=== PATIENT | female | born 1995 | race Caucasian/White ===

== ENCOUNTER 2016-09-09 17:54 | Inpatient (IN) | payer OTHER ==
[2016-09-09] MEDS ORDERED: NORMAL SALINE 1000 ML 1,000 ML IV ONE ×2 (18:34→21:30)
--- NOTE | 2016-09-09 18:41 | ER Document Report ---
ED Medical Screen (RME) - General Chief Complaint: Thigh Pain Stated Complaint: THIGH INFECTION Mode of Arrival: Ambulatory Information source: Patient Notes: 21 y/o F presents to ED c/o possible abscess/skin infection to left thigh over the last week. Also reports hx type 1 DM and states feels dehydrated similar to previous episodes of DKA. Denies sob, n/v. I have greeted and performed a rapid initial assessment of this patient. A comprehensive ED assessment and evaluation of the patient, analysis of test results and completion of the medical decision making process will be conducted by additional ED providers. TRAVEL OUTSIDE OF THE [place] IN LAST 30 DAYS: No - Related Data Allergies/Adverse Reactions: amoxicillin [Amoxicillin] Allergy (Verified 09/09/16 18:32) Past Medical History Endocrine Medical History: Reports: Hx Diabetes Mellitus Type 1 Psychiatric Medical History: Reports: Hx Attention Deficit Hyperactivity Disorder Denies: Hx Depression - Immunizations Immunizations up to date: Yes Hx Diphtheria, Pertussis, Tetanus Vaccination: Yes Physical Exam - General General appearance: Alert In distress: None - Respiratory Respiratory status: No respiratory distress - Cardiovascular Rhythm: Regular, Tachycardia Pulses: Normal: Radial Normal capillary refill: Yes
[2016-09-09 19:21] LABS: VENOUS BLOOD BASE EXCESS -11.1 mmol/L; VENOUS BLOOD HCO3 14.6 mmol/L (20-32); VENOUS BLOOD PCO2 32.3 mmHg (35-63); VENOUS BLOOD PH 7.27 (7.30-7.42)
[2016-09-09 19:24] LABS: ABSOLUTE BASOPHILS # (AUTO) 0.1 10^3/uL (0.0-0.2); ABSOLUTE EOSINOPHILS # (AUTO) 0.1 10^3/uL (0.0-0.6); ABSOLUTE LYMPHOCYTES (AUTO) 2.2 10^3/uL (0.5-4.7); ABSOLUTE MONOCYTES (AUTO) 1.1 10^3/uL (0.1-1.4); ABSOLUTE NEUT (AUTO) 12.5 10^3/uL (1.7-8.2); BASOPHILS % (AUTO) 0.6 % (0-2); EOSINOPHILS % (AUTO) 0.4 % (0-6); HEMATOCRIT 40.7 % (36.0-47.0); HEMOGLOBIN 13.4 g/dL (12.0-15.5); HGB HCT DIFFERENCE -0.5; LYMPHOCYTES % (AUTO) 13.7 % (13-45); MEAN CORPUSCULAR HEMOGLOBIN 32.3 pg (27.0-33.4); MEAN CORPUSCULAR VOLUME 98 fl (80-97); MONOCYTES % (AUTO) 7.1 % (3-13); RED BLOOD COUNT 4.15 10^6/uL (3.72-5.28); RED CELL DISTRIBUTION WIDTH 13.2 % (11.5-14.0); SEGMENTED NEUTROPHILS % (AUTO) 78.2 % (42-78)
[2016-09-09 19:25] LABS: APPEARANCE,URINE CLEAR; BILIRUBIN,URINE NEGATIVE (NEGATIVE); GLUCOSE, URINE >=500 mg/dL (NEGATIVE); KETONES,URINE 80 mg/dL (NEGATIVE); LEUKOCYTE ESTERASE,URINE TRACE (NEGATIVE); NITRITE,URINE NEGATIVE (NEGATIVE); PROTEIN,URINE 30 mg/dL (NEGATIVE); UROBILINOGEN,URINE NEGATIVE mg/dL (<2.0)
[2016-09-09 19:38] LABS: ALANINE AMINOTRANSFERASE 55 U/L (9-52); ALBUMIN 5.1 g/dL (3.5-5.0); ALKALINE PHOSPHATASE 234 U/L (38-126); ASPARTATE AMINO TRANSFERASE 78 U/L (14-36); BILIRUBIN,TOTAL 0.7 mg/dL (0.2-1.3); BLOOD UREA NITROGEN 12 mg/dL (7-20); CALCIUM 10.5 mg/dL (8.4-10.2); CREATININE RESULT 0.64 mg/dL (0.52-1.25); GLUCOSE 326 mg/dL (75-110); TOTAL PROTEIN 8.6 g/dL (6.3-8.2)
[2016-09-09 19:46] LABS: CARBON DIOXIDE 13 mmol/L (22-30); CHLORIDE 95 mmol/L (98-107); POTASSIUM 4.5 mmol/L (3.6-5.0); SODIUM 137.7 mmol/L (137-145)
[2016-09-09 19:49] LABS: ANION GAP 30 (5-19)
[2016-09-09] MEDS ORDERED: INSULIN REG, HUMAN 100 UNIT/ML 3 ML VIAL (PYX) IV ONE (21:30)
[2016-09-09] MEDS ORDERED: POTASSI CL 20 MEQ/50 ML RIDER 50 ML IV ONE (21:31)
[2016-09-09] MEDS ORDERED: DEXTROSE 5%-NORMAL SALINE 1,000 ML IV ONE (21:32)
[2016-09-09] MEDS ORDERED: CEFTRIAXONE 1 GM/D5W RTU 50 ML IV ONE (21:36)
[2016-09-09] MEDS ORDERED: HYDROMORPHONE HCL INJ/PF 2 MG/ML AMPULE IV ONE (21:36)
[2016-09-09] MEDS ORDERED: VANCOMYCIN HCL INJ 1000 MG VIAL IV ONE (21:36)
--- NOTE | 2016-09-09 21:38 | ER Document Report ---
ED General - General Chief Complaint: Abscess Stated Complaint: THIGH INFECTION Mode of Arrival: Ambulatory Notes: Patient is a 21-year-old female with past medical history of poorly controlled type I diabetes with insulin dependence who presents with 4-5 days of a progressively worsening abscess on her left inner thigh. She has also had high blood sugar readings at home and states that she feels that she is in DKA. Describes the pain on her inner thighs being a gradually worsening, constant, dull, aching pain. Touching the area worsens the pain. Nothing improves the pain. Denies a history of similar symptoms in the past and she has not seen her primary care physician regarding today's complaints. States she's been taking her insulin as directed. She has not had a fever at home. TRAVEL OUTSIDE OF THE [place] IN LAST 30 DAYS: No - Related Data Allergies/Adverse Reactions: amoxicillin [Amoxicillin] Allergy (Verified 09/09/16 18:32) Past Medical History - General Information source: Patient - Social History Smoking Status: Never Smoker Chew tobacco use (# tins/day): No Frequency of alcohol use: None Drug Abuse: None Lives with: Parents Family History: Reviewed & Not Pertinent Patient has suicidal ideation: No Patient has homicidal ideation: No Endocrine Medical History: Reports: Hx Diabetes Mellitus Type 1 Renal/ Medical History: Denies: Hx Peritoneal Dialysis Psychiatric Medical History: Reports: Hx Attention Deficit Hyperactivity Disorder Denies: Hx Depression - Immunizations Immunizations up to date: Yes Hx Diphtheria, Pertussis, Tetanus Vaccination: Yes Hx Pneumococcal Vaccination: 08/08/12 Review of Systems - Review of Systems Notes: Constitutional: Negative for fever. HENT: Negative for sore throat. Eyes: Negative for visual changes. Cardiovascular: Negative for chest pain. Respiratory: Negative for shortness of breath. Gastrointestinal: Negative for abdominal pain, vomiting or diarrhea. Genitourinary: Negative for dysuria. Musculoskeletal: Negative for back pain. Skin: Positive for left thigh abscess Neurological: Negative for headaches, weakness or numbness. 10 point ROS negative except as marked above and in HPI. Physical Exam - Vital signs Vitals: Temp Pulse Resp BP Pulse Ox 97.9 F 132 H 18 125/87 H 99 09/09/16 18:34 09/09/16 18:34 09/09/16 18:34 09/09/16 18:34 09/09/16 18:34 Interpretation: Tachycardic Notes: PHYSICAL EXAMINATION: GENERAL: Mildly ill in appearance but in no acute distress HEAD: Atraumatic, normocephalic. EYES: Pupils equal round and reactive to light, extraocular movements intact, sclera anicteric, conjunctiva are normal. ENT: nares patent, oropharynx clear without exudates. Dry mucous membranes. NECK: Normal range of motion, supple without lymphadenopathy LUNGS: Breath sounds clear to auscultation bilaterally and equal. No wheezes rales or rhonchi. HEART: Regular tachycardia without murmurs ABDOMEN: Soft, nontender, normoactive bowel sounds. No guarding, no rebound. No masses appreciated. EXTREMITIES: Normal range of motion, no pitting or edema. No cyanosis. NEUROLOGICAL: No focal neurological deficits. Moves all extremities spontaneously and on command. PSYCH: Normal mood, normal affect. SKIN: Warm, Dry, there is a 3 x 2 cm abscess of the left thigh with a 5 x 7 surrounding area of erythema. Course - Re-evaluation Re-evalutation: 09/09/16 21:37 Patient arrives mildly ill in appearance but in no acute distress. She was severely tachycardic at time of arrival. Her laboratory assessment is consistent with diabetic ketoacidosis given her acidosis, anion gap, and low bicarbonate in association with hypoglycemia. She has a large left thigh abscess with associated area of cellulitis which is the likely precipitant for her DKA today. She has inserted an IV fluids, potassium given her potassium is currently at 4.5, insulin drip, ceftriaxone, and vancomycin. The abscess will be incised and drained at the bedside. She will require admission. He does meet sepsis criteria given her tachycardia, leukocytosis. She is critically ill at this time. 09/09/16 22:03 The abscesses and incised and drained at the bedside with expression of approximately 10 mL of purulent fluid. Patient remains tachycardic but states she feels better after receiving fluids. Will discuss with the hospitalist for admission 09/09/16 22:25 I discussed this case with the hospitalist who is accepted for admission. Patient's tachycardia has improved at this time will she remains mildly tachycardic current rate at 109. - Vital Signs Vital signs: Temp Pulse Resp BP Pulse Ox 99.0 F 110 H 12 112/69 98 09/10/16 02:43 09/10/16 02:43 09/10/16 02:43 09/10/16 02:43 09/10/16 02:43 - Laboratory Result Diagrams: 09/09/16 18:50 09/09/16 23:45 Laboratory results interpreted by me: 09/09/16 09/09/16 09/09/16 18:39 18:50 18:50 WBC 16.0 H MCV 98 H Seg Neutrophils % 78.2 H Absolute Neutrophils 12.5 H VBG pH VBG pCO2 VBG HCO3 Chloride 95 L Carbon Dioxide 13 L Anion Gap 30 H Glucose 326 H POC Glucose 315 H Calcium 10.5 H AST 78 H ALT 55 H Alkaline Phosphatase 234 H Total Protein 8.6 H Albumin 5.1 H Urine Protein Urine Glucose (UA) Urine Ketones Ur Leukocyte Esterase 09/09/16 09/09/16 09/09/16 18:50 18:55 20:48 WBC MCV Seg Neutrophils % Absolute Neutrophils VBG pH 7.27 L VBG pCO2 32.3 L VBG HCO3 14.6 L Chloride Carbon Dioxide Anion Gap Glucose POC Glucose 222 H Calcium AST ALT Alkaline Phosphatase Total Protein Albumin Urine Protein 30 H Urine Glucose (UA) >=500 H Urine Ketones 80 H Ur Leukocyte Esterase TRACE H - EKG Interpretation by Me Additional EKG results interpreted by me: 09/10/16 04:26 Sinus rhythm. Rate 119. No ST elevations or depressions. QTC is 445. Critical Care Note - Critical Care Note Total time excluding time spent on procedures (mins): 35 Comments: Critical care time spent obtaining history from patient or surrogate, discussions with consultants, development of treatment plan with patient or surrogate, evaluation of patient's response to treatment, examination of patient , ordering and performing treatments and interventions, ordering and review of laboratory studies, re-evaluation of patient's condition, ordering and review of radiographic studies and review of old charts Discharge - Discharge Clinical Impression: Abscess of left thigh DKA (diabetic ketoacidoses) Qualifiers: Diabetes mellitus type: type 1 Diabetes mellitus complication detail: without coma Qualified Code(s): E10.10 - Type 1 diabetes mellitus with ketoacidosis without coma Sepsis Qualifiers: Sepsis type: sepsis due to unspecified organism Qualified Code(s): A41.9 - Sepsis, unspecified organism Condition: Fair Disposition: ADMITTED INPATIENT Admitting Provider: Hospitalist Unit Admitted: [facility]
--- NOTE | 2016-09-09 22:16 | EKG REPORT ---
SEVERITY:- BORDERLINE ECG - SINUS TACHYCARDIA PROBABLE LEFT ATRIAL ABNORMALITY BORDERLINE T ABNORMALITIES, ANTERIOR LEADS : Confirmed by: Isra Roach 09-Sep-2016 22:16:38
[2016-09-09] MEDS ORDERED: GLUCAGON,HUMAN RECOMB 1 MG INJ IM PRN (23:00)
[2016-09-09] MEDS ORDERED: ONDANSETRON HCL INJ/PF 4 MG/2 ML SDV IV PRN (23:00)
[2016-09-09] MEDS ORDERED: ACETAMINOPHEN 325 MG TABLET PO PRN (23:00)
[2016-09-09] MEDS ORDERED: DEXTROSE 50%-WATER 25 GM/50 ML DISP.SYRIN IV PRN ×2 (23:00)
[2016-09-09] MEDS ORDERED: VANCOMYCIN HCL 0 MG in DEXTROSE 5%-WATER 250 ML IV NR (23:00)
[2016-09-09] MEDS ORDERED: DEXTROSE 40% GEL 15 GM TUBE PO PRN ×2 (23:00)
[2016-09-09] MEDS ORDERED: NORMAL SALINE 100 ML with INSULIN REGULAR, HUMAN 100 UNIT IV PRN ×2 (23:00)
[2016-09-10] MEDS ORDERED: DIPHENHYDRAMINE HCL 50 MG/ML VIAL ONE (00:07)
[2016-09-10] MEDS: POTASSI CL 20 MEQ/D5-1/2NS 1L 1,000 ML IV PRN ×2 (00:38→07:04)
[2016-09-10 00:45] LABS: ANION GAP 15 (5-19); BLOOD UREA NITROGEN 10 mg/dL (7-20); CALCIUM 8.6 mg/dL (8.4-10.2); CARBON DIOXIDE 19 mmol/L (22-30); CHLORIDE 107 mmol/L (98-107); GLUCOSE 107 mg/dL (75-110); POTASSIUM 3.6 mmol/L (3.6-5.0); SODIUM 140.5 mmol/L (137-145)
[2016-09-10] MEDS: HYDROCODONE/ACETAMINOPHEN 5-325 MG TABLET PO PRN ×4 (01:50→23:03)
[2016-09-10] MEDS: KETOROLAC TROMETHAMINE INJ/PF 30 MG/1 ML SDV IV PRN ×3 (03:23→19:26)
--- NOTE | 2016-09-10 05:08 | PDOC H&P ---
History of Present Illness Admission Date/PCP: 09/09/16 23:00 EDNA REEVES MD Patient complains of: Abdominal pain, left thigh abscess, uncontrolled hyperglycemia History of Present Illness: VICK MELGOZA is a 21 year old female with a past medical history of insulin- dependent diabetes. Been her usual state of health until approximately 2 weeks ago noted a small induration swelling and pain to her left proximal medial thigh which has gradually progressed and is associated with uncontrolled blood sugar polyuria polydipsia and abdominal pain prompting him to seek evaluation emergency room where she has a large abscess and has IND performed by ER provider, also metabolic acidosis with anion gap and subsequently started on IV insulin referred to the hospitalist for admission Past Medical History Endocrine Medical History: Reports: Diabetes Mellitus Type 1 Psychiatric Medical History: Reports: Attention Deficit Hyperactivity Disorder Denies: Depression Social History Information Source: Patient Lives with: Parents Smoking Status: Current Every Day Smoker Number of Years Smokin Last Time Smoked: 08/22/16 Frequency of Alcohol Use: Occasional Hx Recreational Drug Use: Yes Drugs: Methadone Hx Prescription Drug Abuse: No - Advance Directive Resuscitation Status: Full Code Family History Family History: Hypertension Parental Family History Reviewed: Yes Children Family History Reviewed: Yes Sibling(s) Family History Reviewed.: Yes Medication/Allergy Home Medications: Insulin Aspart [Novolog Flexpen] 0 unit SUBCUT .SLD SCALE 12/03/15 Insulin Glargine,Hum.rec.anlog [Toujeo Solostar] 20 unit SQ QAM 12/03/15 Insulin Glargine,Hum.rec.anlog [Toujeo Solostar] 20 unit SQ QHS 12/03/15 Levothyroxine Sodium 25 mcg PO QAM 12/03/15 Valacyclovir HCl [Valtrex] 1,000 mg PO BID 09/10/16 Allergies/Adverse Reactions: amoxicillin [Amoxicillin] Allergy (Verified 09/09/16 18:32) Penicillins Allergy (Verified 09/10/16 04:41) Review of Systems Constitutional: ABSENT: chills, fever(s), headache(s), weight gain, weight loss Eyes: ABSENT: visual disturbances Ears: ABSENT: hearing changes Cardiovascular: ABSENT: chest pain, dyspnea on exertion, edema, orthropnea, palpitations Respiratory: ABSENT: cough, hemoptysis Gastrointestinal: ABSENT: abdominal pain, constipation, diarrhea, hematemesis, hematochezia, nausea, vomiting Genitourinary: ABSENT: dysuria, hematuria Musculoskeletal: ABSENT: joint swelling Integumentary: ABSENT: rash, wounds Neurological: ABSENT: abnormal gait, abnormal speech, confusion, dizziness, focal weakness, syncope Psychiatric: ABSENT: anxiety, depression, homidical ideation, suicidal ideation Endocrine: ABSENT: cold intolerance, heat intolerance, polydipsia, polyuria Hematologic/Lymphatic: ABSENT: easy bleeding, easy bruising Physical Exam Vital Signs: Temp Pulse Resp BP Pulse Ox 99.0 F 105 H 12 112/69 98 09/10/16 02:43 09/10/16 02:43 09/10/16 02:43 09/10/16 02:43 09/10/16 02:43 Intake & Output 09/08/16 09/09/16 09/10/16 11:59 11:59 11:59 Intake Total 400 Balance 400 Weight 61.5 kg General appearance: PRESENT: cooperative, mild distress Head exam: PRESENT: atraumatic, normocephalic Eye exam: PRESENT: conjunctiva pink, EOMI, PERRLA. ABSENT: scleral icterus Ear exam: PRESENT: normal external ear exam Mouth exam: PRESENT: dry mucosa, tongue midline Neck exam: ABSENT: carotid bruit, JVD, lymphadenopathy, thyromegaly Respiratory exam: PRESENT: clear to auscultation ti, tachypnea. ABSENT: rales , rhonchi, wheezes Cardiovascular exam: PRESENT: RRR. ABSENT: diastolic murmur, rubs, systolic murmur Pulses: PRESENT: normal dorsalis pedis pul Vascular exam: PRESENT: normal capillary refill GI/Abdominal exam: PRESENT: distended, hypoactive bowel sounds, soft. ABSENT: guarding, hernia, rebound Rectal exam: PRESENT: deferred Extremities exam: PRESENT: other - Left proximal medial thigh with 1 cm surgical incision with iodoform packing and surrounding erythema approximately 12 x 12 cm Musculoskeletal exam: PRESENT: ambulatory Neurological exam: PRESENT: alert, awake, oriented to person, oriented to place , oriented to time, oriented to situation, CN II-XII grossly intact. ABSENT: motor sensory deficit Psychiatric exam: PRESENT: appropriate affect, normal mood. ABSENT: homicidal ideation, suicidal ideation Skin exam: PRESENT: dry, intact, warm. ABSENT: cyanosis, rash Results Laboratory Results: 09/09/16 23:45 Sodium 140.5 Potassium 3.6 Chloride 107 Carbon Dioxide 19 L Anion Gap 15 BUN 10 Creatinine 0.40 L Est GFR ( Amer) > 60 Est GFR (Non-Af Amer) > 60 Glucose 107 Calcium 8.6 Assessment & Plan - Diagnosis (1) Abscess of left thigh Is this a current diagnosis for this admission?: YesPlan: Incision and drainage performed by ER provider with iodoform packing and symptomatic management wound and blood culture pending she is on IV vancomycin and surgical consult for follow-up given her uncontrolled diabetic history (2) DKA (diabetic ketoacidoses) Qualifiers: Diabetes mellitus type: type 1 Diabetes mellitus complication detail: without coma Qualified Code(s): E10.10 - Type 1 diabetes mellitus with ketoacidosis without coma Is this a current diagnosis for this admission?: YesPlan: Diabetic ketoacidosis patient has had some degree of polyuria polydipsia with nausea and uncontrolled hyperglycemia with supporting labs. Patient will receive IV fluids IV insulin serial chemistries every 6 hours for evaluation for electrolyte repletion. Continued evaluation for underlying cause if not found Patient will require diabetic education and consideration of mental health evaluation. (3) Vomiting Qualifiers: Vomiting type: unspecified Vomiting Intractability: non-intractable Nausea presence: with nausea Qualified Code(s): R11.2 - Nausea with vomiting, unspecified Is this a current diagnosis for this admission?: YesPlan: Secondary to #2 symptomatic management - Time Time Spent: 50 to 70 Minutes
[2016-09-10 05:09] LABS: ABSOLUTE EOSINOPHILS # (AUTO) 0.1 10^3/uL (0.0-0.6); ABSOLUTE LYMPHOCYTES (AUTO) 2.2 10^3/uL (0.5-4.7); ABSOLUTE NEUT (AUTO) 8.6 10^3/uL (1.7-8.2); BASOPHILS % (AUTO) 0.3 % (0-2); EOSINOPHILS % (AUTO) 0.5 % (0-6); HGB HCT DIFFERENCE 0.2; LYMPHOCYTES % (AUTO) 18.4 % (13-45); MEAN CORPUSCULAR HEMOGLOBIN 32.1 pg (27.0-33.4); MEAN CORPUSCULAR HGB CONC 33.6 g/dL (32.0-36.0); MEAN CORPUSCULAR VOLUME 95 fl (80-97); MONOCYTES % (AUTO) 8.2 % (3-13); RED BLOOD COUNT 3.57 10^6/uL (3.72-5.28); RED CELL DISTRIBUTION WIDTH 13.1 % (11.5-14.0); SEGMENTED NEUTROPHILS % (AUTO) 72.6 % (42-78); WHITE BLOOD COUNT 11.8 10^3/uL (4.0-10.5)
[2016-09-10] MEDS: HEPARIN SOD (PORCINE) 5,000 UNIT/ML 1 ML SYRINGE SUBCUT SCH ×3 (05:13→21:59)
[2016-09-10 05:16] LABS: ANION GAP 13 (5-19); BLOOD UREA NITROGEN 8 mg/dL (7-20); CALCIUM 8.8 mg/dL (8.4-10.2); CARBON DIOXIDE 20 mmol/L (22-30); CHLORIDE 108 mmol/L (98-107); CREATININE RESULT 0.45 mg/dL (0.52-1.25); GLUCOSE 65 mg/dL (75-110); POTASSIUM 3.9 mmol/L (3.6-5.0); SODIUM 140.8 mmol/L (137-145)
[2016-09-10 05:18] LABS: HEMOGLOBIN 11.4 g/dL (12.0-15.5)
[2016-09-10] MEDS ORDERED: VANCOMYCIN HCL 1,000 MG in DEXTROSE 5%-WATER 250 ML IV ONE (06:00)
[2016-09-10] MEDS ORDERED: VALACYCLOVIR HCL 500 MG TABLET PO SCH (06:00)
[2016-09-10] MEDS ORDERED: VANCOMYCIN HCL INJ 1000 MG VIAL ONE (06:30)
[2016-09-10 08:28] LABS: ANION GAP 13 (5-19); BLOOD UREA NITROGEN 7 mg/dL (7-20); CALCIUM 8.5 mg/dL (8.4-10.2); CARBON DIOXIDE 20 mmol/L (22-30); CHLORIDE 108 mmol/L (98-107); CREATININE RESULT 0.39 mg/dL (0.52-1.25); GLUCOSE 70 mg/dL (75-110); POTASSIUM 3.6 mmol/L (3.6-5.0); SODIUM 140.7 mmol/L (137-145)
[2016-09-10] MEDS: LEVOTHYROXINE SODIUM 0.025 MG TABLET PO SCH (09:09)
[2016-09-10] MEDS: DOCUSATE SODIUM 100 MG CAPSULE PO SCH ×2 (09:10→17:16)
[2016-09-10] MEDS ORDERED: SULFAMETHOXAZOLE/TRIMETHOPRIM 800-160 MG TABLET PO ONE (11:00)
[2016-09-10] MEDS ORDERED: DEXTROSE 50%-WATER SYRINGE 25 GM/50 ML DOSE IV PRN (12:38)
[2016-09-10] MEDS ORDERED: DEXTROSE 40% GEL 15 GM TUBE X 2 PO PRN (12:38)
[2016-09-10] MEDS ORDERED: GLUCAGON,HUMAN RECOMB 1 MG INJ IM PRN (12:38)
[2016-09-10] MEDS ORDERED: DEXTROSE 50%-WATER SYRINGE 12.5 GM/25 ML DOSE IV PRN (12:38)
[2016-09-10] MEDS ORDERED: DEXTROSE 40% GEL 15 GM TUBE PO PRN (12:38)
[2016-09-10] MEDS: INSULIN LISPRO 100 UNIT/ML 3 ML VIAL SUBCUT PRN ×3 (12:50→23:03)
--- NOTE | 2016-09-10 13:08 | PDOC PROGRESS REPORT ---
Subjective Progress Note for:: 09/10/16 Subjective:: Patient developed a rash early this morning after getting her vancomycin. She also had received Rocephin earlier. Physical Exam Vital Signs: Temp Pulse Resp BP Pulse Ox 98.0 F 104 H 18 117/77 98 09/10/16 11:37 09/10/16 11:37 09/10/16 11:37 09/10/16 11:37 09/10/16 11:37 Intake & Output 09/09/16 09/10/16 09/11/16 06:59 06:59 06:59 Intake Total 816 Balance 816 Weight 61.5 kg General appearance: PRESENT: no acute distress Eye exam: PRESENT: conjunctiva pink. ABSENT: scleral icterus Mouth exam: PRESENT: moist, tongue midline Neck exam: ABSENT: JVD Respiratory exam: PRESENT: clear to auscultation ti. ABSENT: rales, rhonchi, wheezes Cardiovascular exam: PRESENT: RRR. ABSENT: diastolic murmur, rubs, systolic murmur GI/Abdominal exam: PRESENT: normal bowel sounds, soft. ABSENT: distended, guarding, mass, organolmegaly, rebound, tenderness Extremities exam: ABSENT: calf tenderness, clubbing, pedal edema Neurological exam: PRESENT: alert, awake, oriented to person, oriented to place , oriented to time, oriented to situation Psychiatric exam: PRESENT: appropriate affect Skin exam: PRESENT: other - Erythema on the left thigh just below the groin. Patient reports that it's much improved from just last night as far as the area of erythema. Results Laboratory Results: 09/10/16 04:27 09/10/16 07:59 09/09/16 09/10/16 09/10/16 23:45 04:27 04:27 WBC 11.8 H RBC 3.57 L Hgb 11.4 L Hct 34.0 L MCV 95 MCH 32.1 MCHC 33.6 RDW 13.1 Plt Count 280 Seg Neutrophils % 72.6 Lymphocytes % 18.4 Monocytes % 8.2 Eosinophils % 0.5 Basophils % 0.3 Absolute Neutrophils 8.6 H Absolute Lymphocytes 2.2 Absolute Monocytes 1.0 Absolute Eosinophils 0.1 Absolute Basophils 0.0 Sodium 140.5 140.8 Potassium 3.6 3.9 Chloride 107 108 H Carbon Dioxide 19 L 20 L Anion Gap 15 13 BUN 10 8 Creatinine 0.40 L 0.45 L Est GFR ( Amer) > 60 > 60 Est GFR (Non-Af Amer) > 60 > 60 Glucose 107 65 L Calcium 8.6 8.8 09/10/16 07:59 WBC RBC Hgb Hct MCV MCH MCHC RDW Plt Count Seg Neutrophils % Lymphocytes % Monocytes % Eosinophils % Basophils % Absolute Neutrophils Absolute Lymphocytes Absolute Monocytes Absolute Eosinophils Absolute Basophils Sodium 140.7 Potassium 3.6 Chloride 108 H Carbon Dioxide 20 L Anion Gap 13 BUN 7 Creatinine 0.39 L Est GFR ( Amer) > 60 Est GFR (Non-Af Amer) > 60 Glucose 70 L Calcium 8.5 Assessment & Plan - Diagnosis (1) DKA (diabetic ketoacidoses) Qualifiers: Diabetes mellitus type: type 1 Diabetes mellitus complication detail: without coma Qualified Code(s): E10.10 - Type 1 diabetes mellitus with ketoacidosis without coma Is this a current diagnosis for this admission?: YesPlan: The patient's DKA has resolved with IV fluids and IV insulin. We will switch her back to Her usual long-acting insulin as well as sliding scale insulin. (2) Abscess of left thigh Is this a current diagnosis for this admission?: YesPlan: Patient received both vancomycin and Rocephin yesterday evening. She developed a rash after getting the vancomycin. I'm concerned that either one of these could be the cause for her drug allergy rash. Because of this we will list that she is allergic to both vancomycin as well as Rocephin. We will start her on Bactrim DS 2 tabs by mouth twice a day. - Time Time Spent with patient: 25-34 minutes - Inpatient Certification Medical Necessity: Need For IV Fluids - Plan Summary Plan Summary: If she continues to improve hopefully we can discharge home tomorrow.
[2016-09-10] MEDS ORDERED: VANCOMYCIN HCL 1,250 MG in DEXTROSE 5%-WATER 250 ML IV SCH (14:00)
[2016-09-10] MEDS: SULFAMETHOXAZOLE/TRIMETHOPRIM 800-160 MG TABLET PO SCH (21:59)
[2016-09-10] MEDS: VALACYCLOVIR HCL 500 MG TABLET PO SCH (21:59)
[2016-09-10] MEDS: INSULIN GLARGINE,HUM.REC.ANLOG 300 UNIT/3 ML INSULN.PEN SUBCUT SCH (23:04)
[2016-09-11] MEDS ORDERED: HYDROMORPHONE HCL INJ/PF 2 MG/ML AMPULE ONE (02:01)
[2016-09-11] MEDS ORDERED: HYDROMORPHONE HCL INJ/PF 2 MG/ML AMPULE IV ONE (02:15)
[2016-09-11] MEDS: KETOROLAC TROMETHAMINE INJ/PF 30 MG/1 ML SDV IV PRN (02:25)
--- NOTE | 2016-09-11 05:52 | PDOC PROGRESS REPORT ---
Subjective Progress Note for:: 09/10/16 Subjective:: Late note for 09/10/2016 rounds. Denies nausea, vomiting, fevers, chills. Reports leg still has some tenderness , redness and firmness. Physical Exam Vital Signs: Temp Pulse Resp BP Pulse Ox 98.2 F 93 18 101/88 H 98 09/10/16 20:00 09/10/16 20:00 09/10/16 20:00 09/10/16 20:00 09/10/16 20:00 Intake & Output 09/09/16 09/10/16 09/11/16 06:59 06:59 06:59 Intake Total 816 1930 Output Total 3500 Balance 816 -1570 Weight 61.5 kg 61.5 kg General appearance: PRESENT: no acute distress Eye exam: PRESENT: EOMI Mouth exam: PRESENT: tongue midline Extremities exam: PRESENT: other - Left proximal medial thigh with draining abscess. Still has surrounding several centimeters of erythema, induration and tenderness. Wound care: The wound is probed and cleansed with hydrogen peroxide soaked Q-tips. No new channels or tracts are found. The wound is packed with quarter-inch iodoform gauze. Gauze 4 x 4's and Medipore tape over that. Neurological exam: PRESENT: alert, oriented to situation Skin exam: PRESENT: erythema, warm Results Laboratory Results: 09/10/16 07:59 Sodium 140.7 Potassium 3.6 Chloride 108 H Carbon Dioxide 20 L Anion Gap 13 BUN 7 Creatinine 0.39 L Est GFR ( Amer) > 60 Est GFR (Non-Af Amer) > 60 Glucose 70 L Calcium 8.5 Assessment & Plan - Diagnosis (1) Abscess of left thigh Is this a current diagnosis for this admission?: YesPlan: Wound care performed. Continue daily dressing changes. Agree with control of blood sugars, continued IV antibiotics. Recommend continued dressing changes daily on discharge including wound packing with quarter-inch iodoform gauze.
[2016-09-11 05:53] LABS: ABSOLUTE EOSINOPHILS # (AUTO) 0.1 10^3/uL (0.0-0.6); ABSOLUTE LYMPHOCYTES (AUTO) 2.1 10^3/uL (0.5-4.7); ABSOLUTE MONOCYTES (AUTO) 0.6 10^3/uL (0.1-1.4); ABSOLUTE NEUT (AUTO) 4.7 10^3/uL (1.7-8.2); BASOPHILS % (AUTO) 0.4 % (0-2); EOSINOPHILS % (AUTO) 1.5 % (0-6); HEMATOCRIT 34.3 % (36.0-47.0); HEMOGLOBIN 11.3 g/dL (12.0-15.5); HGB HCT DIFFERENCE -0.4; LYMPHOCYTES % (AUTO) 28.3 % (13-45); MEAN CORPUSCULAR HEMOGLOBIN 31.9 pg (27.0-33.4); MEAN CORPUSCULAR VOLUME 97 fl (80-97); MONOCYTES % (AUTO) 7.8 % (3-13); RED BLOOD COUNT 3.55 10^6/uL (3.72-5.28); RED CELL DISTRIBUTION WIDTH 13.6 % (11.5-14.0); WHITE BLOOD COUNT 7.6 10^3/uL (4.0-10.5)
[2016-09-11] MEDS: HYDROCODONE/ACETAMINOPHEN 5-325 MG TABLET PO PRN (06:03)
[2016-09-11] MEDS: HEPARIN SOD (PORCINE) 5,000 UNIT/ML 1 ML SYRINGE SUBCUT SCH ×3 (06:04→22:44)
[2016-09-11 06:16] LABS: ANION GAP 14 (5-19); BLOOD UREA NITROGEN 10 mg/dL (7-20); CALCIUM 9.5 mg/dL (8.4-10.2); CARBON DIOXIDE 20 mmol/L (22-30); CHLORIDE 107 mmol/L (98-107); CREATININE RESULT 0.48 mg/dL (0.52-1.25); GLUCOSE 138 mg/dL (75-110); POTASSIUM 4.4 mmol/L (3.6-5.0); SODIUM 140.7 mmol/L (137-145)
[2016-09-11] MEDS: LEVOTHYROXINE SODIUM 0.025 MG TABLET PO SCH (10:00)
[2016-09-11] MEDS: SULFAMETHOXAZOLE/TRIMETHOPRIM 800-160 MG TABLET PO SCH ×2 (10:01→22:44)
[2016-09-11] MEDS: DOCUSATE SODIUM 100 MG CAPSULE PO SCH ×2 (10:01→17:29)
[2016-09-11] MEDS: OXYCODONE HCL IR 5 MG TABLET PO PRN ×3 (10:02→22:44)
[2016-09-11] MEDS: VALACYCLOVIR HCL 500 MG TABLET PO SCH ×2 (10:05→22:44)
[2016-09-11] MEDS: INSULIN GLARGINE,HUM.REC.ANLOG 300 UNIT/3 ML INSULN.PEN SUBCUT SCH ×2 (10:07→23:09)
--- NOTE | 2016-09-11 12:54 | PDOC PROGRESS REPORT ---
Subjective Progress Note for:: 09/11/16 Subjective:: Reports some erythema on the left thigh slightly worse than yesterday. Physical Exam Vital Signs: Temp Pulse Resp BP Pulse Ox 97.9 F 97 16 104/62 99 09/11/16 08:37 09/11/16 08:37 09/11/16 08:37 09/11/16 08:37 09/11/16 08:37 Intake & Output 09/10/16 09/11/16 09/12/16 06:59 06:59 06:59 Intake Total 816 2356 Output Total 3500 Balance 816 -1144 Weight 61.5 kg 67.6 kg General appearance: PRESENT: no acute distress Eye exam: PRESENT: conjunctiva pink. ABSENT: scleral icterus Mouth exam: PRESENT: moist, tongue midline Neck exam: ABSENT: JVD Respiratory exam: PRESENT: clear to auscultation ti. ABSENT: rales, rhonchi, wheezes Cardiovascular exam: PRESENT: RRR. ABSENT: diastolic murmur, rubs, systolic murmur GI/Abdominal exam: PRESENT: normal bowel sounds, soft. ABSENT: distended, guarding, mass, organolmegaly, rebound, tenderness Extremities exam: PRESENT: other - Erythema and swelling on the left upper thigh Neurological exam: PRESENT: alert, awake, oriented to person, oriented to place , oriented to time, oriented to situation, CN II-XII grossly intact. ABSENT: motor sensory deficit Psychiatric exam: PRESENT: appropriate affect Skin exam: PRESENT: other - Erythema on the left upper thigh medial aspect. Dressing is in place. Results Laboratory Results: 09/11/16 05:30 09/11/16 05:30 09/11/16 09/11/16 05:30 05:30 WBC 7.6 RBC 3.55 L Hgb 11.3 L Hct 34.3 L MCV 97 MCH 31.9 MCHC 33.0 RDW 13.6 Plt Count 268 Seg Neutrophils % 62.0 Lymphocytes % 28.3 Monocytes % 7.8 Eosinophils % 1.5 Basophils % 0.4 Absolute Neutrophils 4.7 Absolute Lymphocytes 2.1 Absolute Monocytes 0.6 Absolute Eosinophils 0.1 Absolute Basophils 0.0 Sodium 140.7 Potassium 4.4 Chloride 107 Carbon Dioxide 20 L Anion Gap 14 BUN 10 Creatinine 0.48 L Est GFR ( Amer) > 60 Est GFR (Non-Af Amer) > 60 Glucose 138 H Calcium 9.5 Assessment & Plan - Diagnosis (1) DKA (diabetic ketoacidoses) Qualifiers: Diabetes mellitus type: type 1 Diabetes mellitus complication detail: without coma Qualified Code(s): E10.10 - Type 1 diabetes mellitus with ketoacidosis without coma Is this a current diagnosis for this admission?: YesPlan: Resolved. (2) Abscess of left thigh Is this a current diagnosis for this admission?: YesPlan: The patient is slightly worse from yesterday. Patient was switched to Bactrim DS. Because of the slight worsening in the erythema we will add on imipenem. She is penicillin allergic and probably also is allergic to cephalosporins as well as the vancomycin. - Time Time Spent with patient: 25-34 minutes - Inpatient Certification Medical Necessity: Need for IV Antibiotics
[2016-09-11] MEDS: IMIPENEM/CILASTATIN SODIUM 1,000 MG in NORMAL SALINE 250 ML IV SCH ×2 (12:58→18:30)
[2016-09-11] MEDS: INSULIN LISPRO 100 UNIT/ML 3 ML VIAL SUBCUT PRN ×2 (17:29→23:09)
--- NOTE | 2016-09-11 21:55 | PDOC PROGRESS REPORT ---
Subjective Subjective:: Patient reports continued erythema and tenderness on her left medial thigh. Physical Exam Vital Signs: Temp Pulse Resp BP Pulse Ox 98.1 F 91 16 122/79 98 09/11/16 16:24 09/11/16 16:24 09/11/16 16:24 09/11/16 16:24 09/11/16 16:24 Intake & Output 09/10/16 09/11/16 09/12/16 06:59 06:59 06:59 Intake Total 816 2356 1660 Output Total 3500 Balance 816 -1144 1660 Weight 61.5 kg 67.6 kg General appearance: PRESENT: no acute distress Head exam: PRESENT: normocephalic Eye exam: PRESENT: EOMI Mouth exam: PRESENT: tongue midline Neurological exam: PRESENT: alert, oriented to situation Psychiatric exam: PRESENT: other - Patient is in a good mood and laughing and joking initially, but then experiences significant anxiety in anticipation of wound care. She acknowledges that she has problems with anxiety. She tolerates the wound care with moderate discomfort/pain/anxiety, despite having received pain medication prior to the wound care. She calms rapidly after wound care is complete. Skin exam: PRESENT: other - Erythema and tenderness still persist on the left medial thigh, but induration has decreased significantly. The wound is probed with Q-tips. There are no new tracts or abscesses to be drained. The wound is cleansed with hydrogen peroxide soaked Q-tips. The wound is repacked with iodoform gauze. Results Laboratory Results: 09/11/16 05:30 09/11/16 05:30 09/11/16 09/11/16 05:30 05:30 WBC 7.6 RBC 3.55 L Hgb 11.3 L Hct 34.3 L MCV 97 MCH 31.9 MCHC 33.0 RDW 13.6 Plt Count 268 Seg Neutrophils % 62.0 Lymphocytes % 28.3 Monocytes % 7.8 Eosinophils % 1.5 Basophils % 0.4 Absolute Neutrophils 4.7 Absolute Lymphocytes 2.1 Absolute Monocytes 0.6 Absolute Eosinophils 0.1 Absolute Basophils 0.0 Sodium 140.7 Potassium 4.4 Chloride 107 Carbon Dioxide 20 L Anion Gap 14 BUN 10 Creatinine 0.48 L Est GFR ( Amer) > 60 Est GFR (Non-Af Amer) > 60 Glucose 138 H Calcium 9.5 Assessment & Plan - Diagnosis (1) Abscess of left thigh Is this a current diagnosis for this admission?: YesPlan: White count has improved. Blood sugars have improved. Wound has improved slightly. Wound Care performed. No new areas to be drained. Preliminary cultures show gram-positive cocci in clusters. Suspect MRSA. Medicine is managing antibiotics. Patient has penicillin and vancomycin allergies.
[2016-09-12] MEDS: HYDROCODONE/ACETAMINOPHEN 5-325 MG TABLET PO PRN (00:54)
[2016-09-12] MEDS: IMIPENEM/CILASTATIN SODIUM 1,000 MG in NORMAL SALINE 250 ML IV SCH ×4 (00:54→18:31)
[2016-09-12] MEDS: KETOROLAC TROMETHAMINE INJ/PF 30 MG/1 ML SDV IV PRN (02:56)
[2016-09-12 05:28] LABS: ABSOLUTE EOSINOPHILS # (AUTO) 0.1 10^3/uL (0.0-0.6); ABSOLUTE LYMPHOCYTES (AUTO) 2.7 10^3/uL (0.5-4.7); ABSOLUTE MONOCYTES (AUTO) 0.6 10^3/uL (0.1-1.4); ABSOLUTE NEUT (AUTO) 3.2 10^3/uL (1.7-8.2); BASOPHILS % (AUTO) 0.7 % (0-2); EOSINOPHILS % (AUTO) 1.8 % (0-6); HEMATOCRIT 35.2 % (36.0-47.0); HGB HCT DIFFERENCE 0.8; LYMPHOCYTES % (AUTO) 40.6 % (13-45); MEAN CORPUSCULAR HEMOGLOBIN 32.5 pg (27.0-33.4); MEAN CORPUSCULAR VOLUME 96 fl (80-97); MONOCYTES % (AUTO) 8.7 % (3-13); RED BLOOD COUNT 3.69 10^6/uL (3.72-5.28); SEGMENTED NEUTROPHILS % (AUTO) 48.2 % (42-78); WHITE BLOOD COUNT 6.6 10^3/uL (4.0-10.5)
[2016-09-12 05:50] LABS: ANION GAP 13 (5-19); BLOOD UREA NITROGEN 10 mg/dL (7-20); CALCIUM 9.8 mg/dL (8.4-10.2); CARBON DIOXIDE 26 mmol/L (22-30); CHLORIDE 102 mmol/L (98-107); CREATININE RESULT 0.54 mg/dL (0.52-1.25); GLUCOSE 83 mg/dL (75-110); POTASSIUM 3.9 mmol/L (3.6-5.0); SODIUM 140.8 mmol/L (137-145)
[2016-09-12] MEDS: OXYCODONE HCL IR 5 MG TABLET PO PRN ×3 (06:34→18:35)
[2016-09-12] MEDS: HEPARIN SOD (PORCINE) 5,000 UNIT/ML 1 ML SYRINGE SUBCUT SCH ×3 (06:34→22:04)
[2016-09-12] MEDS: LEVOTHYROXINE SODIUM 0.025 MG TABLET PO SCH (08:31)
[2016-09-12] MEDS: SULFAMETHOXAZOLE/TRIMETHOPRIM 800-160 MG TABLET PO SCH ×2 (10:50→22:04)
[2016-09-12] MEDS: DOCUSATE SODIUM 100 MG CAPSULE PO SCH ×2 (10:50→18:31)
[2016-09-12] MEDS: VALACYCLOVIR HCL 500 MG TABLET PO SCH ×2 (10:51→22:04)
[2016-09-12] MEDS: INSULIN LISPRO 100 UNIT/ML 3 ML VIAL SUBCUT PRN ×2 (12:26→18:34)
--- NOTE | 2016-09-12 12:28 | PDOC PROGRESS REPORT ---
Subjective Progress Note for:: 09/12/16 Subjective:: Continues to have some pain in her right thigh. Physical Exam Vital Signs: Temp Pulse Resp BP Pulse Ox 98.3 F 94 16 106/63 98 09/12/16 04:17 09/12/16 07:00 09/12/16 04:17 09/12/16 04:17 09/12/16 04:17 Intake & Output 09/11/16 09/12/16 09/13/16 06:59 06:59 06:59 Intake Total 2356 3020 Output Total 3500 Balance -1144 3020 Weight 67.6 kg 69.7 kg General appearance: PRESENT: no acute distress Eye exam: PRESENT: conjunctiva pink. ABSENT: scleral icterus Mouth exam: PRESENT: moist, tongue midline Neck exam: ABSENT: JVD Respiratory exam: PRESENT: clear to auscultation ti. ABSENT: rales, rhonchi, wheezes Cardiovascular exam: PRESENT: RRR. ABSENT: diastolic murmur, rubs, systolic murmur GI/Abdominal exam: PRESENT: normal bowel sounds, soft. ABSENT: distended, guarding, mass, organolmegaly, rebound, tenderness Extremities exam: PRESENT: other - Swelling in the left upper thigh Neurological exam: PRESENT: alert, awake, oriented to person, oriented to place , oriented to time, oriented to situation, CN II-XII grossly intact. ABSENT: motor sensory deficit Psychiatric exam: PRESENT: appropriate affect Skin exam: PRESENT: other - Patient has erythema on the left upper thigh with a packing in place in her wound. Results Laboratory Results: 09/12/16 04:59 09/12/16 04:59 09/12/16 09/12/16 04:59 04:59 WBC 6.6 RBC 3.69 L Hgb 12.0 Hct 35.2 L MCV 96 MCH 32.5 MCHC 34.0 RDW 13.0 Plt Count 341 Seg Neutrophils % 48.2 Lymphocytes % 40.6 Monocytes % 8.7 Eosinophils % 1.8 Basophils % 0.7 Absolute Neutrophils 3.2 Absolute Lymphocytes 2.7 Absolute Monocytes 0.6 Absolute Eosinophils 0.1 Absolute Basophils 0.0 Sodium 140.8 Potassium 3.9 Chloride 102 Carbon Dioxide 26 Anion Gap 13 BUN 10 Creatinine 0.54 Est GFR ( Amer) > 60 Est GFR (Non-Af Amer) > 60 Glucose 83 Calcium 9.8 Assessment & Plan - Diagnosis (1) DKA (diabetic ketoacidoses) Qualifiers: Diabetes mellitus type: type 1 Diabetes mellitus complication detail: without coma Qualified Code(s): E10.10 - Type 1 diabetes mellitus with ketoacidosis without coma Is this a current diagnosis for this admission?: YesPlan: Resolved. (2) Abscess of left thigh Is this a current diagnosis for this admission?: YesPlan: The patient is improved from yesterday. She was started on imipenem and Bactrim DS. Wound cultures growing out gram-positive cocci. Awaiting the sensitivities. She is penicillin allergic and probably also is allergic to cephalosporins as well as the vancomycin. - Time Time Spent with patient: 15-24 minutes - Inpatient Certification Medical Necessity: Need for IV Antibiotics
--- NOTE | 2016-09-12 14:38 | PDOC PROGRESS REPORT ---
Subjective Progress Note for:: 09/12/16 Subjective:: Reports less erythema and induration. Less pain. Family is present, ready to learn wound care. Physical Exam Vital Signs: Temp Pulse Resp BP Pulse Ox 97.8 F 97 18 112/74 96 09/12/16 12:00 09/12/16 12:00 09/12/16 12:00 09/12/16 12:00 09/12/16 12:00 Intake & Output 09/11/16 09/12/16 09/13/16 06:59 06:59 06:59 Intake Total 2356 3020 818 Output Total 3500 Balance -1144 3020 818 Weight 67.6 kg 69.7 kg General appearance: PRESENT: no acute distress Eye exam: PRESENT: EOMI Mouth exam: PRESENT: tongue midline Neurological exam: PRESENT: alert, oriented to situation Skin exam: PRESENT: erythema - Left proximal medial thigh abscess. Decreased induration, erythema, tenderness. Dressing is removed. Wound is probed with hydrogen peroxide soaked Q-tips. Only extends 1-1.5 centimeter in all directions. Wound is repacked with iodoform gauze. Redressed with gauze 4 x 4' s and Medipore tape. Patient's mother assists with wound care. Results Laboratory Results: 09/12/16 04:59 09/12/16 04:59 09/12/16 09/12/16 04:59 04:59 WBC 6.6 RBC 3.69 L Hgb 12.0 Hct 35.2 L MCV 96 MCH 32.5 MCHC 34.0 RDW 13.0 Plt Count 341 Seg Neutrophils % 48.2 Lymphocytes % 40.6 Monocytes % 8.7 Eosinophils % 1.8 Basophils % 0.7 Absolute Neutrophils 3.2 Absolute Lymphocytes 2.7 Absolute Monocytes 0.6 Absolute Eosinophils 0.1 Absolute Basophils 0.0 Sodium 140.8 Potassium 3.9 Chloride 102 Carbon Dioxide 26 Anion Gap 13 BUN 10 Creatinine 0.54 Est GFR ( Amer) > 60 Est GFR (Non-Af Amer) > 60 Glucose 83 Calcium 9.8 09/09/16 23:35 Leg - Thigh Gram Stain - Final Assessment & Plan - Diagnosis (1) Abscess of left thigh Is this a current diagnosis for this admission?: YesPlan: Doing well. Likely MRSA. Final micro-and sensitivity pending. Spoke with hospitalist. Surgery will sign off. Reconsult as needed.
[2016-09-12] MEDS: INSULIN GLARGINE,HUM.REC.ANLOG 300 UNIT/3 ML INSULN.PEN SUBCUT SCH (22:05)
[2016-09-13] MEDS: IMIPENEM/CILASTATIN SODIUM 1,000 MG in NORMAL SALINE 250 ML IV SCH ×2 (00:53→08:03)
[2016-09-13] MEDS: OXYCODONE HCL IR 5 MG TABLET PO PRN ×2 (03:03→10:49)
[2016-09-13] MEDS ORDERED: DIPHENHYDRAMINE HCL 50 MG/ML VIAL IV ONE (04:00)
[2016-09-13] MEDS: INSULIN LISPRO 100 UNIT/ML 3 ML VIAL SUBCUT PRN (06:50)
[2016-09-13] MEDS: HEPARIN SOD (PORCINE) 5,000 UNIT/ML 1 ML SYRINGE SUBCUT SCH (06:50)
[2016-09-13] MEDS: INSULIN GLARGINE,HUM.REC.ANLOG 300 UNIT/3 ML INSULN.PEN SUBCUT SCH (08:27)
[2016-09-13] MEDS: LEVOTHYROXINE SODIUM 0.025 MG TABLET PO SCH (08:28)
[2016-09-13] MEDS: HYDROCODONE/ACETAMINOPHEN 5-325 MG TABLET PO PRN (08:28)
[2016-09-13] MEDS: SULFAMETHOXAZOLE/TRIMETHOPRIM 800-160 MG TABLET PO SCH (10:49)
[2016-09-13] MEDS: DOCUSATE SODIUM 100 MG CAPSULE PO SCH (10:50)
[2016-09-13] MEDS: VALACYCLOVIR HCL 500 MG TABLET PO SCH (10:50)
[2016-09-13 11:19] VITALS: BP 112/74
--- NOTE | 2016-09-13 15:01 | PDOC DISCHARGE SUMMARY ---
General - Admit/Disc Date/PCP Admission Date/Primary Care Provider: 09/09/16 23:00 EDNA REEVES MD Discharge Date: 09/13/16 - Discharge Diagnosis (1) DKA (diabetic ketoacidoses) Is this a current diagnosis for this admission?: Yes (2) Abscess of left thigh Is this a current diagnosis for this admission?: YesSummary: Sent home on a total of 14 days of antibiotics. Staph aureus sensitive to Bactrim. - Additional Information Resuscitation Status: Full Code Discharge Diet: Diabetic Discharge Activity: Activity As Tolerated Home Medications: Insulin Aspart [Novolog Flexpen] 0 unit SUBCUT .SLD SCALE 12/03/15 Insulin Glargine,Hum.rec.anlog [Toujeo Solostar] 20 unit SQ QHS 12/03/15 Levothyroxine Sodium 25 mcg PO QAM 12/03/15 Dextroamphetamine/Amphetamine [Adderall Xr 30 mg Capsule] 30 mg PO DAILY Valacyclovir HCl [Valtrex 500 mg Tablet] 1,000 mg PO Q12 09/10/16 Oxycodone HCl [Oxy-Ir 5 mg Tablet] 5 mg PO Q6HP PRN #30 tablet 09/13/16 Sulfamethoxazole/Trimethoprim [Septra-Ds 800-160 mg Tablet] 1 tab PO Q12 #22 tablet 09/13/16 History of Present Illness History of Present Illness: VICK MELGOZA is a 21 year old female presented emergency room with a large abscess on her medial thigh. The patient also had some low-grade fevers and chills. She had an I and D of the abscess and was noted to be in DKA. The patient had been taking her usual insulin dose. It is felt that the acute infection was the cause of her DKA and is admitted for IV antibiotics, IV fluids and IV insulin. Hospital Course Hospital Course: 21-year-old female type I diabetic who presented with DKA secondary to an abscess of the left thigh. The patient's DKA was treated in the usual manner with IV fluids, IV insulin with quick correction of her acidosis. Patient also was started on IV antibiotics for her leg abscess. The patient had I and D of the abscess in the emergency room and this was followed by surgery. Surgery has recommended daily dressing changes. The patient grew out staph aureus and is sent home on Bactrim to take twice a day for a total of 14 days of antibiotics. The patient's mother came into the hospital and was trained on packing changes for her abscess. Physical Exam Vital Signs: Temp Pulse Resp BP Pulse Ox 97.7 F 96 16 112/74 98 09/13/16 11:14 09/13/16 11:14 09/13/16 11:14 09/13/16 11:14 09/13/16 11:14 Intake & Output 09/12/16 09/13/16 09/14/16 06:59 06:59 06:59 Intake Total 3020 2956 Balance 3020 2956 Weight 69.7 kg 68.1 kg General appearance: PRESENT: no acute distress Eye exam: PRESENT: conjunctiva pink. ABSENT: scleral icterus Mouth exam: PRESENT: moist, tongue midline Neck exam: ABSENT: carotid bruit, JVD, lymphadenopathy, thyromegaly Respiratory exam: PRESENT: clear to auscultation ti. ABSENT: rales, rhonchi, wheezes Cardiovascular exam: PRESENT: RRR. ABSENT: diastolic murmur, rubs, systolic murmur GI/Abdominal exam: PRESENT: normal bowel sounds, soft. ABSENT: distended, guarding, mass, organolmegaly, rebound, tenderness Skin exam: PRESENT: other - Left medial thigh shows a packing in place with mild surrounding erythema. Results Laboratory Results: 09/12/16 04:59 09/12/16 04:59 09/09/16 23:35 Leg - Thigh Gram Stain - Final 09/09/16 23:35 Leg - Thigh Wound Culture - Final Staphylococcus Aureus Qualifiers PATEINT BEING DISCHARGED WITH ANY OF THE FOLLOWING DIAGNOSIS?: No Plan Discharge Plan: Patient is discharged to home. She is to do daily packing changes for her abscess. She will follow up with her primary care in 1 week. Time Spent: Less than 30 Minutes
== END 2016-09-13 11:44 | disposition home or self-care (01) | DRG 602 ==
LOC: ER 17:54 → EH 22:29 → UNDOADMIN 22:29 → EH 23:00 → 3S 09-10 02:30
PROVIDERS: ADMIT Internal Medicine; ATTEND Internal Medicine
PROC: 0H9JXZZ Drainage of Left Upper Leg Skin, External Approach (ICD-10-PCS; principal; 2016-09-09)
DX: L02.416 Cutaneous abscess of left lower limb (principal); E10.10 Type 1 diabetes mellitus with ketoacidosis without coma; L25.8 Unspecified contact dermatitis due to other agents; T36.8X5A Adverse effect of other systemic antibiotics, initial encounter; T36.1X5A Adverse effect of cephalosporins and other beta-lactam antibiotics, initial encounter; F90.9 Attention-deficit hyperactivity disorder, unspecified type; F41.9 Anxiety disorder, unspecified; B95.61 Methicillin susceptible Staphylococcus aureus infection as the cause of diseases classified elsewhere; Z79.4 Long term (current) use of insulin; Y92.239 Unspecified place in hospital as the place of occurrence of the external cause; Z88.0 Allergy status to penicillin
CPT/HCPCS: 36415; 80048; 80053; 81001; 82803; 82962; 83036; 84703; 85025; 87040; 87070; 87077; 87186; 87205; 93005; 93010; 96361; 96374; 99291; J0696; J0743; J1170; J1200; J1644; J1815; J1885; J3370; J3480; J7030; J7050; J7060

== ENCOUNTER 2016-09-29 17:59 | Inpatient (IN) | payer OTHER ==
--- NOTE | 2016-09-29 18:04 | ER Document Report ---
ED Medical Screen (RME) - General Stated Complaint: WEAKNESS Notes: 21 yo female, IDDM, c/o n/v, high blood sugars. mom noted slurred speech today around 4pm. pt c/o MIMS and back pain recently hospitalized for DKA and staph infection. pt tachycardic, tachipnic Accucheck reading [facility] pt brought back to bed for further evaluation TRAVEL OUTSIDE OF THE [place] IN LAST 30 DAYS: No - Related Data Allergies/Adverse Reactions: Penicillins Allergy (Intermediate, Verified 09/29/16 18:00) Unknown reaction amoxicillin [Amoxicillin] Allergy (Verified 09/29/16 18:00) vancomycin Adverse Reaction (Intermediate, Verified 09/29/16 18:00) PERIORBITAL EDEMA, BACK WELTS imipenem Adverse Reaction (Mild, Verified 09/29/16 18:00) [place] Past Medical History Endocrine Medical History: Reports: Hx Diabetes Mellitus Type 1 Renal/ Medical History: Denies: Hx Peritoneal Dialysis Psychiatric Medical History: Reports: Hx Attention Deficit Hyperactivity Disorder Denies: Hx Depression - Immunizations Immunizations up to date: Yes Hx Diphtheria, Pertussis, Tetanus Vaccination: Yes
[2016-09-29] MEDS ORDERED: NORMAL SALINE 1000 ML 1,000 ML IV ONE (18:22)
--- NOTE | 2016-09-29 18:46 | ER Document Report ---
ED General - General Chief Complaint: High Blood Sugar Stated Complaint: WEAKNESS Cannot obtain history due to: Unstable vital signs, Altered mental status Notes: Patient is a 21-year-old female with a history of insulin-dependent type I diabetes with frequent episodes of DKA, in fact I saw this patient approximately 2 weeks ago for presentation of DKA in the setting of a left thigh abscess who presents today obtunded, in distress with hyperglycemia at home. History is limited as the patient is lethargic and struggles to provide meaningful history or review of systems. The mother does note that the patient began complaining of headache and low back pain earlier this morning and had multiple episodes of vomiting. Apparently her blood sugars were initially normal this morning but she became more confused throughout the day having worsening vomiting which eventually prompted the mother to bring the child to the emergency department. TRAVEL OUTSIDE OF THE [place] IN LAST 30 DAYS: No - Related Data Allergies/Adverse Reactions: Penicillins Allergy (Intermediate, Verified 09/29/16 18:00) Unknown reaction amoxicillin [Amoxicillin] Allergy (Verified 09/29/16 18:00) vancomycin Adverse Reaction (Intermediate, Verified 09/29/16 18:00) PERIORBITAL EDEMA, BACK WELTS imipenem Adverse Reaction (Mild, Verified 09/29/16 18:00) [place] Home Medications: Current Home Medications Dextroamphetamine/Amphetamine [Adderall Xr 30 mg Capsule] 30 mg PO DAILY [History] Insulin Aspart [Novolog Flexpen] 0 unit SUBCUT .SLD SCALE 09/29/16 [History] Insulin Glargine,Hum.rec.anlog [Toujeo Solostar] 20 unit SQ QHS 09/29/16 [ History] Levothyroxine Sodium [Synthroid] 25 mcg PO QAM 09/29/16 [History] Valacyclovir HCl [Valacyclovir] 1,000 mg PO Q12 09/29/16 [History] Past Medical History - General Information source: Parent - Social History Smoking Status: Never Smoker Chew tobacco use (# tins/day): No Frequency of alcohol use: None Drug Abuse: None Lives with: Family Family History: Hypertension Patient has suicidal ideation: No Patient has homicidal ideation: No Endocrine Medical History: Reports: Hx Diabetes Mellitus Type 1 Renal/ Medical History: Denies: Hx Peritoneal Dialysis Psychiatric Medical History: Reports: Hx Attention Deficit Hyperactivity Disorder Denies: Hx Depression - Immunizations Immunizations up to date: Yes Hx Diphtheria, Pertussis, Tetanus Vaccination: Yes Hx Pneumococcal Vaccination: 08/08/12 Review of Systems - Review of Systems -: Yes ROS unobtainable due to patient's medical condition Physical Exam - Vital signs Vitals: Temp Pulse Resp BP Pulse Ox 97.5 F 128 H 32 H 133/86 H 97 09/29/16 18:00 09/29/16 18:00 09/29/16 18:00 09/29/16 18:00 09/29/16 18:00 Interpretation: Tachycardic, Tachypneic Notes: PHYSICAL EXAMINATION: GENERAL: Lethargic, confused, very ill in appearance. HEAD: Atraumatic, normocephalic. EYES: Pupils equal round and reactive to light, extraocular movements intact, sclera anicteric, conjunctiva are normal. ENT: nares patent, oropharynx clear without exudates. Extremely dry mucous membranes. NECK: Normal range of motion, supple without lymphadenopathy LUNGS: Tachypnea with Kussmaul's respirations HEART: Regular tachycardia without murmurs ABDOMEN: Soft, nontender, normoactive bowel sounds. No guarding, no rebound. No masses appreciated. EXTREMITIES: Normal range of motion, no pitting or edema. No cyanosis. NEUROLOGICAL: No focal neurological deficits. Moves all extremities spontaneously and on command. PSYCH: Lethargic, confused SKIN: Warm, Dry, poor turgor, no rashes or lesions noted. Course - Re-evaluation Re-evalutation: 09/29/16 18:44 Patient presents in apparent severe DKA. She is altered, but does wake to noxious stimuli. After waking her she does follow commands in all 4 extremities but does not understand what's going on or provide a meaningful history. POCT glucoses continuously read high. She has Kussmaul's respirations. She is extremely dry on exam and she is likely all right now. 2 L of fluid were immediately started on this patient white open. 2 points of access have been established. I'm awaiting laboratories. No obvious trigger although patient apparently was having multiple episodes of vomiting earlier today. 09/29/16 19:04 Patient's venous gas shows a pH of 6.8 with respiratory compensation with PCO2 of 12. I will continue to clinically reassessed the patient is an worried that she will have difficulty maintaining her work of breathing in her attempt to compensate for the severe metabolic acidosis. She will be 2 amps of bicarbonate right now and be started on a bicarbonate drip. Awaiting potassium levels before I start an insulin infusion. 09/29/16 19:13 Potassium has returned at 5.9; insulin drip will be started at this time at 0.14 units per kilo. Patient continues to protect her airway at this time. Will respond to questions. Third liter of fluid has been ordered. 09/29/16 20:02 Patient has moderately improved clinically with improved color, improved moisture in her mucous membranes. She is more interactive and able to lift herself up onto a bedpan at this time. She is working through her fourth liter at this time. Recheck of BMP pending. She has been accepted to the hospitalist for ICU admission. - Vital Signs Vital signs: Temp Pulse Resp BP Pulse Ox 98.5 F 121 H 21 H 107/61 99 09/30/16 03:00 09/30/16 00:00 09/30/16 02:10 09/30/16 02:10 09/30/16 02:10 - Laboratory Result Diagrams: 09/30/16 01:01 09/30/16 01:01 Laboratory results interpreted by me: 09/29/16 09/29/16 09/29/16 18:10 18:15 18:15 WBC RBC Hgb MCV MCHC RDW Seg Neuts % (Manual) Band Neutrophils % Lymphocytes % (Manual) Monocytes % (Manual) Metamyelocytes % Abs Neuts (Manual) VBG pH VBG pCO2 VBG HCO3 Sodium Potassium 5.9 H Chloride 97 L Carbon Dioxide < 5 L* Glucose 810 H* POC Glucose Hemoglobin A1c % Calcium 10.6 H Magnesium AST 83 H ALT 107 H Alkaline Phosphatase 284 H Creatine Kinase 239 H Total Protein 9.4 H Urine Protein 30 H Urine Glucose (UA) >=500 H Urine Ketones 80 H 09/29/16 09/29/16 09/29/16 18:37 19:33 19:33 WBC 17.1 H RBC 3.69 L Hgb 11.9 L MCV 111 H D MCHC 29.1 L RDW 16.1 H Seg Neuts % (Manual) 84 H Band Neutrophils % 2 L Lymphocytes % (Manual) 11 L Monocytes % (Manual) 2 L Metamyelocytes % 1 H Abs Neuts (Manual) 14.9 H VBG pH 6.88 L* VBG pCO2 12.2 L* VBG HCO3 2.2 L Sodium Potassium Chloride Carbon Dioxide Glucose POC Glucose Hemoglobin A1c % 11.8 H Calcium Magnesium AST ALT Alkaline Phosphatase Creatine Kinase Total Protein Urine Protein Urine Glucose (UA) Urine Ketones 09/29/16 09/29/16 09/29/16 20:20 20:20 20:50 WBC RBC Hgb MCV MCHC RDW Seg Neuts % (Manual) Band Neutrophils % Lymphocytes % (Manual) Monocytes % (Manual) Metamyelocytes % Abs Neuts (Manual) VBG pH VBG pCO2 VBG HCO3 Sodium 147.7 H Potassium 5.6 H Chloride 108 H Carbon Dioxide < 5 L* Glucose 625 H* POC Glucose 468 H* Hemoglobin A1c % Calcium 8.3 L Magnesium 2.5 H AST ALT Alkaline Phosphatase Creatine Kinase Total Protein Urine Protein Urine Glucose (UA) Urine Ketones - Diagnostic Test Radiology reviewed: Image reviewed, Reports reviewed Radiology results interpreted by me: 09/30/16 04:39 Chest x-ray: No acute infiltrate - EKG Interpretation by Me Additional EKG results interpreted by me: 09/29/16 19:14 Sinus tachycardia. Rate 122. No ST elevations or depressions. QTC is 468. Critical Care Note - Critical Care Note Total time excluding time spent on procedures (mins): 45 Comments: Critical care time spent obtaining history from patient or surrogate, discussions with consultants, development of treatment plan with patient or surrogate, evaluation of patient's response to treatment, examination of patient , ordering and performing treatments and interventions, ordering and review of laboratory studies, re-evaluation of patient's condition, ordering and review of radiographic studies and review of old charts Discharge - Discharge Clinical Impression: Metabolic acidosis, Encephalopathy DKA (diabetic ketoacidoses) Qualifiers: Diabetes mellitus type: type 1 Diabetes mellitus complication detail: without coma Qualified Code(s): E10.10 - Type 1 diabetes mellitus with ketoacidosis without coma Condition: Critical Disposition: ADMITTED INPATIENT Admitting Provider: [facility] Unit Admitted: ICU
[2016-09-29 18:53] LABS: VENOUS BLOOD BASE EXCESS -29.7 mmol/L; VENOUS BLOOD HCO3 2.2 mmol/L (20-32)
[2016-09-29 18:55] LABS: VENOUS BLOOD PCO2 12.2 mmHg (35-63); VENOUS BLOOD PH 6.88 (7.30-7.42)
[2016-09-29] MEDS ORDERED: SODIUM BICARBONATE 8.4% INJ 50 MEQ/50 ML DISP.SYRIN ONE ×3 (18:56→22:27)
[2016-09-29 18:57] LABS: ALANINE AMINOTRANSFERASE 107 U/L (9-52); ALBUMIN 4.8 g/dL (3.5-5.0); ALKALINE PHOSPHATASE 284 U/L (38-126); ASPARTATE AMINO TRANSFERASE 83 U/L (14-36); BILIRUBIN,TOTAL 0.6 mg/dL (0.2-1.3); BLOOD UREA NITROGEN 13 mg/dL (7-20); CALCIUM 10.6 mg/dL (8.4-10.2); CREATININE RESULT 0.88 mg/dL (0.52-1.25); TOTAL PROTEIN 9.4 g/dL (6.3-8.2)
[2016-09-29] MEDS ORDERED: DEXTROSE 5%-WATER 1000 ML 1,000 ML with SODIUM BICARBONATE 150 MEQ IV PRN ×4 (19:03→21:35)
[2016-09-29 19:05] LABS: APPEARANCE,URINE CLEAR; BILIRUBIN,URINE NEGATIVE (NEGATIVE); GLUCOSE, URINE >=500 mg/dL (NEGATIVE); KETONES,URINE 80 mg/dL (NEGATIVE); LEUKOCYTE ESTERASE,URINE NEGATIVE (NEGATIVE); NITRITE,URINE NEGATIVE (NEGATIVE); PROTEIN,URINE 30 mg/dL (NEGATIVE); UROBILINOGEN,URINE NEGATIVE mg/dL (<2.0)
[2016-09-29 19:08] LABS: CHLORIDE 97 mmol/L (98-107); POTASSIUM 5.9 mmol/L (3.6-5.0); SODIUM 139.1 mmol/L (137-145)
[2016-09-29] MEDS ORDERED: INSULIN REG, HUMAN 100 UNIT/ML 3 ML VIAL (PYX) IV ONE (19:11)
[2016-09-29 19:12] LABS: CARBON DIOXIDE < 5 mmol/L (22-30); GLUCOSE 810 mg/dL (75-110)
[2016-09-29] MEDS ORDERED: RINGERS SOLUTION,LACTATED 1,000 ML IV ONE (19:12)
[2016-09-29 19:44] LABS: HEMATOCRIT 40.8 % (36.0-47.0); HEMOGLOBIN 11.9 g/dL (12.0-15.5); MEAN CORPUSCULAR HEMOGLOBIN 32.2 pg (27.0-33.4); MEAN CORPUSCULAR HGB CONC 29.1 g/dL (32.0-36.0); RED BLOOD COUNT 3.69 10^6/uL (3.72-5.28); RED CELL DISTRIBUTION WIDTH 16.1 % (11.5-14.0); WHITE BLOOD COUNT 17.1 10^3/uL (4.0-10.5)
[2016-09-29 20:02] LABS: HGB HCT DIFFERENCE -5.1
[2016-09-29 20:03] LABS: MEAN CORPUSCULAR VOLUME 111 fl (80-97)
[2016-09-29 20:06] LABS: BAND NEUTROPHILS % (MANUAL) 2 % (3-5); BASOPHILS % (MANUAL) 0 % (0-2); EOSINOPHILS % (MANUAL) 0 % (0-6); LYMPHOCYTES % (MANUAL) 11 % (13-45); TOTAL CELLS COUNTED 100
[2016-09-29 20:12] LABS: ANISOCYTOSIS 1+; BURR CELLS SLIGHT; OVALOCYTES SLIGHT; PLATELET CLUMPS PRESENT; POIKILOCYTOSIS SLIGHT; TOXIC VACUOLATION PRESENT
[2016-09-29 20:27] LABS: ADD ON TESTING BLD IN LAB ACKNOWLEDGE
[2016-09-29 20:38] LABS: MAGNESIUM 2.5 mg/dL (1.6-2.3)
[2016-09-29 20:54] LABS: BLOOD UREA NITROGEN 13 mg/dL (7-20); CALCIUM 8.3 mg/dL (8.4-10.2); CHLORIDE 108 mmol/L (98-107); POTASSIUM 5.6 mmol/L (3.6-5.0); SODIUM 147.7 mmol/L (137-145)
[2016-09-29 21:11] LABS: CARBON DIOXIDE < 5 mmol/L (22-30); GLUCOSE 625 mg/dL (75-110)
[2016-09-29 21:22] LABS: URINE BARBITURATES SCREEN NEGATIVE; URINE METHADONE SCREEN NEGATIVE; URINE OPIATES LOW NEGATIVE; URINE PHENCYCLIDINE SCREEN NEGATIVE
[2016-09-29 21:31] LABS: CREATINE KINASE MB 2.65 ng/mL (<4.55)
[2016-09-29] MEDS ORDERED: 1/2 NORMAL SALINE 3,000 ML IV ONE (21:31)
[2016-09-29 21:32] LABS: TROPONIN I < 0.012 ng/mL
[2016-09-29] MEDS ORDERED: 1/2 NORMAL SALINE 1,000 ML IV PRN (21:32)
[2016-09-29] MEDS ORDERED: DEXTROSE 40% GEL 15 GM TUBE PO PRN ×2 (21:35)
[2016-09-29] MEDS ORDERED: DEXTROSE 50%-WATER 25 GM/50 ML DISP.SYRIN IV PRN ×2 (21:35)
[2016-09-29] MEDS ORDERED: GLUCAGON,HUMAN RECOMB 1 MG INJ IM PRN (21:35)
[2016-09-29] MEDS ORDERED: NORMAL SALINE 100 ML with INSULIN REGULAR, HUMAN 100 UNIT IV PRN ×2 (21:35)
--- NOTE | 2016-09-29 21:58 | PDOC H&P ---
History of Present Illness Admission Date/PCP: 09/29/16 21:13 Dr. Sukhwinder Mo Patient complains of: elev blood sugar, weak History of Present Illness: VICK MELGOZA is a 21 year old Caucasion female, diabetic since the age of 4 years, who presents to the emergency room for evaluation of above complaints. Approximately 24 hours ago, patient was complaining of mild lower back pain and mild headache. Approximately 2 AM this morning, she began having episodes of nausea and vomiting. No diarrhea or dysuria, chest or abdominal pain. Headache has resolved. Still having mild lower back pain. No sore spots, or red-hot draining areas anywhere on her body. Noted to have elevated blood sugars today, although apparently blood sugar, according to mom, who is present at patient's side with patient's approval, was normal on Accu-Chek early this morning. Compliant with her medications. No recent change in her insulin. Was noted to be quite ill in appearance upon arrival, but has improved with emergency room treatment. Hospitalized on our service the through the 6th of this month, with discharge diagnoses including abscess of left thigh, status post incision and drainage, along with diabetic ketoacidosis. Patient has been discussed with emergency room physician who evaluated the patient. ER physician has started both insulin and bicarbonate drips. IV fluid boluses also.. Laboratory results are listed in [facility] and are reviewed. X-ray summary results are listed below, with full report(s) reviewed. . EKG reviewed. Social history/personal habits: Single. No children. Works at [employer]. No tobacco use. Rare alcohol use. No current illicit drug use. History of methamphetamine use. Allergies/adverse reactions are listed in [facility] and are reviewed. Uncertain if she can tolerate cephalosporins. Home medicationshome medications initially autopopulated into [facility] may not accurately reflect patient's true medications, dosages, and/or frequencies. Compliant with medications. Recent increase in her levothyroxine dose.. Unfortunately, both patient and mom are uncertain of medications/dosages/ frequencies. Order has been entered for staff to contact family, outpatient physician, and/or pharmacy to more accurately determine medications, dosages, and frequencies and to contact physician when that has been accomplished. REVIEW OF SYSTEMS: Constitutional: No fever or chills. Eyes: Wears glasses. ENT: No swallowing problems or complaints. No hearing problems or complaints. Pulmonary: No current complaints. Cardiovascular: No current complaints, including chest pain. Gastrointestinal: See history and present illness. Skin: No current complaints, including rashes. Hematologic: No unusual easy bruising or bleeding. Neurologic: No current complaints, including numbness or tingling. Musculoskeletal: See history and present illness. Psychiatric: Mild Anxiety Endocrine: Polyuria. Polydipsia. Genitourinary: No current complaints, including dysuria. PHYSICAL EXAMINATION: 5 feet 1 inches tall. 63.5 kg. BMI 26.5 kg/m. Blood pressure 144/76. Pulse 133 and regular. Respirations are 26 and unlabored. 100% saturation on room air. Temperature 97.5. Mother is present at patient's side; patient approves. Female emergency room nurse Yamileth is present. Slightly overweight otherwise well-nourished well-developed female appearing approximately her stated age. Slightly drowsy. Otherwise, awake alert and cooperative. Mildly anxious. No agitation. Skin is warm and dry. No grossly obvious evidence of rash in areas of skin examined. No subcutaneous nodules palpated. Previous incision and drainage site on her upper medial left thigh is healing nicely, without evidence of persistent/recurrent infection. ENT: Hearing grossly normal. Tongue midline on protrusion pink and slightly tacky. Eyes: No scleral icterus. Pupils equal and reactive to light at 4 mm. [place] conjunctivae. Neck is supple and nontender to gentle active range of motion and palpation. Midline trachea. No palpable thyroid nodule mass enlargement or tenderness. Lymphatic: No palpable cervical or clavicular nodes. Neck and lymphatic exams limited by patient body habitus. Psychiatric: Intermittently mildly confused. Was not certain as to why she was being admitted to the hospital.. Lungs: Auscultation reveals clear and equal breath sounds bilaterally. No use of accessory respiratory muscles. Cardiovascular: Heart regular rate and rhythm, without gallop murmur or rub. No carotid or abdominal aortic bruits. No ankle or pedal edema. Faintly palpable dorsalis pedis pulses. Abdomen: soft, slightly distended nontender with positive bowel sounds. Unable to adequately evaluate abdomen for masses or organomegaly due to distention. Extremities: Feet are warm and dry. No calf tenderness to compression. No grossly obvious visual evidence of calf swelling. Gentle manipulation of lower extremities fails to reveal any obvious evidence of injury or instability to knees hips or ankles. Neurologic: Moves upper extremities grossly normally. Patellar reflexes absent. Absent Babinski. Light touch is intact at feet. Dorsiflexion and plantarflexion of feet 5 / 5 and symmetric. Past Medical History Cardiac Medical History: Denies: Congestive Heart Failure, DVT, Myocardial Infarction, Hyperlipidema, Hypertension, Pulmonary Embolism Pulmonary Medical History: Denies: Asthma, Chronic Obstructive Pulmonary Disease (COPD) EENT Medical History: Reports: Eyes - Glasses Denies: Ears, Throat Neurological Medical History: Denies: Hemorrhagic CVA, Ischemic CVA, Seizures Endocrine Medical History: Reports: Diabetes Mellitus Type 1, Hypothyroidism Denies: Diabetes Mellitus Type 2, Hyperthyroidism Renal/ Medical History: Reports: None GI Medical History: Denies: Cirrhosis, Gastroesophageal Reflux Disease, Hepatitis, Peptic Ulcer Disease Musculoskeltal Medical History: Denies: Arthritis Skin Medical History: Reports: None Denies: Eczema, Psoriasis Psychiatric Medical History: Reports: Attention Deficit Hyperactivity Disorder, General Anxiety Disorder, Substance Abuse - History of methamphetamine use. Denies: Depression, Tobacco Dependency Hematology: Reports: None Infectious Medical History: Denies: Hepatitis B, Hepatitis C Past Surgical History Past Surgical History: Reports: None Social History Information Source: Patient, Parent, Emergency Med Personnel, [facility] Records Smoking Status: Never Smoker Frequency of Alcohol Use: Occasional Hx Recreational Drug Use: Yes Drugs: Other - History of methamphetamine use Hx Prescription Drug Abuse: No - Advance Directive Resuscitation Status: Full Code Surrogate healthcare decision maker:: Mother Family History Family History: Hypertension Parental Family History Reviewed: Yes Children Family History Reviewed: NA Sibling(s) Family History Reviewed.: Yes Medication/Allergy Home Medications: Dextroamphetamine/Amphetamine [Adderall Xr 30 mg Capsule] 30 mg PO DAILY Insulin Aspart [Novolog Flexpen] 0 units SQ .SLIDINGSCALE 09/30/16 Insulin Glargine,Hum.rec.anlog [Toujeo Solostar] 20 units SQ QHS 09/30/16 Levothyroxine Sodium [Synthroid 0.025 mg Tablet] 0.025 mg PO QAM 09/30/16 Valacyclovir HCl [Valacyclovir] 1,000 mg PO Q12 09/30/16 Allergies/Adverse Reactions: Penicillins Allergy (Intermediate, Verified 09/29/16 18:00) Unknown reaction amoxicillin [Amoxicillin] Allergy (Verified 09/29/16 18:00) vancomycin Adverse Reaction (Intermediate, Verified 09/29/16 18:00) PERIORBITAL EDEMA, BACK WELTS imipenem Adverse Reaction (Mild, Verified 09/29/16 18:00) [place] Physical Exam Vital Signs: Temp Pulse Resp BP Pulse Ox 97.5 F 128 H 31 H 121/92 H 100 09/29/16 18:00 09/29/16 18:00 09/29/16 20:31 09/29/16 20:31 09/29/16 20:31 Results Impressions: Chest X-Ray 09/29/16 18:46 IMPRESSION: NO ACUTE RADIOGRAPHIC FINDING IN THE CHEST. Assessment & Plan - Diagnosis (1) Acute encephalopathy Is this a current diagnosis for this admission?: YesPlan: Mild. Likely due to underlying DKA. Follow clinically. Should clear with time and treatment. (2) DKA, type 1 Qualifiers: Diabetes mellitus complication detail: without coma Qualified Code(s ): E10.10 - Type 1 diabetes mellitus with ketoacidosis without coma Is this a current diagnosis for this admission?: YesPlan: Patient will be admitted under DKA protocol. Insulin drip. Vigorous fluid hydration. Strict intake and output. Q 4 hours chemistry 7. Hourly Accu- Cheks. Addition of dextrose to intravenous fluid once serum glucose and/or Accu- Cheks 275 or less. IV Pepcid for gastritis prophylaxis. Patient is full code. I have strongly encouraged patient not to get out of bed without notifying staff , to avoid a fall with injury. Knee high SCDs for DVT prophylaxis, along with subcutaneous Lovenox. Impression and plans were discussed with patient and mother, both of whom concur. Critical care Time spent in evaluation and management of patient: 68 minutes (3) DVT prophylaxis Is this a current diagnosis for this admission?: Yes (4) Leukocytosis Qualifiers: Leukocytosis type: unspecified Qualified Code(s): D72.829 - Elevated white blood cell count, unspecified Is this a current diagnosis for this admission?: YesPlan: Likely a stress reaction. No obvious source of infection at this point in time. Follow-up CBC with differential. (5) Anxiety Is this a current diagnosis for this admission?: YesPlan: Clinically acceptable level at present. Follow clinically. Treat when necessary. (6) Elevated LFTs Is this a current diagnosis for this admission?: YesPlan: Chronic problem since last year; repeat hepatic profile, along with hepatitis screen. - Inpatient Certification Based on my medical assessment, after consideration of the patient's comorbidities, presenting symptoms, or acuity I expect that the services needed warrant INPATIENT care.: Yes I certify that my determination is in accordance with my understanding of Medicare's requirements for reasonable and necessary INPATIENT services [42 CFR 412.3e].: Yes Medical Necessity: Need Close Monitoring Due to Risk of Patient Decompensation, Need For IV Fluids, Need For Continuous Telemetry Monitoring, Risk of Complication if Not Cared For in Hospital, Risk of Diagnosis Which Will Require Inpatient Eval/Care/Monitoring Post Hospital Care: D/C or Transfer Summary
[2016-09-29 22:05] LABS: ARTERIAL BLOOD BASE EXCESS -29.1 mmol/L; ARTERIAL BLOOD O2 SATURATION 97.3 % (94-98)
[2016-09-29] MEDS ORDERED: SODIUM BICARBONATE 8.4% INJ 50 MEQ/50 ML DISP.SYRIN IV ONE (22:19)
[2016-09-29] MEDS: FAMOTIDINE INJ/PF 20 MG/2 ML SDV IV SCH (22:25)
[2016-09-29] MEDS: DEXTROSE 5%-WATER 1000 ML 1,000 ML with SODIUM BICARBONATE 150 MEQ IV PRN ×2 (23:28)
[2016-09-30 00:38] LABS: PROTHROMBIN TIME 17.5 SEC (11.4-15.4)
[2016-09-30 00:39] LABS: PARTIAL THROMBOPLASTIN TIME 31.7 SEC (23.5-35.8)
[2016-09-30 01:09] LABS: ARTERIAL BLOOD BASE EXCESS -20.3 mmol/L
[2016-09-30 01:23] LABS: BLOOD UREA NITROGEN 8 mg/dL (7-20); CALCIUM 7.1 mg/dL (8.4-10.2); CHLORIDE 111 mmol/L (98-107); CREATININE RESULT 0.55 mg/dL (0.52-1.25); GLUCOSE 157 mg/dL (75-110); SODIUM 142.2 mmol/L (137-145)
[2016-09-30 01:34] LABS: CARBON DIOXIDE 8 mmol/L (22-30)
[2016-09-30 01:42] LABS: ANION GAP 23 (5-19)
[2016-09-30 01:46] LABS: HEMATOCRIT 35.7 % (36.0-47.0); HEMOGLOBIN 11.3 g/dL (12.0-15.5); HGB HCT DIFFERENCE -1.8; MEAN CORPUSCULAR HEMOGLOBIN 32.2 pg (27.0-33.4); MEAN CORPUSCULAR HGB CONC 31.7 g/dL (32.0-36.0); RED BLOOD COUNT 3.51 10^6/uL (3.72-5.28); RED CELL DISTRIBUTION WIDTH 15.1 % (11.5-14.0); WHITE BLOOD COUNT 19.3 10^3/uL (4.0-10.5)
[2016-09-30 01:47] LABS: MEAN CORPUSCULAR VOLUME 102 fl (80-97)
[2016-09-30 01:49] LABS: BASOPHILS % (MANUAL) 0 % (0-2); EOSINOPHILS % (MANUAL) 0 % (0-6); LYMPHOCYTES % (MANUAL) 15 % (13-45); TOTAL CELLS COUNTED 100
[2016-09-30 01:52] LABS: ANISOCYTOSIS SLIGHT; ROULEAUX SLIGHT; SCHISTOCYTES SLIGHT; STOMATOCYTES SLIGHT; TOXIC GRANULATION SLIGHT; TOXIC VACUOLATION PRESENT
[2016-09-30] MEDS ORDERED: POTASSI CL 20 MEQ/50 ML RIDER 20 MEQ/50 ML RTUPB IV ONE ×2 (02:30→05:38)
[2016-09-30] MEDS: POTASSI CL 20 MEQ/D5-1/2NS 1L 1,000 ML IV PRN ×2 (02:41→06:15)
[2016-09-30] MEDS: DEXTROSE 5%-WATER 1000 ML 1,000 ML with SODIUM BICARBONATE 150 MEQ IV PRN ×2 (04:32)
[2016-09-30] MEDS: PROMETHAZINE HCL INJ 25 MG/1 ML VIAL IV PRN ×3 (04:45→20:08)
[2016-09-30 04:56] LABS: ALANINE AMINOTRANSFERASE 83 U/L (9-52); ALBUMIN 3.4 g/dL (3.5-5.0); ALKALINE PHOSPHATASE 150 U/L (38-126); ANION GAP 19 (5-19); ASPARTATE AMINO TRANSFERASE 114 U/L (14-36); BILIRUBIN,TOTAL 0.4 mg/dL (0.2-1.3); BLOOD UREA NITROGEN 6 mg/dL (7-20); CALCIUM 7.6 mg/dL (8.4-10.2); CARBON DIOXIDE 12 mmol/L (22-30); CHLORIDE 110 mmol/L (98-107); CHOLESTEROL 207.02 mg/dL (0-200); CREATININE RESULT 0.43 mg/dL (0.52-1.25); Direct HDL 42 mg/dL (>40); GLUCOSE 115 mg/dL (75-110); POTASSIUM 3.4 mmol/L (3.6-5.0); SODIUM 141.2 mmol/L (137-145); TOTAL PROTEIN 6.1 g/dL (6.3-8.2); TRIGLYCERIDES 353 mg/dL (<150)
[2016-09-30 05:07] LABS: DIRECT LDL 119 mg/dL (<100)
[2016-09-30 05:11] LABS: VLDL CHOLESTEROL 70.6 mg/dL (10-31)
[2016-09-30] MEDS ORDERED: POTASSI CL 20 MEQ/D5-1/2NS 1L 1,000 ML IV PRN (07:50)
--- NOTE | 2016-09-30 08:15 | EKG REPORT ---
SEVERITY:- OTHERWISE NORMAL ECG - SINUS TACHYCARDIA : Confirmed by: Kelsi Cuello MD 30-Sep-2016 08:14:57
[2016-09-30 08:50] LABS: VENOUS BLOOD BASE EXCESS -3.8 mmol/L; VENOUS BLOOD HCO3 18.4 mmol/L (20-32); VENOUS BLOOD PCO2 25.5 mmHg (35-63); VENOUS BLOOD PH 7.48 (7.30-7.42)
[2016-09-30 09:03] LABS: ANION GAP 15 (5-19); BLOOD UREA NITROGEN 4 mg/dL (7-20); CALCIUM 7.5 mg/dL (8.4-10.2); CARBON DIOXIDE 19 mmol/L (22-30); CHLORIDE 107 mmol/L (98-107); GLUCOSE 93 mg/dL (75-110); POTASSIUM 3.1 mmol/L (3.6-5.0); SODIUM 140.6 mmol/L (137-145)
[2016-09-30] MEDS: ENOXAPARIN SODIUM INJ 40 MG/0.4 ML DISP.SYRIN SUBCUT SCH (09:07)
[2016-09-30] MEDS: FAMOTIDINE INJ/PF 20 MG/2 ML SDV IV SCH ×2 (09:08→22:05)
[2016-09-30] MEDS: DOCUSATE SODIUM 100 MG CAPSULE PO SCH ×2 (09:09→17:31)
[2016-09-30 09:10] LABS: ABSOLUTE LYMPHOCYTES (AUTO) 1.7 10^3/uL (0.5-4.7); ABSOLUTE MONOCYTES (AUTO) 0.8 10^3/uL (0.1-1.4); ABSOLUTE NEUT (AUTO) 7.5 10^3/uL (1.7-8.2); BASOPHILS % (AUTO) 0.3 % (0-2); EOSINOPHILS % (AUTO) 0.1 % (0-6); HEMATOCRIT 29.7 % (36.0-47.0); HEMOGLOBIN 10.1 g/dL (12.0-15.5); HGB HCT DIFFERENCE 0.6; LYMPHOCYTES % (AUTO) 16.5 % (13-45); MEAN CORPUSCULAR HEMOGLOBIN 32.5 pg (27.0-33.4); MEAN CORPUSCULAR HGB CONC 33.8 g/dL (32.0-36.0); RED BLOOD COUNT 3.09 10^6/uL (3.72-5.28); RED CELL DISTRIBUTION WIDTH 14.1 % (11.5-14.0); SEGMENTED NEUTROPHILS % (AUTO) 75.1 % (42-78)
[2016-09-30 09:14] LABS: MEAN CORPUSCULAR VOLUME 96 fl (80-97)
[2016-09-30] MEDS ORDERED: LEVOFLOXACIN 750 MG/D5W RTU 750 MG/150 ML RTUPB IV SCH (10:00)
[2016-09-30] MEDS ORDERED: GLUCAGON,HUMAN RECOMB 1 MG INJ IM PRN (10:02)
[2016-09-30] MEDS ORDERED: DEXTROSE 50%-WATER 25 GM/50 ML DISP.SYRIN IV PRN ×2 (10:02)
[2016-09-30] MEDS ORDERED: DEXTROSE 40% GEL 15 GM TUBE PO PRN ×2 (10:02)
[2016-09-30] MEDS ORDERED: POTASSIUM CHLORIDE 10 MEQ TABLET.SA PO ONE (10:05)
[2016-09-30] MEDS: POTASSI CL 20 MEQ/NS 1L 1,000 ML IV PRN ×2 (11:05→22:11)
[2016-09-30] MEDS ORDERED: INSULIN GLARGINE,HUM.REC.ANLOG 300 UNIT/3 ML INSULN.PEN SUBCUT ONE (12:00)
[2016-09-30 12:09] LABS: PATH REVIEW PATHOLOGIST REVIEWED
[2016-09-30] MEDS: ACETAMINOPHEN 325 MG TABLET PO PRN ×2 (13:52→22:05)
[2016-09-30] MEDS: INSULIN LISPRO 100 UNIT/ML 3 ML VIAL SUBCUT PRN ×2 (14:03→20:08)
--- NOTE | 2016-09-30 18:52 | PDOC PROGRESS REPORT ---
Subjective Progress Note for:: 09/30/16 Subjective:: No complaints. No issues reported. Patient denies fever, chills, headache, new focal weakness, chest pain, shortness of breath, abdominal pain, nausea, vomiting, diarrhea, constipation. Physical Exam Vital Signs: Temp Pulse Resp BP Pulse Ox 98.5 F 106 H 18 101/53 L 98 09/30/16 15:25 09/30/16 15:25 09/30/16 15:25 09/30/16 15:25 09/30/16 15:25 Intake & Output 09/29/16 09/30/16 10/01/16 06:59 06:59 06:59 Intake Total 4742 2563 Output Total 2550 900 Balance 2192 1663 Weight 65.9 kg GENERAL: No acute distress HEENT: Conjunctiva clear, nonicteric, moist mucous membranes, no JVD, midline trachea RESPIRATORY: Clear to auscultation bilaterally, no wheezes, no rhonchi CARDIAC: Regular rate and rhythm, no murmurs/gallops/rubs ABDOMEN: Soft, nondistended, nontender, positive bowel sounds, no rebound, no guarding EXTREMETIES: No edema, cyanosis, clubbing NEUROLOGIC: Alert, oriented to person/place/time, CN's grossly intact, no focal deficits SKIN: No rash, wounds PSYCH: Normal mood, normal affect Results Laboratory Results: 09/30/16 08:19 09/30/16 08:19 09/29/16 09/30/16 09/30/16 21:50 00:10 00:23 WBC RBC Hgb Hct MCV MCH MCHC RDW Plt Count Seg Neutrophils % Lymphocytes % Monocytes % Eosinophils % Basophils % Absolute Neutrophils Absolute Lymphocytes Absolute Monocytes Absolute Eosinophils Absolute Basophils Carbonic Acid 0.39 L Cancelled HCO3/H2CO3 Ratio 6:1 Cancelled ABG pH 6.90 L* Cancelled ABG pCO2 12.9 L* Cancelled ABG pO2 153.8 H Cancelled ABG HCO3 2.5 L Cancelled ABG O2 Saturation 97.3 Cancelled ABG Base Excess -29.1 Cancelled VBG pH VBG pCO2 VBG HCO3 VBG Base Excess FiO2 ROOM AIR Cancelled Sodium Cancelled Potassium Cancelled Chloride Cancelled Carbon Dioxide Cancelled Anion Gap Cancelled BUN Cancelled Creatinine Cancelled Est GFR ( Amer) Cancelled Est GFR (Non-Af Amer) Cancelled Glucose Cancelled Calcium Cancelled Total Bilirubin AST ALT Alkaline Phosphatase Total Protein Albumin Triglycerides Cholesterol LDL Cholesterol Direct VLDL Cholesterol HDL Cholesterol 09/30/16 09/30/16 09/30/16 00:23 00:55 01:01 WBC Cancelled 19.3 H RBC Cancelled 3.51 L Hgb Cancelled 11.3 L Hct Cancelled 35.7 L MCV Cancelled 102 H D MCH Cancelled 32.2 MCHC Cancelled 31.7 L RDW Cancelled 15.1 H Plt Count Cancelled 304 Seg Neutrophils % Cancelled Not Reportable Lymphocytes % Cancelled Not Reportable Monocytes % Cancelled Not Reportable Eosinophils % Cancelled Not Reportable Basophils % Cancelled Not Reportable Absolute Neutrophils Cancelled Not Reportable Absolute Lymphocytes Cancelled Not Reportable Absolute Monocytes Cancelled Not Reportable Absolute Eosinophils Cancelled Not Reportable Absolute Basophils Cancelled Not Reportable Carbonic Acid 0.43 L HCO3/H2CO3 Ratio 12:1 ABG pH 7.20 L* ABG pCO2 14.2 L* ABG pO2 107.9 H ABG HCO3 5.4 L ABG O2 Saturation 97.0 ABG Base Excess -20.3 VBG pH VBG pCO2 VBG HCO3 VBG Base Excess FiO2 ROOM AIR Sodium Potassium Chloride Carbon Dioxide Anion Gap BUN Creatinine Est GFR ( Amer) Est GFR (Non-Af Amer) Glucose Calcium Total Bilirubin AST ALT Alkaline Phosphatase Total Protein Albumin Triglycerides Cholesterol LDL Cholesterol Direct VLDL Cholesterol HDL Cholesterol 09/30/16 09/30/16 09/30/16 01:01 04:22 08:19 WBC RBC Hgb Hct MCV MCH MCHC RDW Plt Count Seg Neutrophils % Lymphocytes % Monocytes % Eosinophils % Basophils % Absolute Neutrophils Absolute Lymphocytes Absolute Monocytes Absolute Eosinophils Absolute Basophils Carbonic Acid HCO3/H2CO3 Ratio ABG pH ABG pCO2 ABG pO2 ABG HCO3 ABG O2 Saturation ABG Base Excess VBG pH VBG pCO2 VBG HCO3 VBG Base Excess FiO2 Sodium 142.2 141.2 140.6 Potassium 4.0 D 3.4 L 3.1 L Chloride 111 H 110 H 107 Carbon Dioxide 8 L* 12 L 19 L Anion Gap 23 H 19 15 BUN 8 6 L 4 L Creatinine 0.55 0.43 L 0.40 L Est GFR ( Amer) > 60 > 60 > 60 Est GFR (Non-Af Amer) > 60 > 60 > 60 Glucose 157 H 115 H 93 Calcium 7.1 L 7.6 L 7.5 L Total Bilirubin 0.4 AST 114 H ALT 83 H Alkaline Phosphatase 150 H Total Protein 6.1 L Albumin 3.4 L Triglycerides 353 H Cholesterol 207.02 H LDL Cholesterol Direct 119 H VLDL Cholesterol 70.6 H HDL Cholesterol 42 09/30/16 09/30/16 08:19 08:19 WBC 10.0 RBC 3.09 L Hgb 10.1 L Hct 29.7 L MCV 96 D MCH 32.5 MCHC 33.8 RDW 14.1 H Plt Count 286 Seg Neutrophils % 75.1 Lymphocytes % 16.5 Monocytes % 8.0 Eosinophils % 0.1 Basophils % 0.3 Absolute Neutrophils 7.5 Absolute Lymphocytes 1.7 Absolute Monocytes 0.8 Absolute Eosinophils 0.0 Absolute Basophils 0.0 Carbonic Acid HCO3/H2CO3 Ratio ABG pH ABG pCO2 ABG pO2 ABG HCO3 ABG O2 Saturation ABG Base Excess VBG pH 7.48 H VBG pCO2 25.5 L VBG HCO3 18.4 L VBG Base Excess -3.8 FiO2 Sodium Potassium Chloride Carbon Dioxide Anion Gap BUN Creatinine Est GFR ( Amer) Est GFR (Non-Af Amer) Glucose Calcium Total Bilirubin AST ALT Alkaline Phosphatase Total Protein Albumin Triglycerides Cholesterol LDL Cholesterol Direct VLDL Cholesterol HDL Cholesterol Impressions: Chest X-Ray 09/29/16 18:46 IMPRESSION: NO ACUTE RADIOGRAPHIC FINDING IN THE CHEST. Assessment & Plan - Diagnosis (1) DKA (diabetic ketoacidoses) Qualifiers: Diabetes mellitus type: type 1 Diabetes mellitus complication detail: without coma Qualified Code(s): E10.10 - Type 1 diabetes mellitus with ketoacidosis without coma Is this a current diagnosis for this admission?: YesPlan: Resolved. Discontinue insulin drip. Start subcutaneous insulin regimen. Discharge home in the morning if stable. (2) Leukocytosis Qualifiers: Leukocytosis type: unspecified Qualified Code(s): D72.829 - Elevated white blood cell count, unspecified Is this a current diagnosis for this admission?: YesPlan: Resolved. Likely secondary to DKA and dehydration. Chest x-ray negative, urinalysis negative, influenza negative. - Time Time Spent with patient: 35 or more minutes Anticipated discharge: Home Within: within 24 hours
[2016-09-30] MEDS ORDERED: MAG HYDROX/AL HYDROX/SIMETH SUSP 30 ML UDCUP PO PRN (19:41)
[2016-09-30 21:38] LABS: CREATINE KINASE MB 0.87 ng/mL (<4.55); TROPONIN I 0.023 ng/mL
[2016-10-01] MEDS: INSULIN LISPRO 100 UNIT/ML 3 ML VIAL SUBCUT PRN ×3 (05:22→16:39)
[2016-10-01] MEDS: PROMETHAZINE HCL INJ 25 MG/1 ML VIAL IV PRN ×2 (05:22→15:21)
[2016-10-01] MEDS ORDERED: INSULIN LISPRO 100 UNIT/ML 3 ML VIAL SUBCUT ONE (07:17)
[2016-10-01] MEDS: POTASSI CL 20 MEQ/NS 1L 1,000 ML IV PRN ×2 (07:37→17:23)
[2016-10-01] MEDS: ENOXAPARIN SODIUM INJ 40 MG/0.4 ML DISP.SYRIN SUBCUT SCH (07:37)
[2016-10-01 08:22] LABS: ABSOLUTE LYMPHOCYTES (AUTO) 1.1 10^3/uL (0.5-4.7); ABSOLUTE MONOCYTES (AUTO) 0.5 10^3/uL (0.1-1.4); ABSOLUTE NEUT (AUTO) 8.2 10^3/uL (1.7-8.2); BASOPHILS % (AUTO) 0.1 % (0-2); HEMATOCRIT 37.6 % (36.0-47.0); HEMOGLOBIN 11.8 g/dL (12.0-15.5); HGB HCT DIFFERENCE -2.2; LYMPHOCYTES % (AUTO) 11.1 % (13-45); MEAN CORPUSCULAR HEMOGLOBIN 32.3 pg (27.0-33.4); MEAN CORPUSCULAR HGB CONC 31.4 g/dL (32.0-36.0); MONOCYTES % (AUTO) 4.8 % (3-13); RED BLOOD COUNT 3.65 10^6/uL (3.72-5.28); RED CELL DISTRIBUTION WIDTH 15.8 % (11.5-14.0); WHITE BLOOD COUNT 9.7 10^3/uL (4.0-10.5)
[2016-10-01 08:27] LABS: MEAN CORPUSCULAR VOLUME 103 fl (80-97)
[2016-10-01 08:31] LABS: BLOOD UREA NITROGEN 5 mg/dL (7-20); CALCIUM 9.3 mg/dL (8.4-10.2); CHLORIDE 115 mmol/L (98-107); GLUCOSE 218 mg/dL (75-110); SODIUM 147.8 mmol/L (137-145)
[2016-10-01 08:47] LABS: POTASSIUM 4.3 mmol/L (3.6-5.0)
[2016-10-01 08:48] LABS: CARBON DIOXIDE < 5 mmol/L (22-30)
[2016-10-01] MEDS ORDERED: INSULIN GLARGINE,HUM.REC.ANLOG 300 UNIT/3 ML INSULN.PEN SUBCUT SCH (10:00)
[2016-10-01] MEDS: FAMOTIDINE INJ/PF 20 MG/2 ML SDV IV SCH ×2 (11:11→22:16)
[2016-10-01] MEDS: DOCUSATE SODIUM 100 MG CAPSULE PO SCH ×2 (11:17→17:21)
[2016-10-01] MEDS: ACETAMINOPHEN 325 MG TABLET PO PRN (15:21)
--- NOTE | 2016-10-01 16:56 | EKG REPORT ---
SEVERITY:- BORDERLINE ECG - SINUS TACHYCARDIA VENTRICULAR PREMATURE COMPLEX BORDERLINE T ABNORMALITIES, DIFFUSE LEADS : Confirmed by: Kelsi Cuello MD 01-Oct-2016 16:55:19
[2016-10-01] MEDS: ALPRAZOLAM 0.25 MG TABLET PO PRN (17:22)
--- NOTE | 2016-10-01 19:31 | PDOC PROGRESS REPORT ---
Subjective Progress Note for:: 10/01/16 Subjective:: The patient has had episodes of anxiety. As she and her mother to give history of prior episodes of anxiety at home. The patient worries that her blood sugars are not under control. They range from a low of 85 to a high of 400. She is a labile type I diabetic and her sugars are usually in the 200s at home. She presented with nausea vomiting in his gone on to have some degree of abdominal cramping and loose stools. Physical Exam Vital Signs: Temp Pulse Resp BP Pulse Ox 98.7 F 124 H 20 110/57 L 99 10/01/16 16:00 10/01/16 16:00 10/01/16 16:00 10/01/16 16:00 10/01/16 16:00 Intake & Output 09/30/16 10/01/16 10/02/16 06:59 06:59 06:59 Intake Total 4742 3263 1400 Output Total 2550 1300 Balance 2192 1963 1400 Weight 65.9 kg Additional comments: GENERAL: No acute distress HEENT: Conjunctiva clear, nonicteric, moist mucous membranes, no JVD, midline trachea RESPIRATORY: Clear to auscultation bilaterally, no wheezes, no rhonchi CARDIAC: Regular rate and rhythm, no murmurs/gallops/rubs ABDOMEN: Soft, nondistended, nontender, positive bowel sounds, no rebound, no guarding EXTREMETIES: No edema, cyanosis, clubbing NEUROLOGIC: Alert, oriented to person/place/time, CN's grossly intact, no focal deficits SKIN: No rash, wounds PSYCH: Pleasant but slightly anxious Results Laboratory Results: 10/01/16 08:07 10/01/16 08:02 10/01/16 10/01/16 10/01/16 06:31 06:31 08:02 WBC Cancelled RBC Cancelled Hgb Cancelled Hct Cancelled MCV Cancelled MCH Cancelled MCHC Cancelled RDW Cancelled Plt Count Cancelled Seg Neutrophils % Cancelled Lymphocytes % Cancelled Monocytes % Cancelled Eosinophils % Cancelled Basophils % Cancelled Absolute Neutrophils Cancelled Absolute Lymphocytes Cancelled Absolute Monocytes Cancelled Absolute Eosinophils Cancelled Absolute Basophils Cancelled Sodium Cancelled 147.8 H Potassium Cancelled 4.3 D Chloride Cancelled 115 H Carbon Dioxide Cancelled < 5 L* Anion Gap Cancelled Not Reportable BUN Cancelled 5 L Creatinine Cancelled 0.70 Est GFR ( Amer) Cancelled > 60 Est GFR (Non-Af Amer) Cancelled > 60 Glucose Cancelled 218 H Calcium Cancelled 9.3 10/01/16 08:07 WBC 9.7 RBC 3.65 L Hgb 11.8 L Hct 37.6 MCV 103 H D MCH 32.3 MCHC 31.4 L RDW 15.8 H Plt Count 322 Seg Neutrophils % 84.0 H Lymphocytes % 11.1 L Monocytes % 4.8 Eosinophils % 0.0 Basophils % 0.1 Absolute Neutrophils 8.2 Absolute Lymphocytes 1.1 Absolute Monocytes 0.5 Absolute Eosinophils 0.0 Absolute Basophils 0.0 Sodium Potassium Chloride Carbon Dioxide Anion Gap BUN Creatinine Est GFR ( Amer) Est GFR (Non-Af Amer) Glucose Calcium 09/30/16 09/30/16 20:35 20:35 Creatine Kinase 157 H CK-MB (CK-2) 0.87 Troponin I 0.023 Impressions: Chest X-Ray 09/30/16 00:00 IMPRESSION: NO ACUTE RADIOGRAPHIC FINDING IN THE CHEST. Lung Scan-VQ NM 09/30/16 21:55 IMPRESSION: NORMAL VENTILATION-PERFUSION LUNG SCAN. NEGATIVE FOR PULMONARY EMBOLI. Assessment & Plan - Diagnosis (1) Nausea and vomiting Qualifiers: Vomiting type: unspecified Vomiting Intractability: non-intractable Qualified Code(s): R11.2 - Nausea with vomiting, unspecified Plan: The nausea and vomiting may be due to her hyperglycemia, or possibly to an underlying viral gastroenteritis, or possibly psychogenic. We'll continue efforts to regulate her diabetes and continue with symptomatic therapy. (2) DKA (diabetic ketoacidoses) Qualifiers: Diabetes mellitus type: type 1 Diabetes mellitus complication detail: without coma Qualified Code(s): E10.10 - Type 1 diabetes mellitus with ketoacidosis without coma Is this a current diagnosis for this admission?: YesPlan: We'll increase her Lantus and continue the insulin sliding scale. (3) Anxiety Is this a current diagnosis for this admission?: YesPlan: Xanax was added for her anxiety. - Time Time Spent with patient: 25-34 minutes
[2016-10-02] MEDS: POTASSI CL 20 MEQ/NS 1L 1,000 ML IV PRN (01:31)
[2016-10-02] MEDS: ACETAMINOPHEN 325 MG TABLET PO PRN ×2 (03:31→20:05)
[2016-10-02] MEDS: PROMETHAZINE HCL INJ 25 MG/1 ML VIAL IV PRN ×2 (05:33→10:27)
[2016-10-02] MEDS: ALPRAZOLAM 0.25 MG TABLET PO PRN ×2 (05:35→10:19)
[2016-10-02] MEDS ORDERED: INSULIN LISPRO 100 UNIT/ML 3 ML VIAL SUBCUT ONE (07:00)
[2016-10-02 07:25] LABS: ARTERIAL BLOOD BASE EXCESS -29.7 mmol/L; ARTERIAL BLOOD O2 SATURATION 99.3 % (94-98)
[2016-10-02] MEDS ORDERED: DEXTROSE 40% GEL 15 GM TUBE PO PRN ×2 (07:41)
[2016-10-02] MEDS ORDERED: GLUCAGON,HUMAN RECOMB 1 MG INJ IM PRN (07:41)
[2016-10-02] MEDS ORDERED: DEXTROSE 50%-WATER 25 GM/50 ML DISP.SYRIN IV PRN (07:41)
[2016-10-02] MEDS ORDERED: 1/2 NORMAL SALINE 1,000 ML IV PRN (07:41)
[2016-10-02] MEDS ORDERED: NORMAL SALINE 100 ML with INSULIN REGULAR, HUMAN 100 UNIT IV PRN ×2 (07:41)
[2016-10-02 07:51] LABS: HEMOGLOBIN 12.8 g/dL (12.0-15.5); MEAN CORPUSCULAR HEMOGLOBIN 32.4 pg (27.0-33.4); MEAN CORPUSCULAR HGB CONC 29.1 g/dL (32.0-36.0); RED BLOOD COUNT 3.95 10^6/uL (3.72-5.28); RED CELL DISTRIBUTION WIDTH 16.8 % (11.5-14.0); WHITE BLOOD COUNT 12.2 10^3/uL (4.0-10.5)
[2016-10-02] MEDS ORDERED: INSULIN REG, HUMAN 100 UNIT/ML 3 ML VIAL (PYX) ONE (07:57)
[2016-10-02 08:10] LABS: ALANINE AMINOTRANSFERASE 89 U/L (9-52); ALBUMIN 4.7 g/dL (3.5-5.0); ALKALINE PHOSPHATASE 245 U/L (38-126); ASPARTATE AMINO TRANSFERASE 57 U/L (14-36); BILIRUBIN,TOTAL 0.4 mg/dL (0.2-1.3); BLOOD UREA NITROGEN 8 mg/dL (7-20); CALCIUM 9.4 mg/dL (8.4-10.2); CHLORIDE 109 mmol/L (98-107); CREATININE RESULT 0.77 mg/dL (0.52-1.25); POTASSIUM 4.5 mmol/L (3.6-5.0); SODIUM 144.2 mmol/L (137-145); TOTAL PROTEIN 8.5 g/dL (6.3-8.2)
[2016-10-02 08:15] LABS: HGB HCT DIFFERENCE -5.6
[2016-10-02 08:16] LABS: MEAN CORPUSCULAR VOLUME 111 fl (80-97)
[2016-10-02 08:19] LABS: BAND NEUTROPHILS % (MANUAL) 2 % (3-5); BASOPHILS % (MANUAL) 0 % (0-2); EOSINOPHILS % (MANUAL) 0 % (0-6); LYMPHOCYTES % (MANUAL) 9 % (13-45); TOTAL CELLS COUNTED 100
[2016-10-02 08:21] LABS: ANISOCYTOSIS 1+; HYPOCHROMASIA SLIGHT; POLYCHROMASIA SLIGHT
[2016-10-02 08:24] LABS: CARBON DIOXIDE < 5 mmol/L (22-30); GLUCOSE 518 mg/dL (75-110)
--- NOTE | 2016-10-02 08:36 | PDOC PROGRESS REPORT ---
Subjective Progress Note for:: 10/02/16 Subjective:: Glucose labile yesterday, in 85-450 range, associated with headache, AMS, nausea and anxiety. This AM, a Rapid Response was called when the patient developed AMS and glucose >550. Of note, the previous glucose was 119. The patient received 18 units of insulin and was transferred to the ICU. In the ICU, ABG shows a pH 6.9. She has been started on an insulin drip and 1 unit of NaHCO3, as well as IV fluids. No underlying acute llness to account for this worsened lability has been identified. Physical Exam Vital Signs: Temp Pulse Resp BP Pulse Ox 98 F 95 20 118/86 H 100 10/02/16 00:00 10/02/16 00:00 10/02/16 00:00 10/02/16 00:00 10/02/16 00:00 Intake & Output 10/01/16 10/02/16 10/03/16 06:59 06:59 06:59 Intake Total 3263 3279 Output Total 1300 Balance 1963 3279 General appearance: PRESENT: other - Awake but confused, poorly responsive Head exam: PRESENT: atraumatic, normocephalic Eye exam: PRESENT: conjunctiva pink, EOMI, PERRLA. ABSENT: scleral icterus Ear exam: PRESENT: normal external ear exam Respiratory exam: PRESENT: clear to auscultation ti. ABSENT: rales, rhonchi, wheezes Cardiovascular exam: PRESENT: RRR. ABSENT: diastolic murmur, rubs, systolic murmur Pulses: PRESENT: normal dorsalis pedis pul Vascular exam: PRESENT: normal capillary refill GI/Abdominal exam: PRESENT: normal bowel sounds, soft. ABSENT: distended, guarding, mass, organolmegaly, rebound, tenderness Extremities exam: PRESENT: full ROM. ABSENT: calf tenderness, clubbing, pedal edema Neurological exam: PRESENT: awake, other - confused, not answering questions or following commands Skin exam: PRESENT: dry, intact, warm. ABSENT: cyanosis, rash Results Laboratory Results: 10/02/16 07:39 10/01/16 10/01/16 10/02/16 08:02 08:07 06:55 WBC 9.7 RBC 3.65 L Hgb 11.8 L Hct 37.6 MCV 103 H D MCH 32.3 MCHC 31.4 L RDW 15.8 H Plt Count 322 Seg Neutrophils % 84.0 H Lymphocytes % 11.1 L Monocytes % 4.8 Eosinophils % 0.0 Basophils % 0.1 Absolute Neutrophils 8.2 Absolute Lymphocytes 1.1 Absolute Monocytes 0.5 Absolute Eosinophils 0.0 Absolute Basophils 0.0 Carbonic Acid 0.27 L HCO3/H2CO3 Ratio 6:1 ABG pH 6.90 L* ABG pCO2 8.9 L* ABG pO2 300.0 H ABG HCO3 1.7 L ABG O2 Saturation 99.3 H ABG Base Excess -29.7 FiO2 15L Sodium 147.8 H Potassium 4.3 D Chloride 115 H Carbon Dioxide < 5 L* Anion Gap Not Reportable BUN 5 L Creatinine 0.70 Est GFR ( Amer) > 60 Est GFR (Non-Af Amer) > 60 Glucose 218 H Calcium 9.3 10/02/16 10/02/16 07:39 07:39 WBC 12.2 H RBC 3.95 Hgb 12.8 Hct 44.0 MCV 111 H D MCH 32.4 MCHC 29.1 L RDW 16.8 H Plt Count 381 Seg Neutrophils % Not Reportable Lymphocytes % Not Reportable Monocytes % Not Reportable Eosinophils % Not Reportable Basophils % Not Reportable Absolute Neutrophils Not Reportable Absolute Lymphocytes Not Reportable Absolute Monocytes Not Reportable Absolute Eosinophils Not Reportable Absolute Basophils Not Reportable Carbonic Acid HCO3/H2CO3 Ratio ABG pH ABG pCO2 ABG pO2 ABG HCO3 ABG O2 Saturation ABG Base Excess FiO2 Sodium Potassium Chloride Carbon Dioxide Anion Gap Not Reportable BUN Creatinine Est GFR ( Amer) Est GFR (Non-Af Amer) Glucose Calcium 09/30/16 09/30/16 20:35 20:35 Creatine Kinase 157 H CK-MB (CK-2) 0.87 Troponin I 0.023 Impressions: Chest X-Ray 09/30/16 00:00 IMPRESSION: NO ACUTE RADIOGRAPHIC FINDING IN THE CHEST. Lung Scan-VQ NM 09/30/16 21:55 IMPRESSION: NORMAL VENTILATION-PERFUSION LUNG SCAN. NEGATIVE FOR PULMONARY EMBOLI. Assessment & Plan - Diagnosis (1) DKA (diabetic ketoacidoses) Qualifiers: Diabetes mellitus type: type 1 Diabetes mellitus complication detail: without coma Qualified Code(s): E10.10 - Type 1 diabetes mellitus with ketoacidosis without coma Is this a current diagnosis for this admission?: YesPlan: Insulin drip, 1 amp of NaHCO3, IV fluids, close monitoring in the ICU. (2) Nausea and vomiting Qualifiers: Vomiting type: unspecified Vomiting Intractability: non-intractable Qualified Code(s): R11.2 - Nausea with vomiting, unspecified Plan: Not cuurently an issue. Abdomen benign. Will Rx nausea symptomatically. (3) Anxiety Is this a current diagnosis for this admission?: YesPlan: Likely aggravated by DKA and glucose lability. Will manage the DKA, and treat anxiety symptomatically with Xanax if need be. - Time Critical Time spent with patient: 25-34 minutes
[2016-10-02] MEDS ORDERED: SODIUM BICARBONATE 4.2% INJ (2.4 MEQ/5 ML) VIAL INJ ONE (09:30)
[2016-10-02] MEDS: ENOXAPARIN SODIUM INJ 40 MG/0.4 ML DISP.SYRIN SUBCUT SCH (09:48)
[2016-10-02] MEDS: DOCUSATE SODIUM 100 MG CAPSULE PO SCH ×2 (09:48→19:00)
[2016-10-02] MEDS ORDERED: SODIUM BICARBONATE 8.4% INJ 50 MEQ/50 ML DISP.SYRIN IV ONE (10:00)
[2016-10-02] MEDS: FAMOTIDINE INJ/PF 20 MG/2 ML SDV IV SCH ×2 (10:06→22:12)
[2016-10-02] MEDS: INSULIN GLARGINE,HUM.REC.ANLOG 300 UNIT/3 ML INSULN.PEN SUBCUT SCH (10:08)
[2016-10-02 11:15] LABS: BLOOD UREA NITROGEN 8 mg/dL (7-20); CALCIUM 9.4 mg/dL (8.4-10.2); CREATININE RESULT 0.68 mg/dL (0.52-1.25); GLUCOSE 115 mg/dL (75-110)
[2016-10-02 11:23] LABS: CHLORIDE 116 mmol/L (98-107); POTASSIUM 4.1 mmol/L (3.6-5.0); SODIUM 149.6 mmol/L (137-145)
[2016-10-02 11:38] LABS: CARBON DIOXIDE < 5 mmol/L (22-30)
[2016-10-02] MEDS ORDERED: DEXTROSE 5%-1/2 NORMAL SALINE 500 ML IV PRN (14:45)
[2016-10-02 16:41] LABS: BLOOD UREA NITROGEN 7 mg/dL (7-20); CALCIUM 9.1 mg/dL (8.4-10.2); CHLORIDE 110 mmol/L (98-107); GLUCOSE 128 mg/dL (75-110); POTASSIUM 3.5 mmol/L (3.6-5.0); SODIUM 140.9 mmol/L (137-145)
[2016-10-02 16:53] LABS: ANION GAP 22 (5-19)
[2016-10-02 16:54] LABS: CARBON DIOXIDE 9 mmol/L (22-30)
[2016-10-02] MEDS ORDERED: [UNRECOGNIZED DRUG - OTHER] IV PRN (18:24)
[2016-10-02] MEDS ORDERED: POTASSIUM CHLORIDE IV PRN (18:24)
[2016-10-02] MEDS ORDERED: DEXTROSE IV PRN (18:24)
[2016-10-02 18:52] LABS: ARTERIAL BLOOD BASE EXCESS -10.6 mmol/L; ARTERIAL BLOOD O2 SATURATION 99.1 % (94-98)
[2016-10-02] MEDS ORDERED: RTUINJ IV ONE (18:53)
[2016-10-02] MEDS ORDERED: POTASSI CL IV ONE (18:53)
[2016-10-02] MEDS ORDERED: [UNRECOGNIZED DRUG - OTHER] IV ONE (18:53)
[2016-10-02] MEDS ORDERED: D5 IV ONE (18:53)
[2016-10-02 20:16] LABS: ANION GAP 17 (5-19); BLOOD UREA NITROGEN 7 mg/dL (7-20); CALCIUM 9.5 mg/dL (8.4-10.2); CARBON DIOXIDE 15 mmol/L (22-30); CHLORIDE 107 mmol/L (98-107); CREATININE RESULT 0.66 mg/dL (0.52-1.25); GLUCOSE 134 mg/dL (75-110); POTASSIUM 3.4 mmol/L (3.6-5.0); SODIUM 138.7 mmol/L (137-145)
[2016-10-02] MEDS ORDERED: POTASSI CL 20 MEQ/D5NS 1L 1,000 ML IV PRN (21:59)
[2016-10-02] MEDS ORDERED: POTASSI CL 20 MEQ/50 ML RIDER 50 ML IV ONE (22:00)
[2016-10-03 01:01] LABS: ANION GAP 15 (5-19); BLOOD UREA NITROGEN 5 mg/dL (7-20); CALCIUM 9.6 mg/dL (8.4-10.2); CARBON DIOXIDE 15 mmol/L (22-30); CHLORIDE 111 mmol/L (98-107); CREATININE RESULT 0.51 mg/dL (0.52-1.25); GLUCOSE 129 mg/dL (75-110); POTASSIUM 3.9 mmol/L (3.6-5.0); SODIUM 140.5 mmol/L (137-145)
[2016-10-03 05:23] LABS: ABSOLUTE LYMPHOCYTES (AUTO) 2.4 10^3/uL (0.5-4.7); ABSOLUTE MONOCYTES (AUTO) 0.5 10^3/uL (0.1-1.4); ABSOLUTE NEUT (AUTO) 2.9 10^3/uL (1.7-8.2); BASOPHILS % (AUTO) 0.4 % (0-2); EOSINOPHILS % (AUTO) 0.5 % (0-6); HEMATOCRIT 32.6 % (36.0-47.0); HEMOGLOBIN 10.8 g/dL (12.0-15.5); HGB HCT DIFFERENCE -0.2; LYMPHOCYTES % (AUTO) 40.7 % (13-45); MEAN CORPUSCULAR HEMOGLOBIN 32.5 pg (27.0-33.4); MEAN CORPUSCULAR HGB CONC 33.3 g/dL (32.0-36.0); MONOCYTES % (AUTO) 8.3 % (3-13); RED BLOOD COUNT 3.34 10^6/uL (3.72-5.28); RED CELL DISTRIBUTION WIDTH 14.3 % (11.5-14.0); SEGMENTED NEUTROPHILS % (AUTO) 50.1 % (42-78); WHITE BLOOD COUNT 5.9 10^3/uL (4.0-10.5)
[2016-10-03 05:25] LABS: ANION GAP 14 (5-19); BLOOD UREA NITROGEN 5 mg/dL (7-20); CALCIUM 9.5 mg/dL (8.4-10.2); CARBON DIOXIDE 16 mmol/L (22-30); CHLORIDE 111 mmol/L (98-107); CREATININE RESULT 0.52 mg/dL (0.52-1.25); GLUCOSE 100 mg/dL (75-110); POTASSIUM 3.4 mmol/L (3.6-5.0); SODIUM 140.9 mmol/L (137-145)
[2016-10-03 05:27] LABS: MEAN CORPUSCULAR VOLUME 98 fl (80-97)
[2016-10-03] MEDS: POTASSI CL 20 MEQ/D5NS 1L 1,000 ML IV PRN ×3 (05:53→23:49)
[2016-10-03] MEDS: ENOXAPARIN SODIUM INJ 40 MG/0.4 ML DISP.SYRIN SUBCUT SCH (07:58)
[2016-10-03] MEDS: ACETAMINOPHEN 325 MG TABLET PO PRN (08:15)
--- NOTE | 2016-10-03 08:26 | PDOC PROGRESS REPORT ---
Subjective Progress Note for:: 10/03/16 Subjective:: The patient was transferred to the ICU yesterday morning after a rapid response. She was in DKA with a pH of 6.9. She was obtunded. She was treated with an insulin drip. Her electrolytes and glucose were carefully monitored, and IV fluids adjusted accordingly. She gradually stabilized over the course of the day yesterday, and to the pH essentially normalized. She remained hemodynamically stable. She is currently on 1 unit per hour on the insulin drip in her glucoses in the low 100s. This morning the patient is awake alert oriented and appropriate. She complains of only minimal headache. The nausea has resolved. She has an appetite. Physical Exam Vital Signs: Temp Pulse Resp BP Pulse Ox 99.1 F 94 17 120/86 H 98 10/03/16 06:00 10/03/16 07:19 10/03/16 06:00 10/03/16 06:00 10/03/16 06:00 Intake & Output 10/02/16 10/03/16 10/04/16 06:59 06:59 06:59 Intake Total 3279 3157 Output Total 2325 Balance 3279 832 Weight 62.4 kg Additional comments: General appearance: PRESENT: other - Awake, alert, oriented Head exam: PRESENT: atraumatic, normocephalic Eye exam: PRESENT: conjunctiva pink, EOMI, PERRLA. ABSENT: scleral icterus Ear exam: PRESENT: normal external ear exam Respiratory exam: PRESENT: clear to auscultation ti. ABSENT: rales, rhonchi, wheezes Cardiovascular exam: PRESENT: RRR. ABSENT: diastolic murmur, rubs, systolic murmur Pulses: PRESENT: normal dorsalis pedis pul Vascular exam: PRESENT: normal capillary refill GI/Abdominal exam: PRESENT: normal bowel sounds, soft. ABSENT: distended, guarding, mass, organolmegaly, rebound, tenderness Extremities exam: PRESENT: full ROM. ABSENT: calf tenderness, clubbing, pedal edema Neurological exam: PRESENT: awake, other - confused, not answering questions or following commands Skin exam: PRESENT: dry, intact, warm. ABSENT: cyanosis, rash Results Laboratory Results: 10/03/16 04:30 10/03/16 04:30 10/02/16 10/02/16 10/02/16 07:39 07:39 10:34 WBC 12.2 H RBC 3.95 Hgb 12.8 Hct 44.0 MCV 111 H D MCH 32.4 MCHC 29.1 L RDW 16.8 H Plt Count 381 Seg Neutrophils % Not Reportable Lymphocytes % Not Reportable Monocytes % Not Reportable Eosinophils % Not Reportable Basophils % Not Reportable Absolute Neutrophils Not Reportable Absolute Lymphocytes Not Reportable Absolute Monocytes Not Reportable Absolute Eosinophils Not Reportable Absolute Basophils Not Reportable Carbonic Acid HCO3/H2CO3 Ratio ABG pH ABG pCO2 ABG pO2 ABG HCO3 ABG O2 Saturation ABG Base Excess FiO2 Sodium 144.2 149.6 H Potassium 4.5 4.1 Chloride 109 H 116 H Carbon Dioxide < 5 L* < 5 L* Anion Gap CIRCULAR [place] STONE Not Reportable BUN 8 8 Creatinine 0.77 0.68 Est GFR ( Amer) > 60 > 60 Est GFR (Non-Af Amer) > 60 > 60 Glucose 518 H* 115 H Calcium 9.4 9.4 Total Bilirubin 0.4 AST 57 H ALT 89 H Alkaline Phosphatase 245 H Total Protein 8.5 H Albumin 4.7 10/02/16 10/02/16 10/02/16 16:18 18:35 19:55 WBC RBC Hgb Hct MCV MCH MCHC RDW Plt Count Seg Neutrophils % Lymphocytes % Monocytes % Eosinophils % Basophils % Absolute Neutrophils Absolute Lymphocytes Absolute Monocytes Absolute Eosinophils Absolute Basophils Carbonic Acid 0.79 L HCO3/H2CO3 Ratio 17:1 ABG pH 7.34 L ABG pCO2 26.3 L ABG pO2 167.0 H ABG HCO3 13.7 L ABG O2 Saturation 99.1 H ABG Base Excess -10.6 FiO2 2L Sodium 140.9 138.7 Potassium 3.5 L 3.4 L Chloride 110 H 107 Carbon Dioxide 9 L* 15 L Anion Gap 22 H 17 BUN 7 7 Creatinine 0.60 0.66 Est GFR ( Amer) > 60 > 60 Est GFR (Non-Af Amer) > 60 > 60 Glucose 128 H 134 H Calcium 9.1 9.5 Total Bilirubin AST ALT Alkaline Phosphatase Total Protein Albumin 10/03/16 10/03/16 10/03/16 00:30 04:30 04:30 WBC 5.9 RBC 3.34 L Hgb 10.8 L Hct 32.6 L MCV 98 H D MCH 32.5 MCHC 33.3 RDW 14.3 H Plt Count 250 Seg Neutrophils % 50.1 Lymphocytes % 40.7 Monocytes % 8.3 Eosinophils % 0.5 Basophils % 0.4 Absolute Neutrophils 2.9 Absolute Lymphocytes 2.4 Absolute Monocytes 0.5 Absolute Eosinophils 0.0 Absolute Basophils 0.0 Carbonic Acid HCO3/H2CO3 Ratio ABG pH ABG pCO2 ABG pO2 ABG HCO3 ABG O2 Saturation ABG Base Excess FiO2 Sodium 140.5 140.9 Potassium 3.9 3.4 L Chloride 111 H 111 H Carbon Dioxide 15 L 16 L Anion Gap 15 14 BUN 5 L 5 L Creatinine 0.51 L 0.52 Est GFR ( Amer) > 60 > 60 Est GFR (Non-Af Amer) > 60 > 60 Glucose 129 H 100 Calcium 9.6 9.5 Total Bilirubin AST ALT Alkaline Phosphatase Total Protein Albumin 09/30/16 09/30/16 20:35 20:35 Creatine Kinase 157 H CK-MB (CK-2) 0.87 Troponin I 0.023 Impressions: Chest X-Ray 09/30/16 00:00 IMPRESSION: NO ACUTE RADIOGRAPHIC FINDING IN THE CHEST. Lung Scan-VQ NM 09/30/16 21:55 IMPRESSION: NORMAL VENTILATION-PERFUSION LUNG SCAN. NEGATIVE FOR PULMONARY EMBOLI. Assessment & Plan - Diagnosis (1) DKA (diabetic ketoacidoses) Qualifiers: Diabetes mellitus type: type 1 Diabetes mellitus complication detail: without coma Qualified Code(s): E10.10 - Type 1 diabetes mellitus with ketoacidosis without coma Is this a current diagnosis for this admission?: YesPlan: The DKA is essentially resolved. We'll stop the insulin drip. We'll resume subcutaneous insulin. She normally uses Toujeo 20 units every morning and a variable amount of NovoLog with each meal between 15 and 30 units. The patient will resume her diet. If she remains stable we will transfer to the floor. (2) Nausea and vomiting Qualifiers: Vomiting type: unspecified Vomiting Intractability: non-intractable Qualified Code(s): R11.2 - Nausea with vomiting, unspecified Plan: The nausea has apparently resolved. The patient has an appetite and will start a diet. It is possible that a viral gastroenteritis was the trigger for all of these problems. If so, it would be expected to remit spontaneously. (3) Anxiety Is this a current diagnosis for this admission?: YesPlan: Anxiety may be a minor factor, but it is certainly not the primary etiology for the patient's problems. Her labile glucose, including DKA, is the primary factor. (4) Hypokalemia Is this a current diagnosis for this admission?: YesPlan: She developed minor hypokalemia with correction of the DKA despite IV fluids with potassium. Correction is in progress. Will recheck tomorrow morning. - Time Critical Time spent with patient: 25-34 minutes
[2016-10-03 08:44] LABS: ANION GAP 16 (5-19); BLOOD UREA NITROGEN 4 mg/dL (7-20); CALCIUM 9.3 mg/dL (8.4-10.2); CARBON DIOXIDE 16 mmol/L (22-30); CHLORIDE 108 mmol/L (98-107); GLUCOSE 104 mg/dL (75-110); SODIUM 140.1 mmol/L (137-145)
[2016-10-03 08:59] LABS: POTASSIUM 3.1 mmol/L (3.6-5.0)
[2016-10-03] MEDS ORDERED: INSULIN REG, HUMAN 100 UNIT/ML 3 ML VIAL (PYX) SUBCUT ONE (09:00)
[2016-10-03] MEDS: DOCUSATE SODIUM 100 MG CAPSULE PO SCH ×2 (09:15→17:37)
[2016-10-03] MEDS: FAMOTIDINE INJ/PF 20 MG/2 ML SDV IV SCH ×2 (09:22→21:31)
[2016-10-03] MEDS: INSULIN GLARGINE,HUM.REC.ANLOG 300 UNIT/3 ML INSULN.PEN SUBCUT SCH (10:42)
[2016-10-03] MEDS ORDERED: INSULIN REG, HUMAN 100 UNIT/ML 3 ML VIAL (PYX) SUBCUT SCH ×2 (11:00→16:00)
[2016-10-03] MEDS: PROMETHAZINE HCL INJ 25 MG/1 ML VIAL IV PRN ×2 (11:52→22:28)
[2016-10-03 12:52] LABS: ANION GAP 13 (5-19); BLOOD UREA NITROGEN 3 mg/dL (7-20); CALCIUM 9.5 mg/dL (8.4-10.2); CARBON DIOXIDE 19 mmol/L (22-30); CHLORIDE 109 mmol/L (98-107); GLUCOSE 114 mg/dL (75-110); SODIUM 141.4 mmol/L (137-145)
[2016-10-03 13:00] LABS: POTASSIUM 2.9 mmol/L (3.6-5.0)
[2016-10-03] MEDS ORDERED: POTASSI CL 20 MEQ/50 ML RIDER 20 MEQ/50 ML RTUPB IV ONE (13:13)
[2016-10-03] MEDS ORDERED: POTASSIUM CHLORIDE 10 MEQ TABLET.SA PO ONE ×4 (13:13→18:00)
[2016-10-03] MEDS: POTASSI CL 20 MEQ/50 ML RIDER 20 MEQ/50 ML RTUPB IV SCH ×2 (13:50→15:49)
[2016-10-03 18:17] LABS: ANION GAP 16 (5-19); BLOOD UREA NITROGEN 4 mg/dL (7-20); CALCIUM 9.4 mg/dL (8.4-10.2); CARBON DIOXIDE 18 mmol/L (22-30); CHLORIDE 110 mmol/L (98-107); CREATININE RESULT 0.49 mg/dL (0.52-1.25); GLUCOSE 145 mg/dL (75-110); SODIUM 143.5 mmol/L (137-145)
[2016-10-03 18:34] LABS: POTASSIUM 4.2 mmol/L (3.6-5.0)
[2016-10-03 20:08] LABS: ANION GAP 13 (5-19); BLOOD UREA NITROGEN 5 mg/dL (7-20); CALCIUM 9.4 mg/dL (8.4-10.2); CARBON DIOXIDE 22 mmol/L (22-30); CHLORIDE 107 mmol/L (98-107); CREATININE RESULT 0.53 mg/dL (0.52-1.25); GLUCOSE 148 mg/dL (75-110); POTASSIUM 4.1 mmol/L (3.6-5.0); SODIUM 141.6 mmol/L (137-145)
[2016-10-03] MEDS ORDERED: INSULIN LISPRO 100 UNIT/ML 3 ML VIAL ONE (21:52)
[2016-10-03] MEDS ORDERED: INSULIN LISPRO 100 UNIT/ML 3 ML VIAL SUBCUT ONE (22:30)
[2016-10-04 00:58] LABS: ANION GAP 12 (5-19); BLOOD UREA NITROGEN 6 mg/dL (7-20); CALCIUM 9.8 mg/dL (8.4-10.2); CARBON DIOXIDE 24 mmol/L (22-30); CHLORIDE 108 mmol/L (98-107); CREATININE RESULT 0.43 mg/dL (0.52-1.25); GLUCOSE 61 mg/dL (75-110); POTASSIUM 3.3 mmol/L (3.6-5.0); SODIUM 144.4 mmol/L (137-145)
[2016-10-04 04:47] LABS: ABSOLUTE LYMPHOCYTES (AUTO) 2.4 10^3/uL (0.5-4.7); ABSOLUTE MONOCYTES (AUTO) 0.4 10^3/uL (0.1-1.4); ABSOLUTE NEUT (AUTO) 1.8 10^3/uL (1.7-8.2); BASOPHILS % (AUTO) 0.7 % (0-2); EOSINOPHILS % (AUTO) 0.9 % (0-6); HEMATOCRIT 32.8 % (36.0-47.0); HEMOGLOBIN 11.1 g/dL (12.0-15.5); HGB HCT DIFFERENCE 0.5; LYMPHOCYTES % (AUTO) 51.1 % (13-45); MEAN CORPUSCULAR HEMOGLOBIN 32.6 pg (27.0-33.4); MEAN CORPUSCULAR VOLUME 96 fl (80-97); MONOCYTES % (AUTO) 9.1 % (3-13); RED BLOOD COUNT 3.42 10^6/uL (3.72-5.28); RED CELL DISTRIBUTION WIDTH 13.8 % (11.5-14.0); SEGMENTED NEUTROPHILS % (AUTO) 38.2 % (42-78); WHITE BLOOD COUNT 4.7 10^3/uL (4.0-10.5)
[2016-10-04 05:08] LABS: ANION GAP 14 (5-19); BLOOD UREA NITROGEN 5 mg/dL (7-20); CALCIUM 9.2 mg/dL (8.4-10.2); CARBON DIOXIDE 23 mmol/L (22-30); CHLORIDE 105 mmol/L (98-107); CREATININE RESULT 0.51 mg/dL (0.52-1.25); GLUCOSE 134 mg/dL (75-110); POTASSIUM 3.6 mmol/L (3.6-5.0); SODIUM 142.1 mmol/L (137-145)
[2016-10-04] MEDS: ENOXAPARIN SODIUM INJ 40 MG/0.4 ML DISP.SYRIN SUBCUT SCH (07:43)
[2016-10-04] MEDS ORDERED: INSULIN LISPRO 100 UNIT/ML 3 ML VIAL SUBCUT SCH ×3 (08:00→16:00)
[2016-10-04] MEDS ORDERED: INSULIN REG, HUMAN 100 UNIT/ML 3 ML VIAL (PYX) SUBCUT SCH (08:00)
[2016-10-04 08:33] LABS: ANION GAP 15 (5-19); BLOOD UREA NITROGEN 4 mg/dL (7-20); CALCIUM 9.4 mg/dL (8.4-10.2); CARBON DIOXIDE 23 mmol/L (22-30); CHLORIDE 104 mmol/L (98-107); CREATININE RESULT 0.45 mg/dL (0.52-1.25); GLUCOSE 233 mg/dL (75-110); POTASSIUM 3.8 mmol/L (3.6-5.0); SODIUM 141.5 mmol/L (137-145)
--- NOTE | 2016-10-04 08:59 | PDOC PROGRESS REPORT ---
Subjective Progress Note for:: 10/04/16 Subjective:: The DKA has resolved. Her sugars have stabilized mostly in the low 100s. Her potassium is 3.6. She is now tolerating a diet. Nausea has resolved. She does complain of minor gastritis and a sore throat. Nausea vomiting and diarrhea have resolved. Overall she admits to feeling much better. Physical Exam Vital Signs: Temp Pulse Resp BP Pulse Ox 98.1 F 94 16 124/87 H 99 10/04/16 07:53 10/04/16 08:00 10/04/16 07:53 10/04/16 07:53 10/04/16 07:53 Intake & Output 10/03/16 10/04/16 10/05/16 06:59 06:59 06:59 Intake Total 3157 3729 120 Output Total 2325 3775 0 Balance 832 -46 120 Weight 62.4 kg 63.7 kg Additional comments: General appearance: PRESENT: other - Awake, alert, oriented Head exam: PRESENT: atraumatic, normocephalic Eye exam: PRESENT: conjunctiva pink, EOMI, PERRLA. ABSENT: scleral icterus Ear exam: PRESENT: normal external ear exam Respiratory exam: PRESENT: clear to auscultation ti. ABSENT: rales, rhonchi, wheezes Cardiovascular exam: PRESENT: RRR. ABSENT: diastolic murmur, rubs, systolic murmur Pulses: PRESENT: normal dorsalis pedis pul Vascular exam: PRESENT: normal capillary refill GI/Abdominal exam: PRESENT: normal bowel sounds, soft. ABSENT: distended, guarding, mass, organolmegaly, rebound, tenderness Extremities exam: PRESENT: full ROM. ABSENT: calf tenderness, clubbing, pedal edema Neurological exam: PRESENT: awake, other - confused, not answering questions or following commands Skin exam: PRESENT: dry, intact, warm. ABSENT: cyanosis, rash Results Laboratory Results: 10/04/16 04:18 10/04/16 08:14 10/03/16 10/03/16 10/03/16 08:26 12:20 17:40 WBC RBC Hgb Hct MCV MCH MCHC RDW Plt Count Seg Neutrophils % Lymphocytes % Monocytes % Eosinophils % Basophils % Absolute Neutrophils Absolute Lymphocytes Absolute Monocytes Absolute Eosinophils Absolute Basophils Sodium 140.1 141.4 143.5 Potassium 3.1 L 2.9 L* 4.2 D Chloride 108 H 109 H 110 H Carbon Dioxide 16 L 19 L 18 L Anion Gap 16 13 16 BUN 4 L 3 L 4 L Creatinine 0.50 L 0.50 L 0.49 L Est GFR ( Amer) > 60 > 60 > 60 Est GFR (Non-Af Amer) > 60 > 60 > 60 Glucose 104 114 H 145 H Calcium 9.3 9.5 9.4 10/03/16 10/04/16 10/04/16 19:45 00:24 04:18 WBC RBC Hgb Hct MCV MCH MCHC RDW Plt Count Seg Neutrophils % Lymphocytes % Monocytes % Eosinophils % Basophils % Absolute Neutrophils Absolute Lymphocytes Absolute Monocytes Absolute Eosinophils Absolute Basophils Sodium 141.6 144.4 142.1 Potassium 4.1 3.3 L 3.6 Chloride 107 108 H 105 Carbon Dioxide 22 24 23 Anion Gap 13 12 14 BUN 5 L 6 L 5 L Creatinine 0.53 0.43 L 0.51 L Est GFR ( Amer) > 60 > 60 > 60 Est GFR (Non-Af Amer) > 60 > 60 > 60 Glucose 148 H 61 L 134 H Calcium 9.4 9.8 9.2 10/04/16 10/04/16 04:18 08:14 WBC 4.7 RBC 3.42 L Hgb 11.1 L Hct 32.8 L MCV 96 MCH 32.6 MCHC 34.0 RDW 13.8 Plt Count 246 Seg Neutrophils % 38.2 L Lymphocytes % 51.1 H Monocytes % 9.1 Eosinophils % 0.9 Basophils % 0.7 Absolute Neutrophils 1.8 Absolute Lymphocytes 2.4 Absolute Monocytes 0.4 Absolute Eosinophils 0.0 Absolute Basophils 0.0 Sodium 141.5 Potassium 3.8 Chloride 104 Carbon Dioxide 23 Anion Gap 15 BUN 4 L Creatinine 0.45 L Est GFR ( Amer) > 60 Est GFR (Non-Af Amer) > 60 Glucose 233 H Calcium 9.4 09/30/16 09/30/16 20:35 20:35 Creatine Kinase 157 H CK-MB (CK-2) 0.87 Troponin I 0.023 Impressions: Chest X-Ray 09/30/16 00:00 IMPRESSION: NO ACUTE RADIOGRAPHIC FINDING IN THE CHEST. Lung Scan-VQ NM 09/30/16 21:55 IMPRESSION: NORMAL VENTILATION-PERFUSION LUNG SCAN. NEGATIVE FOR PULMONARY EMBOLI. Assessment & Plan - Diagnosis (1) DKA (diabetic ketoacidoses) Qualifiers: Diabetes mellitus type: type 1 Diabetes mellitus complication detail: without coma Qualified Code(s): E10.10 - Type 1 diabetes mellitus with ketoacidosis without coma Is this a current diagnosis for this admission?: YesPlan: The DKA is resolved. She is off the insulin drip. She normally uses Toujeo 20 units every morning and a variable amount of NovoLog with each meal between 5 and 30 units. The patient is tolerating her diet. Will use Lantus 20 units every morning and an insulin sliding scale. Will transfer to the floor. (2) Nausea and vomiting Qualifiers: Vomiting type: unspecified Vomiting Intractability: non-intractable Qualified Code(s): R11.2 - Nausea with vomiting, unspecified Plan: The nausea has resolved. The patient has an appetite and is tolerating a diet. I suspect a viral gastroenteritis was the trigger for all of these problems. If so, it is expected to remit spontaneously. (3) Anxiety Is this a current diagnosis for this admission?: YesPlan: Anxiety may be a minor factor, but it is certainly not the primary etiology for the patient's problems. Her labile glucose, including the recent DKA, is the primary factor. (4) Hypokalemia Is this a current diagnosis for this admission?: YesPlan: She developed minor hypokalemia with correction of the DKA despite IV fluids with potassium. It has now been corrected - Time Time Spent with patient: 25-34 minutes
[2016-10-04] MEDS: POTASSI CL 20 MEQ/D5NS 1L 1,000 ML IV PRN (09:01)
[2016-10-04] MEDS: FAMOTIDINE 20 MG TABLET PO SCH ×2 (09:40→21:59)
[2016-10-04] MEDS: INSULIN GLARGINE,HUM.REC.ANLOG 300 UNIT/3 ML INSULN.PEN SUBCUT SCH (09:40)
[2016-10-04] MEDS: DOCUSATE SODIUM 100 MG CAPSULE PO SCH ×2 (09:43→17:03)
[2016-10-04] MEDS: INSULIN LISPRO 100 UNIT/ML 3 ML VIAL SUBCUT PRN ×3 (11:18→21:59)
[2016-10-05] MEDS: ENOXAPARIN SODIUM INJ 40 MG/0.4 ML DISP.SYRIN SUBCUT SCH (07:52)
[2016-10-05] MEDS: INSULIN LISPRO 100 UNIT/ML 3 ML VIAL SUBCUT PRN ×2 (07:55→11:18)
[2016-10-05] MEDS: FAMOTIDINE 20 MG TABLET PO SCH (09:15)
[2016-10-05] MEDS: INSULIN GLARGINE,HUM.REC.ANLOG 300 UNIT/3 ML INSULN.PEN SUBCUT SCH (09:15)
[2016-10-05] MEDS: DOCUSATE SODIUM 100 MG CAPSULE PO SCH (09:18)
[2016-10-05 10:02] LABS: ANION GAP 18 (5-19); BLOOD UREA NITROGEN 9 mg/dL (7-20); CALCIUM 10.3 mg/dL (8.4-10.2); CARBON DIOXIDE 22 mmol/L (22-30); CHLORIDE 101 mmol/L (98-107); CREATININE RESULT 0.43 mg/dL (0.52-1.25); GLUCOSE 261 mg/dL (75-110); POTASSIUM 3.8 mmol/L (3.6-5.0); SODIUM 141.4 mmol/L (137-145)
[2016-10-05] MEDS ORDERED: INFLUENZA ADLT QUAD (36MOS+) 2016-17 VAC 0.5 ML SYR IM PRN (12:44)
[2016-10-05 13:34] VITALS: BP 132/96
--- NOTE | 2016-10-07 08:23 | PDOC DISCHARGE SUMMARY ---
General - Admit/Disc Date/PCP Admission Date/Primary Care Provider: 09/29/16 21:37 Discharge Date: 10/05/16 - Discharge Diagnosis (1) Acute encephalopathy Is this a current diagnosis for this admission?: Yes (2) DKA (diabetic ketoacidoses) Is this a current diagnosis for this admission?: Yes (3) Hypokalemia Is this a current diagnosis for this admission?: Yes - Additional Information Resuscitation Status: Full Code Discharge Diet: Diabetic Discharge Activity: Activity As Tolerated Home Medications: Dextroamphetamine/Amphetamine [Adderall Xr 30 mg Capsule] 30 mg PO DAILY Insulin Aspart [Novolog Flexpen] 0 units SQ .SLIDINGSCALE 09/30/16 Insulin Glargine,Hum.rec.anlog [Toujeo Solostar] 20 units SQ QHS 09/30/16 Levothyroxine Sodium [Synthroid 0.025 mg Tablet] 0.025 mg PO QAM 09/30/16 Valacyclovir HCl [Valacyclovir] 1,000 mg PO Q12 09/30/16 History of Present Illness History of Present Illness: Please see H&P for full history of present illness Hospital Course Hospital Course: Patient is a 21-year-old female with known history of type I diabetes mellitus who presented to the emergency department with complaints of weakness and elevated blood sugar. Patient had a proximal a one-day history of onset of feeling weak and headache as well as flulike illness when she presented to the emergency department with altered mental status. Patient was found to be in DKA. Patient was placed in the ICU and treated per standard DKA protocol. Patient resolved and was transition back to her normal medication. She was doing well and stable for discharge. Physical Exam Vital Signs: Temp Pulse Resp BP Pulse Ox 97.8 F 106 H 18 125/81 100 10/05/16 11:54 10/05/16 11:54 10/05/16 11:54 10/05/16 11:54 10/05/16 11:54 Intake & Output 10/04/16 10/05/16 10/06/16 06:59 06:59 06:59 Intake Total 3729 2433 Output Total 3775 1500 Balance -46 933 Weight 63.7 kg 63.2 kg Exam: General: Awake alert and oriented x3, no acute respiratory distress HEENT: AT/NC, PERRL, EOMI, oropharynx is moist, pink, no scleral icterus, no conjunctival injection Neck: No JVD, trachea midline Chest: Clear to auscultation bilaterally, no wheezes rhonchi or rales CV: Regular rate and rhythm, normal S1 and S2, no murmur, rub, or gallop Abdomen: Soft, nontender to palpation, nondistended, active bowel sounds; no rebound, rigidity, or guarding Extremities: No cyanosis, clubbing or edema Neuro: Cranial nerves II through XII are grossly intact without focal deficits; awake alert and oriented x3 Psych: Normal mood and affect Results Laboratory Results: 10/04/16 04:18 10/05/16 09:12 10/05/16 09:12 Sodium 141.4 Potassium 3.8 Chloride 101 Carbon Dioxide 22 Anion Gap 18 BUN 9 Creatinine 0.43 L Est GFR ( Amer) > 60 Est GFR (Non-Af Amer) > 60 Glucose 261 H Calcium 10.3 H 09/30/16 08:19 Blood Blood Culture - Final NO GROWTH IN 5 DAYS 09/30/16 09/30/16 20:35 20:35 Creatine Kinase 157 H CK-MB (CK-2) 0.87 Troponin I 0.023 Impressions: Chest X-Ray 09/30/16 00:00 IMPRESSION: NO ACUTE RADIOGRAPHIC FINDING IN THE CHEST. Lung Scan-VQ NM 09/30/16 21:55 IMPRESSION: NORMAL VENTILATION-PERFUSION LUNG SCAN. NEGATIVE FOR PULMONARY EMBOLI. Qualifiers PATEINT BEING DISCHARGED WITH ANY OF THE FOLLOWING DIAGNOSIS?: No Plan Time Spent: Less than 30 Minutes
== END 2016-10-05 13:54 | disposition home or self-care (01) | DRG 637 ==
LOC: ER 17:59 → EH 21:13 → UNDOADMIN 21:13 → EH 21:37 → ICU 23:45 → 2N 09-30 14:44 → 5 10-01 17:38 → ICU 10-02 07:05 → 3W 10-04 17:50
PROVIDERS: ADMIT Family Medicine; ATTEND Family Medicine
PROC: 3E0234Z Introduction of Serum, Toxoid and Vaccine into Muscle, Percutaneous Approach (ICD-10-PCS; principal; 2016-10-05)
DX: E10.10 Type 1 diabetes mellitus with ketoacidosis without coma (principal); G93.40 Encephalopathy, unspecified; F90.9 Attention-deficit hyperactivity disorder, unspecified type; E03.9 Hypothyroidism, unspecified; J02.9 Acute pharyngitis, unspecified; F41.1 Generalized anxiety disorder; E11.649 Type 2 diabetes mellitus with hypoglycemia without coma; E86.0 Dehydration; D72.829 Elevated white blood cell count, unspecified; E87.6 Hypokalemia; Z79.4 Long term (current) use of insulin; Z88.0 Allergy status to penicillin; Z78.1 Physical restraint status; Z23 Encounter for immunization
CPT/HCPCS: 36415; 36600; 71010; 78582; 80048; 80053; 80061; 80074; 80076; 80307; 81001; 82550; 82553; 82803; 82962; 83036; 83735; 84484; 84703; 85025; 85379; 85610; 85730; 87040; 87804; 90686; 92950; 93005; 93010; 96361; 96365; 96367; 99291; A9540; A9567; J1650; J1815; J1956; J2550; J3480; J3490; J7030; J7060; J7120; Q9969; S0028

== ENCOUNTER 2016-12-10 20:58 | Emergency (ER) | payer OTHER, BC ==
--- NOTE | 2016-12-10 23:52 | ER Document Report ---
ED Skin Rash/Insect Bite/Abscs - General Mode of Arrival: Ambulatory Information source: Patient TRAVEL OUTSIDE OF THE [place] IN LAST 30 DAYS: No - HPI Patient complains to provider of: Tender/swollen area Onset: Other - see above Onset/Duration: Persistent Quality of pain: Fullness, Pressure, Sharp Skin Character: Abscess Quality of rash: Painful Similar symptoms previously: Yes - General Chief Complaint: Abscess Stated Complaint: ABSCESS/GROIN AREA Notes: Patient is a 21-year-old female that presents to the emergency department today with complaints of an abscess in the right groin. Patient has had frequent abscesses, reports 10 in the last 6 months. Patient states the area of the current abscess felt mildly swollen 2 weeks ago and has progressed since onset. Patient states she was given cream by her PCP to place on the sites that she feels like are beginning to form into an abscess and she states that used the cream on this site with little relief. Patient denies any fevers, chills, vomiting, or urinary symptoms. (CLARENCE LY) - Related Data Allergies/Adverse Reactions: Penicillins Allergy (Intermediate, Verified 09/29/16 18:00) Unknown reaction amoxicillin [Amoxicillin] Allergy (Verified 09/29/16 18:00) vancomycin Adverse Reaction (Intermediate, Verified 09/29/16 18:00) PERIORBITAL EDEMA, BACK WELTS imipenem Adverse Reaction (Mild, Verified 09/29/16 18:00) Flushing Past Medical History - General Information source: Patient - Social History Smoking Status: Never Smoker Cigarette use (# per day): No Frequency of alcohol use: None Drug Abuse: None Lives with: Family Family History: Reviewed & Not Pertinent, Hypertension Patient has suicidal ideation: No Patient has homicidal ideation: No Endocrine Medical History: Reports: Hx Diabetes Mellitus Type 1, Hx Hypothyroidism Psychiatric Medical History: Reports: Hx Attention Deficit Hyperactivity Disorder Surgical Hx: Negative - Immunizations Immunizations up to date: Yes Hx Diphtheria, Pertussis, Tetanus Vaccination: Yes Hx Pneumococcal Vaccination: 08/08/12 Review of Systems - Review of Systems Constitutional: No symptoms reported EENT: No symptoms reported Cardiovascular: No symptoms reported Respiratory: No symptoms reported Gastrointestinal: No symptoms reported Genitourinary: No symptoms reported Female Genitourinary: No symptoms reported Musculoskeletal: No symptoms reported Skin: See HPI, Other - abscess right groin Hematologic/Lymphatic: No symptoms reported Neurological/Psychological: No symptoms reported -: Yes All other systems reviewed and negative Physical Exam - Vital signs Vitals: Temp Pulse Resp BP Pulse Ox 98.2 F 111 H 18 127/88 H 98 12/10/16 21:06 12/10/16 21:06 12/10/16 21:06 12/10/16 21:06 12/10/16 21:06 - Notes Notes: Physical Exam: General: Alert, appears well. HEENT: Normocephalic. Atraumatic. PERRLA. Extraocular movements intact. Oropharynx clear. Neck: Supple. Respiratory: No respiratory distress. Abdominal: Normal Inspection. No distension. Extremities: Moves all four extremities. Neurological: Cranial nerves II-XII grossly intact bilaterally. Normal cognition. AAOx4. Normal speech. Psychological: Normal affect. Normal Mood. Skin: Area of induration in right groin with fluctuance consistent with abscess. (CLARENCE LY) Course - Re-evaluation Re-evalutation: 12/11/16 03:18 Patient presents emergency Department with an abscess in her mons pubis area. She has a history of recurrent abscesses and MRSA. She is diabetic this started about a week ago noticed it as a pimple that got worse. No fevers chills vomiting diarrhea or systemic complaints. (SAUL OMALLEY) - Vital Signs Vital signs: Temp Pulse Resp BP Pulse Ox 97.8 F 103 H 16 117/71 97 12/11/16 04:12 12/11/16 04:12 12/11/16 04:12 12/11/16 04:12 12/11/16 04:12 Procedures - Incision and Drainage Right Groin Type: Simple Anesthetic type: 1% Lidocaine w/epi Blade size: 16 I&D procedure: Betadine prep applied, Iodoform packing placed Incision Method: Incision made by scalpel Discharge - Discharge Clinical Impression: Abscess Condition: Stable Disposition: HOME, SELF-CARE Additional Instructions: Abscess You have an abscess (boil). This a pus-forming infection, usually due to staph. Some boils may be left to drain on their own, but most require lancing. From the time the tender lump first appears, it may be three or four days before the abscess is ready to jesus. Local heat and rest help at this stage of treatment. An antibiotic may prevent spread of the infection. Once the abscess is opened, packing may be placed into it. This is done so pus is not sealed inside by premature closure of the cavity. The packing will be removed at your follow-up visit or you may be advised to remove it yourself at home. Sometimes this packing must be replaced a few times during healing. The wound will heal with surprisingly little scar. Depending on the size and location of an abscess, healing can take one to four weeks. You may shower and wash the area around the incision site two or three times a day. Antibiotics may be prescribed, but are usually not necessary after an abscess has been drained. If you develop fever, chilling, worsening pain, or increasing swelling in the area, call the doctor or return immediately. Prescriptions: Clindamycin HCl [Cleocin 300 mg Capsule] 300 mg PO BID #14 capsule Hydrocodone/Acetaminophen [Cornucopia 5-325 mg Tablet] 1 tab PO BID #12 tablet Referrals: EDNA REEVES MD [Primary Care Provider] - (In 2-3 days return for increasing worsening or new symptoms) Scribe Attestation: 12/11/16 03:04 I personally performed the services described in the documentation reviewed the documentation recorded by my scribe in my presence and it accurately and completely records my words and actions (SAUL OMALLEY) Yolieibe Documentation - Scribe Written by Amanad:: Amanda Santiago, 12/11/2016 0303 acting as scribe for :: Guilherme
[2016-12-11] MEDS ORDERED: OXYCODONE-ACETAMINOPHEN 5-325 MG TABLET PO ONE (01:46)
[2016-12-11] MEDS ORDERED: CLINDAMYCIN HCL 150 MG CAPSULE PO ONE (03:00)
[2016-12-11] MEDS ORDERED: HYDROMORPHONE HCL INJ/PF 2 MG/ML AMPULE IM ONE (03:02)
[2016-12-11 04:16] VITALS: BP 117/71
== END 2016-12-11 04:12 | disposition home or self-care (01) ==
LOC: ER 20:58
PROC: 0H97XZZ Drainage of Abdomen Skin, External Approach (ICD-10-PCS; principal; 2016-12-10)
DX: L02.214 Cutaneous abscess of groin (principal); Z88.0 Allergy status to penicillin; Z88.3 Allergy status to other anti-infective agents; E10.9 Type 1 diabetes mellitus without complications; E03.9 Hypothyroidism, unspecified
CPT/HCPCS: 10060; 99283; 96372; J1170; A6266

== ENCOUNTER 2017-01-31 10:54 | Inpatient (IN) | payer BC, OTHER ==
[2017-01-31] MEDS ORDERED: ONDANSETRON HCL INJ/PF 4 MG/2 ML SDV ONE (11:08)
[2017-01-31] MEDS ORDERED: ONDANSETRON HCL INJ/PF 4 MG/2 ML SDV IV ONE (11:09)
[2017-01-31] MEDS ORDERED: NORMAL SALINE 1000 ML 1,000 ML IV ONE (11:09)
[2017-01-31] MEDS ORDERED: INSULIN REG, HUMAN 100 UNIT/ML 3 ML VIAL (PYX) ONE (11:10)
[2017-01-31] MEDS ORDERED: INSULIN REG, HUMAN 100 UNIT/ML 3 ML VIAL (PYX) IV ONE (11:13)
[2017-01-31] MEDS ORDERED: DEXTROSE 50%-WATER 25 GM/50 ML DISP.SYRIN IV PRN ×4 (11:13→12:28)
[2017-01-31] MEDS ORDERED: GLUCAGON,HUMAN RECOMB 1 MG INJ IM PRN ×2 (11:13→12:28)
[2017-01-31] MEDS ORDERED: DEXTROSE 40% GEL 15 GM TUBE PO PRN ×4 (11:13→13:50)
--- NOTE | 2017-01-31 11:20 | ER Document Report ---
ED General - General Stated Complaint: DIABETIC CONCERN Time Seen by Provider: 01/31/17 11:02 Notes: Patient is here because she is feeling dizzy, vomiting, and very thirsty. Patient is an insulin-dependent diabetic who has been seen in this emergency department frequently for DKA. Patient says she began getting sick last evening and has persisted throughout the night. Continues to be nauseated. No diarrhea. Has not had any fever. Says she has been taking her insulin as prescribed until today. TRAVEL OUTSIDE OF THE [place] IN LAST 30 DAYS: No - Related Data Allergies/Adverse Reactions: Penicillins Allergy (Intermediate, Verified 09/29/16 18:00) Unknown reaction amoxicillin [Amoxicillin] Allergy (Verified 09/29/16 18:00) vancomycin Adverse Reaction (Intermediate, Verified 09/29/16 18:00) PERIORBITAL EDEMA, BACK WELTS imipenem Adverse Reaction (Mild, Verified 09/29/16 18:00) Flushing Past Medical History - Social History Smoking Status: Unknown if Ever Smoked Cigarette use (# per day): No Lives with: Spouse/Significant other Family History: Reviewed & Not Pertinent, Hypertension Endocrine Medical History: Reports: Hx Diabetes Mellitus Type 1, Hx Hypothyroidism Musculoskeltal Medical History: Denies Hx Arthritis Psychiatric Medical History: Reports: Hx Attention Deficit Hyperactivity Disorder Denies: Hx Depression Infectious Medical History: Denies: Hx Hepatitis - Immunizations Immunizations up to date: Yes Hx Diphtheria, Pertussis, Tetanus Vaccination: Yes Hx Pneumococcal Vaccination: 08/08/12 Review of Systems - Review of Systems Notes: REVIEW OF SYSTEMS: CONSTITUTIONAL : Denies fever. EENT: Denies eye, ear, nose or mouth or throat pain or other symptoms. CARDIOVASCULAR: Denies chest pain. RESPIRATORY: Denies cough, chest congestion, but does have shortness of breath. GASTROINTESTINAL: Denies abdominal pain but is having vomiting and nausea. No diarrhea.. GENITOURINARY: Denies difficulty or painful urinating, blood in urine. Urinating excessively. MUSCULOSKELETAL: Denies back or neck pain. Denies joint pain or swelling. SKIN: Denies rash or skin lesions. NEUROLOGICAL: Denies LOC or altered mental status. Denies headache. Denies sensory loss or motor deficits. ALL OTHER SYSTEMS REVIEWED AND NEGATIVE. Physical Exam - Vital signs Vitals: Resp 0 L 01/31/17 11:04 Interpretation: Tachycardic, Tachypneic - Notes Notes: PHYSICAL EXAMINATION: GENERAL: Hyperventilating respirations. Tachycardic and tachypneic. HEAD: Atraumatic, normocephalic. EYES: Pupils equal round and reactive to light, extraocular movements intact. ENT: oropharynx clear without exudates. Dry mucous membranes. NECK: Normal range of motion, supple. LUNGS: Breath sounds clear and equal bilaterally. HEART: Regular rate and rhythm without murmurs. ABDOMEN: Soft, nontender. No guarding or rebound. BACK: No tenderness throughout entire back. EXTREMITIES: Normal range of motion without pain. NEUROLOGICAL: Normal speech, normal gait. Normal sensory, motor, and reflex exams. Awake, alert, and oriented x3. Cranial nerves normal. PSYCH: Normal mood, normal affect. Appears somewhat depressed. SKIN: Warm, dry, no rashes. Course - Re-evaluation Re-evalutation: 01/31/17 11:30 Patient was started on IV saline, and insulin drip at 3 U/h, and Zofran for nausea vomiting. 01/31/17 12:06 patient is severely acidotic. PH on venous specimen 6.95. Bicarb level less than 5. Patient is currently on her second liter of saline and insulin drip is infusing. Spoke with Dr. Cosme who will be admitting the patient to ICU. - Vital Signs Vital signs: Temp Pulse Resp BP Pulse Ox 0 L 01/31/17 11:04 - Laboratory Result Diagrams: 01/31/17 11:07 01/31/17 11:07 Laboratory results interpreted by me: 01/31/17 01/31/17 01/31/17 11:07 11:07 11:07 WBC 15.3 H Hct 49.4 H MCV 109 H MCHC 29.6 L RDW 15.9 H Plt Count 532 H Absolute Neutrophils 11.7 H VBG pH 6.95 L* VBG pCO2 22.6 L VBG HCO3 4.8 L Potassium 5.7 H Carbon Dioxide < 5 L* Glucose 730 H* Direct Bilirubin 0.5 H AST 99 H ALT 102 H Alkaline Phosphatase 257 H Total Protein 9.2 H Albumin 5.1 H Critical Care Note - Critical Care Note Total time excluding time spent on procedures (mins): 60 Discharge - Discharge Clinical Impression: Diabetic ketoacidosis Qualifiers: Diabetes mellitus type: type 1 Condition: Poor Disposition: ADMITTED INPATIENT Admitting Provider: Hospitalist Unit Admitted: ICU
[2017-01-31 11:27] LABS: VENOUS BLOOD BASE EXCESS -26.2 mmol/L; VENOUS BLOOD HCO3 4.8 mmol/L (20-32); VENOUS BLOOD PCO2 22.6 mmHg (35-63)
[2017-01-31 11:33] LABS: VENOUS BLOOD PH 6.95 (7.30-7.42)
[2017-01-31 11:36] LABS: ALANINE AMINOTRANSFERASE 102 U/L (9-52); ALBUMIN 5.1 g/dL (3.5-5.0); ALKALINE PHOSPHATASE 257 U/L (38-126); ASPARTATE AMINO TRANSFERASE 99 U/L (14-36); BILIRUBIN,DIRECT 0.5 mg/dL (0.0-0.4); BILIRUBIN,TOTAL 0.5 mg/dL (0.2-1.3); BLOOD UREA NITROGEN 11 mg/dL (7-20); CHLORIDE 101 mmol/L (98-107); CREATININE RESULT 0.91 mg/dL (0.52-1.25); LIPASE 46.3 U/L (23-300); POTASSIUM 5.7 mmol/L (3.6-5.0); SODIUM 141.3 mmol/L (137-145); TOTAL PROTEIN 9.2 g/dL (6.3-8.2)
[2017-01-31 11:39] LABS: ABSOLUTE BASOPHILS # (AUTO) 0.1 10^3/uL (0.0-0.2); ABSOLUTE LYMPHOCYTES (AUTO) 2.7 10^3/uL (0.5-4.7); ABSOLUTE MONOCYTES (AUTO) 0.8 10^3/uL (0.1-1.4); ABSOLUTE NEUT (AUTO) 11.7 10^3/uL (1.7-8.2); BASOPHILS % (AUTO) 0.8 % (0-2); EOSINOPHILS % (AUTO) 0.1 % (0-6); HEMATOCRIT 49.4 % (36.0-47.0); HEMOGLOBIN 14.6 g/dL (12.0-15.5); HGB HCT DIFFERENCE -5.6; LYMPHOCYTES % (AUTO) 17.5 % (13-45); MEAN CORPUSCULAR HEMOGLOBIN 32.4 pg (27.0-33.4); MEAN CORPUSCULAR HGB CONC 29.6 g/dL (32.0-36.0); MEAN CORPUSCULAR VOLUME 109 fl (80-97); MONOCYTES % (AUTO) 5.1 % (3-13); RED BLOOD COUNT 4.52 10^6/uL (3.72-5.28); RED CELL DISTRIBUTION WIDTH 15.9 % (11.5-14.0); SEGMENTED NEUTROPHILS % (AUTO) 76.5 % (42-78); WHITE BLOOD COUNT 15.3 10^3/uL (4.0-10.5)
[2017-01-31 11:53] LABS: CARBON DIOXIDE < 5 mmol/L (22-30); GLUCOSE 730 mg/dL (75-110)
[2017-01-31] MEDS ORDERED: SODIUM BICARBONATE 8.4% INJ 50 MEQ/50 ML DISP.SYRIN ONE (12:24)
[2017-01-31] MEDS ORDERED: SODIUM BICARBONATE 8.4% INJ 50 MEQ/50 ML DISP.SYRIN IV ONE (12:28)
[2017-01-31] MEDS ORDERED: NORMAL SALINE 1000 ML 4,000 ML IV ONE (12:28)
[2017-01-31] MEDS ORDERED: NORMAL SALINE 100 ML with INSULIN REGULAR, HUMAN 100 UNIT IV PRN ×2 (12:28)
[2017-01-31] MEDS ORDERED: ACETAMINOPHEN 325 MG TABLET PO PRN ×2 (12:32→15:00)
[2017-01-31] MEDS ORDERED: ONDANSETRON HCL INJ/PF 4 MG/2 ML SDV IV PRN ×2 (12:32→15:01)
[2017-01-31] MEDS ORDERED: FAMOTIDINE INJ/PF 20 MG/2 ML SDV IV ONE ×2 (12:49→14:00)
[2017-01-31 14:13] LABS: APPEARANCE,URINE CLEAR; BILIRUBIN,URINE NEGATIVE (NEGATIVE); GLUCOSE, URINE >=1000 mg/dL (NEGATIVE); KETONES,URINE 300 mg/dL (NEGATIVE); LEUKOCYTE ESTERASE,URINE NEGATIVE (NEGATIVE); NITRITE,URINE NEGATIVE (NEGATIVE); PROTEIN,URINE 30 mg/dL (NEGATIVE); URINE SPECIFIC GRAVITY 1.023; UROBILINOGEN,URINE NEGATIVE mg/dL (<2.0)
[2017-01-31 14:14] LABS: BACTERIA,URINE 1+ /HPF; RBC,URINE 0-1 /HPF
[2017-01-31] MEDS ORDERED: ALPRAZOLAM 0.25 MG TABLET PO PRN (14:53)
[2017-01-31] MEDS: NORMAL SALINE 1000 ML 1,000 ML IV PRN ×2 (15:04→18:18)
--- NOTE | 2017-01-31 15:14 | PDOC H&P ---
History of Present Illness Admission Date/PCP: 01/31/17 12:15 EDNA REEVES MD History of Present Illness: VICK MELGOZA is a 21 year old female with a history of type 1 diabetes who presents with nausea, vomiting and a blood sugar in the 700's. Denies any antecedent illness. She denies any cough, fever, chills, dysuria, diarrhea. Patient is quite lethargic and history is difficult to obtain. Past Medical History Endocrine Medical History: Reports: Diabetes Mellitus Type 1, Hypothyroidism GI Medical History: Denies: Hepatitis Musculoskeltal Medical History: Denies: Arthritis Skin Medical History: Denies: Eczema, Psoriasis Psychiatric Medical History: Reports: Attention Deficit Hyperactivity Disorder Denies: Depression Past Surgical History Past Surgical History: Reports: None Social History Lives with: Spouse/Significant other Smoking Status: Never Smoker Frequency of Alcohol Use: Occasional Hx Recreational Drug Use: Yes Drugs: Other - History of methamphetamine use Hx Prescription Drug Abuse: No - Advance Directive Resuscitation Status: Full Code Surrogate healthcare decision maker:: Family History Family History: Hypertension Parental Family History Reviewed: Yes Children Family History Reviewed: NA Sibling(s) Family History Reviewed.: No Medication/Allergy Home Medications: Dextroamphetamine/Amphetamine [Adderall Xr 30 mg Capsule] 30 mg PO QAM 01/31/17 Insulin Aspart [Novolog Flexpen] 0 unit SQ .SLD SCALE MEALS PRN 01/31/17 Zolpidem Tartrate [Ambien] 10 mg PO QHS 01/31/17 Allergies/Adverse Reactions: Penicillins Allergy (Intermediate, Verified 09/29/16 18:00) Unknown reaction amoxicillin [Amoxicillin] Allergy (Verified 09/29/16 18:00) vancomycin Adverse Reaction (Intermediate, Verified 09/29/16 18:00) PERIORBITAL EDEMA, BACK WELTS imipenem Adverse Reaction (Mild, Verified 09/29/16 18:00) Flushing Review of Systems Constitutional: ABSENT: chills, fever(s), headache(s), weight gain, weight loss Eyes: ABSENT: visual disturbances Ears: ABSENT: hearing changes Cardiovascular: ABSENT: chest pain, dyspnea on exertion, edema, orthropnea, palpitations Respiratory: ABSENT: cough, hemoptysis Gastrointestinal: PRESENT: abdominal pain, nausea, vomiting. ABSENT: constipation, diarrhea, hematemesis, hematochezia Genitourinary: ABSENT: dysuria, hematuria Musculoskeletal: ABSENT: joint swelling Integumentary: ABSENT: rash, wounds Neurological: ABSENT: abnormal gait, abnormal speech, confusion, dizziness, focal weakness, syncope Psychiatric: ABSENT: anxiety, depression, homidical ideation, suicidal ideation Endocrine: ABSENT: cold intolerance, heat intolerance, polydipsia, polyuria Hematologic/Lymphatic: ABSENT: easy bleeding, easy bruising Physical Exam Vital Signs: Temp Pulse Resp BP Pulse Ox 97.8 F 124 H 26 H 100 01/31/17 11:34 01/31/17 11:34 01/31/17 11:34 01/31/17 11:34 General appearance: PRESENT: severe distress, well-developed, well-nourished Head exam: PRESENT: atraumatic, normocephalic Eye exam: PRESENT: conjunctiva pink, EOMI, PERRLA. ABSENT: scleral icterus Ear exam: PRESENT: normal external ear exam Mouth exam: PRESENT: dry mucosa, tongue midline Neck exam: ABSENT: JVD, lymphadenopathy, thyromegaly, tracheal deviation Respiratory exam: PRESENT: clear to auscultation ti, tachypnea. ABSENT: rales , rhonchi, wheezes Cardiovascular exam: PRESENT: RRR, +S1, +S2, tachycardia. ABSENT: diastolic murmur, rubs, systolic murmur Pulses: PRESENT: normal dorsalis pedis pul Vascular exam: PRESENT: pallor GI/Abdominal exam: PRESENT: hypoactive bowel sounds, soft. ABSENT: distended, firm, guarding, mass, Deleon's sign, organolmegaly, rebound, rigid, tenderness Rectal exam: PRESENT: deferred Extremities exam: PRESENT: full ROM. ABSENT: calf tenderness, clubbing, pedal edema Neurological exam: PRESENT: alert, awake, oriented to person, oriented to place , oriented to time, oriented to situation, CN II-XII grossly intact. ABSENT: motor sensory deficit Psychiatric exam: PRESENT: appropriate affect, normal mood. ABSENT: homicidal ideation, suicidal ideation Skin exam: PRESENT: dry, intact, warm. 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[employer]INEER BUN 11 Creatinine 0.91 Glucose 730 H* POC Glucose > 550 H* Direct Bilirubin 0.5 H AST 99 H ALT 102 H Alkaline Phosphatase 257 H Total Protein 9.2 H Albumin 5.1 H Lipase 46.3 TSH Serum HCG, Qual Urine Glucose (UA) Urine Ketones Urine Blood 01/31/17 01/31/17 01/31/17 11:07 11:07 11:07 WBC Hgb Hct MCV Plt Count VBG pH 6.95 L* VBG pCO2 22.6 L VBG HCO3 4.8 L Sodium Potassium Chloride Carbon Dioxide Anion Gap BUN Creatinine Glucose POC Glucose Direct Bilirubin AST ALT Alkaline Phosphatase Total Protein Albumin Lipase TSH 0.43 L Serum HCG, Qual NEGATIVE Urine Glucose (UA) Urine Ketones Urine Blood 01/31/17 13:40 WBC Hgb Hct MCV Plt Count VBG pH VBG pCO2 VBG HCO3 Sodium Potassium Chloride Carbon Dioxide Anion Gap BUN Creatinine Glucose POC Glucose Direct Bilirubin AST ALT Alkaline Phosphatase Total Protein Albumin Lipase TSH Serum HCG, Qual Urine Glucose (UA) >=1000 H Urine Ketones 300 H Urine Blood SMALL H Assessment & Plan - Diagnosis (1) DKA (diabetic ketoacidosis) Qualifiers: Diabetes mellitus type: type 1 Diabetes mellitus complication detail: without coma Qualified Code(s): E10.10 - Type 1 diabetes mellitus with ketoacidosis without coma Is this a current diagnosis for this admission?: YesPlan: In the ICU. Give patient 2 amps of sodium bicarbonate. Give 5L NS bolus and start NS at 300mL/hr. Check A1c. Unknown source at this time. Check blood cultures, UA, urine culture, GC, HCG. (2) SIRS (systemic inflammatory response syndrome) Is this a current diagnosis for this admission?: YesPlan: Criteria for sirs met secondary to DKA. Feel this is unlikely to be infectious source. (3) Acute encephalopathy Is this a current diagnosis for this admission?: YesPlan: Improving with hydration and insulin. (4) DVT prophylaxis Is this a current diagnosis for this admission?: YesPlan: Lovenox and SCDs (5) Elevated LFTs Is this a current diagnosis for this admission?: YesPlan: Likely secondary to dehydration possibly also alcohol use. Concern for LARKIN and acute hepatitis (6) GI ppx Is this a current diagnosis for this admission?: YesPlan: Pepcid - Time Time Spent: 50 to 70 Minutes Critical Time spent with patient: 25-34 minutes Medications reviewed and adjusted accordingly: Yes
[2017-01-31 15:19] LABS: URINE BARBITURATES SCREEN NEGATIVE; URINE METHADONE SCREEN NEGATIVE; URINE OPIATES LOW NEGATIVE; URINE PHENCYCLIDINE SCREEN NEGATIVE
[2017-01-31 15:54] LABS: BLOOD UREA NITROGEN 8 mg/dL (7-20); CALCIUM 7.1 mg/dL (8.4-10.2); CHLORIDE 120 mmol/L (98-107); GLUCOSE 136 mg/dL (75-110); SODIUM 151.8 mmol/L (137-145)
[2017-01-31 16:04] LABS: ANION GAP 24 (5-19); POTASSIUM 4.6 mmol/L (3.6-5.0)
[2017-01-31 16:22] LABS: CARBON DIOXIDE 8 mmol/L (22-30)
[2017-01-31] MEDS: METOCLOPRAMIDE HCL INJ/PF 10 MG/2 ML SDV IV SCH ×2 (16:40→22:08)
[2017-01-31 19:44] LABS: BLOOD UREA NITROGEN 5 mg/dL (7-20); CALCIUM 7.2 mg/dL (8.4-10.2); CREATININE RESULT 0.56 mg/dL (0.52-1.25); GLUCOSE 94 mg/dL (75-110)
[2017-01-31 20:00] LABS: CHLORIDE 113 mmol/L (98-107); POTASSIUM 3.9 mmol/L (3.6-5.0)
[2017-01-31 20:05] LABS: ANION GAP 21 (5-19)
[2017-01-31 20:07] LABS: CARBON DIOXIDE 8 mmol/L (22-30)
[2017-01-31] MEDS: POTASSI CL 20 MEQ/D5-1/2NS 1L 1,000 ML IV PRN ×2 (20:18→23:49)
[2017-01-31] MEDS: FAMOTIDINE INJ/PF 20 MG/2 ML SDV IV SCH (22:09)
[2017-01-31 23:26] LABS: ANION GAP 14 (5-19); BLOOD UREA NITROGEN 3 mg/dL (7-20); CALCIUM 7.5 mg/dL (8.4-10.2); CARBON DIOXIDE 12 mmol/L (22-30); CHLORIDE 112 mmol/L (98-107); CREATININE RESULT 0.49 mg/dL (0.52-1.25); GLUCOSE 162 mg/dL (75-110); POTASSIUM 4.1 mmol/L (3.6-5.0); SODIUM 138.1 mmol/L (137-145)
[2017-02-01] MEDS: POTASSI CL 20 MEQ/D5-1/2NS 1L 1,000 ML IV PRN ×3 (03:15→10:44)
[2017-02-01 03:32] LABS: ANION GAP 12 (5-19); CALCIUM 7.6 mg/dL (8.4-10.2); CARBON DIOXIDE 11 mmol/L (22-30); CHLORIDE 115 mmol/L (98-107); CREATININE RESULT 0.45 mg/dL (0.52-1.25); GLUCOSE 122 mg/dL (75-110); POTASSIUM 3.6 mmol/L (3.6-5.0); SODIUM 137.8 mmol/L (137-145)
[2017-02-01 03:33] LABS: BLOOD UREA NITROGEN < 2 mg/dL (7-20)
[2017-02-01 03:37] LABS: ABSOLUTE BASOPHILS # (AUTO) 0.1 10^3/uL (0.0-0.2); ABSOLUTE LYMPHOCYTES (AUTO) 1.7 10^3/uL (0.5-4.7); ABSOLUTE NEUT (AUTO) 8.3 10^3/uL (1.7-8.2); BASOPHILS % (AUTO) 0.6 % (0-2); EOSINOPHILS % (AUTO) 0.1 % (0-6); HEMATOCRIT 34.1 % (36.0-47.0); HGB HCT DIFFERENCE -0.5; LYMPHOCYTES % (AUTO) 15.5 % (13-45); MEAN CORPUSCULAR HEMOGLOBIN 32.2 pg (27.0-33.4); MEAN CORPUSCULAR HGB CONC 32.7 g/dL (32.0-36.0); MONOCYTES % (AUTO) 8.6 % (3-13); RED BLOOD COUNT 3.47 10^6/uL (3.72-5.28); RED CELL DISTRIBUTION WIDTH 13.9 % (11.5-14.0); SEGMENTED NEUTROPHILS % (AUTO) 75.2 % (42-78)
[2017-02-01 03:40] LABS: HEMOGLOBIN 11.2 g/dL (12.0-15.5)
[2017-02-01 03:43] LABS: MEAN CORPUSCULAR VOLUME 98 fl (80-97)
[2017-02-01 07:45] LABS: ANION GAP 9 (5-19); CALCIUM 7.9 mg/dL (8.4-10.2); CARBON DIOXIDE 14 mmol/L (22-30); CHLORIDE 114 mmol/L (98-107); CREATININE RESULT 0.43 mg/dL (0.52-1.25); GLUCOSE 117 mg/dL (75-110); MAGNESIUM 1.3 mg/dL (1.6-2.3); POTASSIUM 3.6 mmol/L (3.6-5.0)
[2017-02-01 07:55] LABS: BLOOD UREA NITROGEN < 2 mg/dL (7-20)
--- NOTE | 2017-02-01 08:48 | RADIOLOGY REPORT (SQ) ---
EXAM DESCRIPTION: CHEST PA/LAT COMPLETED DATE/TIME: 02/01/2017 8:14 am REASON FOR STUDY: fever COMPARISON: Chest film 09/30/2016, 01/31/2013 EXAM PARAMETERS: NUMBER OF VIEWS: two views TECHNIQUE: Digital Frontal and Lateral radiographic views of the chest acquired. RADIATION DOSE: NA LIMITATIONS: none FINDINGS: LUNGS AND PLEURA: Mild pulmonary vascular congestion is present. There is trace fluid in the major and minor fissures and in the posterior costophrenic sulci on lateral view. Question fluid overload No dense consolidation worrisome for pneumonia. No pneumothorax. MEDIASTINUM AND HILAR STRUCTURES: No masses or contour abnormalities. HEART AND VASCULAR STRUCTURES: Heart normal size. BONES: No acute findings. HARDWARE: None in the chest. OTHER: No other significant finding. IMPRESSION: Mild pulmonary vascular congestion. Trace pleural effusions. TECHNICAL DOCUMENTATION: JOB ID: [id number] [employer]- All Rights Reserved
[2017-02-01] MEDS: FAMOTIDINE INJ/PF 20 MG/2 ML SDV IV SCH ×2 (09:10→21:34)
[2017-02-01] MEDS: METOCLOPRAMIDE HCL INJ/PF 10 MG/2 ML SDV IV SCH (09:10)
[2017-02-01] MEDS: ENOXAPARIN SODIUM INJ 40 MG/0.4 ML DISP.SYRIN SUBCUT SCH (09:10)
--- NOTE | 2017-02-01 09:44 | PDOC PROGRESS REPORT ---
Subjective Progress Note for:: 02/01/17 Subjective:: Patient reports that she is slightly short of breath today and has a cough. She also reports some sinus congestion. Patient would like her Jung catheter removed. Patient denies chest pain, nausea, vomiting,, chills, diarrhea, constipation, or focal weakness. Physical Exam Vital Signs: Temp Pulse Resp BP Pulse Ox 100.7 F H 123 H 19 96/58 L 97 02/01/17 00:00 01/31/17 20:28 02/01/17 06:00 02/01/17 05:34 02/01/17 06:00 Intake & Output 01/31/17 02/01/17 02/02/17 06:59 06:59 06:59 Intake Total 98714 Output Total 4710 Balance 6577 Weight 69.3 kg Exam: General: Awake alert and oriented x3, no acute respiratory distress HEENT: AT/NC, PERRL, bilateral periorbital swelling EOMI, oropharynx is moist, pink, no scleral icterus, no conjunctival injection Neck: No JVD, trachea midline Chest: Diminished bases, coarse bilaterally CV: Regular rate and rhythm, normal S1 and S2, no murmur, rub, or gallop Abdomen: Soft, nontender to palpation, nondistended, active bowel sounds; no rebound, rigidity, or guarding Extremities: No cyanosis, clubbing; 1+edema Neuro: Cranial nerves II through XII are grossly intact without focal deficits; awake alert and oriented x3 Psych: Normal mood and affect Results Laboratory Results: 02/01/17 03:13 01/31/17 01/31/17 01/31/17 13:40 15:20 19:10 WBC RBC Hgb Hct MCV MCH MCHC RDW Plt Count Seg Neutrophils % Lymphocytes % Monocytes % Eosinophils % Basophils % Absolute Neutrophils Absolute Lymphocytes Absolute Monocytes Absolute Eosinophils Absolute Basophils Sodium 151.8 H 142.0 Potassium 4.6 D 3.9 Chloride 120 H 113 H Carbon Dioxide 8 L* 8 L* Anion Gap 24 H 21 H BUN 8 5 L Creatinine 0.60 0.56 Est GFR ( Amer) > 60 > 60 Est GFR (Non-Af Amer) > 60 > 60 Glucose 136 H 94 Calcium 7.1 L 7.2 L Urine Color YELLOW Urine Appearance CLEAR Urine pH 6.0 Ur Specific [place] 1.023 Urine Protein 30 H Urine Glucose (UA) >=1000 H Urine Ketones 300 H Urine Blood SMALL H Urine Nitrite NEGATIVE Ur Leukocyte Esterase NEGATIVE Ur Squamous Epith Cells MANY 01/31/17 02/01/17 02/01/17 23:00 03:13 03:13 WBC 11.0 H RBC 3.47 L Hgb 11.2 L D Hct 34.1 L MCV 98 H D MCH 32.2 MCHC 32.7 RDW 13.9 Plt Count 252 Seg Neutrophils % 75.2 Lymphocytes % 15.5 Monocytes % 8.6 Eosinophils % 0.1 Basophils % 0.6 Absolute Neutrophils 8.3 H Absolute Lymphocytes 1.7 Absolute Monocytes 1.0 Absolute Eosinophils 0.0 Absolute Basophils 0.1 Sodium 138.1 137.8 Potassium 4.1 3.6 Chloride 112 H 115 H Carbon Dioxide 12 L 11 L Anion Gap 14 12 BUN 3 L < 2 L Creatinine 0.49 L 0.45 L Est GFR ( Amer) > 60 > 60 Est GFR (Non-Af Amer) > 60 > 60 Glucose 162 H 122 H Calcium 7.5 L 7.6 L Urine Color Urine Appearance Urine pH Ur Specific [place] Urine Protein Urine Glucose (UA) Urine Ketones Urine Blood Urine Nitrite Ur Leukocyte Esterase Ur Squamous Epith Cells Assessment & Plan - Diagnosis (1) DKA (diabetic ketoacidosis) Qualifiers: Diabetes mellitus type: type 1 Diabetes mellitus complication detail: without coma Qualified Code(s): E10.10 - Type 1 diabetes mellitus with ketoacidosis without coma Is this a current diagnosis for this admission?: YesPlan: Transition to Lantus and off insulin drip. Pending A1c. Suspect viral gastroenteritis or URI, current cultures are negative and hCG is negative. (2) SIRS (systemic inflammatory response syndrome) Is this a current diagnosis for this admission?: YesPlan: Criteria for sirs met secondary to DKA. possibly secondary to viral process such as gastroenteritis or URI. (3) Acute encephalopathy Is this a current diagnosis for this admission?: YesPlan: Patient is at baseline (4) DVT prophylaxis Is this a current diagnosis for this admission?: Yes (5) Elevated LFTs Is this a current diagnosis for this admission?: Yes (6) GI ppx Is this a current diagnosis for this admission?: Yes (7) Hypomagnesemia Is this a current diagnosis for this admission?: YesPlan: Replete and recheck - Time Time Spent with patient: 25-34 minutes Medications reviewed and adjusted accordingly: Yes Anticipated discharge: Home Within: within 24 hours, within 48 hours - Inpatient Certification Based on my medical assessment, after consideration of the patient's comorbidities, presenting symptoms, or acuity I expect that the services needed warrant INPATIENT care.: Yes I certify that my determination is in accordance with my understanding of Medicare's requirements for reasonable and necessary INPATIENT services [42 CFR 412.3e].: Yes Medical Necessity: Need For IV Fluids Post Hospital Care: D/C Rate Marker Documentation
[2017-02-01] MEDS ORDERED: FUROSEMIDE INJ/PF 20 MG/2 ML SDV IV ONE (10:20)
[2017-02-01] MEDS ORDERED: POTASSIUM CHLORIDE 10 MEQ TABLET.SA PO ONE (10:20)
[2017-02-01] MEDS ORDERED: SODIUM BICARBONATE 8.4% INJ 50 MEQ/50 ML DISP.SYRIN IV ONE (10:20)
[2017-02-01] MEDS: CETIRIZINE 10 MG TABLET PO SCH (10:43)
[2017-02-01] MEDS: FLUTICASONE NASAL SPRAY 50 MCG/SPRY 120 SPRAY/16 GM NASL SCH ×2 (10:44→21:34)
[2017-02-01] MEDS ORDERED: INSULIN GLARGINE,HUM.REC.ANLOG 1,000 UNIT/10 ML UNIT SUBCUT ONE (11:00)
[2017-02-01] MEDS ORDERED: INSULIN GLARGINE,HUM.REC.ANLOG 300 UNIT/3 ML INSULN.PEN SUBCUT ONE (11:15)
[2017-02-01 12:07] LABS: CHLAM PCR NOT DETECTED (NOT DETECT)
[2017-02-01] MEDS: INSULIN LISPRO 100 UNIT/ML 3 ML VIAL SUBCUT PRN ×2 (12:13→21:47)
[2017-02-01 12:28] LABS: ANION GAP 17 (5-19); CALCIUM 8.6 mg/dL (8.4-10.2); CARBON DIOXIDE 11 mmol/L (22-30); CHLORIDE 111 mmol/L (98-107); CREATININE RESULT 0.47 mg/dL (0.52-1.25); GLUCOSE 146 mg/dL (75-110); POTASSIUM 3.3 mmol/L (3.6-5.0); SODIUM 139.4 mmol/L (137-145)
[2017-02-01 12:33] LABS: BLOOD UREA NITROGEN < 2 mg/dL (7-20)
[2017-02-01] MEDS: NORMAL SALINE 1000 ML 1,000 ML IV PRN ×2 (14:03→22:45)
[2017-02-01 15:21] LABS: ANION GAP 11 (5-19); CALCIUM 8.7 mg/dL (8.4-10.2); CARBON DIOXIDE 19 mmol/L (22-30); CHLORIDE 111 mmol/L (98-107); CREATININE RESULT 0.42 mg/dL (0.52-1.25); GLUCOSE 146 mg/dL (75-110); POTASSIUM 3.5 mmol/L (3.6-5.0); SODIUM 141.4 mmol/L (137-145)
[2017-02-01 15:28] LABS: BLOOD UREA NITROGEN < 2 mg/dL (7-20)
[2017-02-01] MEDS: SULFAMETHOXAZOLE/TRIMETHOPRIM 800-160 MG TABLET PO SCH (17:52)
[2017-02-01 19:11] LABS: ANION GAP 12 (5-19); CALCIUM 8.9 mg/dL (8.4-10.2); CARBON DIOXIDE 17 mmol/L (22-30); CHLORIDE 109 mmol/L (98-107); GLUCOSE 309 mg/dL (75-110); POTASSIUM 3.6 mmol/L (3.6-5.0); SODIUM 138.2 mmol/L (137-145)
[2017-02-01 19:27] LABS: BLOOD UREA NITROGEN < 2 mg/dL (7-20)
[2017-02-01] MEDS: INSULIN GLARGINE,HUM.REC.ANLOG 300 UNIT/3 ML INSULN.PEN SUBCUT SCH (21:39)
[2017-02-01] MEDS ORDERED: INSULIN GLARGINE,HUM.REC.ANLOG 300 UNIT/3 ML INSULN.PEN SUBCUT SCH (22:00)
[2017-02-01 23:05] LABS: ANION GAP 17 (5-19); BLOOD UREA NITROGEN 7 mg/dL (7-20); CALCIUM 8.9 mg/dL (8.4-10.2); CARBON DIOXIDE 17 mmol/L (22-30); CHLORIDE 109 mmol/L (98-107); CREATININE RESULT 0.66 mg/dL (0.52-1.25); GLUCOSE 310 mg/dL (75-110); POTASSIUM 3.4 mmol/L (3.6-5.0); SODIUM 142.9 mmol/L (137-145)
[2017-02-02] MEDS: NORMAL SALINE 1000 ML 1,000 ML IV PRN ×2 (03:03→10:00)
[2017-02-02 03:05] LABS: ABSOLUTE BASOPHILS # (AUTO) 0.1 10^3/uL (0.0-0.2); ABSOLUTE LYMPHOCYTES (AUTO) 1.9 10^3/uL (0.5-4.7); ABSOLUTE MONOCYTES (AUTO) 0.5 10^3/uL (0.1-1.4); ABSOLUTE NEUT (AUTO) 3.6 10^3/uL (1.7-8.2); BASOPHILS % (AUTO) 0.9 % (0-2); EOSINOPHILS % (AUTO) 0.7 % (0-6); HEMATOCRIT 34.9 % (36.0-47.0); HEMOGLOBIN 11.7 g/dL (12.0-15.5); HGB HCT DIFFERENCE 0.2; LYMPHOCYTES % (AUTO) 31.3 % (13-45); MEAN CORPUSCULAR HEMOGLOBIN 32.2 pg (27.0-33.4); MEAN CORPUSCULAR HGB CONC 33.6 g/dL (32.0-36.0); MEAN CORPUSCULAR VOLUME 96 fl (80-97); MONOCYTES % (AUTO) 8.4 % (3-13); RED BLOOD COUNT 3.64 10^6/uL (3.72-5.28); RED CELL DISTRIBUTION WIDTH 13.8 % (11.5-14.0); SEGMENTED NEUTROPHILS % (AUTO) 58.7 % (42-78); WHITE BLOOD COUNT 6.1 10^3/uL (4.0-10.5)
[2017-02-02 03:49] LABS: ANION GAP 13 (5-19); BLOOD UREA NITROGEN 4 mg/dL (7-20); CALCIUM 9.2 mg/dL (8.4-10.2); CARBON DIOXIDE 20 mmol/L (22-30); CHLORIDE 109 mmol/L (98-107); CREATININE RESULT 0.48 mg/dL (0.52-1.25); GLUCOSE 129 mg/dL (75-110); POTASSIUM 3.2 mmol/L (3.6-5.0); SODIUM 142.4 mmol/L (137-145)
[2017-02-02 07:20] LABS: ANION GAP 14 (5-19); BLOOD UREA NITROGEN 2 mg/dL (7-20); CALCIUM 8.6 mg/dL (8.4-10.2); CARBON DIOXIDE 19 mmol/L (22-30); CHLORIDE 109 mmol/L (98-107); CREATININE RESULT 0.42 mg/dL (0.52-1.25); GLUCOSE 136 mg/dL (75-110)
[2017-02-02 07:41] LABS: POTASSIUM 2.9 mmol/L (3.6-5.0)
[2017-02-02] MEDS ORDERED: POTASSIUM CHLORIDE 10 MEQ TABLET.SA PO ONE ×2 (09:00→13:00)
[2017-02-02] MEDS: CETIRIZINE 10 MG TABLET PO SCH (09:59)
[2017-02-02] MEDS: SULFAMETHOXAZOLE/TRIMETHOPRIM 800-160 MG TABLET PO SCH ×2 (09:59→17:20)
[2017-02-02] MEDS: FAMOTIDINE INJ/PF 20 MG/2 ML SDV IV SCH (09:59)
[2017-02-02] MEDS: ENOXAPARIN SODIUM INJ 40 MG/0.4 ML DISP.SYRIN SUBCUT SCH (10:00)
[2017-02-02] MEDS: FLUTICASONE NASAL SPRAY 50 MCG/SPRY 120 SPRAY/16 GM NASL SCH (10:04)
[2017-02-02] MEDS: INSULIN GLARGINE,HUM.REC.ANLOG 300 UNIT/3 ML INSULN.PEN SUBCUT SCH (10:04)
[2017-02-02] MEDS ORDERED: NORMAL SALINE 1000 ML 1,000 ML IV PRN (10:15)
[2017-02-02 12:23] LABS: ANION GAP 11 (5-19); BLOOD UREA NITROGEN 4 mg/dL (7-20); CALCIUM 8.7 mg/dL (8.4-10.2); CARBON DIOXIDE 20 mmol/L (22-30); CHLORIDE 108 mmol/L (98-107); CREATININE RESULT 0.45 mg/dL (0.52-1.25); GLUCOSE 229 mg/dL (75-110); POTASSIUM 3.7 mmol/L (3.6-5.0); SODIUM 139.4 mmol/L (137-145)
[2017-02-02 15:49] LABS: ANION GAP 11 (5-19); BLOOD UREA NITROGEN 5 mg/dL (7-20); CALCIUM 8.8 mg/dL (8.4-10.2); CARBON DIOXIDE 23 mmol/L (22-30); CHLORIDE 107 mmol/L (98-107); CREATININE RESULT 0.52 mg/dL (0.52-1.25); GLUCOSE 244 mg/dL (75-110); POTASSIUM 4.1 mmol/L (3.6-5.0); SODIUM 140.7 mmol/L (137-145)
--- NOTE | 2017-02-02 16:44 | PDOC DISCHARGE SUMMARY ---
General - Admit/Disc Date/PCP Admission Date/Primary Care Provider: 01/31/17 12:32 EDNA REEVES MD Discharge Date: 02/02/17 - Discharge Diagnosis (1) DKA (diabetic ketoacidoses) Is this a current diagnosis for this admission?: Yes (2) Hypomagnesemia Is this a current diagnosis for this admission?: Yes (3) Hypokalemia Is this a current diagnosis for this admission?: Yes (4) Elevated LFTs Is this a current diagnosis for this admission?: Yes - Additional Information Resuscitation Status: Full Code Discharge Diet: Diabetic - no concentrated sweets Discharge Activity: Activity As Tolerated, Balance Activity w/Rest Home Medications: Dextroamphetamine/Amphetamine [Adderall Xr 30 mg Capsule] 30 mg PO QAM 01/31/17 Insulin Aspart [Novolog Flexpen] 0 unit SQ .SLD SCALE MEALS PRN 01/31/17 Zolpidem Tartrate [Ambien] 10 mg PO QHS 01/31/17 Insulin Glargine,Hum.rec.anlog [Lantus Insulin 100 Unit/mL] 30 unit SUBCUT Q12 insuln.pen 02/02/17 Additional Information: Abdominal ultrasound as outpatient with primary care physician. Repeat potassium level as outpatient with primary care physician. History of Present Illness Patient complains of: Nausea vomiting History of Present Illness: VICK MELGOZA is a 21 year old female with a history of type 1 diabetes who presents with nausea, vomiting and a blood sugar in the 700's. Denies any antecedent illness. She denies any cough, fever, chills, dysuria, diarrhea. Patient is quite lethargic and history is difficult to obtain. Hospital Course Hospital Course: The patient was admitted to telemetry. The patient was hydrated with normal saline. Electrolytes were monitored and replaced. Blood sugars were monitored hourly. Patient was maintained on insulin drip and eventually was transitioned to subcutaneous insulin when anion gap normalized. Subsequently the patient symptomatically improved and able to tolerate oral intake. Blood sugar likewise improved in the 200s. Apparently the patient reports skipping her insulin when she missed a meal due to being busy at work. She was therefore educated about basal insulin as well as prandial insulin coverage and adhering to diet. Patient understood. Course was noted for possible urinary tract infection where she was started on antibiotic. Cultures however were inconclusive. Course was also noted for abnormal liver function tests and ultrasound was ordered but the patient unable to wait for the test. She wanted to go home and have it done on an outpatient basis. The rest of the hospital stays unremarkable. Physical Exam Vital Signs: Temp Pulse Resp BP Pulse Ox 98.0 F 95 15 117/75 99 02/02/17 12:00 02/02/17 12:00 02/02/17 12:00 02/02/17 12:00 02/02/17 12:00 Intake & Output 02/01/17 02/02/17 02/03/17 06:59 06:59 06:59 Intake Total 12118 3788 Output Total 4710 5050 Balance 6577 -1262 Weight 69.3 kg 69.3 kg General appearance: PRESENT: no acute distress, cooperative, obese Head exam: PRESENT: normocephalic Eye exam: PRESENT: EOMI Mouth exam: PRESENT: moist, neck supple Neck exam: ABSENT: JVD Respiratory exam: PRESENT: clear to auscultation ti, unlabored. ABSENT: rhonchi, wheezes Cardiovascular exam: PRESENT: RRR. ABSENT: gallop GI/Abdominal exam: PRESENT: normal bowel sounds, soft. ABSENT: distended, tenderness Extremities exam: ABSENT: pedal edema Neurological exam: PRESENT: alert, awake, oriented to person, oriented to place , oriented to time, oriented to situation Skin exam: PRESENT: dry, warm. ABSENT: cyanosis Results Laboratory Results: 02/02/17 02:59 02/02/17 15:25 02/01/17 02/01/17 02/02/17 18:49 22:50 02:59 WBC RBC Hgb Hct MCV MCH MCHC RDW Plt Count Seg Neutrophils % Lymphocytes % Monocytes % Eosinophils % Basophils % Absolute Neutrophils Absolute Lymphocytes Absolute Monocytes Absolute Eosinophils Absolute Basophils Sodium 138.2 142.9 142.4 Potassium 3.6 3.4 L 3.2 L Chloride 109 H 109 H 109 H Carbon Dioxide 17 L 17 L 20 L Anion Gap 12 17 13 BUN < 2 L 7 4 L Creatinine 0.60 0.66 0.48 L Est GFR ( Amer) > 60 > 60 > 60 Est GFR (Non-Af Amer) > 60 > 60 > 60 Glucose 309 H 310 H 129 H Calcium 8.9 8.9 9.2 02/02/17 02/02/17 02/02/17 02:59 06:55 11:21 WBC 6.1 RBC 3.64 L Hgb 11.7 L Hct 34.9 L MCV 96 MCH 32.2 MCHC 33.6 RDW 13.8 Plt Count 258 Seg Neutrophils % 58.7 Lymphocytes % 31.3 Monocytes % 8.4 Eosinophils % 0.7 Basophils % 0.9 Absolute Neutrophils 3.6 Absolute Lymphocytes 1.9 Absolute Monocytes 0.5 Absolute Eosinophils 0.0 Absolute Basophils 0.1 Sodium 142.0 139.4 Potassium 2.9 L* 3.7 Chloride 109 H 108 H Carbon Dioxide 19 L 20 L Anion Gap 14 11 BUN 2 L 4 L Creatinine 0.42 L 0.45 L Est GFR ( Amer) > 60 > 60 Est GFR (Non-Af Amer) > 60 > 60 Glucose 136 H 229 H Calcium 8.6 8.7 02/02/17 15:25 WBC RBC Hgb Hct MCV MCH MCHC RDW Plt Count Seg Neutrophils % Lymphocytes % Monocytes % Eosinophils % Basophils % Absolute Neutrophils Absolute Lymphocytes Absolute Monocytes Absolute Eosinophils Absolute Basophils Sodium 140.7 Potassium 4.1 Chloride 107 Carbon Dioxide 23 Anion Gap 11 BUN 5 L Creatinine 0.52 Est GFR ( Amer) > 60 Est GFR (Non-Af Amer) > 60 Glucose 244 H Calcium 8.8 01/31/17 15:00 Nasophary (Mrsa Only) MRSA Surveillance Culture - Final NO MRSA RECOVERED 01/31/17 13:40 Clean Catch Midstream Urine Culture - Final Group B Beta Streptococcus Lactobacillus (Vaginal [place]) Impressions: Chest X-Ray 02/01/17 00:00 IMPRESSION: Mild pulmonary vascular congestion. Trace pleural effusions. Qualifiers PATEINT BEING DISCHARGED WITH ANY OF THE FOLLOWING DIAGNOSIS?: No Plan Discharge Plan: Follow-up with primary care physician in 1 week. Time Spent: Less than 30 Minutes
[2017-02-02] MEDS ORDERED: LEVOFLOXACIN 750 MG TABLET PO ONE (17:00)
[2017-02-02] MEDS: INSULIN LISPRO 100 UNIT/ML 3 ML VIAL SUBCUT PRN (17:48)
[2017-02-02 17:51] VITALS: BP 117/75
== END 2017-02-02 17:55 | disposition home or self-care (01) | DRG 637 ==
LOC: ER 10:54 → UNDOADMIN 12:15 → EH 12:15 → ICU 12:32 → EH 14:31 → ICU 14:31 → 4N 02-02 03:13
PROVIDERS: ADMIT Family Medicine; ATTEND Family Medicine
DX: E10.10 Type 1 diabetes mellitus with ketoacidosis without coma (principal); G93.40 Encephalopathy, unspecified; N39.0 Urinary tract infection, site not specified; R65.10 Systemic inflammatory response syndrome (SIRS) of non-infectious origin without acute organ dysfunction; E83.42 Hypomagnesemia; E87.6 Hypokalemia; E03.9 Hypothyroidism, unspecified; F90.9 Attention-deficit hyperactivity disorder, unspecified type; R79.89 Other specified abnormal findings of blood chemistry; Z82.49 Family history of ischemic heart disease and other diseases of the circulatory system; Z88.0 Allergy status to penicillin; Z88.1 Allergy status to other antibiotic agents
CPT/HCPCS: 36415; 71020; 80048; 80053; 80307; 81001; 82803; 82962; 83036; 83690; 83735; 84439; 84443; 84703; 85025; 87086; 87088; 87491; 87591; 99291; J1650; J1815; J1940; J2405; J2765; J3480; J3490; J7030; S0028

== ENCOUNTER 2017-05-11 09:33 | Inpatient (IN) | payer BC ==
[2017-05-11] MEDS ORDERED: NORMAL SALINE 1000 ML 2,000 ML IV PRN (09:45)
[2017-05-11] MEDS ORDERED: ONDANSETRON HCL INJ/PF 4 MG/2 ML SDV IV ONE (09:46)
--- NOTE | 2017-05-11 09:47 | ER Document Report ---
ED Medical Screen (RME) - General Chief Complaint: High Blood Sugar Stated Complaint: SHORTNESS OF BREATH Time Seen by Provider: 05/11/17 09:41 Mode of Arrival: Wheelchair Information source: Patient TRAVEL OUTSIDE OF THE [place] IN LAST 30 DAYS: No - HPI Patient complains to provider of: Elevated blood sugar Notes: 05/11/17 09:46 Patient is a 21-year-old female with a history of type 1 diabetes presenting to the emergency room complaining of one-week history of worsening nausea with one episode of vomiting in the past 48 hours, palpitations with increased heart rate , increasing fatigue, increased thirst and urination, yesterday at work she had some episodes of confusion at times, patient has a history of DKA with similar symptoms in the past - Related Data Allergies/Adverse Reactions: Penicillins Allergy (Intermediate, Verified 05/11/17 09:38) Unknown reaction amoxicillin [Amoxicillin] Allergy (Verified 05/11/17 09:38) vancomycin Adverse Reaction (Intermediate, Verified 05/11/17 09:38) PERIORBITAL EDEMA, BACK WELTS imipenem Adverse Reaction (Mild, Verified 05/11/17 09:38) Flushing Past Medical History Endocrine Medical History: Reports: Hx Diabetes Mellitus Type 1, Hx Hypothyroidism Renal/ Medical History: Denies: Hx Peritoneal Dialysis GI Medical History: Denies: Hx Hepatitis Musculoskeltal Medical History: Denies Hx Arthritis Skin Medical History: Denies Hx Eczema, Denies Hx Psoriasis Psychiatric Medical History: Reports: Hx Attention Deficit Hyperactivity Disorder Denies: Hx Depression Infectious Medical History: Denies: Hx Hepatitis - Immunizations Immunizations up to date: Yes Hx Diphtheria, Pertussis, Tetanus Vaccination: Yes Physical Exam - Vital signs Vitals: Temp Pulse Resp BP Pulse Ox 97.9 F 126 H 18 140/95 H 100 05/11/17 09:37 05/11/17 09:37 05/11/17 09:37 05/11/17 09:37 05/11/17 09:37 Course - Vital Signs Vital signs: Temp Pulse Resp BP Pulse Ox 97.9 F 126 H 18 140/95 H 100 05/11/17 09:37 05/11/17 09:37 05/11/17 09:37 05/11/17 09:37 05/11/17 09:37
[2017-05-11 10:29] LABS: ABSOLUTE BASOPHILS # (AUTO) 0.1 10^3/uL (0.0-0.2); ABSOLUTE EOSINOPHILS # (AUTO) 0.1 10^3/uL (0.0-0.6); ABSOLUTE LYMPHOCYTES (AUTO) 3.1 10^3/uL (0.5-4.7); ABSOLUTE MONOCYTES (AUTO) 0.3 10^3/uL (0.1-1.4); ABSOLUTE NEUT (AUTO) 6.7 10^3/uL (1.7-8.2); BASOPHILS % (AUTO) 0.6 % (0-2); EOSINOPHILS % (AUTO) 0.7 % (0-6); HEMATOCRIT 45.2 % (36.0-47.0); HGB HCT DIFFERENCE -0.2; LYMPHOCYTES % (AUTO) 30.1 % (13-45); MEAN CORPUSCULAR HEMOGLOBIN 32.8 pg (27.0-33.4); MEAN CORPUSCULAR HGB CONC 33.3 g/dL (32.0-36.0); MEAN CORPUSCULAR VOLUME 99 fl (80-97); MONOCYTES % (AUTO) 3.3 % (3-13); RED BLOOD COUNT 4.59 10^6/uL (3.72-5.28); RED CELL DISTRIBUTION WIDTH 14.5 % (11.5-14.0); SEGMENTED NEUTROPHILS % (AUTO) 65.3 % (42-78); WHITE BLOOD COUNT 10.3 10^3/uL (4.0-10.5)
[2017-05-11 10:35] LABS: VENOUS BLOOD BASE EXCESS -18.9 mmol/L; VENOUS BLOOD HCO3 10.4 mmol/L (20-32); VENOUS BLOOD PCO2 36.5 mmHg (35-63)
[2017-05-11 10:43] LABS: VENOUS BLOOD PH 7.07 (7.30-7.42)
[2017-05-11 10:45] LABS: APPEARANCE,URINE SLIGHTLY-CLOUDY; BILIRUBIN,URINE NEGATIVE (NEGATIVE); GLUCOSE, URINE >=500 mg/dL (NEGATIVE); KETONES,URINE 80 mg/dL (NEGATIVE); LEUKOCYTE ESTERASE,URINE NEGATIVE (NEGATIVE); NITRITE,URINE NEGATIVE (NEGATIVE); PROTEIN,URINE 100 mg/dL (NEGATIVE); URINE SPECIFIC GRAVITY 1.027; UROBILINOGEN,URINE NEGATIVE mg/dL (<2.0)
[2017-05-11 10:59] LABS: ALANINE AMINOTRANSFERASE 36 U/L (9-52); ALBUMIN 5.2 g/dL (3.5-5.0); ALKALINE PHOSPHATASE 165 U/L (38-126); ASPARTATE AMINO TRANSFERASE 26 U/L (14-36); BILIRUBIN,DIRECT 0.5 mg/dL (0.0-0.4); BILIRUBIN,TOTAL 0.7 mg/dL (0.2-1.3); BLOOD UREA NITROGEN 12 mg/dL (7-20); CALCIUM 10.4 mg/dL (8.4-10.2); CREATININE RESULT 0.69 mg/dL (0.52-1.25); GLUCOSE 363 mg/dL (75-110); TOTAL PROTEIN 8.9 g/dL (6.3-8.2)
[2017-05-11 11:14] LABS: CHLORIDE 103 mmol/L (98-107); POTASSIUM 4.2 mmol/L (3.6-5.0); SODIUM 141.4 mmol/L (137-145)
[2017-05-11 11:17] LABS: ANION GAP 30 (5-19); CARBON DIOXIDE 8 mmol/L (22-30)
[2017-05-11] MEDS ORDERED: NORMAL SALINE 100 ML with INSULIN REGULAR, HUMAN 100 UNIT IV PRN ×4 (11:19→12:09)
[2017-05-11] MEDS ORDERED: DEXTROSE 40% GEL 15 GM TUBE PO PRN ×4 (11:19→12:09)
[2017-05-11] MEDS ORDERED: NORMAL SALINE 1000 ML 1,000 ML IV ONE (11:19)
[2017-05-11] MEDS ORDERED: GLUCAGON,HUMAN RECOMB 1 MG INJ IM PRN ×2 (11:19→12:09)
[2017-05-11] MEDS ORDERED: DEXTROSE 50%-WATER 25 GM/50 ML DISP.SYRIN IV PRN ×4 (11:19→12:09)
--- NOTE | 2017-05-11 11:25 | ER Document Report ---
ED General - General Chief Complaint: High Blood Sugar Stated Complaint: SHORTNESS OF BREATH Time Seen by Provider: 05/11/17 09:41 Mode of Arrival: Wheelchair TRAVEL OUTSIDE OF THE [place] IN LAST 30 DAYS: No - HPI Patient complains to provider of: Elevated blood sugars shortness of breath Notes: Patient coming in with a history of type 1 diabetes and multiple ER admissions for DKA. Patient states today feeling like her blood sugars are high however she did not take her blood sugar at home. Patient states rapid heart rate and rapid breathing consistent with DKA in the past. Otherwise patient denies any fevers chills nausea vomiting denies any productive cough denies any abdominal pain. Patient states that she is compliant with her medication patient is on NovoLog and Humalog - Related Data Allergies/Adverse Reactions: Penicillins Allergy (Intermediate, Verified 05/11/17 09:38) Unknown reaction amoxicillin [Amoxicillin] Allergy (Verified 05/11/17 09:38) vancomycin Adverse Reaction (Intermediate, Verified 05/11/17 09:38) PERIORBITAL EDEMA, BACK WELTS imipenem Adverse Reaction (Mild, Verified 05/11/17 09:38) [place] Home Medications: Current Home Medications Dextroamphetamine/Amphetamine [Adderall Xr 30 mg Capsule] 30 mg PO QAM 05/11/17 [History] Insulin Aspart [Novolog Flexpen] 0 units SQ .SLIDING SCALE MEALS 05/11/17 [ History] Insulin Glargine,Hum.rec.anlog [Toujeo Solostar] 30 units SQ Q12 05/11/17 [ History] Zolpidem Tartrate 10 mg PO HSP PRN 05/11/17 [History] Past Medical History - General Information source: Patient - Social History Smoking Status: Never Smoker Chew tobacco use (# tins/day): No Frequency of alcohol use: None Drug Abuse: None Family History: Reviewed & Not Pertinent, Hypertension Endocrine Medical History: Reports: Hx Diabetes Mellitus Type 1, Hx Hypothyroidism Renal/ Medical History: Denies: Hx Peritoneal Dialysis GI Medical History: Denies: Hx Hepatitis Musculoskeltal Medical History: Denies Hx Arthritis Skin Medical History: Denies Hx Eczema, Denies Hx Psoriasis Psychiatric Medical History: Reports: Hx Attention Deficit Hyperactivity Disorder Denies: Hx Depression Infectious Medical History: Denies: Hx Hepatitis - Immunizations Immunizations up to date: Yes Hx Diphtheria, Pertussis, Tetanus Vaccination: Yes Hx Pneumococcal Vaccination: 08/08/12 Review of Systems - Review of Systems Constitutional: No symptoms reported EENT: No symptoms reported Cardiovascular: No symptoms reported Respiratory: Short of breath Gastrointestinal: No symptoms reported Genitourinary: No symptoms reported Female Genitourinary: No symptoms reported Musculoskeletal: No symptoms reported Skin: No symptoms reported Hematologic/Lymphatic: No symptoms reported Neurological/Psychological: No symptoms reported -: Yes All other systems reviewed and negative Physical Exam - Vital signs Vitals: Temp Pulse Resp BP Pulse Ox 97.9 F 126 H 18 140/95 H 100 05/11/17 09:37 05/11/17 09:37 05/11/17 09:37 05/11/17 09:37 05/11/17 09:37 Interpretation: Normal - General General appearance: Appears well, Alert - HEENT Head: Normocephalic, Atraumatic Eyes: Normal Pupils: PERRL - Respiratory Respiratory status: No respiratory distress Chest status: Nontender Breath sounds: Normal Chest palpation: Normal - Cardiovascular Rhythm: Tachycardia Heart sounds: Normal auscultation Murmur: No - Abdominal Inspection: Normal Distension: No distension Bowel sounds: Normal Tenderness: Nontender Organomegaly: No organomegaly - Back Back: Normal, Nontender - Extremities General upper extremity: Normal inspection, Nontender, Normal color, Normal ROM , Normal temperature General lower extremity: Normal inspection, Nontender, Normal color, Normal ROM , Normal temperature, Normal weight bearing. No: Juventino's sign - Neurological Neuro grossly intact: Yes Cognition: Normal Orientation: AAOx4 [place] Coma Scale Eye Opening: Spontaneous Sheryl Coma Scale Verbal: Oriented Sheryl Coma Scale Motor: Obeys Commands Sheryl Coma Scale Total: 15 Speech: Normal Motor strength normal: LUE, RUE, LLE, RLE Sensory: Normal - Psychological Associated symptoms: Normal affect, Normal mood - Skin Skin Temperature: Warm Skin Moisture: Dry Skin Color: Normal Course - Re-evaluation Re-evalutation: 05/11/17 14:48 Laboratory studies consistent with DKA. Patient was given IV fluids and started on insulin drip. Discussed with hospitalist will admit for further evaluation. - Vital Signs Vital signs: Temp Pulse Resp BP Pulse Ox 98.2 F 113 H 18 110/59 L 100 05/11/17 13:39 05/11/17 13:39 05/11/17 13:39 05/11/17 13:39 05/11/17 13:39 - Laboratory Result Diagrams: 05/11/17 09:58 05/11/17 12:39 Laboratory results interpreted by me: 05/11/17 05/11/17 05/11/17 09:44 09:58 09:58 MCV 99 H RDW 14.5 H VBG pH VBG HCO3 Carbon Dioxide 8 L* Anion Gap 30 H Glucose 363 H POC Glucose 370 H Serum Osmolality Calcium 10.4 H Direct Bilirubin 0.5 H Alkaline Phosphatase 165 H Total Protein 8.9 H Albumin 5.2 H Urine Protein Urine Glucose (UA) Urine Ketones Urine Blood 05/11/17 05/11/17 05/11/17 09:58 09:58 09:58 MCV RDW VBG pH 7.07 L* VBG HCO3 10.4 L Carbon Dioxide Anion Gap Glucose POC Glucose Serum Osmolality 318 H Calcium Direct Bilirubin Alkaline Phosphatase Total Protein Albumin Urine Protein 100 H Urine Glucose (UA) >=500 H Urine Ketones 80 H Urine Blood LARGE H Critical Care Note - Critical Care Note Total time excluding time spent on procedures (mins): 35 Comments: Multiple evaluations for DKA Discharge - Discharge Clinical Impression: DKA, type 1 Qualifiers: Diabetes mellitus complication detail: without coma Qualified Code(s): E10.10 - Type 1 diabetes mellitus with ketoacidosis without coma Condition: Good Disposition: ADMITTED INPATIENT Admitting Provider: Hospitalist Unit Admitted: [facility]
[2017-05-11] MEDS ORDERED: INSULIN REG, HUMAN 100 UNIT/ML 3 ML VIAL (PYX) ONE (11:37)
[2017-05-11] MEDS ORDERED: ONDANSETRON HCL INJ/PF 4 MG/2 ML SDV IV PRN (12:03)
[2017-05-11] MEDS ORDERED: ACETAMINOPHEN 325 MG TABLET PO PRN (12:03)
[2017-05-11] MEDS ORDERED: NORMAL SALINE 1000 ML 1,000 ML IV PRN (12:03)
[2017-05-11] MEDS ORDERED: ONDANSETRON 4 MG TAB.RAPDIS PO PRN (12:03)
--- NOTE | 2017-05-11 12:19 | PDOC H&P ---
History of Present Illness Admission Date/PCP: 05/11/17 11:44 EDNA REEVES MD Patient complains of: Elevated blood sugars History of Present Illness: VICK MELGOZA is a 21 year old female with a long history of type 1 diabetes who presents with a two-week history of elevated blood sugars. She reports that most of her blood sugars have been over 300 for the last 2 weeks and she has had problems with polyuria polydipsia. She presented to emergency room was found to have DKA with a bicarbonate of 8. Patient denies having any fevers or chills. She denies any cough. Denies any dysuria or urinary frequency. Denies any skin rash or abscesses. Patient has had multiple episodes of DKA in the last year. She denies any confusion. Denies any headache or photophobia. Past Medical History Cardiac Medical History: Reports: None Pulmonary Medical History: Reports: None EENT Medical History: Reports: None Neurological Medical History: Reports: None Endocrine Medical History: Reports: Diabetes Mellitus Type 1, Hypothyroidism Renal/ Medical History: Reports: None Malignancy Medical History: Reports: None GI Medical History: Reports: None Denies: Hepatitis Musculoskeltal Medical History: Reports: None Denies: Arthritis Skin Medical History: Denies: Eczema, Psoriasis Psychiatric Medical History: Reports: Attention Deficit Hyperactivity Disorder Denies: Depression Traumatic Medical History: Reports: None Hematology: Reports: None Infectious Medical History: Reports: None Past Surgical History Past Surgical History: Reports: None Social History Information Source: Patient Lives with: Family Smoking Status: Never Smoker Frequency of Alcohol Use: Occasional Hx Recreational Drug Use: Yes Drugs: Other - History of methamphetamine use Hx Prescription Drug Abuse: No - Advance Directive Resuscitation Status: Full Code Family History Family History: Hypertension Family History: Mother is 52 alive and healthy. Father is 55 alive and has diabetes. Parental Family History Reviewed: Yes Children Family History Reviewed: No Sibling(s) Family History Reviewed.: No Medication/Allergy Home Medications: Dextroamphetamine/Amphetamine [Adderall Xr 30 mg Capsule] 30 mg PO QAM 01/31/17 Insulin Aspart [Novolog Flexpen] 0 unit SQ .SLD SCALE MEALS PRN 01/31/17 Zolpidem Tartrate [Ambien] 10 mg PO QHS 01/31/17 Insulin Glargine,Hum.rec.anlog [Lantus Insulin 100 Unit/mL] 30 unit SUBCUT Q12 insuln.pen 02/02/17 Allergies/Adverse Reactions: Penicillins Allergy (Intermediate, Verified 05/11/17 09:38) Unknown reaction amoxicillin [Amoxicillin] Allergy (Verified 05/11/17 09:38) vancomycin Adverse Reaction (Intermediate, Verified 05/11/17 09:38) PERIORBITAL EDEMA, BACK WELTS imipenem Adverse Reaction (Mild, Verified 05/11/17 09:38) [place] Review of Systems Constitutional: ABSENT: chills, fever(s), headache(s), weight gain, weight loss Eyes: ABSENT: visual disturbances Ears: ABSENT: hearing changes Cardiovascular: ABSENT: chest pain, dyspnea on exertion, edema, orthropnea, palpitations Respiratory: ABSENT: cough, hemoptysis Gastrointestinal: ABSENT: abdominal pain, constipation, diarrhea, hematemesis, hematochezia, nausea, vomiting Genitourinary: ABSENT: dysuria, hematuria Musculoskeletal: ABSENT: joint swelling Integumentary: ABSENT: rash, wounds Neurological: ABSENT: abnormal gait, abnormal speech, confusion, dizziness, focal weakness, syncope Psychiatric: ABSENT: anxiety, depression Endocrine: ABSENT: cold intolerance, heat intolerance, polydipsia, polyuria Hematologic/Lymphatic: ABSENT: easy bleeding, easy bruising Physical Exam Vital Signs: Temp Pulse Resp BP Pulse Ox 97.9 F 126 H 17 120/83 100 05/11/17 09:37 05/11/17 09:37 05/11/17 11:01 05/11/17 11:01 05/11/17 11:01 General appearance: PRESENT: no acute distress, well-developed, well-nourished Head exam: PRESENT: atraumatic, normocephalic Eye exam: PRESENT: conjunctiva pink, EOMI, PERRLA. ABSENT: scleral icterus Ear exam: PRESENT: normal external ear exam Mouth exam: PRESENT: moist, tongue midline Neck exam: ABSENT: carotid bruit, JVD, lymphadenopathy, thyromegaly Respiratory exam: PRESENT: clear to auscultation ti. ABSENT: rales, rhonchi, wheezes Cardiovascular exam: PRESENT: RRR. ABSENT: diastolic murmur, rubs, systolic murmur Pulses: PRESENT: normal dorsalis pedis pul Vascular exam: PRESENT: normal capillary refill GI/Abdominal exam: PRESENT: normal bowel sounds, soft. ABSENT: distended, guarding, mass, organolmegaly, rebound, tenderness Rectal exam: PRESENT: deferred Extremities exam: ABSENT: calf tenderness, clubbing, pedal edema Neurological exam: PRESENT: alert, awake, oriented to person, oriented to place , oriented to time, oriented to situation, CN II-XII grossly intact. ABSENT: motor sensory deficit Psychiatric exam: PRESENT: appropriate affect Skin exam: PRESENT: dry, intact, warm. ABSENT: cyanosis, rash Assessment & Plan - Diagnosis (1) DKA (diabetic ketoacidoses) Is this a current diagnosis for this admission?: Yes Plan: Patient has no obvious inciting factor for her DKA. The patient has been compliant with her medications. There is no evidence for any infection. We will continue with IV fluids and insulin drip until her anion gap closes. - Time Time Spent: 50 to 70 Minutes - Inpatient Certification Medical Necessity: Need Close Monitoring Due to Risk of Patient Decompensation, Need For IV Fluids - Plan Summary Plan Summary: Patient will be admitted to the C for insulin drip.
[2017-05-11 13:09] LABS: ANION GAP 17 (5-19); BLOOD UREA NITROGEN 9 mg/dL (7-20); CALCIUM 8.9 mg/dL (8.4-10.2); CARBON DIOXIDE 14 mmol/L (22-30); CHLORIDE 111 mmol/L (98-107); CREATININE RESULT 0.46 mg/dL (0.52-1.25); GLUCOSE 64 mg/dL (75-110); POTASSIUM 4.2 mmol/L (3.6-5.0); SODIUM 141.6 mmol/L (137-145)
[2017-05-11 17:06] LABS: ANION GAP 12 (5-19); BLOOD UREA NITROGEN 9 mg/dL (7-20); CALCIUM 8.9 mg/dL (8.4-10.2); CARBON DIOXIDE 14 mmol/L (22-30); CHLORIDE 112 mmol/L (98-107); CREATININE RESULT 0.47 mg/dL (0.52-1.25); GLUCOSE 82 mg/dL (75-110); POTASSIUM 4.1 mmol/L (3.6-5.0); SODIUM 137.8 mmol/L (137-145)
[2017-05-11 20:57] LABS: BLOOD UREA NITROGEN 7 mg/dL (7-20); CALCIUM 9.6 mg/dL (8.4-10.2); CARBON DIOXIDE 11 mmol/L (22-30); CHLORIDE 109 mmol/L (98-107); CREATININE RESULT 0.59 mg/dL (0.52-1.25); GLUCOSE 212 mg/dL (75-110); POTASSIUM 4.2 mmol/L (3.6-5.0)
[2017-05-11 21:05] LABS: SODIUM 140.5 mmol/L (137-145)
[2017-05-11 21:06] LABS: ANION GAP 21 (5-19)
[2017-05-11] MEDS ORDERED: RINGERS SOLUTION,LACTATED 2,000 ML IV ONE (21:58)
[2017-05-11] MEDS: DEXTROSE 5%-NORMAL SALINE 1,000 ML IV PRN (23:05)
[2017-05-12 00:58] LABS: ANION GAP 12 (5-19); BLOOD UREA NITROGEN 11 mg/dL (7-20); CALCIUM 9.8 mg/dL (8.4-10.2); CARBON DIOXIDE 16 mmol/L (22-30); CHLORIDE 108 mmol/L (98-107); CREATININE RESULT 0.61 mg/dL (0.52-1.25); GLUCOSE 357 mg/dL (75-110); POTASSIUM 4.5 mmol/L (3.6-5.0); SODIUM 135.5 mmol/L (137-145)
[2017-05-12] MEDS ORDERED: INSULIN REG, HUMAN 100 UNIT/ML 3 ML VIAL IV PRN ×2 (03:41→04:00)
[2017-05-12] MEDS: DEXTROSE 5%-NORMAL SALINE 1,000 ML IV PRN (05:01)
[2017-05-12 05:04] LABS: HEMATOCRIT 32.6 % (36.0-47.0); MEAN CORPUSCULAR HEMOGLOBIN 32.4 pg (27.0-33.4); MEAN CORPUSCULAR HGB CONC 34.2 g/dL (32.0-36.0); RED BLOOD COUNT 3.44 10^6/uL (3.72-5.28); WHITE BLOOD COUNT 6.1 10^3/uL (4.0-10.5)
[2017-05-12 05:09] LABS: HEMOGLOBIN 11.2 g/dL (12.0-15.5); MEAN CORPUSCULAR VOLUME 95 fl (80-97)
[2017-05-12 05:26] LABS: ANION GAP 12 (5-19); BLOOD UREA NITROGEN 10 mg/dL (7-20); CARBON DIOXIDE 17 mmol/L (22-30); CHLORIDE 110 mmol/L (98-107); GLUCOSE 116 mg/dL (75-110); SODIUM 139.1 mmol/L (137-145)
[2017-05-12 05:53] LABS: POTASSIUM 3.5 mmol/L (3.6-5.0)
[2017-05-12] MEDS ORDERED: POTASSI CL 20 MEQ/50 ML RIDER 20 MEQ/50 ML RTUPB IV SCH (06:33)
[2017-05-12] MEDS: POTASSI CL 20 MEQ/D5-1/2NS 1L 1,000 ML IV PRN ×3 (08:55→17:44)
[2017-05-12 09:50] LABS: ANION GAP 12 (5-19); BLOOD UREA NITROGEN 9 mg/dL (7-20); CALCIUM 8.9 mg/dL (8.4-10.2); CARBON DIOXIDE 18 mmol/L (22-30); CHLORIDE 106 mmol/L (98-107); CREATININE RESULT 0.42 mg/dL (0.52-1.25); GLUCOSE 281 mg/dL (75-110); POTASSIUM 3.9 mmol/L (3.6-5.0)
[2017-05-12 13:18] LABS: ANION GAP 16 (5-19); BLOOD UREA NITROGEN 8 mg/dL (7-20); CALCIUM 8.9 mg/dL (8.4-10.2); CARBON DIOXIDE 13 mmol/L (22-30); CHLORIDE 105 mmol/L (98-107); CREATININE RESULT 0.47 mg/dL (0.52-1.25); GLUCOSE 366 mg/dL (75-110); POTASSIUM 3.6 mmol/L (3.6-5.0); SODIUM 133.7 mmol/L (137-145)
[2017-05-12] MEDS ORDERED: NORMAL SALINE 1000 ML 2,000 ML IV ONE (13:58)
[2017-05-12] MEDS: POTASSI CL 20 MEQ/50 ML RIDER 20 MEQ/50 ML RTUPB IV SCH ×3 (14:29→21:12)
--- NOTE | 2017-05-12 15:17 | PDOC PROGRESS REPORT ---
Subjective Progress Note for:: 05/12/17 Subjective:: Patient reports she is feeling improved. Patient does have some generalized abdominal pain. Patient denies chest pain, shortness of breath, nausea, vomiting, fevers, chills , diarrhea, constipation, headache, new onset weakness. Physical Exam Vital Signs: Temp Pulse Resp BP Pulse Ox 97.8 F 79 16 103/68 95 05/12/17 03:28 05/12/17 03:28 05/12/17 03:28 05/12/17 03:28 05/12/17 03:28 Intake & Output 05/11/17 05/12/17 05/13/17 06:59 06:59 06:59 Intake Total 1259 Balance 1259 Weight 73.2 kg Exam: General: Awake alert and oriented x3, no acute respiratory distress HEENT: AT/NC, PERRL, EOMI, oropharynx is moist, pink, no scleral icterus, no conjunctival injection Neck: No JVD, trachea midline Chest: Clear to auscultation bilaterally, no wheezes rhonchi or rales CV: Regular rate and rhythm, normal S1 and S2, no murmur, rub, or gallop Abdomen: Soft, nontender to palpation, nondistended, active bowel sounds; no rebound, rigidity, or guarding Extremities: No cyanosis, clubbing or edema Neuro: Cranial nerves II through XII are grossly intact without focal deficits; awake alert and oriented x3 Psych: Normal mood and affect Results Laboratory Results: 05/12/17 04:00 05/12/17 04:00 05/11/17 05/11/17 05/11/17 12:39 16:10 20:25 WBC RBC Hgb Hct MCV MCH MCHC RDW Plt Count Sodium 141.6 137.8 140.5 Potassium 4.2 4.1 4.2 Chloride 111 H 112 H 109 H Carbon Dioxide 14 L 14 L 11 L Anion Gap 17 12 21 H BUN 9 9 7 Creatinine 0.46 L 0.47 L 0.59 Est GFR ( Amer) > 60 > 60 > 60 Est GFR (Non-Af Amer) > 60 > 60 > 60 Glucose 64 L 82 212 H Calcium 8.9 8.9 9.6 05/12/17 05/12/17 05/12/17 00:20 04:00 04:00 WBC 6.1 RBC 3.44 L Hgb 11.2 L D Hct 32.6 L MCV 95 D MCH 32.4 MCHC 34.2 RDW 14.0 Plt Count 297 Sodium 135.5 L 139.1 Potassium 4.5 3.5 L D Chloride 108 H 110 H Carbon Dioxide 16 L 17 L Anion Gap 12 12 BUN 11 10 Creatinine 0.61 0.50 L Est GFR ( Amer) > 60 > 60 Est GFR (Non-Af Amer) > 60 > 60 Glucose 357 H 116 H Calcium 9.8 9.0 Assessment & Plan - Diagnosis (1) DKA, type 1 Qualifiers: Diabetes mellitus complication detail: without coma Qualified Code(s): E10.10 - Type 1 diabetes mellitus with ketoacidosis without coma Is this a current diagnosis for this admission?: Yes Plan: Patient has been seeing Dr. Mo, endocrinology, as an outpatient. Plans to go on an insulin pump. Continue insulin ggt and fluids. Patient anion gap not closed and bicarbonate still low. Continue NPO (2) Hypokalemia Is this a current diagnosis for this admission?: Yes Plan: Replete and recheck check magnesium (3) Obesity Qualifiers: Obesity type: due to excess calories Obesity classification: adult class 1 (BMI 30 ? 34.9) Serious obesity comorbidity presence: with serious comorbidity Body mass index: BMI 30.0-30.9 Qualified Code(s): E66.09 - Other obesity due to excess calories; Z68.30 - Body mass index (BMI) 30.0-30.9, adult; Z68.30 - Body mass index (BMI) 30.0-30.9, adult Is this a current diagnosis for this admission?: Yes Plan: Encourage weight loss - Time Time Spent with patient: 25-34 minutes Medications reviewed and adjusted accordingly: Yes Anticipated discharge: Home Within: within 24 hours - Inpatient Certification Based on my medical assessment, after consideration of the patient's comorbidities, presenting symptoms, or acuity I expect that the services needed warrant INPATIENT care.: Yes Medical Necessity: Need For IV Fluids Post Hospital Care: D/[employer] Documentation
[2017-05-12 16:56] LABS: ANION GAP 5 (5-19); BLOOD UREA NITROGEN 5 mg/dL (7-20); CALCIUM 8.9 mg/dL (8.4-10.2); CARBON DIOXIDE 22 mmol/L (22-30); CHLORIDE 109 mmol/L (98-107); CREATININE RESULT 0.36 mg/dL (0.52-1.25); GLUCOSE 76 mg/dL (75-110); POTASSIUM 3.8 mmol/L (3.6-5.0); SODIUM 135.9 mmol/L (137-145)
[2017-05-12] MEDS ORDERED: INSULIN GLARGINE,HUM.REC.ANLOG 1,000 UNIT/10 ML UNIT SUBCUT ONE ×2 (19:04→19:30)
[2017-05-12] MEDS ORDERED: DEXTROSE 40% GEL 15 GM TUBE PO PRN (20:20)
[2017-05-12] MEDS ORDERED: DEXTROSE 40% GEL 15 GM TUBE X 2 PO PRN (20:20)
[2017-05-12] MEDS ORDERED: DEXTROSE 50%-WATER SYRINGE 25 GM/50 ML DOSE IV PRN (20:20)
[2017-05-12] MEDS ORDERED: DEXTROSE 50%-WATER SYRINGE 12.5 GM/25 ML DOSE IV PRN (20:20)
[2017-05-12] MEDS ORDERED: INSULIN LISPRO 100 UNIT/ML 3 ML VIAL SUBCUT PRN (20:20)
[2017-05-12] MEDS ORDERED: GLUCAGON,HUMAN RECOMB 1 MG INJ IM PRN (20:20)
[2017-05-12 21:20] LABS: ANION GAP 7 (5-19); BLOOD UREA NITROGEN 4 mg/dL (7-20); CALCIUM 9.4 mg/dL (8.4-10.2); CARBON DIOXIDE 23 mmol/L (22-30); CHLORIDE 106 mmol/L (98-107); CREATININE RESULT 0.38 mg/dL (0.52-1.25); GLUCOSE 88 mg/dL (75-110); POTASSIUM 3.7 mmol/L (3.6-5.0); SODIUM 135.5 mmol/L (137-145)
[2017-05-12] MEDS ORDERED: POTASSI CL 20 MEQ/D5-1/2NS 1L 1,000 ML IV PRN (21:24)
[2017-05-13] MEDS ORDERED: NORMAL SALINE 1000 ML 1,000 ML IV PRN
[2017-05-13] MEDS ORDERED: INSULIN GLARGINE,HUM.REC.ANLOG 1,000 UNIT/10 ML UNIT SUBCUT ONE (08:30)
[2017-05-13 09:06] VITALS: BP 110/59
--- NOTE | 2017-05-15 19:49 | PDOC DISCHARGE SUMMARY ---
General - Admit/Disc Date/PCP Admission Date/Primary Care Provider: 05/11/17 12:03 EDNA REEVES MD Discharge Date: 05/13/17 - Discharge Diagnosis (1) DKA, type 1 Is this a current diagnosis for this admission?: Yes (2) Hypokalemia Is this a current diagnosis for this admission?: Yes (3) Obesity Is this a current diagnosis for this admission?: Yes - Additional Information Resuscitation Status: Full Code Discharge Diet: Diabetic Discharge Activity: Activity As Tolerated Home Medications: Dextroamphetamine/Amphetamine [Adderall Xr 30 mg Capsule] 30 mg PO QAM 05/11/17 Insulin Aspart [Novolog Flexpen] 0 units SQ .SLIDING SCALE MEALS 05/11/17 Insulin Glargine,Hum.rec.anlog [Toujeo Solostar] 30 units SQ Q12 05/11/17 Zolpidem Tartrate 10 mg PO HSP PRN 05/11/17 History of Present Illness History of Present Illness: Please see H+P for full HPI Hospital Course Hospital Course: Patient is a 21-year-old female with a history of type 1 diabetes who presented with a two-week history of elevated blood sugar. She then began having polyuria and polydipsia. She was found to have DKA with bicarbonate of 8. Patient was placed on insulin drip and IV fluids and admitted to [facility]. Patient was able to be quickly transitioned to her normal regimen. Patient did admit to some viral symptoms which were thought to be contributing to this. 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 Physical Exam Vital Signs: Temp Pulse Resp BP Pulse Ox 97.5 F 74 16 110/59 L 95 05/13/17 09:04 05/13/17 09:04 05/13/17 09:04 05/13/17 09:04 05/13/17 09:04 Exam: General: Awake alert and oriented x3, no acute respiratory distress HEENT: AT/NC, PERRL, EOMI, oropharynx is moist, pink, no scleral icterus, no conjunctival injection Neck: No JVD, trachea midline Chest: Clear to auscultation bilaterally, no wheezes rhonchi or rales CV: Regular rate and rhythm, normal S1 and S2, no murmur, rub, or gallop Abdomen: Soft, nontender to palpation, nondistended, active bowel sounds; no rebound, rigidity, or guarding Extremities: No cyanosis, clubbing or edema Neuro: Cranial nerves II through XII are grossly intact without focal deficits; awake alert and oriented x3 Psych: Normal mood and affect Results Laboratory Results: 05/12/17 04:00 05/12/17 20:39 Qualifiers PATEINT BEING DISCHARGED WITH ANY OF THE FOLLOWING DIAGNOSIS?: No Plan Time Spent: Less than 30 Minutes
== END 2017-05-13 09:31 | disposition home or self-care (01) | DRG 639 ==
LOC: ER 09:33 → UNDOADMIN 11:44 → EH 11:44 → 3N 12:03 → EH 13:23
PROVIDERS: ADMIT Internal Medicine; ATTEND Internal Medicine
DX: E10.10 Type 1 diabetes mellitus with ketoacidosis without coma (principal); E87.6 Hypokalemia; F90.9 Attention-deficit hyperactivity disorder, unspecified type; E03.9 Hypothyroidism, unspecified; E66.09 Other obesity due to excess calories; Z68.30 Body mass index [BMI] 30.0-30.9, adult; Z79.4 Long term (current) use of insulin; Z88.1 Allergy status to other antibiotic agents; Z88.3 Allergy status to other anti-infective agents; Z88.0 Allergy status to penicillin; Z82.49 Family history of ischemic heart disease and other diseases of the circulatory system; Z83.3 Family history of diabetes mellitus
CPT/HCPCS: 36415; 80048; 80053; 81001; 82803; 82962; 83930; 84703; 85025; 85027; 96361; 96374; 99285; J1815; J2405; J3480; J7030; J7120

== ENCOUNTER 2017-07-31 13:27 | Inpatient (IN) | payer BC ==
--- NOTE | 2017-07-31 13:40 | ER Document Report ---
ED Medical Screen (RME) - General Chief Complaint: Nausea/Vomiting Stated Complaint: VOMITING Time Seen by Provider: 07/31/17 13:40 Mode of Arrival: Wheelchair Information source: Patient, Parent Notes: 22-year-old diabetic female presents with complaints of nausea vomiting since yesterday, patient is concerned that she may be in DKA, her blood sugar was over 600 prior to arrival and she took 10 units of insulin I have greeted and performed a rapid initial assessment of this patient. A comprehensive ED assessment and evaluation of the patient, analysis of test results and completion of the medical decision making process will be conducted by additional ED providers. PHYSICAL EXAMINATION: GENERAL: ill-appearing, well-nourished and mild acute distress. HEAD: Atraumatic, normocephalic. EYES: Pupils equal round extraocular movements intact, conjunctiva are normal. ENT: Nares patent NECK: Normal range of motion LUNGS: No respiratory distress Musculoskeletal: Normal range of motion NEUROLOGICAL: Normal speech, normal gait. PSYCH: Normal mood, normal affect. SKIN: Warm, Dry, normal turgor, no rashes or lesions noted. TRAVEL OUTSIDE OF THE [place] IN LAST 30 DAYS: No - Related Data Allergies/Adverse Reactions: Penicillins Allergy (Intermediate, Verified 07/31/17 13:31) Unknown reaction amoxicillin [Amoxicillin] Allergy (Verified 07/31/17 13:31) vancomycin Adverse Reaction (Intermediate, Verified 07/31/17 13:31) PERIORBITAL EDEMA, BACK WELTS imipenem Adverse Reaction (Mild, Verified 07/31/17 13:31) Flushing Past Medical History Endocrine Medical History: Reports: Hx Diabetes Mellitus Type 1, Hx Hypothyroidism Renal/ Medical History: Denies: Hx Peritoneal Dialysis GI Medical History: Denies: Hx Hepatitis Musculoskeltal Medical History: Denies Hx Arthritis Skin Medical History: Denies Hx Eczema, Denies Hx Psoriasis Psychiatric Medical History: Reports: Hx Attention Deficit Hyperactivity Disorder Denies: Hx Depression Infectious Medical History: Denies: Hx Hepatitis - Immunizations Immunizations up to date: Yes Hx Diphtheria, Pertussis, Tetanus Vaccination: Yes History of Influenza Vaccine for 05/2017 - 10/2017 Season: Yes Influenza Administration Date for 05/2017 - 10/2017 Season: 04/25/17 Physical Exam - Vital signs Vitals: Temp Pulse Resp BP Pulse Ox 97.5 F 134 H 18 130/84 H 98 07/31/17 13:31 07/31/17 13:31 07/31/17 13:31 07/31/17 13:31 07/31/17 13:31 Course - Vital Signs Vital signs: Temp Pulse Resp BP Pulse Ox 97.5 F 134 H 18 130/84 H 98 07/31/17 13:31 07/31/17 13:31 07/31/17 13:31 07/31/17 13:31 07/31/17 13:31
[2017-07-31] MEDS: NORMAL SALINE 1000 ML 1,000 ML IV PRN ×2 (14:06→14:55)
[2017-07-31 14:20] LABS: ABSOLUTE LYMPHOCYTES (AUTO) 1.3 10^3/uL (0.5-4.7); ABSOLUTE MONOCYTES (AUTO) 0.4 10^3/uL (0.1-1.4); ABSOLUTE NEUT (AUTO) 10.5 10^3/uL (1.7-8.2); BASOPHILS % (AUTO) 0.3 % (0-2); EOSINOPHILS % (AUTO) 0.1 % (0-6); HEMATOCRIT 45.2 % (36.0-47.0); HEMOGLOBIN 14.9 g/dL (12.0-15.5); LYMPHOCYTES % (AUTO) 10.6 % (13-45); MEAN CORPUSCULAR HEMOGLOBIN 32.3 pg (27.0-33.4); MEAN CORPUSCULAR HGB CONC 32.9 g/dL (32.0-36.0); MEAN CORPUSCULAR VOLUME 98 fl (80-97); PLATELET COUNT 463 10^3/uL (150-450); RED CELL DISTRIBUTION WIDTH 14.3 % (11.5-14.0); TOTAL CELLS COUNTED % (AUTO) 100 %; WHITE BLOOD COUNT 12.2 10^3/uL (4.0-10.5)
[2017-07-31 14:27] LABS: VENOUS BLOOD BASE EXCESS -15.2 mmol/L; VENOUS BLOOD PCO2 28.1 mmHg (35-63); VENOUS BLOOD PH 7.21 (7.30-7.42)
[2017-07-31 14:39] LABS: ALANINE AMINOTRANSFERASE 120 U/L (9-52); ALBUMIN 5.4 g/dL (3.5-5.0); ALKALINE PHOSPHATASE 181 U/L (38-126); ASPARTATE AMINO TRANSFERASE 222 U/L (14-36); BILIRUBIN,DIRECT 0.4 mg/dL (0.0-0.4); BILIRUBIN,TOTAL 0.6 mg/dL (0.2-1.3); BLOOD UREA NITROGEN 11 mg/dL (7-20); CALCIUM 11.3 mg/dL (8.4-10.2); CHLORIDE 104 mmol/L (98-107); GLUCOSE 119 mg/dL (75-110); POTASSIUM 4.3 mmol/L (3.6-5.0); TOTAL PROTEIN 9.4 g/dL (6.3-8.2)
[2017-07-31] MEDS ORDERED: ONDANSETRON HCL INJ/PF 4 MG/2 ML SDV IV ONE (14:39)
[2017-07-31 14:45] LABS: ANION GAP 34 (5-19); SODIUM 147.1 mmol/L (137-145)
[2017-07-31 14:47] LABS: CARBON DIOXIDE 9 mmol/L (22-30)
[2017-07-31 15:26] LABS: APPEARANCE,URINE SLIGHTLY-CLOUDY; BILIRUBIN,URINE SMALL (NEGATIVE); COLOR,URINE YELLOW; GLUCOSE, URINE 50 mg/dL (NEGATIVE); KETONES,URINE 80 mg/dL (NEGATIVE); LEUKOCYTE ESTERASE,URINE NEGATIVE (NEGATIVE); NITRITE,URINE NEGATIVE (NEGATIVE); PROTEIN,URINE >=500 mg/dL (NEGATIVE); URINE SPECIFIC GRAVITY 1.022
[2017-07-31] MEDS ORDERED: DEXTROSE 5%-NORMAL SALINE 1,000 ML IV ONE (15:37)
[2017-07-31] MEDS ORDERED: GLUCAGON,HUMAN RECOMB 1 MG INJ IM PRN ×2 (15:38→15:47)
[2017-07-31] MEDS ORDERED: DEXTROSE 50%-WATER 25 GM/50 ML DISP.SYRIN IV PRN ×4 (15:38→15:47)
[2017-07-31] MEDS ORDERED: DEXTROSE 40% GEL 15 GM TUBE PO PRN ×4 (15:38→15:47)
[2017-07-31] MEDS ORDERED: NORMAL SALINE 100 ML with INSULIN REGULAR, HUMAN 100 UNIT IV PRN ×4 (15:38→15:47)
[2017-07-31] MEDS ORDERED: ALBUTEROL SULFATE 0.083% NEB 2.5 MG/3 ML AMPUL NEB PRN (15:43)
[2017-07-31] MEDS ORDERED: ACETAMINOPHEN 325 MG TABLET PO PRN (15:43)
[2017-07-31] MEDS ORDERED: ONDANSETRON HCL INJ/PF 4 MG/2 ML SDV IV PRN (15:43)
[2017-07-31] MEDS ORDERED: ONDANSETRON 4 MG TAB.RAPDIS PO PRN (15:43)
--- NOTE | 2017-07-31 15:43 | ER Document Report ---
ED General - General Chief Complaint: Nausea/Vomiting Stated Complaint: VOMITING Time Seen by Provider: 07/31/17 13:40 Mode of Arrival: Wheelchair TRAVEL OUTSIDE OF THE [place] IN LAST 30 DAYS: No - HPI Patient complains to provider of: Nausea vomiting elevated blood sugars Notes: Patient is diabetic coming in for elevated blood sugars nausea vomiting. Patient states at home her blood sugar was 600 gave herself 10 came into the ER for further evaluation states nausea vomiting symptoms ongoing for the last 2 days. Denies any diarrhea. Denies any sick contacts recent antibiotics. Patient denies any other past medical history other than diabetes. Patient is resting comfortably still complaining of nausea, evaluation. Units of insulin patient's tachycardic otherwise looks well - Related Data Allergies/Adverse Reactions: Penicillins Allergy (Intermediate, Verified 07/31/17 13:31) Unknown reaction amoxicillin [Amoxicillin] Allergy (Verified 07/31/17 13:31) vancomycin Adverse Reaction (Intermediate, Verified 07/31/17 13:31) PERIORBITAL EDEMA, BACK WELTS imipenem Adverse Reaction (Mild, Verified 07/31/17 13:31) Flushing Home Medications: Current Home Medications Dextroamphetamine/Amphetamine [Adderall Xr 30 mg Capsule] 30 mg PO DAILY [History] Insulin Aspart [Novolog Flexpen] 0 unit SUBCUT .SLD SCALE 07/31/17 [History] Insulin Glargine,Hum.rec.anlog [Toujeo Solostar] 30 units SQ Q12 07/31/17 [ History] Past Medical History - General Information source: Patient, Parent - Social History Smoking Status: Never Smoker Chew tobacco use (# tins/day): No Frequency of alcohol use: Rare Family History: Reviewed & Not Pertinent, Hypertension Patient has suicidal ideation: No Patient has homicidal ideation: No Endocrine Medical History: Reports: Hx Diabetes Mellitus Type 1, Hx Hypothyroidism Renal/ Medical History: Denies: Hx Peritoneal Dialysis GI Medical History: Denies: Hx Hepatitis Musculoskeltal Medical History: Denies Hx Arthritis Skin Medical History: Denies Hx Eczema, Denies Hx Psoriasis Psychiatric Medical History: Reports: Hx Attention Deficit Hyperactivity Disorder Denies: Hx Depression Infectious Medical History: Denies: Hx Hepatitis - Immunizations Immunizations up to date: Yes Hx Diphtheria, Pertussis, Tetanus Vaccination: Yes Hx Pneumococcal Vaccination: 08/08/12 Review of Systems - Review of Systems Constitutional: Other - Hyperglycemia EENT: No symptoms reported Cardiovascular: No symptoms reported Respiratory: No symptoms reported Gastrointestinal: Nausea, Vomiting Genitourinary: No symptoms reported Female Genitourinary: No symptoms reported Musculoskeletal: No symptoms reported Skin: No symptoms reported Hematologic/Lymphatic: No symptoms reported Neurological/Psychological: No symptoms reported -: Yes All other systems reviewed and negative Physical Exam - Vital signs Vitals: Temp Pulse Resp BP Pulse Ox 97.5 F 134 H 18 130/84 H 98 07/31/17 13:31 07/31/17 13:31 07/31/17 13:31 07/31/17 13:31 07/31/17 13:31 Interpretation: Tachycardic - General General appearance: Appears well, Alert - HEENT Head: Normocephalic, Atraumatic Eyes: Normal Pupils: PERRL - Respiratory Respiratory status: No respiratory distress Chest status: Nontender Breath sounds: Normal Chest palpation: Normal - Cardiovascular Rhythm: Regular Heart sounds: Normal auscultation Murmur: No - Abdominal Inspection: Normal Distension: No distension Bowel sounds: Normal Tenderness: Nontender Organomegaly: No organomegaly - Back Back: Normal, Nontender - Extremities General upper extremity: Normal inspection, Nontender, Normal color, Normal ROM , Normal temperature General lower extremity: Normal inspection, Nontender, Normal color, Normal ROM , Normal temperature, Normal weight bearing. No: Juventino's sign - Neurological Neuro grossly intact: Yes Cognition: Normal Orientation: AAOx4 Sheryl Coma Scale Eye Opening: Spontaneous [place] Coma Scale Verbal: Oriented [place] Coma Scale Motor: Obeys Commands Sheryl Coma Scale Total: 15 Speech: Normal Motor strength normal: LUE, RUE, LLE, RLE Sensory: Normal - Psychological Associated symptoms: Normal affect, Normal mood - Skin Skin Temperature: Warm Skin Moisture: Dry Skin Color: Normal Course - Re-evaluation Re-evalutation: 07/31/17 18:38 Patient laboratory studies consistent with DKA patient had acidosis anion gap. Patient blood sugars decreased. Patient received IV fluids. Discussed with hospitalist will admit for DKA. - Vital Signs Vital signs: Temp Pulse Resp BP Pulse Ox 97.5 F 134 H 17 114/64 98 07/31/17 13:31 07/31/17 13:31 07/31/17 18:01 07/31/17 18:01 07/31/17 18:01 - Laboratory Result Diagrams: 07/31/17 14:02 07/31/17 16:35 Laboratory results interpreted by me: 07/31/17 07/31/17 07/31/17 13:47 14:02 14:02 WBC 12.2 H MCV 98 H RDW 14.3 H Plt Count 463 H Seg Neutrophils % 86.0 H Lymphocytes % 10.6 L Absolute Neutrophils 10.5 H VBG pH VBG pCO2 VBG HCO3 Sodium 147.1 H Carbon Dioxide 9 L* Anion Gap 34 H Glucose 119 H POC Glucose 131 H Calcium 11.3 H AST 222 H ALT 120 H Alkaline Phosphatase 181 H Total Protein 9.4 H Albumin 5.4 H Urine Protein Urine Glucose (UA) Urine Ketones Urine Blood Urine Bilirubin Urine Urobilinogen 07/31/17 07/31/17 07/31/17 14:02 14:45 15:46 WBC MCV RDW Plt Count Seg Neutrophils % Lymphocytes % Absolute Neutrophils VBG pH 7.21 L VBG pCO2 28.1 L VBG HCO3 11.0 L Sodium Carbon Dioxide Anion Gap Glucose POC Glucose 60 L Calcium AST ALT Alkaline Phosphatase Total Protein Albumin Urine Protein >=500 H Urine Glucose (UA) 50 H Urine Ketones 80 H Urine Blood SMALL H Urine Bilirubin SMALL H Urine Urobilinogen 2.0 H Discharge - Discharge Clinical Impression: DKA (diabetic ketoacidoses) Qualifiers: Diabetes mellitus type: other specified (including JANETH) Diabetes mellitus complication detail: without coma Qualified Code(s): E13.10 - Other specified diabetes mellitus with ketoacidosis without coma DKA, type 1 Qualifiers: Diabetes mellitus complication detail: without coma Qualified Code(s): E10.10 - Type 1 diabetes mellitus with ketoacidosis without coma Condition: Good Disposition: ADMITTED INPATIENT Admitting [facility] Unit Admitted: [facility]
[2017-07-31] MEDS ORDERED: DEXTROSE 5%-NORMAL SALINE 1,000 ML IV PRN (15:47)
[2017-07-31] MEDS ORDERED: (PENDING PHARMACY ID) (Zolpidem Tartrate [Zolpidem Tartrate] 10 MG) PO PRN (15:48)
[2017-07-31] MEDS ORDERED: ZOLPIDEM TARTRATE 5 MG TABLET PO PRN (15:50)
--- NOTE | 2017-07-31 16:07 | PDOC H&P ---
History of Present Illness Admission Date/PCP: EDNA REEVES MD Patient complains of: Nausea and elevated blood sugars History of Present Illness: VICK MELGOZA is a 22 year old female with a history of type 1 diabetes known to me from previous admissions who presents with nausea and vomiting as well as hyperglycemia. Patient reports that she went to [facility] on Tuesday and then began to feel poorly. She developed fever on Tuesday and began to have nausea and vomiting Tuesday evening. She woke up this morning her blood sugars were 600. She took extra insulin and presented to the emergency room. Her blood sugar actually had returned back to normal however she is noted to have a large anion gap. The patient has been started on IV fluids but not yet started on insulin because of the relatively low blood sugar. She is in the process of being started on D5 normal saline. Patient denies any chest pain. She denies any shortness of breath. She has of the nausea vomiting and some loose bowel movements but no significant abdominal pain. The patient denies any melena or bright blood per rectum. She reports that she has been compliant with her medications. Patient denies any dysuria. She denies any vaginal discharge. Denies any skin rashes or other problems. Past Medical History Cardiac Medical History: Reports: None Pulmonary Medical History: Reports: None EENT Medical History: Reports: None Neurological Medical History: Reports: None Endocrine Medical History: Reports: Diabetes Mellitus Type 1, Hypothyroidism Renal/ Medical History: Reports: None Malignancy Medical History: Reports: None GI Medical History: Reports: None Musculoskeltal Medical History: Denies: Arthritis Skin Medical History: Denies: Eczema, Psoriasis Psychiatric Medical History: Reports: Attention Deficit Hyperactivity Disorder Denies: Depression Traumatic Medical History: Reports: None Hematology: Reports: None Infectious Medical History: Reports: None Past Surgical History Past Surgical History: Reports: None Social History Information Source: Patient Lives with: Family Smoking Status: Never Smoker Frequency of Alcohol Use: None Hx Recreational Drug Use: No Drugs: Other - History of methamphetamine use Hx Prescription Drug Abuse: No - Advance Directive Resuscitation Status: Full Code Family History Family History: Hypertension Family History: Father is 55 and has diabetes he is alive. Mother is 51 alive and has hypothyroidism. Parental Family History Reviewed: Yes Children Family History Reviewed: No Sibling(s) Family History Reviewed.: No Medication/Allergy Allergies/Adverse Reactions: Penicillins Allergy (Intermediate, Verified 07/31/17 13:31) Unknown reaction amoxicillin [Amoxicillin] Allergy (Verified 07/31/17 13:31) vancomycin Adverse Reaction (Intermediate, Verified 07/31/17 13:31) PERIORBITAL EDEMA, BACK WELTS imipenem Adverse Reaction (Mild, Verified 07/31/17 13:31) [place] Review of Systems Constitutional: PRESENT: fever(s). ABSENT: chills, headache(s), weight gain, weight loss Eyes: ABSENT: visual disturbances Ears: ABSENT: hearing changes Cardiovascular: ABSENT: chest pain, dyspnea on exertion, edema, orthropnea, palpitations Respiratory: ABSENT: cough, hemoptysis Gastrointestinal: PRESENT: as per HPI, nausea, vomiting. ABSENT: abdominal pain , diarrhea, melena Genitourinary: ABSENT: dysuria, hematuria Musculoskeletal: ABSENT: joint swelling Integumentary: ABSENT: rash, wounds Neurological: ABSENT: abnormal gait, abnormal speech, confusion, dizziness, focal weakness, syncope Psychiatric: ABSENT: anxiety, depression Endocrine: ABSENT: cold intolerance, heat intolerance, polydipsia, polyuria Hematologic/Lymphatic: ABSENT: easy bleeding, easy bruising Physical Exam Vital Signs: Temp Pulse Resp BP Pulse Ox 97.5 F 134 H 18 130/84 H 98 07/31/17 13:31 07/31/17 13:31 07/31/17 13:31 07/31/17 13:31 07/31/17 13:31 Intake & Output 07/30/17 07/31/17 08/01/17 06:59 06:59 06:59 Weight 72.7 kg General appearance: PRESENT: no acute distress Head exam: PRESENT: atraumatic, normocephalic Eye exam: PRESENT: conjunctiva pink, EOMI, PERRLA. ABSENT: scleral icterus Ear exam: PRESENT: normal external ear exam Mouth exam: PRESENT: moist, tongue midline Neck exam: ABSENT: carotid bruit, JVD, lymphadenopathy, thyromegaly Respiratory exam: PRESENT: clear to auscultation ti. ABSENT: rales, rhonchi, wheezes Cardiovascular exam: PRESENT: RRR. ABSENT: diastolic murmur, rubs, systolic murmur Pulses: PRESENT: normal dorsalis pedis pul Vascular exam: PRESENT: normal capillary refill GI/Abdominal exam: PRESENT: normal bowel sounds, soft. ABSENT: distended, guarding, mass, organolmegaly, rebound, tenderness Rectal exam: PRESENT: deferred Extremities exam: ABSENT: calf tenderness, clubbing, pedal edema Neurological exam: PRESENT: alert, awake, oriented to person, oriented to place , oriented to time, oriented to situation, CN II-XII grossly intact. ABSENT: motor sensory deficit Psychiatric exam: PRESENT: appropriate affect Skin exam: PRESENT: dry, intact, warm. ABSENT: cyanosis, rash Results Laboratory Results: 07/31/17 14:02 07/31/17 14:02 07/31/17 07/31/17 07/31/17 14:02 14:02 14:02 WBC 12.2 H RBC 4.60 Hgb 14.9 Hct 45.2 MCV 98 H MCH 32.3 MCHC 32.9 RDW 14.3 H Plt Count 463 H Seg Neutrophils % 86.0 H Lymphocytes % 10.6 L Monocytes % 3.0 Eosinophils % 0.1 Basophils % 0.3 Absolute Neutrophils 10.5 H Absolute Lymphocytes 1.3 Absolute Monocytes 0.4 Absolute Eosinophils 0.0 Absolute Basophils 0.0 VBG pH 7.21 L VBG pCO2 28.1 L VBG HCO3 11.0 L VBG Base Excess -15.2 Sodium 147.1 H Potassium 4.3 Chloride 104 Carbon Dioxide 9 L* Anion Gap 34 H BUN 11 Creatinine 0.71 Est GFR ( Amer) > 60 Est GFR (Non-Af Amer) > 60 Glucose 119 H Calcium 11.3 H Total Bilirubin 0.6 AST 222 H ALT 120 H Alkaline Phosphatase 181 H Total Protein 9.4 H Albumin 5.4 H Urine Color Urine Appearance Urine pH Ur Specific Mikado Urine Protein Urine Glucose (UA) Urine Ketones Urine Blood Urine Nitrite Ur Leukocyte Esterase Urine WBC (Auto) Urine RBC (Auto) 07/31/17 14:45 WBC RBC Hgb Hct MCV MCH MCHC RDW Plt Count Seg Neutrophils % Lymphocytes % Monocytes % Eosinophils % Basophils % Absolute Neutrophils Absolute Lymphocytes Absolute Monocytes Absolute Eosinophils Absolute Basophils VBG pH VBG pCO2 VBG HCO3 VBG Base Excess Sodium Potassium Chloride Carbon Dioxide Anion Gap BUN Creatinine Est GFR ( Amer) Est GFR (Non-Af Amer) Glucose Calcium Total Bilirubin AST ALT Alkaline Phosphatase Total Protein Albumin Urine Color YELLOW Urine Appearance SLIGHTLY-CLOUDY Urine pH 5.0 Ur Specific Mikado 1.022 Urine Protein >=500 H Urine Glucose (UA) 50 H Urine Ketones 80 H Urine Blood SMALL H Urine Nitrite NEGATIVE Ur Leukocyte Esterase NEGATIVE Urine WBC (Auto) 1 Urine RBC (Auto) 1 Assessment & Plan - Diagnosis (1) DKA (diabetic ketoacidosis) Qualifiers: Diabetes mellitus type: other specified (including JANETH) Diabetes mellitus complication detail: without coma Qualified Code(s): E13.10 - Other specified diabetes mellitus with ketoacidosis without coma Is this a current diagnosis for this admission?: Yes Plan: The patient has elevated anion gap consistent with acute diabetic ketoacidosis. Most likely cause is gastroenteritis. She reports that all started after eating at [employer] She has had nausea and vomiting but no diarrhea. This may represent a foodborne illness versus a viral syndrome. We will treat with IV fluids and an insulin drip. Patient will also be given antiemetics as needed. Will check chemistries every 4 hours until her anion gap resolves. (2) Obesity Qualifiers: Is this a current diagnosis for this admission?: Yes - Time Time Spent: 50 to 70 Minutes - Inpatient Certification Medical Necessity: Need For IV Fluids
[2017-07-31 17:04] LABS: ANION GAP 19 (5-19); BLOOD UREA NITROGEN 9 mg/dL (7-20); CALCIUM 8.3 mg/dL (8.4-10.2); CARBON DIOXIDE 15 mmol/L (22-30); CHLORIDE 109 mmol/L (98-107); GLUCOSE 177 mg/dL (75-110); POTASSIUM 4.1 mmol/L (3.6-5.0); SODIUM 142.5 mmol/L (137-145)
[2017-07-31 18:45] LABS: ANION GAP 18 (5-19); BLOOD UREA NITROGEN 7 mg/dL (7-20); CALCIUM 8.7 mg/dL (8.4-10.2); CARBON DIOXIDE 15 mmol/L (22-30); CHLORIDE 110 mmol/L (98-107); GLUCOSE 157 mg/dL (75-110); POTASSIUM 4.3 mmol/L (3.6-5.0); SODIUM 143.1 mmol/L (137-145)
[2017-07-31] MEDS ORDERED: FAMOTIDINE 20 MG TABLET PO SCH (22:00)
[2017-07-31 22:13] LABS: ANION GAP 15 (5-19); BLOOD UREA NITROGEN 6 mg/dL (7-20); CALCIUM 8.8 mg/dL (8.4-10.2); CARBON DIOXIDE 15 mmol/L (22-30); CHLORIDE 110 mmol/L (98-107); GLUCOSE 228 mg/dL (75-110); POTASSIUM 4.1 mmol/L (3.6-5.0); SODIUM 139.7 mmol/L (137-145)
[2017-08-01 00:52] LABS: ANION GAP 15 (5-19); BLOOD UREA NITROGEN 5 mg/dL (7-20); CALCIUM 8.7 mg/dL (8.4-10.2); CARBON DIOXIDE 16 mmol/L (22-30); CHLORIDE 113 mmol/L (98-107); GLUCOSE 137 mg/dL (75-110); POTASSIUM 3.9 mmol/L (3.6-5.0); SODIUM 143.7 mmol/L (137-145)
[2017-08-01 05:35] LABS: ANION GAP 13 (5-19); BLOOD UREA NITROGEN 5 mg/dL (7-20); CALCIUM 8.6 mg/dL (8.4-10.2); CARBON DIOXIDE 18 mmol/L (22-30); CHLORIDE 111 mmol/L (98-107); GLUCOSE 109 mg/dL (75-110); POTASSIUM 3.6 mmol/L (3.6-5.0); SODIUM 141.8 mmol/L (137-145)
[2017-08-01 05:58] LABS: ABSOLUTE EOSINOPHILS # (AUTO) 0.1 10^3/uL (0.0-0.6); ABSOLUTE LYMPHOCYTES (AUTO) 2.6 10^3/uL (0.5-4.7); ABSOLUTE MONOCYTES (AUTO) 0.4 10^3/uL (0.1-1.4); ABSOLUTE NEUT (AUTO) 2.2 10^3/uL (1.7-8.2); BASOPHILS % (AUTO) 0.5 % (0-2); EOSINOPHILS % (AUTO) 1.7 % (0-6); HEMATOCRIT 39.4 % (36.0-47.0); LYMPHOCYTES % (AUTO) 48.9 % (13-45); MEAN CORPUSCULAR HEMOGLOBIN 32.1 pg (27.0-33.4); MEAN CORPUSCULAR HGB CONC 32.9 g/dL (32.0-36.0); MEAN CORPUSCULAR VOLUME 98 fl (80-97); MONOCYTES % (AUTO) 6.8 % (3-13); PLATELET COUNT 260 10^3/uL (150-450); RED BLOOD COUNT 4.03 10^6/uL (3.72-5.28); RED CELL DISTRIBUTION WIDTH 14.3 % (11.5-14.0); SEGMENTED NEUTROPHILS % (AUTO) 42.1 % (42-78); TOTAL CELLS COUNTED % (AUTO) 100 %; WHITE BLOOD COUNT 5.3 10^3/uL (4.0-10.5)
[2017-08-01] MEDS ORDERED: POTASSI CL 20 MEQ/D5-1/2NS 1L 1000 ML IV PRN (06:04)
[2017-08-01 07:51] VITALS: BP 110/58
[2017-08-01 08:39] LABS: ANION GAP 17 (5-19); BLOOD UREA NITROGEN 3 mg/dL (7-20); CALCIUM 8.9 mg/dL (8.4-10.2); CARBON DIOXIDE 13 mmol/L (22-30); CHLORIDE 111 mmol/L (98-107); GLUCOSE 165 mg/dL (75-110); POTASSIUM 3.4 mmol/L (3.6-5.0); SODIUM 141.2 mmol/L (137-145)
--- NOTE | 2017-08-01 10:51 | PDOC DISCHARGE SUMMARY ---
General - Admit/Disc Date/PCP Admission Date/Primary Care Provider: 07/31/17 16:14 EDNA REEVES MD Discharge Date: 08/01/17 - Discharge Diagnosis (1) DKA (diabetic ketoacidosis) Is this a current diagnosis for this admission?: Yes (2) Obesity Is this a current diagnosis for this admission?: Yes - Additional Information Resuscitation Status: Full Code Discharge Diet: Diabetic Discharge Activity: Activity As Tolerated Home Medications: Dextroamphetamine/Amphetamine [Adderall Xr 30 mg Capsule] 30 mg PO DAILY Insulin Aspart [Novolog Flexpen] 0 unit SUBCUT .SLD SCALE 07/31/17 Insulin Glargine,Hum.rec.anlog [Toujeo Solostar] 30 units SQ Q12 07/31/17 Levothyroxine Sodium 08/01/17 History of Present Illness History of Present Illness: VICK MELGOZA is a 22 year old female with a history of type 1 diabetes known to me from previous admissions who presents with nausea and vomiting as well as hyperglycemia. Patient reports that she went to [place] on Tuesday and then began to feel poorly. She developed fever on Tuesday and began to have nausea and vomiting Tuesday evening. She woke up this morning her blood sugars were 600. She took extra insulin and presented to the emergency room. Her blood sugar actually had returned back to normal however she is noted to have a large anion gap. The patient has been started on IV fluids but not yet started on insulin because of the relatively low blood sugar. She is in the process of being started on D5 normal saline. Patient denies any chest pain. She denies any shortness of breath. She has of the nausea vomiting and some loose bowel movements but no significant abdominal pain. The patient denies any melena or bright blood per rectum. She reports that she has been compliant with her medications. Patient denies any dysuria. She denies any vaginal discharge. Denies any skin rashes or other problems. Hospital Course Hospital Course: 22-year-old female with type 1 diabetes mellitus who presented with DKA most likely secondary to a gastroenteritis. Patient was given IV fluids and IV insulin overnight and had complete resolution of her DKA. The patient was tolerating a diet without difficulty and she was started on her usual insulin dose and was discharged home. Patient had no evidence for an acute bacterial infection. Physical Exam Vital Signs: Temp Pulse Resp BP Pulse Ox 98.5 F 94 17 110/58 L 100 08/01/17 09:10 08/01/17 09:10 08/01/17 09:10 08/01/17 09:10 08/01/17 09:10 Intake & Output 07/31/17 08/01/17 08/02/17 06:59 06:59 06:59 Intake Total 3030 Balance 3030 Weight 73.4 kg General appearance: PRESENT: no acute distress Eye exam: PRESENT: conjunctiva pink. ABSENT: scleral icterus Neck exam: ABSENT: JVD Respiratory exam: PRESENT: clear to auscultation ti. ABSENT: rales, rhonchi, wheezes Cardiovascular exam: PRESENT: RRR. ABSENT: diastolic murmur, rubs, systolic murmur GI/Abdominal exam: PRESENT: normal bowel sounds, soft. ABSENT: distended, guarding, mass, organolmegaly, rebound, tenderness Extremities exam: ABSENT: calf tenderness, clubbing, pedal edema Neurological exam: PRESENT: alert, awake, oriented to person, oriented to place , oriented to time, oriented to situation, CN II-XII grossly intact. ABSENT: motor sensory deficit Psychiatric exam: PRESENT: appropriate affect Skin exam: PRESENT: dry, intact, warm. ABSENT: cyanosis, rash Results Laboratory Results: 08/01/17 04:23 08/01/17 08:09 07/31/17 07/31/17 07/31/17 16:35 17:55 21:45 WBC RBC Hgb Hct MCV MCH MCHC RDW Plt Count Seg Neutrophils % Lymphocytes % Monocytes % Eosinophils % Basophils % Absolute Neutrophils Absolute Lymphocytes Absolute Monocytes Absolute Eosinophils Absolute Basophils Sodium 142.5 143.1 139.7 Potassium 4.1 4.3 4.1 Chloride 109 H 110 H 110 H Carbon Dioxide 15 L 15 L 15 L Anion Gap 19 18 15 BUN 9 7 6 L Creatinine 0.50 L 0.57 0.48 L Est GFR ( Amer) > 60 > 60 > 60 Est GFR (Non-Af Amer) > 60 > 60 > 60 Glucose 177 H 157 H 228 H Calcium 8.3 L 8.7 8.8 08/01/17 08/01/17 08/01/17 00:19 04:23 04:23 WBC 5.3 RBC 4.03 Hgb 13.0 Hct 39.4 MCV 98 H MCH 32.1 MCHC 32.9 RDW 14.3 H Plt Count 260 Seg Neutrophils % 42.1 Lymphocytes % 48.9 H Monocytes % 6.8 Eosinophils % 1.7 Basophils % 0.5 Absolute Neutrophils 2.2 Absolute Lymphocytes 2.6 Absolute Monocytes 0.4 Absolute Eosinophils 0.1 Absolute Basophils 0.0 Sodium 143.7 141.8 Potassium 3.9 3.6 Chloride 113 H 111 H Carbon Dioxide 16 L 18 L Anion Gap 15 13 BUN 5 L 5 L Creatinine 0.45 L 0.45 L Est GFR ( Amer) > 60 > 60 Est GFR (Non-Af Amer) > 60 > 60 Glucose 137 H 109 Calcium 8.7 8.6 08/01/17 08:09 WBC RBC Hgb Hct MCV MCH MCHC RDW Plt Count Seg Neutrophils % Lymphocytes % Monocytes % Eosinophils % Basophils % Absolute Neutrophils Absolute Lymphocytes Absolute Monocytes Absolute Eosinophils Absolute Basophils Sodium 141.2 Potassium 3.4 L Chloride 111 H Carbon Dioxide 13 L Anion Gap 17 BUN 3 L Creatinine 0.43 L Est GFR ( Amer) > 60 Est GFR (Non-Af Amer) > 60 Glucose 165 H Calcium 8.9 Qualifiers PATEINT BEING DISCHARGED WITH ANY OF THE FOLLOWING DIAGNOSIS?: No Plan Discharge Plan: Patient is discharged home in stable condition. Follow-up with primary care in 2 weeks. Time Spent: Less than 30 Minutes
== END 2017-08-01 09:30 | disposition home or self-care (01) | DRG 391 ==
LOC: ER 13:27 → EH 16:14 → 3W 18:56
PROVIDERS: ADMIT Internal Medicine; ATTEND Internal Medicine
DX: K52.89 Other specified noninfective gastroenteritis and colitis (principal); E08.10 Diabetes mellitus due to underlying condition with ketoacidosis without coma; E03.9 Hypothyroidism, unspecified; E66.9 Obesity, unspecified; F90.9 Attention-deficit hyperactivity disorder, unspecified type; Z79.4 Long term (current) use of insulin; Z68.30 Body mass index [BMI] 30.0-30.9, adult
CPT/HCPCS: 36415; 80048; 80053; 81001; 82803; 82962; 85025; 96361; 96374; 99285; J1815; J2405; J3480; J7030

== ENCOUNTER 2017-11-23 22:53 | Emergency (ER) | payer BC ==
[2017-11-24] MEDS ORDERED: ONDANSETRON HCL INJ/PF 4 MG/2 ML SDV IV ONE (00:26)
[2017-11-24] MEDS ORDERED: RINGERS SOLUTION,LACTATED 1,000 ML IV ONE ×2 (00:26→01:40)
[2017-11-24 00:49] LABS: HEMATOCRIT 44.3 % (36.0-47.0); HEMOGLOBIN 14.9 g/dL (12.0-15.5); MEAN CORPUSCULAR HEMOGLOBIN 32.5 pg (27.0-33.4); MEAN CORPUSCULAR HGB CONC 33.6 g/dL (32.0-36.0); MEAN CORPUSCULAR VOLUME 97 fl (80-97); PLATELET COUNT 463 10^3/uL (150-450); RED BLOOD COUNT 4.59 10^6/uL (3.72-5.28); RED CELL DISTRIBUTION WIDTH 13.6 % (11.5-14.0); WHITE BLOOD COUNT 19.5 10^3/uL (4.0-10.5)
[2017-11-24 00:52] LABS: VENOUS BLOOD BASE EXCESS 0.6 mmol/L; VENOUS BLOOD PCO2 44.1 mmHg (35-63); VENOUS BLOOD PH 7.39 (7.30-7.42)
[2017-11-24 01:05] LABS: ABSOLUTE LYMPHOCYTES# (MANUAL) 1.8 10^3/uL (0.5-4.7); ABSOLUTE MONOCYTES # (MANUAL) 0.8 10^3/uL (0.1-1.4); BASOPHILS % (MANUAL) 0 % (0-2); EOSINOPHILS % (MANUAL) 0 % (0-6); LYMPHOCYTES % (MANUAL) 9 % (13-45); MONOCYTES % (MANUAL) 4 % (3-13); PLATELET COMMENT INCREASED; SEGMENTED NEUTROPHILS % (MAN) 73 % (42-78); TOTAL CELLS COUNTED 100
[2017-11-24 01:08] LABS: ALANINE AMINOTRANSFERASE 143 U/L (9-52); ALBUMIN 4.8 g/dL (3.5-5.0); ALKALINE PHOSPHATASE 168 U/L (38-126); ASPARTATE AMINO TRANSFERASE 264 U/L (14-36); BILIRUBIN,DIRECT 0.4 mg/dL (0.0-0.4); BILIRUBIN,TOTAL 0.4 mg/dL (0.2-1.3); BLOOD UREA NITROGEN 12 mg/dL (7-20); CALCIUM 10.7 mg/dL (8.4-10.2); CARBON DIOXIDE 30 mmol/L (22-30); CHLORIDE 101 mmol/L (98-107); GLUCOSE 59 mg/dL (75-110); POTASSIUM 3.7 mmol/L (3.6-5.0); TOTAL PROTEIN 8.5 g/dL (6.3-8.2); TOXIC GRANULATION SLIGHT; TOXIC VACUOLATION PRESENT
[2017-11-24 01:09] LABS: RBC MORPHOLOGY COMMENT NORMO-CYTIC/CHROMIC
[2017-11-24 01:11] LABS: BAND NEUTROPHILS % (MANUAL) 14 % (3-5)
[2017-11-24 01:23] LABS: ANION GAP 16 (5-19); SODIUM 147.1 mmol/L (137-145)
[2017-11-24] MEDS ORDERED: KETOROLAC TROMETHAMINE INJ/PF 30 MG/1 ML SDV IV ONE (01:47)
--- NOTE | 2017-11-24 01:47 | ER Document Report ---
ED General - General Chief Complaint: Low Blood Sugar Stated Complaint: VOMITING Time Seen by Provider: 11/24/17 00:25 Notes: Patient is a 22 year old female with a past medical history of insulin- dependent type 1 diabetes, history of frequent DKA nausea, vomiting and abdominal cramping. Patient reports that her symptoms started several hours prior to arrival have been worsening since that time. She states that she checked her blood sugar at home and found it to be elevated at 350, give herself 4 units of insulin and then came to the emergency department when she continued to be unable to tolerate oral intake. She states this feels very similar to when she has had diabetic ketoacidosis in the past. She has not seen her primary care doctor regarding today's concerns. Nothing worsens her symptoms. Nothing improves her symptoms. She does note some generalized lower abdominal cramping pain which she states is very typical for when she goes into diabetic ketoacidosis. TRAVEL OUTSIDE OF THE [place] IN LAST 30 DAYS: No - Related Data Allergies/Adverse Reactions: Penicillins Allergy (Intermediate, Verified 07/31/17 13:31) Unknown reaction amoxicillin [Amoxicillin] Allergy (Verified 07/31/17 13:31) vancomycin Adverse Reaction (Intermediate, Verified 07/31/17 13:31) PERIORBITAL EDEMA, BACK WELTS imipenem Adverse Reaction (Mild, Verified 07/31/17 13:31) Flushing Past Medical History - General Information source: Patient - Social History Smoking Status: Never Smoker Chew tobacco use (# tins/day): No Frequency of alcohol use: None Drug Abuse: None Lives with: Family Family History: Reviewed & Not Pertinent, Hypertension Patient has suicidal ideation: No Patient has homicidal ideation: No Endocrine Medical History: Reports: Hx Diabetes Mellitus Type 1, Hx Hypothyroidism Renal/ Medical History: Denies: Hx Peritoneal Dialysis GI Medical History: Denies: Hx Hepatitis Musculoskeltal Medical History: Denies Hx Arthritis Skin Medical History: Denies Hx Eczema, Denies Hx Psoriasis Psychiatric Medical History: Reports: Hx Attention Deficit Hyperactivity Disorder Denies: Hx Depression Infectious Medical History: Denies: Hx Hepatitis - Immunizations Immunizations up to date: Yes Hx Diphtheria, Pertussis, Tetanus Vaccination: Yes Hx Pneumococcal Vaccination: 08/08/12 Review of Systems - Review of Systems Notes: Constitutional: Negative for fever. HENT: Negative for sore throat. Eyes: Negative for visual changes. Cardiovascular: Negative for chest pain. Respiratory: Negative for shortness of breath. Gastrointestinal: Positive for abdominal pain and vomiting Genitourinary: Negative for dysuria. Musculoskeletal: Negative for back pain. Skin: Negative for rash. Neurological: Negative for headaches, weakness or numbness. 10 point ROS negative except as marked above and in HPI. Physical Exam - Vital signs Vitals: Temp Pulse Resp BP Pulse Ox 98.1 F 129 H 16 124/76 97 11/23/17 23:25 11/23/17 23:25 11/23/17 23:25 11/23/17 23:25 11/23/17 23:25 Interpretation: Tachycardic Notes: PHYSICAL EXAMINATION: GENERAL: Well-appearing, well-nourished and in no acute distress. HEAD: Atraumatic, normocephalic. EYES: Pupils equal round and reactive to light, extraocular movements intact, sclera anicteric, conjunctiva are normal. ENT: nares patent, oropharynx clear without exudates. Moderately dry mucous membranes. NECK: Normal range of motion, supple without lymphadenopathy LUNGS: Breath sounds clear to auscultation bilaterally and equal. No wheezes rales or rhonchi. HEART: Regular tachycardia without murmurs ABDOMEN: Soft, generalized lower abdominal tenderness with some mild localization to the right lower quadrant otherwise no other localized areas of tenderness, normoactive bowel sounds. No guarding, no rebound. No masses appreciated. EXTREMITIES: Normal range of motion, no pitting or edema. No cyanosis. NEUROLOGICAL: No focal neurological deficits. Moves all extremities spontaneously and on command. PSYCH: Normal mood, normal affect. SKIN: Warm, Dry, normal turgor, no rashes or lesions noted. Course - Re-evaluation Re-evalutation: 11/24/17 01:46 Patient presents with generalized abdominal pain, vomiting, and hyperglycemia at home which has resolved after she self administered insulin prior to arrival. On examination patient is noted to be tachycardic, obviously dehydrated but otherwise very well in appearance. On abdominal examination she does have some generalized lower abdominal discomfort that appears to most focal to the right lower quadrant. Review of her laboratory studies show a leukocytosis with associated bandemia, a transaminitis which is unchanged from July 2017. On examination patient has no right upper quadrant abdominal tenderness to suggest acute biliary pathology. Urinalysis is pending. There is no evidence of diabetic ketoacidosis on laboratories. Will obtain a CT of the abdomen pelvis to further evaluate for possibility of acute appendicitis given her marked leukocytosis with associated bandemia and lower abdominal discomfort. 11/24/17 03:51 CT scan unremarkable with a normal visualized appendix. Liver and gallbladder are likewise visualized to be normal. Patient has had some additional vomiting which has been controlled with metoclopramide. Repeat abdominal exam remains reassuring. Patient does continue to have some mild tachycardia likely secondary dehydration although continues to be without hyperglycemia. At this time will discharge with return precautions and follow-up recommendations. Verbal discharge instructions given a the bedside and opportunity for questions given. Medication warnings reviewed. Patient is in agreement with this plan and has verbalized understanding of return precautions and the need for primary care follow-up in the next 24-72 hours. - Vital Signs Vital signs: Temp Pulse Resp BP Pulse Ox 98.1 F 129 H 15 120/76 97 11/23/17 23:25 11/23/17 23:25 11/24/17 05:09 11/24/17 05:09 11/24/17 05:09 - Laboratory Result Diagrams: 11/24/17 00:35 11/24/17 00:35 Laboratory results interpreted by me: 11/23/17 11/24/17 11/24/17 23:27 00:27 00:35 WBC 19.5 H Plt Count 463 H Band Neutrophils % 14 H Lymphocytes % (Manual) 9 L Abs Neuts (Manual) 17.0 H Sodium Glucose POC Glucose 63 L 62 L Calcium AST ALT Alkaline Phosphatase Total Protein Urine Protein Urine Ketones Urine Urobilinogen Ur Leukocyte Esterase 11/24/17 11/24/17 00:35 02:45 WBC Plt Count Band Neutrophils % Lymphocytes % (Manual) Abs Neuts (Manual) Sodium 147.1 H Glucose 59 L POC Glucose Calcium 10.7 H AST 264 H ALT 143 H Alkaline Phosphatase 168 H Total Protein 8.5 H Urine Protein 100 H Urine Ketones 20 H Urine Urobilinogen 2.0 H Ur Leukocyte Esterase SMALL H - Diagnostic Test Radiology reviewed: Reports reviewed Discharge - Discharge Clinical Impression: Dehydration Leukocytosis Qualifiers: Leukocytosis type: unspecified Qualified Code(s): D72.829 - Elevated white blood cell count, unspecified Nausea and vomiting Qualifiers: Vomiting type: unspecified Vomiting Intractability: non-intractable Qualified Code(s): R11.2 - Nausea with vomiting, unspecified Condition: Stable Disposition: HOME, SELF-CARE Additional Instructions: You have been seen in the Emergency Department (ED) today for nausea and vomiting. Your work up today has not shown a clear cause for your symptoms. You have been prescribed Zofran; please use as prescribed as needed for your nausea. Follow up with your doctor as soon as possible regarding today's emergent visit and your symptoms of nausea. Return to the Emergency Department (ED) if you develop abdominal pain, bloody vomiting, bloody diarrhea, if you are unable to tolerate fluids due to vomiting , or if you develop other symptoms that concern you. Referrals: EDNA REEVES MD [Primary Care Provider] - Follow up tomorrow
[2017-11-24 02:01] LABS: LIPASE 53.3 U/L (23-300)
[2017-11-24 03:08] LABS: APPEARANCE,URINE CLOUDY; BILIRUBIN,URINE NEGATIVE (NEGATIVE); COLOR,URINE AMBER; GLUCOSE, URINE NEGATIVE (NEGATIVE); KETONES,URINE 20 mg/dL (NEGATIVE); LEUKOCYTE ESTERASE,URINE SMALL (NEGATIVE); NITRITE,URINE NEGATIVE (NEGATIVE); PROTEIN,URINE 100 mg/dL (NEGATIVE)
[2017-11-24] MEDS ORDERED: METOCLOPRAMIDE HCL INJ/PF 10 MG/2 ML SDV IV ONE (03:27)
[2017-11-24] MEDS ORDERED: MORPHINE SULFATE 10 MG/ML INJ IV PRN (03:27)
--- NOTE | 2017-11-24 03:31 | RADIOLOGY REPORT (SQ) ---
EXAM DESCRIPTION: CT ABDOMEN AND PELVIS WITH CONTRAST CLINICAL HISTORY: Right lower quadrant pain. COMPARISON: None Available. TECHNIQUE: CT of the abdomen and pelvis performed following IV administration of 74 mL of Isovue-370. DLP: 1029.12 mGycm FINDINGS: Lung Bases: The visualized lung bases are clear. Bones: No destructive bone lesions identified. Abdomen: Liver: The liver has normal size and density. No intrahepatic mass or biliary dilatation. Gallbladder: No calcified gallstones. Spleen, Pancreas, and Adrenal Glands: The spleen, pancreas, and adrenal glands are unremarkable. Kidneys: The kidneys have normal size and contour without evidence of solid mass or hydronephrosis. Vasculature: The aorta and IVC have normal caliber and position. The portal vein is patent. The proximal visceral and renal arteries are patent. Stomach: The stomach and duodenum have normal course. Other: No free intraperitoneal air. No free fluid or lymphadenopathy. Pelvis: Bladder: Urinary bladder is unremarkable. Bowel: No dilated loops of large or small bowel. Appendix: Normal appendix. Pelvis: Uterus is not enlarged. IMPRESSION: 1. No acute inflammatory or obstructive process identified. This exam was performed according to our departmental dose-optimization program, which includes automated exposure control, adjustment of the mA and/or kV according to patient size and/or use of iterative reconstruction technique.
[2017-11-24] MEDS ORDERED: ONDANSETRON ODT 4 MG TAB (6 TAB/ER DISP) PO PRN (03:52)
[2017-11-24] MEDS ORDERED: HALOPERIDOL LACTATE INJ 5 MG/1 ML VIAL IV ONE (03:58)
[2017-11-24 05:25] VITALS: BP 120/76
== END 2017-11-24 05:25 | disposition home or self-care (01) ==
LOC: ER 22:53
DX: E86.0 Dehydration (principal); R11.2 Nausea with vomiting, unspecified; D72.829 Elevated white blood cell count, unspecified; E10.649 Type 1 diabetes mellitus with hypoglycemia without coma; R10.30 Lower abdominal pain, unspecified; Z79.4 Long term (current) use of insulin
CPT/HCPCS: 99284; 96361; 96374; 96375; 36415; 82962; 83690; 85025; 81025; 80053; 81001; 82803; 74177; J1630; J1885; J2765; J2270; J2405; J7120

== ENCOUNTER 2018-01-06 22:39 | Inpatient (IN) | payer BC ==
[2018-01-06] MEDS ORDERED: DIPHENHYDRAMINE HCL 50 MG/ML VIAL IV ONE (23:00)
[2018-01-06] MEDS ORDERED: METOCLOPRAMIDE HCL INJ/PF 10 MG/2 ML SDV IV ONE (23:00)
--- NOTE | 2018-01-06 23:03 | ER Document Report ---
ED General - General Chief Complaint: Headache Stated Complaint: HEADACHE,VOMITING Time Seen by Provider: 01/06/18 22:56 Notes: Patient is a 22-year-old female with a history of type 1 diabetes is presents with complaint of headache vomiting and felt like she is going to DKA. She is in the past she gets these headaches whenever she goes into DKA and is very similar to what she has had in the past. No focal weakness or numbness. No fevers. No recent infectious type symptoms. She says been feeling bad for about 2-3 days. She says her sugars have been fluctuating quite a bit. She said when she is out from her blood sugar was in 200s. At home is in the 100s just before she came in however her blood sugars have been fluctuating from 100s to the upper 400s over the last several days. She is on long-acting insulin 30 units in the morning and 30 units at night as well as a sliding scale NovoLog during the day. No other complaints at this time. TRAVEL OUTSIDE OF THE [place] IN LAST 30 DAYS: No - Related Data Allergies/Adverse Reactions: Penicillins Allergy (Intermediate, Verified 07/31/17 13:31) Unknown reaction amoxicillin [Amoxicillin] Allergy (Verified 07/31/17 13:31) vancomycin Adverse Reaction (Intermediate, Verified 07/31/17 13:31) PERIORBITAL EDEMA, BACK WELTS imipenem Adverse Reaction (Mild, Verified 07/31/17 13:31) Flushing Past Medical History - Social History Smoking Status: Unknown if Ever Smoked Frequency of alcohol use: None Drug Abuse: None Family History: Reviewed & Not Pertinent, Hypertension Endocrine Medical History: Reports: Hx Diabetes Mellitus Type 1, Hx Hypothyroidism Renal/ Medical History: Denies: Hx Peritoneal Dialysis GI Medical History: Denies: Hx Hepatitis Musculoskeltal Medical History: Denies Hx Arthritis Skin Medical History: Denies Hx Eczema, Denies Hx Psoriasis Psychiatric Medical History: Reports: Hx Attention Deficit Hyperactivity Disorder Denies: Hx Depression Infectious Medical History: Denies: Hx Hepatitis - Immunizations Immunizations up to date: Yes Hx Diphtheria, Pertussis, Tetanus Vaccination: Yes Hx Pneumococcal Vaccination: 08/08/12 Review of Systems - Review of Systems Notes: My Normal Review Basic REVIEW OF SYSTEMS: CONSTITUTIONAL : Denies fever, chills, or sweats. Denies recent illness. EENT: Denies eye, ear, throat, or mouth pain or symptoms. Denies nasal or sinus congestion. CARDIOVASCULAR: Denies chest pain. RESPIRATORY: Denies cough, cold, or chest congestion. Denies shortness of breath, difficulty breathing, or wheezing. GASTROINTESTINAL: Denies abdominal pain. Has vomiting GENITOURINARY: Denies difficulty urinating, painful urination, burning, frequency, or blood in urine. FEMALE GENITOURINARY: Denies vaginal bleeding, abnormal or irregular periods. MUSCULOSKELETAL: Denies neck or back pain or joint pain or swelling. SKIN: Denies rash or skin lesions. NEUROLOGICAL: Denies altered mental status or loss of consciousness. Has a headache. Denies weakness or paralysis or loss of use of either side. Denies problems with gait or speech. Denies sensory or motor loss. ALL OTHER SYSTEMS REVIEWED AND NEGATIVE. Physical Exam - Vital signs Vitals: Temp Pulse Resp BP Pulse Ox 98.0 F 129 H 22 H 137/96 H 99 01/06/18 22:44 01/06/18 22:44 01/06/18 22:44 01/06/18 22:44 01/06/18 22:44 - Notes Notes: General Appearance: Well nourished, alert, cooperative, no acute distress, mild obvious discomfort. Vitals: reviewed, See vital signs table. Head: no swelling or tenderness to the head Eyes: PERRL, EOMI, Conjuctiva clear Mouth: No decreasd moisture Lungs: No wheezing, No rales, No rhonci, No accessory muscle use, good air exchange bilaterally. Heart: Normal rate, Regular rythm, No murmur, no rub Abdomen: Normal BS, soft, No rigidity, No abdominal tenderness, No guarding, no rebound, no abdominal masses, no organomegaly Extremities: strength 5/5 in all extremities, good pulses in all extremities, no swelling or tenderness in the extremities, no edema. Skin: warm, dry, appropriate color, no rash Neuro: speech clear, oriented x 3, normal affect, responds appropriately to questions. Course - Re-evaluation Re-evalutation: 01/07/18 00:58 Patient has DKA. She has a gap acidosis. I start insulin drip. I started maintenance fluids. I have ordered a repeat BMP in 2 hours. Fluids may need be changed over to D5 half-normal for blood sugar continues down trend. I did speak with Dr. Ambriz, hospitalist, who agrees to accept the patient for admission. Dictation of this chart was performed using voice recognition software; therefore, there may be some unintended grammatical errors. - Vital Signs Vital signs: Temp Pulse Resp BP Pulse Ox 98.0 F 129 H 22 H 137/96 H 99 01/06/18 22:44 01/06/18 22:44 01/06/18 22:44 01/06/18 22:44 01/06/18 22:44 - Laboratory Result Diagrams: 01/06/18 23:30 01/06/18 23:30 Laboratory results interpreted by me: 01/06/18 01/06/18 01/06/18 22:48 23:30 23:30 MCV 98 H VBG pH VBG pCO2 VBG HCO3 Carbon Dioxide 9 L* Anion Gap 28 H Creatinine 0.50 L Glucose 326 H POC Glucose 239 H Direct Bilirubin 0.5 H AST 203 H ALT 97 H Alkaline Phosphatase 166 H Total Protein 8.3 H 01/06/18 23:30 MCV VBG pH 7.24 L VBG pCO2 26.6 L VBG HCO3 11.2 L Carbon Dioxide Anion Gap Creatinine Glucose POC Glucose Direct Bilirubin AST ALT Alkaline Phosphatase Total Protein Discharge - Discharge Clinical Impression: DKA (diabetic ketoacidoses) Qualifiers: Diabetes mellitus type: type 1 Diabetes mellitus complication detail: without coma Qualified Code(s): E10.10 - Type 1 diabetes mellitus with ketoacidosis without coma Headache Qualifiers: Headache type: unspecified Headache chronicity pattern: episodic headache Intractability: not intractable Qualified Code(s): R51 - Headache Condition: Stable Disposition: ADMITTED INPATIENT Admitting Provider: Hospitalist Unit Admitted: IMCU Referrals: EDNA REEVES MD [Primary Care Provider] - Follow up as needed
[2018-01-06] MEDS: NORMAL SALINE 1000 ML 1,000 ML IV PRN (23:23)
[2018-01-06 23:47] LABS: ABSOLUTE LYMPHOCYTES (AUTO) 1.3 10^3/uL (0.5-4.7); ABSOLUTE MONOCYTES (AUTO) 0.5 10^3/uL (0.1-1.4); ABSOLUTE NEUT (AUTO) 6.3 10^3/uL (1.7-8.2); BASOPHILS % (AUTO) 0.4 % (0-2); EOSINOPHILS % (AUTO) 0.2 % (0-6); HEMATOCRIT 43.9 % (36.0-47.0); HEMOGLOBIN 14.6 g/dL (12.0-15.5); LYMPHOCYTES % (AUTO) 16.1 % (13-45); MEAN CORPUSCULAR HEMOGLOBIN 32.6 pg (27.0-33.4); MEAN CORPUSCULAR HGB CONC 33.3 g/dL (32.0-36.0); MEAN CORPUSCULAR VOLUME 98 fl (80-97); MONOCYTES % (AUTO) 6.1 % (3-13); PLATELET COUNT 377 10^3/uL (150-450); RED BLOOD COUNT 4.48 10^6/uL (3.72-5.28); RED CELL DISTRIBUTION WIDTH 13.5 % (11.5-14.0); SEGMENTED NEUTROPHILS % (AUTO) 77.2 % (42-78); TOTAL CELLS COUNTED % (AUTO) 100 %; WHITE BLOOD COUNT 8.2 10^3/uL (4.0-10.5)
[2018-01-06 23:50] LABS: VENOUS BLOOD BASE EXCESS -14.3 mmol/L; VENOUS BLOOD HCO3 11.2 mmol/L (20-32); VENOUS BLOOD PCO2 26.6 mmHg (35-63); VENOUS BLOOD PH 7.24 (7.30-7.42)
[2018-01-07 00:17] LABS: ALANINE AMINOTRANSFERASE 97 U/L (9-52); ALBUMIN 4.7 g/dL (3.5-5.0); ALKALINE PHOSPHATASE 166 U/L (38-126); ASPARTATE AMINO TRANSFERASE 203 U/L (14-36); BILIRUBIN,DIRECT 0.5 mg/dL (0.0-0.4); BILIRUBIN,TOTAL 0.7 mg/dL (0.2-1.3); BLOOD UREA NITROGEN 8 mg/dL (7-20); CALCIUM 10.1 mg/dL (8.4-10.2); CHLORIDE 103 mmol/L (98-107); GLUCOSE 326 mg/dL (75-110); POTASSIUM 4.8 mmol/L (3.6-5.0); TOTAL PROTEIN 8.3 g/dL (6.3-8.2)
[2018-01-07 00:22] LABS: SODIUM 139.8 mmol/L (137-145)
[2018-01-07] MEDS: NORMAL SALINE 1000 ML 1,000 ML IV PRN ×2 (00:26→23:27)
[2018-01-07 00:29] LABS: CARBON DIOXIDE 9 mmol/L (22-30)
[2018-01-07] MEDS ORDERED: NORMAL SALINE 100 ML with INSULIN REGULAR, HUMAN 100 UNIT IV PRN ×2 (00:36)
[2018-01-07] MEDS ORDERED: DEXTROSE 50%-WATER 25 GM/50 ML DISP.SYRIN IV PRN ×4 (00:36→08:47)
[2018-01-07] MEDS ORDERED: GLUCAGON,HUMAN RECOMB 1 MG INJ IM PRN ×3 (00:36→08:47)
[2018-01-07] MEDS ORDERED: DEXTROSE 40% GEL 15 GM TUBE PO PRN ×5 (00:36→08:47)
[2018-01-07] MEDS ORDERED: RINGERS SOLUTION,LACTATED 1,000 ML IV ONE (00:38)
[2018-01-07] MEDS ORDERED: ONDANSETRON HCL INJ/PF 4 MG/2 ML SDV IV ONE (00:39)
[2018-01-07] MEDS ORDERED: MORPHINE SULFATE 10 MG/ML INJ IV ONE (00:39)
[2018-01-07 00:51] LABS: ANION GAP 28 (5-19)
[2018-01-07] MEDS ORDERED: INSULIN REG, HUMAN 100 UNIT/ML 3 ML VIAL (PYX) ONE (01:10)
[2018-01-07 01:13] LABS: APPEARANCE,URINE SLIGHTLY-CLOUDY; BILIRUBIN,URINE NEGATIVE (NEGATIVE); COLOR,URINE YELLOW; GLUCOSE, URINE >=500 mg/dL (NEGATIVE); KETONES,URINE 80 mg/dL (NEGATIVE); LEUKOCYTE ESTERASE,URINE NEGATIVE (NEGATIVE); NITRITE,URINE NEGATIVE (NEGATIVE); PROTEIN,URINE 30 mg/dL (NEGATIVE); URINE SPECIFIC GRAVITY 1.021; UROBILINOGEN,URINE NEGATIVE mg/dL (<2.0)
[2018-01-07] MEDS ORDERED: ACETAMINOPHEN 325 MG TABLET PO PRN (01:15)
[2018-01-07] MEDS ORDERED: NORMAL SALINE 1000 ML 1,000 ML IV PRN (01:26)
--- NOTE | 2018-01-07 01:40 | PDOC H&P ---
History of Present Illness Admission Date/PCP: EDNA REEVES MD History of Present Illness: VICK MELGOZA is a 22 year old female with insulin-dependent diabetes mellitus, presents with nausea, vomiting and headache. Last 2-3 days blood is fluctuating up and down. She has history of multiple medications in the past. Her initial blood work shows hyperglycemia, elevated anion gap and bicarb of 9. Patient denies any precipitating factor upper respiratory tract infection, taking aelm-gxv-abzzbvy medications, noncompliance with her medication or diet. She denies fever, cough, chest pain, diaphoresis but she endorses palpitation. She denies headache but no dizziness or blurring of vision. Patient has been on long-acting insulin 30 units every 12 hours and NovoLog during the day. Patient has also history of chronically elevated liver enzymes and during this admission her AST is 203, and 59 7 and alkaline phosphatase of 166. Past Medical History Endocrine Medical History: Reports: Diabetes Mellitus Type 1, Hypothyroidism GI Medical History: Denies: Hepatitis Musculoskeltal Medical History: Denies: Arthritis Skin Medical History: Denies: Eczema, Psoriasis Psychiatric Medical History: Reports: Attention Deficit Hyperactivity Disorder Denies: Depression Past Surgical History Past Surgical History: Reports: None Social History Smoking Status: Unknown if Ever Smoked Frequency of Alcohol Use: Rare Hx Recreational Drug Use: No Drugs: None Hx Prescription Drug Abuse: No - Advance Directive Resuscitation Status: Full Code Family History Family History: Reviewed & Not Pertinent, Hypertension Parental Family History Reviewed: Yes Children Family History Reviewed: Yes Sibling(s) Family History Reviewed.: Yes Medication/Allergy Home Medications: Dextroamphetamine/Amphetamine [Adderall Xr 30 mg Capsule] 30 mg PO DAILY Insulin Aspart [Novolog Flexpen] 0 unit SUBCUT .SLD SCALE 07/31/17 Insulin Glargine,Hum.rec.anlog [Toujeo Solostar] 30 units SQ Q12 07/31/17 Levothyroxine Sodium 08/01/17 Allergies/Adverse Reactions: Penicillins Allergy (Intermediate, Verified 07/31/17 13:31) Unknown reaction amoxicillin [Amoxicillin] Allergy (Verified 07/31/17 13:31) vancomycin Adverse Reaction (Intermediate, Verified 07/31/17 13:31) PERIORBITAL EDEMA, BACK WELTS imipenem Adverse Reaction (Mild, Verified 07/31/17 13:31) Flushing Review of Systems Constitutional: PRESENT: as per HPI Eyes: PRESENT: as per HPI Cardiovascular: PRESENT: as per HPI Respiratory: PRESENT: as per HPI Gastrointestinal: PRESENT: as per HPI Neurological: PRESENT: as per HPI Psychiatric: PRESENT: as per HPI Physical Exam Vital Signs: Temp Pulse Resp BP Pulse Ox 98.0 F 129 H 22 H 137/96 H 99 01/06/18 22:44 01/06/18 22:44 01/06/18 22:44 01/06/18 22:44 01/06/18 22:44 Intake & Output 01/05/18 01/06/18 01/07/18 06:59 06:59 06:59 Weight 64.4 kg General appearance: PRESENT: mild distress Head exam: PRESENT: atraumatic, normocephalic Eye exam: PRESENT: conjunctiva pink, EOMI, PERRLA. ABSENT: scleral icterus Mouth exam: PRESENT: dry mucosa Neck exam: ABSENT: carotid bruit, JVD, lymphadenopathy, thyromegaly Respiratory exam: PRESENT: clear to auscultation ti. ABSENT: rales, rhonchi, wheezes Cardiovascular exam: PRESENT: tachycardia GI/Abdominal exam: PRESENT: normal bowel sounds, soft. ABSENT: distended, guarding, mass, organolmegaly, rebound, tenderness Neurological exam: PRESENT: alert, awake, oriented to person, oriented to place , oriented to time, oriented to situation, CN II-XII grossly intact. ABSENT: motor sensory deficit Results Laboratory Results: 01/06/18 23:30 01/06/18 23:30 01/06/18 01/06/18 01/06/18 23:30 23:30 23:30 WBC 8.2 RBC 4.48 Hgb 14.6 Hct 43.9 MCV 98 H MCH 32.6 MCHC 33.3 RDW 13.5 Plt Count 377 Seg Neutrophils % 77.2 Lymphocytes % 16.1 Monocytes % 6.1 Eosinophils % 0.2 Basophils % 0.4 Absolute Neutrophils 6.3 Absolute Lymphocytes 1.3 Absolute Monocytes 0.5 Absolute Eosinophils 0.0 Absolute Basophils 0.0 VBG pH VBG pCO2 VBG HCO3 VBG Base Excess Sodium 139.8 Potassium 4.8 Chloride 103 Carbon Dioxide 9 L* Anion Gap 28 H BUN 8 Creatinine 0.50 L Est GFR ( Amer) > 60 Est GFR (Non-Af Amer) > 60 Glucose 326 H Calcium 10.1 Total Bilirubin 0.7 AST 203 H ALT 97 H Alkaline Phosphatase 166 H Total Protein 8.3 H Albumin 4.7 Serum HCG, Qual NEGATIVE Urine Color Urine Appearance Urine pH Ur Specific [place] Urine Protein Urine Glucose (UA) Urine Ketones Urine Blood Urine Nitrite Ur Leukocyte Esterase Urine WBC (Auto) Urine RBC (Auto) 01/06/18 01/07/18 23:30 00:35 WBC RBC Hgb Hct MCV MCH MCHC RDW Plt Count Seg Neutrophils % Lymphocytes % Monocytes % Eosinophils % Basophils % Absolute Neutrophils Absolute Lymphocytes Absolute Monocytes Absolute Eosinophils Absolute Basophils VBG pH 7.24 L VBG pCO2 26.6 L VBG HCO3 11.2 L VBG Base Excess -14.3 Sodium Potassium Chloride Carbon Dioxide Anion Gap BUN Creatinine Est GFR ( Amer) Est GFR (Non-Af Amer) Glucose Calcium Total Bilirubin AST ALT Alkaline Phosphatase Total Protein Albumin Serum HCG, Qual Urine Color YELLOW Urine Appearance SLIGHTLY-CLOUDY Urine pH 5.0 Ur Specific [place] 1.021 Urine Protein 30 H Urine Glucose (UA) >=500 H Urine Ketones 80 H Urine Blood NEGATIVE Urine Nitrite NEGATIVE Ur Leukocyte Esterase NEGATIVE Urine WBC (Auto) 2 Urine RBC (Auto) 1 Assessment & Plan - Diagnosis (1) DKA (diabetic ketoacidosis) Qualifiers: Diabetes mellitus type: type 1 Diabetes mellitus complication detail: without coma Qualified Code(s): E10.10 - Type 1 diabetes mellitus with ketoacidosis without coma Is this a current diagnosis for this admission?: Yes Plan: Patient admitted to ICU. Normal saline at rate of 200 mL/h. She will be started on insulin drip per protocol. Blood glucose check every INR and BMP every 2 hours. - Time Time Spent: 30 to 50 Minutes - Inpatient Certification Medical Necessity: Need Close Monitoring Due to Risk of Patient Decompensation, Need for IV Antibiotics
[2018-01-07 03:36] LABS: BLOOD UREA NITROGEN 8 mg/dL (7-20); CALCIUM 9.3 mg/dL (8.4-10.2); CHLORIDE 113 mmol/L (98-107); GLUCOSE 372 mg/dL (75-110); POTASSIUM 4.8 mmol/L (3.6-5.0); SODIUM 145.9 mmol/L (137-145)
[2018-01-07 04:30] LABS: CARBON DIOXIDE < 5 mmol/L (22-30)
[2018-01-07] MEDS ORDERED: POTASSI CL 20 MEQ/D5-1/2NS 1L 1,000 ML IV ONE (04:37)
[2018-01-07] MEDS ORDERED: POTASSI CL 20 MEQ/D5-1/2NS 1L 1000 ML IV PRN (04:56)
[2018-01-07] MEDS: LANSOPRAZOLE 30 MG TAB.RAP.DR PO SCH (05:03)
[2018-01-07 05:32] LABS: ARTERIAL BLOOD BASE EXCESS -18.2 mmol/L; ARTERIAL BLOOD H2CO3 0.54 mmol/L (1.05-1.35); ARTERIAL BLOOD HCO3 7.2 mmol/L (20-26); ARTERIAL BLOOD O2 SATURATION 97.6 % (94-98); ARTERIAL BLOOD PH 7.22 (7.35-7.45); ARTERIAL BLOOD PO2 116.4 mmHg (80-100); ARTERIAL BLOOD TOTAL CO2 7.7 mmol/L (21-25)
[2018-01-07 05:33] LABS: BLOOD UREA NITROGEN 7 mg/dL (7-20); CALCIUM 9.2 mg/dL (8.4-10.2); GLUCOSE 122 mg/dL (75-110); POTASSIUM 4.5 mmol/L (3.6-5.0)
[2018-01-07 05:35] LABS: ARTERIAL BLOOD FIO2 ROOM AIR
[2018-01-07 05:39] LABS: CHLORIDE 112 mmol/L (98-107); SODIUM 143.8 mmol/L (137-145)
[2018-01-07 05:46] LABS: CARBON DIOXIDE 9 mmol/L (22-30)
[2018-01-07 06:04] LABS: ANION GAP 23 (5-19)
[2018-01-07] MEDS: OXYCODONE-ACETAMINOPHEN 5-325 MG TABLET PO PRN ×3 (06:39→17:28)
[2018-01-07] MEDS ORDERED: DEXTROSE 50%-WATER SYRINGE 12.5 GM/25 ML DOSE IV PRN (06:59)
[2018-01-07] MEDS ORDERED: INSULIN LISPRO 100 UNIT/ML 3 ML VIAL SUBCUT PRN (06:59)
[2018-01-07] MEDS ORDERED: DEXTROSE 40% GEL 15 GM TUBE X 2 PO PRN (06:59)
[2018-01-07] MEDS ORDERED: DEXTROSE 50%-WATER SYRINGE 25 GM/50 ML DOSE IV PRN (06:59)
[2018-01-07] MEDS ORDERED: PHARMACY COMMUNICATION ORDER MC NR (08:00)
[2018-01-07 08:30] LABS: BLOOD UREA NITROGEN 5 mg/dL (7-20); CALCIUM 9.4 mg/dL (8.4-10.2); GLUCOSE 319 mg/dL (75-110); PHOSPHORUS 3.5 mg/dL (2.5-4.5); POTASSIUM 4.6 mmol/L (3.6-5.0)
[2018-01-07 08:35] LABS: CHLORIDE 109 mmol/L (98-107)
[2018-01-07 08:37] LABS: ANION GAP 23 (5-19)
[2018-01-07 08:40] LABS: CARBON DIOXIDE 7 mmol/L (22-30)
[2018-01-07] MEDS ORDERED: DEXTROSE 5%-NORMAL SALINE 1,000 ML IV PRN (08:47)
[2018-01-07] MEDS: ONDANSETRON HCL INJ/PF 4 MG/2 ML SDV IV PRN ×3 (08:59→17:28)
[2018-01-07] MEDS: ENOXAPARIN SODIUM INJ 40 MG/0.4 ML DISP.SYRIN SUBCUT SCH (09:13)
[2018-01-07] MEDS ORDERED: INSULIN, REGULAR 100 UNIT/100 ML NORMAL SALINE IV PRN ×2 (10:22)
--- NOTE | 2018-01-07 13:42 | PDOC PROGRESS REPORT ---
Subjective Progress Note for:: 01/07/18 Subjective:: 22 yr old female with Type I diabetes who presented with nausea vomiting and abdominal pain and was found to have DKA. She continues to be acidotic, and I restarted her IV fluids and Insulin gtt this am. Repeat BMP planned for 3 pm. Zofran ordered for nausea Reason For Visit: DKA Physical Exam Vital Signs: Temp Pulse Resp BP Pulse Ox 98.2 F 113 H 18 115/63 100 01/07/18 07:38 01/07/18 11:10 01/07/18 11:10 01/07/18 11:10 01/07/18 11:10 Intake & Output 01/06/18 01/07/18 01/08/18 06:59 06:59 06:59 Intake Total 892 Balance 892 Weight 63.3 kg General appearance: PRESENT: mild distress, well-developed Head exam: PRESENT: normocephalic Mouth exam: PRESENT: moist Respiratory exam: PRESENT: symmetrical, unlabored. ABSENT: wheezes Cardiovascular exam: PRESENT: RRR GI/Abdominal exam: PRESENT: normal bowel sounds, soft. ABSENT: tenderness Rectal exam: PRESENT: deferred Gentrourinary exam: ABSENT: indwelling catheter Extremities exam: ABSENT: pedal edema Neurological exam: PRESENT: alert, awake, oriented to person, oriented to place , oriented to time, oriented to situation Psychiatric exam: PRESENT: appropriate affect Results Laboratory Results: 01/07/18 07:55 01/07/18 01/07/18 01/07/18 03:01 04:48 05:18 Carbonic Acid 0.54 L HCO3/H2CO3 Ratio 13:1 ABG pH 7.22 L ABG pCO2 18.0 L* ABG pO2 116.4 H ABG HCO3 7.2 L ABG O2 Saturation 97.6 ABG Base Excess -18.2 FiO2 ROOM AIR Sodium 145.9 H 143.8 Potassium 4.8 4.5 Chloride 113 H 112 H Carbon Dioxide < 5 L* 9 L* Anion Gap Not Reportable 23 H BUN 8 7 Creatinine 0.60 0.58 Est GFR ( Amer) > 60 > 60 Est GFR (Non-Af Amer) > 60 > 60 Glucose 372 H 122 H Calcium 9.3 9.2 Phosphorus Magnesium 01/07/18 07:55 Carbonic Acid HCO3/H2CO3 Ratio ABG pH ABG pCO2 ABG pO2 ABG HCO3 ABG O2 Saturation ABG Base Excess FiO2 Sodium 139.0 Potassium 4.6 Chloride 109 H Carbon Dioxide 7 L* Anion Gap 23 H BUN 5 L Creatinine 0.53 Est GFR ( Amer) > 60 Est GFR (Non-Af Amer) > 60 Glucose 319 H Calcium 9.4 Phosphorus 3.5 Magnesium 1.9 Assessment & Plan - Diagnosis (1) DKA (diabetic ketoacidosis) Qualifiers: Diabetes mellitus type: type 1 Diabetes mellitus complication detail: without coma Qualified Code(s): E10.10 - Type 1 diabetes mellitus with ketoacidosis without coma Is this a current diagnosis for this admission?: Yes Plan: Insulin gtt per protocol and IV fluids. Monitor labs closely (2) Metabolic acidosis Is this a current diagnosis for this admission?: Yes Plan: As above (3) Vomiting Qualifiers: Vomiting type: unspecified Vomiting Intractability: non-intractable Nausea presence: with nausea Qualified Code(s): R11.2 - Nausea with vomiting, unspecified Is this a current diagnosis for this admission?: Yes Plan: Darrick millern (4) ADD (attention deficit disorder) Is this a current diagnosis for this admission?: Yes Plan: Hold Adderall (5) Hypothyroidism Is this a current diagnosis for this admission?: Yes Plan: Continue Synthroid - Time Time Spent with patient: 35 or more minutes - Inpatient Certification Based on my medical assessment, after consideration of the patient's comorbidities, presenting symptoms, or acuity I expect that the services needed warrant INPATIENT care.: Yes I certify that my determination is in accordance with my understanding of Medicare's requirements for reasonable and necessary INPATIENT services [42 CFR 412.3e].: Yes Medical Necessity: Need For IV Fluids, Risk of Complication if Not Cared For in Hospital
[2018-01-07 15:59] LABS: ANION GAP 15 (5-19); BLOOD UREA NITROGEN 4 mg/dL (7-20); CARBON DIOXIDE 14 mmol/L (22-30); CHLORIDE 112 mmol/L (98-107); GLUCOSE 80 mg/dL (75-110); POTASSIUM 3.7 mmol/L (3.6-5.0); SODIUM 141.4 mmol/L (137-145)
[2018-01-07] MEDS ORDERED: DEXTROSE 10%-WATER 1,000 ML IV PRN (17:45)
[2018-01-07 22:37] LABS: ANION GAP 16 (5-19); BLOOD UREA NITROGEN 3 mg/dL (7-20); CALCIUM 9.3 mg/dL (8.4-10.2); CARBON DIOXIDE 13 mmol/L (22-30); CHLORIDE 110 mmol/L (98-107); GLUCOSE 155 mg/dL (75-110); POTASSIUM 3.6 mmol/L (3.6-5.0); SODIUM 138.5 mmol/L (137-145)
[2018-01-07] MEDS ORDERED: INSULIN GLARGINE,HUM.REC.ANLOG 1,000 UNIT/10 ML UNIT SUBCUT ONE (23:19)
[2018-01-07] MEDS ORDERED: INSULIN GLARGINE,HUM.REC.ANLOG 300 UNIT/3 ML INSULN.PEN SUBCUT ONE (23:30)
[2018-01-08] MEDS: OXYCODONE-ACETAMINOPHEN 5-325 MG TABLET PO PRN (02:42)
[2018-01-08] MEDS: ONDANSETRON HCL INJ/PF 4 MG/2 ML SDV IV PRN ×2 (02:43→08:10)
[2018-01-08] MEDS: LANSOPRAZOLE 30 MG TAB.RAP.DR PO SCH (05:57)
[2018-01-08] MEDS ORDERED: LEVOTHYROXINE SODIUM 0.025 MG TABLET PO SCH (06:00)
[2018-01-08 06:53] LABS: ALANINE AMINOTRANSFERASE 62 U/L (9-52); ALBUMIN 3.2 g/dL (3.5-5.0); ALKALINE PHOSPHATASE 107 U/L (38-126); ANION GAP 14 (5-19); ASPARTATE AMINO TRANSFERASE 86 U/L (14-36); BILIRUBIN,DIRECT 0.4 mg/dL (0.0-0.4); BILIRUBIN,TOTAL 0.5 mg/dL (0.2-1.3); BLOOD UREA NITROGEN 6 mg/dL (7-20); CARBON DIOXIDE 15 mmol/L (22-30); CHLORIDE 109 mmol/L (98-107); GLUCOSE 307 mg/dL (75-110); PHOSPHORUS 2.3 mg/dL (2.5-4.5); POTASSIUM 3.9 mmol/L (3.6-5.0); SODIUM 138.1 mmol/L (137-145)
[2018-01-08] MEDS ORDERED: PHOSPHORUS #1 250 MG TABLET PO SCH (08:00)
[2018-01-08] MEDS: MAGNESIUM SULFATE/D5W 1 GM/100 ML RTUPB IV SCH ×2 (08:12→09:14)
[2018-01-08] MEDS: NORMAL SALINE 1000 ML 1,000 ML IV PRN (08:18)
[2018-01-08] MEDS: INSULIN LISPRO 100 UNIT/ML 3 ML VIAL SUBCUT PRN ×2 (08:30→13:49)
[2018-01-08] MEDS ORDERED: INSULIN GLARGINE,HUM.REC.ANLOG 300 UNIT/3 ML INSULN.PEN SUBCUT SCH (10:00)
--- NOTE | 2018-01-08 13:55 | PDOC DISCHARGE SUMMARY ---
General - Admit/Disc Date/PCP Admission Date/Primary Care Provider: 01/07/18 00:59 EDNA REEVES MD Discharge Date: 01/08/18 - Discharge Diagnosis (1) DKA (diabetic ketoacidosis) Is this a current diagnosis for this admission?: Yes (2) Metabolic acidosis Is this a current diagnosis for this admission?: Yes (3) Vomiting Is this a current diagnosis for this admission?: Yes (4) ADD (attention deficit disorder) Is this a current diagnosis for this admission?: Yes (5) Hypothyroidism Is this a current diagnosis for this admission?: Yes (6) Hypophosphatemia Is this a current diagnosis for this admission?: Yes - Additional Information Resuscitation Status: Full Code Discharge Diet: Diabetic Discharge Activity: Activity As Tolerated Prescriptions: Ondansetron HCl [Zofran 4 mg Tablet] 1 - 2 tab PO Q4H PRN 5 Days #15 tablet PRN Reason: Pantoprazole Sodium 40 mg PO DAILY 14 Days #14 tablet. Phosphorus #1 [K-Phos Neutral 250 mg Tablet] 500 mg PO BIDACBS 5 Days #20 tablet Home Medications: Dextroamphetamine/Amphetamine [Adderall Xr 30 mg Capsule] 30 mg PO DAILY Insulin Aspart [Novolog Flexpen] 0 unit SUBCUT .SLD SCALE 01/07/18 Insulin Glargine,Hum.rec.anlog [Toujeo Solostar] 30 unit SQ Q12 01/07/18 Levothyroxine Sodium [Synthroid 0.025 mg Tablet] 0.025 mg PO DAILY 01/07/18 Acetaminophen [Tylenol 325 mg Tablet] 650 mg PO Q4HP PRN tablet 01/08/18 Glucagon,Human Recombinant [Glucagen Inj 1 mg Vial] 1 mg IM PRN PRN vial Ondansetron HCl [Zofran 4 mg Tablet] 1 - 2 tab PO Q4H PRN 5 Days #15 tablet 10/23 Pantoprazole Sodium 40 mg PO DAILY 14 Days #14 tablet. 01/08/18 Phosphorus #1 [K-Phos Neutral 250 mg Tablet] 500 mg PO BIDACBS 5 Days #20 tablet 01/08/18 History of Present Illness History of Present Illness: VICK MELGOZA is a 22 year old female with Type I Diabetes Hypothyroidism ADD Presented with nausea, vomiting and abdominal pain and was found to have DKA. She was treated with IV fluids and Insulin gtt. Anion gap has closed and she has been able to tolerate her diet well. Hospital Course Hospital Course: Stable for discharge home. Physical Exam Vital Signs: Temp Pulse Resp BP Pulse Ox 97.7 F 101 H 18 105/64 100 01/08/18 07:43 01/08/18 07:43 01/08/18 07:43 01/08/18 07:43 01/08/18 07:43 Intake & Output 01/07/18 01/08/18 01/09/18 06:59 06:59 06:59 Intake Total 892 3527 Balance 892 3527 Weight 63.3 kg 65.9 kg General appearance: PRESENT: no acute distress Respiratory exam: PRESENT: symmetrical, unlabored Results Laboratory Results: 01/07/18 01/07/18 01/08/18 15:20 22:15 05:42 Sodium 141.4 138.5 138.1 Potassium 3.7 3.6 3.9 Chloride 112 H 110 H 109 H Carbon Dioxide 14 L 13 L 15 L Anion Gap 15 16 14 BUN 4 L 3 L 6 L Creatinine 0.47 L 0.47 L 0.51 L Est GFR ( Amer) > 60 > 60 > 60 Est GFR (Non-Af Amer) > 60 > 60 > 60 Glucose 80 155 H 307 H Calcium 9.0 9.3 9.0 Phosphorus 2.3 L Magnesium 1.7 Total Bilirubin 0.5 AST 86 H ALT 62 H Alkaline Phosphatase 107 Total Protein 6.0 L Albumin 3.2 L Qualifiers - * PATIENT BEING DISCHARGED WITH ANY OF THE FOLLOWING DIAGNOSIS: No Plan Time Spent: Greater than 30 Minutes
[2018-01-08 14:20] LABS: ANION GAP 13 (5-19); BLOOD UREA NITROGEN 4 mg/dL (7-20); CALCIUM 8.5 mg/dL (8.4-10.2); CARBON DIOXIDE 16 mmol/L (22-30); CHLORIDE 109 mmol/L (98-107); GLUCOSE 196 mg/dL (75-110); POTASSIUM 3.9 mmol/L (3.6-5.0); SODIUM 138.1 mmol/L (137-145)
[2018-01-08 14:32] VITALS: BP 116/70
== END 2018-01-08 14:50 | disposition home or self-care (01) | DRG 639 ==
LOC: ER 22:39 → EH 01-07 00:59 → 3S 01-07 03:56
PROVIDERS: ADMIT Internal Medicine; ATTEND Internal Medicine
DX: E10.10 Type 1 diabetes mellitus with ketoacidosis without coma (principal); E03.9 Hypothyroidism, unspecified; E83.39 Other disorders of phosphorus metabolism; F90.9 Attention-deficit hyperactivity disorder, unspecified type; Z88.0 Allergy status to penicillin; Z82.49 Family history of ischemic heart disease and other diseases of the circulatory system; Z79.899 Other long term (current) drug therapy; Z88.1 Allergy status to other antibiotic agents; Z79.4 Long term (current) use of insulin
CPT/HCPCS: 36415; 80048; 80053; 81001; 82803; 82962; 83036; 83735; 84100; 84703; 85025; 96374; 96375; 99284; J1200; J1650; J1815; J2270; J2405; J2765; J3475; J3480; J3490; J7030

== ENCOUNTER → 2018-01-25 | Outpatient (CLI) | payer BC ==
--- NOTE | 2018-01-25 15:52 | RADIOLOGY REPORT (SQ) ---
EXAM DESCRIPTION: BARIUM SWALLOW ESOPHAGUS COMPLETED DATE/TIME: 01/25/2018 8:19 am REASON FOR STUDY: NAUSEA R11.0 NAUSEA COMPARISON: CT abdomen pelvis 11/24/2017 Chest films 02/01/2017 TECHNIQUE: Under fluoroscopic guidance, patient ingested effervescent granules followed by thick and thin barium. Fluoroscopic spot images acquired and stored on PACS. 12 MM BARIUM TABLET GIVEN: Yes No significant delay in passage. LIMITATIONS: None. FLUOROSCOPY TIME: FLUORO TIME: 1 minutes 36 seconds 8 series of digital radiographic images saved to PACS. FINDINGS: NEUROMUSCULAR COORDINATION OF SWALLOW: Normal. No aspiration. ESOPHAGEAL MOTILITY: Normal peristalsis. No esophageal spasm. ESOPHAGEAL MUCOSA: Normal mucosa without masses or ulceration. GASTRO-ESOPHAGEAL JUNCTION: Tiny hiatal hernia. Gastroesophageal reflux to the cervical esophagus. NON-GI TRACT STRUCTURES: No significant finding. OTHER: No other significant finding. IMPRESSION: Gastroesophageal reflux to the cervical esophagus. No distal esophageal stricture or Sc hatzki's ring. No gross mucosal abnormality COMMENT: Quality ID 145: Final reports for procedures using fluoroscopy that document radiation exp osure indices, or exposure time and number of fluorographic images (if radiation exposure indices are not available) TECHNICAL DOCUMENTATION: JOB ID: [id number] [employer]- All Rights Reserved Reading location - IP/workstation name: [email or web address]
== END ==
LOC: RAD 07:37
PROVIDERS: ATTEND Family Medicine
DX: R11.0 Nausea (principal)
CPT/HCPCS: 74220

== ENCOUNTER 2018-11-01 19:32 | Emergency (ER) | payer BC ==
--- NOTE | 2018-11-01 20:25 | RADIOLOGY REPORT (SQ) ---
3 VIEWS OF THE LEFT WRIST HISTORY: Joint pain. COMPARISON: None. FINDINGS: There is a mildly displaced fracture of the ulnar styloid of unknown chronicity. The joint spaces are preserved. Mild soft tissue swelling of the left wrist is seen. IMPRESSION: Age-indeterminate ulnar styloid fracture. Correlate for point tenderness.
[2018-11-01] MEDS ORDERED: HYDROCODONE/ACETAMINOPHEN 5-325 MG (6 TAB/ER DISP) PO PRN (20:56)
--- NOTE | 2018-11-01 21:02 | ER Document Report ---
HPI - HPI Time Seen by Provider: 11/01/18 20:49 Pain Level: 4 Notes: Patient is a 23-year-old female with no significant past medical history aside from diabetes who presents to the emergency department complaining of left hand and wrist pain status post injury 4 days ago. Patient states that she was seen in urgent care, but they rushed her out the door and said that it may be a hairline fracture and sent home on tramadol without any splint. Patient states that she has had continued pain and swelling in that hand/wrist. Patient states that she was given the tramadol, but had an allergic reaction to it so she stopped taking it. She otherwise has no other concerns or complaints. The pain does not radiate. Denies any headache, fever, neck pain, URI, sore throat, chest pain, palpitations, syncope, cough, shortness of breath, wheeze, dyspnea, abdominal pain, nausea/vomiting/diarrhea, urinary retention, dysuria, hematuria, numbness/tingling, muscle paralysis/weakness, or rash. - ROS Systems Reviewed and Negative: Yes All other systems reviewed and negative - REPRODUCTIVE Reproductive: DENIES: : Past Medical History - Social History Smoking Status: Never Smoker Family History: Reviewed & Not Pertinent, Hypertension Endocrine Medical History: Reports: Hx Diabetes Mellitus Type 1, Hx Hypothyroidism Renal/ Medical History: Denies: Hx Peritoneal Dialysis GI Medical History: Reports: Hx Gastroesophageal Reflux Disease. Denies: Hx Hepatitis Musculoskeletal Medical History: Denies Hx Arthritis Skin Medical History: Denies Hx Eczema, Denies Hx Psoriasis Psychiatric Medical History: Reports: Hx Attention Deficit Hyperactivity Disorder Denies: Hx Depression Infectious Medical History: Denies: Hx Hepatitis - Immunizations Immunizations up to date: Yes Hx Diphtheria, Pertussis, Tetanus Vaccination: Yes Hx Pneumococcal Vaccination: 08/08/12 Vertical Provider Document - CONSTITUTIONAL Agree With Documented VS: Yes Notes: PHYSICAL EXAMINATION: GENERAL: Well-appearing, well-nourished and in no acute distress. LUNGS: Breath sounds clear to auscultation bilaterally and equal. No wheezes rales or rhonchi. HEART: Regular rate and rhythm without murmurs, rubs, gallops. Musculoskeletal: Left hand/wrist: + mild swelling and ecchymosis noted. LROM to passive/active at the wrist. Strength 4+/5 due to pain. + tenderness at the ulnar styloid and the scaphoid. N/v intact distal otherwise. Extremities: No cyanosis, clubbing, or edema b/l. Peripheral pulses 2+. Capillary refill less than 3 seconds. NEUROLOGICAL: Normal speech, normal gait. Normal sensory, motor exams PSYCH: Normal mood, normal affect. SKIN: Warm, Dry, normal turgor, no rashes or lesions noted. - INFECTION CONTROL TRAVEL OUTSIDE OF THE [place] IN LAST 30 DAYS: No Course - Re-evaluation Re-evalutation: 11/01/18 21:20 Patient is an afebrile, well-hydrated, 23-year-old female who presents to the ED with a suspected ulnar styloid fx and tenderness at the scaphoid left hand/wrist. Vitals are acceptable without any significant tachycardia, tachypnea, or hypoxia. PE is otherwise unremarkable for any neurovascular compromise, obvious tendon/ligament rupture, open fracture, septic joint. See XR result. Splint applied today and sling provided. Patient is nontoxic- appearing. No other labs or imaging warranted at this time based on H&P. Conservative measures otherwise for symptoms. Recheck with your PCM in 3-5 days. Call orthopedics tomorrow to schedule an appointment for further evaluation and management. Return to the ED with any worsening/concerning symptoms otherwise as reviewed in discharge. Patient is in agreement. - Vital Signs Vital signs: Temp Pulse Resp BP Pulse Ox 98.1 F 95 16 126/80 H 100 11/01/18 20:04 11/01/18 20:04 11/01/18 20:04 11/01/18 20:04 11/01/18 20:04 Procedures - Immobilization Left Wrist Time completed: 09:15 Pre-Proc Neuro Vasc Exam: Normal Immobilizer type: Thumb spica, Volar splint Performed by: PCT Post-Proc Neuro Vasc Exam: Normal, Unchanged from pre-exam Discharge - Discharge Clinical Impression: Hand pain, left Fracture of ulnar styloid Qualifiers: Encounter type: initial encounter Fracture type: closed Fracture alignment: nondisplaced Laterality: left Qualified Code(s): S52.615A - Nondisplaced fracture of left ulna styloid process, initial encounter for closed fracture Condition: Stable Disposition: HOME, SELF-CARE Instructions: Splint Precautions ([facility]) Additional Instructions: Rest, Ice, Compression, Elevation Use splint/sling as directed Tylenol/ibuprofen as needed F/u with your PCP in 3-5 days for a recheck Call orthopedics tomorrow to schedule an appointment for further evaluation and management Return to the ED with any worsening symptoms and/or development of fever, headache, chest pain, palpitations, syncope, shortness of breath, trouble breathing, abdominal pain, n/v/d, muscle weakness/paralysis, numbness/tingling, swelling, redness, or other worsening symptoms that are concerning to you. Referrals: EDNA REEVES MD [Primary Care Provider] - Follow up as needed [facility] [Provider Group] - Follow up in 3-5 days
[2018-11-01 21:33] VITALS: BP 126/84
== END 2018-11-01 21:33 | disposition home or self-care (01) ==
LOC: ER 19:32
DX: S52.615A Nondisplaced fracture of left ulna styloid process, initial encounter for closed fracture (principal); M79.642 Pain in left hand; M25.532 Pain in left wrist; X58.XXXA Exposure to other specified factors, initial encounter; E10.9 Type 1 diabetes mellitus without complications; Z88.5 Allergy status to narcotic agent
CPT/HCPCS: 99283

== ENCOUNTER 2018-12-01 12:27 | Observation (INO) | payer BC ==
[2018-12-01] MEDS ORDERED: NORMAL SALINE 1000 ML 1,000 ML IV ONE ×2 (12:47→15:04)
[2018-12-01] MEDS ORDERED: ONDANSETRON HCL INJ/PF 4 MG/2 ML SDV IV ONE ×2 (12:48→15:40)
--- NOTE | 2018-12-01 12:50 | ER Document Report ---
ED Medical Screen (RME) - General Chief Complaint: High Blood Sugar Stated Complaint: WEAKNESS Time Seen by Provider: 12/01/18 12:44 Primary Care Provider: EDNA REEVES MD [Primary Care Provider] - Follow up as needed Mode of Arrival: Ambulatory Information source: Patient Notes: Patient presents reporting elevated blood sugar over the past 3 days. Patient states that 2 days ago her blood sugar was in the 600s. Patient states today it was 427. Patient reports last night sugar dropped to 38. Patient denies any recent illness although does complain of nausea and vomiting x1 episode yesterday. Patient denies any pain symptoms. Patient asked to shut her insulin pump off at this time. Patient is concerned that she may be in DKA. I have greeted and performed a rapid initial assessment of this patient. A comprehensive ED assessment and evaluation of the patient, analysis of test results and completion of the medical decision making process will be conducted by additional ED providers. TRAVEL OUTSIDE OF THE [place] IN LAST 30 DAYS: No - Related Data Allergies/Adverse Reactions: Penicillins Allergy (Intermediate, Verified 12/01/18 12:31) Unknown reaction amoxicillin [Amoxicillin] Allergy (Verified 12/01/18 12:31) vancomycin Adverse Reaction (Intermediate, Verified 12/01/18 12:31) PERIORBITAL EDEMA, BACK WELTS imipenem Adverse Reaction (Mild, Verified 12/01/18 12:31) Flushing Past Medical History Endocrine Medical History: Reports: Hx Diabetes Mellitus Type 1, Hx Hypothyroidism Renal/ Medical History: Denies: Hx Peritoneal Dialysis GI Medical History: Reports: Hx Gastroesophageal Reflux Disease. Denies: Hx Hepatitis Musculoskeltal Medical History: Denies Hx Arthritis Skin Medical History: Denies Hx Eczema, Denies Hx Psoriasis Psychiatric Medical History: Reports: Hx Attention Deficit Hyperactivity Disorder Denies: Hx Depression Infectious Medical History: Denies: Hx Hepatitis - Immunizations Immunizations up to date: Yes Hx Diphtheria, Pertussis, Tetanus Vaccination: Yes History of Influenza Vaccine for 05/2017 - 10/2017 Season: Yes Influenza Administration Date for 05/2017 - 10/2017 Season: 04/25/17 Physical Exam - Vital signs Vitals: Temp Pulse Resp BP Pulse Ox 98.2 F 108 H 16 106/66 100 12/01/18 12:41 12/01/18 12:41 12/01/18 12:41 12/01/18 12:41 12/01/18 12:41 - General General appearance: Appears well, Alert In distress: None - Cardiovascular Rhythm: Tachycardia Heart sounds: S1 appreciated, S2 appreciated Course - Vital Signs Vital signs: Temp Pulse Resp BP Pulse Ox 98.2 F 108 H 16 106/66 100 12/01/18 12:41 12/01/18 12:41 12/01/18 12:41 12/01/18 12:41 12/01/18 12:41 Doctor's Discharge - Discharge Referrals: EDNA REEVES MD [Primary Care Provider] - Follow up as needed
[2018-12-01 13:26] LABS: ABSOLUTE LYMPHOCYTES (AUTO) 1.6 10^3/uL (0.5-4.7); ABSOLUTE MONOCYTES (AUTO) 0.3 10^3/uL (0.1-1.4); ABSOLUTE NEUT (AUTO) 13.3 10^3/uL (1.7-8.2); BASOPHILS % (AUTO) 0.3 % (0-2); EOSINOPHILS % (AUTO) 0.2 % (0-6); HEMATOCRIT 45.7 % (36.0-47.0); HEMOGLOBIN 14.7 g/dL (12.0-15.5); LYMPHOCYTES % (AUTO) 10.4 % (13-45); MEAN CORPUSCULAR HEMOGLOBIN 30.4 pg (27.0-33.4); MEAN CORPUSCULAR HGB CONC 32.1 g/dL (32.0-36.0); MEAN CORPUSCULAR VOLUME 95 fl (80-97); PLATELET COUNT 451 10^3/uL (150-450); RED BLOOD COUNT 4.82 10^6/uL (3.72-5.28); RED CELL DISTRIBUTION WIDTH 15.7 % (11.5-14.0); SEGMENTED NEUTROPHILS % (AUTO) 87.1 % (42-78); TOTAL CELLS COUNTED % (AUTO) 100 %; WHITE BLOOD COUNT 15.3 10^3/uL (4.0-10.5)
[2018-12-01 13:29] LABS: APPEARANCE,URINE CLOUDY; BILIRUBIN,URINE NEGATIVE (NEGATIVE); COLOR,URINE YELLOW; GLUCOSE, URINE >=500 mg/dL (NEGATIVE); KETONES,URINE 80 mg/dL (NEGATIVE); LEUKOCYTE ESTERASE,URINE NEGATIVE (NEGATIVE); NITRITE,URINE NEGATIVE (NEGATIVE); PROTEIN,URINE NEGATIVE (NEGATIVE); URINE SPECIFIC GRAVITY 1.029; UROBILINOGEN,URINE NEGATIVE mg/dL (<2.0)
[2018-12-01 13:31] LABS: VENOUS BLOOD BASE EXCESS -9.5 mmol/L; VENOUS BLOOD HCO3 17.5 mmol/L (20-32); VENOUS BLOOD PCO2 42.1 mmHg (35-63); VENOUS BLOOD PH 7.24 (7.30-7.42)
[2018-12-01 13:52] LABS: ALANINE AMINOTRANSFERASE 16 U/L (9-52); ALBUMIN 4.7 g/dL (3.5-5.0); ALKALINE PHOSPHATASE 162 U/L (38-126); ASPARTATE AMINO TRANSFERASE 19 U/L (14-36); BILIRUBIN,DIRECT 0.4 mg/dL (0.0-0.4); BILIRUBIN,TOTAL 0.9 mg/dL (0.2-1.3); BLOOD UREA NITROGEN 13 mg/dL (7-20); CALCIUM 10.2 mg/dL (8.4-10.2); POTASSIUM 4.9 mmol/L (3.6-5.0)
[2018-12-01 13:57] LABS: CARBON DIOXIDE 16 mmol/L (22-30); CHLORIDE 97 mmol/L (98-107); SODIUM 136.6 mmol/L (137-145)
[2018-12-01 13:58] LABS: ANION GAP 24 (5-19)
[2018-12-01 14:00] LABS: GLUCOSE 576 mg/dL (75-110)
--- NOTE | 2018-12-01 14:54 | RADIOLOGY REPORT (SQ) ---
EXAM DESCRIPTION: CHEST SINGLE VIEW COMPLETED DATE/TIME: 12/01/2018 2:44 pm REASON FOR STUDY: elevated BGL COMPARISON: 02/01/2019 EXAM PARAMETERS: NUMBER OF VIEWS: One view. TECHNIQUE: Single frontal radiographic view of the chest acquired. RADIATION DOSE: NA LIMITATIONS: None. FINDINGS: LUNGS AND PLEURA: No opacities, masses or pneumothorax. No pleural effusion. MEDIASTINUM AND HILAR STRUCTURES: No masses. Contour normal. HEART AND VASCULAR STRUCTURES: Heart normal in size. Normal vasculature. BONES: No acute findings. HARDWARE: None in the chest. OTHER: No other significant finding. IMPRESSION: No acute abnormality of the lungs in AP projection. TECHNICAL DOCUMENTATION: JOB ID: [id number] [email or web address]- All Rights Reserved Reading location - IP/workstation name: [email or web address]
[2018-12-01] MEDS ORDERED: INSULIN REG, HUMAN 100 UNIT/ML 3 ML VIAL (PYX) IV ONE ×3 (15:04→15:09)
--- NOTE | 2018-12-01 15:35 | ER Document Report ---
ED General - General Chief Complaint: High Blood Sugar Stated Complaint: WEAKNESS Time Seen by Provider: 12/01/18 12:44 Mode of Arrival: Ambulatory Notes: Patient is a 23-year-old female diagnosed with insulin-dependent diabetes when she was 9 years of age. She currently has an insulin pump. Her blood sugars have been running high, 600s 2 days ago and now between 304 100. She is been nauseated and vomited just once. No diarrhea. Unaware of any fever. No UTI symptoms. No other significant medical problems except she has a left forearm/wrist fracture in a cast that will be 4 weeks this coming Tuesday. Does not drink alcohol. Hx ADHD. TRAVEL OUTSIDE OF THE [place] IN LAST 30 DAYS: No - Related Data Allergies/Adverse Reactions: Penicillins Allergy (Intermediate, Verified 12/01/18 12:31) Unknown reaction amoxicillin [Amoxicillin] Allergy (Verified 12/01/18 12:31) vancomycin Adverse Reaction (Intermediate, Verified 12/01/18 12:31) PERIORBITAL EDEMA, BACK WELTS imipenem Adverse Reaction (Mild, Verified 12/01/18 12:31) Flushing Past Medical History - General Information source: Patient - Social History Smoking Status: Unknown if Ever Smoked Chew tobacco use (# tins/day): No Frequency of alcohol use: None Drug Abuse: None Family History: Reviewed & Not Pertinent, Hypertension Patient has suicidal ideation: No Patient has homicidal ideation: No Endocrine Medical History: Reports: Hx Diabetes Mellitus Type 1, Hx Hypothyroidism GI Medical History: Reports: Hx Gastroesophageal Reflux Disease Musculoskeletal Medical History: Denies Hx Arthritis Psychiatric Medical History: Reports: Hx Attention Deficit Hyperactivity Disorder Denies: Hx Depression Past Surgical History: Reports: None - Immunizations Immunizations up to date: Yes Hx Diphtheria, Pertussis, Tetanus Vaccination: Yes Hx Pneumococcal Vaccination: 08/08/12 Review of Systems - Review of Systems Notes: REVIEW OF SYSTEMS: CONSTITUTIONAL : Denies fever. EENT: Denies eye, ear, nose or mouth or throat pain or other symptoms. CARDIOVASCULAR: Denies chest pain. RESPIRATORY: Denies cough, chest congestion, or shortness of breath. GASTROINTESTINAL: Nauseated and only vomited once. No diarrhea. GENITOURINARY: Denies difficulty or painful urinating, urinary frequency, blood in urine. MUSCULOSKELETAL: Denies back or neck pain. Denies joint pain or swelling. SKIN: Denies rash or skin lesions. NEUROLOGICAL: Denies LOC or altered mental status. Denies headache. Denies sensory loss or motor deficits. ALL OTHER SYSTEMS REVIEWED AND NEGATIVE. Physical Exam - Vital signs Vitals: Temp Pulse Resp BP Pulse Ox 98.2 F 108 H 16 106/66 100 12/01/18 12:35 12/01/18 12:35 12/01/18 12:35 12/01/18 12:35 12/01/18 12:35 Interpretation: Normal, Tachycardic - At 108. Notes: PHYSICAL EXAMINATION: GENERAL: Well-appearing, in no acute distress. HEAD: Atraumatic, normocephalic. EYES: Pupils equal round and reactive to light, extraocular movements intact. ENT: oropharynx clear without exudates. Moist mucous membranes. NECK: Normal range of motion, supple. LUNGS: Breath sounds clear and equal bilaterally. HEART: Regular rate and rhythm without murmurs. ABDOMEN: Soft, nontender. No guarding or rebound. No masses. BACK: No tenderness throughout entire back. EXTREMITIES: Normal range of motion without pain. NEUROLOGICAL: Normal speech, normal gait. Normal sensory, motor, and reflex exams. Awake, alert, and oriented x3. Cranial nerves normal. PSYCH: Normal mood, normal affect. SKIN: Warm, dry, no rashes. Course - Re-evaluation Re-evalutation: 12/01/18 15:36 She was given a bolus of 5 units of Humulin insulin and then started on an insulin drip at 4 units/h. She was given a couple of bags of saline. 12/01/18 15:59 Spoke with hospitalist who will admit the patient to [facility]. - Vital Signs Vital signs: Temp Pulse Resp BP Pulse Ox 97.7 F 87 17 121/60 100 12/02/18 03:11 12/02/18 07:00 12/02/18 03:11 12/02/18 03:11 12/02/18 03:11 - Laboratory Result Diagrams: 12/02/18 05:30 12/02/18 05:30 Laboratory results interpreted by me: 12/01/18 12/01/18 12/01/18 13:09 13:09 13:09 WBC 15.3 H RDW 15.7 H Plt Count 451 H Seg Neutrophils % 87.1 H Lymphocytes % 10.4 L Monocytes % 2.0 L Absolute Neutrophils 13.3 H VBG pH VBG HCO3 Sodium 136.6 L Chloride 97 L Carbon Dioxide 16 L Anion Gap 24 H Glucose 576 H* POC Glucose Alkaline Phosphatase 162 H Urine Glucose (UA) >=500 H Urine Ketones 80 H Urine Blood LARGE H 12/01/18 12/01/18 13:09 13:15 WBC RDW Plt Count Seg Neutrophils % Lymphocytes % Monocytes % Absolute Neutrophils VBG pH 7.24 L VBG HCO3 17.5 L Sodium Chloride Carbon Dioxide Anion Gap Glucose POC Glucose 524 H* Alkaline Phosphatase Urine Glucose (UA) Urine Ketones Urine Blood Critical Care Note - Critical Care Note Total time excluding time spent on procedures (mins): 30 Discharge - Discharge Clinical Impression: IDDM (insulin dependent diabetes mellitus) DKA (diabetic ketoacidoses) Qualifiers: Diabetes mellitus type: type 1 Condition: Stable Disposition: ADMITTED INPATIENT Admitting Provider: Nusrat (Hospitalist) Unit Admitted: [facility]
[2018-12-01] MEDS ORDERED: LORAZEPAM INJ 2 MG/1 ML VIAL IV ONE (16:36)
[2018-12-01] MEDS ORDERED: ONDANSETRON 4 MG TAB.RAPDIS PO PRN (16:47)
[2018-12-01] MEDS ORDERED: PROMETHAZINE HCL INJ 25 MG/1 ML VIAL IV PRN (16:47)
[2018-12-01] MEDS ORDERED: OXYCODONE-ACETAMINOPHEN 5-325 MG TABLET PO PRN (16:47)
[2018-12-01] MEDS ORDERED: IPRATROPIUM/ALBUTEROL 0.5-2.5 MG/3 ML AMPUL NEB PRN (16:47)
[2018-12-01] MEDS ORDERED: MAG HYDROX/AL HYDROX/SIMETH SUSP 30 ML UDCUP PO PRN (16:47)
[2018-12-01] MEDS ORDERED: ACETAMINOPHEN 325 MG TABLET PO PRN (16:47)
[2018-12-01] MEDS ORDERED: GLUCAGON,HUMAN RECOMB 1 MG INJ IM PRN (16:51)
[2018-12-01] MEDS ORDERED: DEXTROSE 40% GEL 15 GM TUBE PO PRN ×2 (16:51)
[2018-12-01] MEDS ORDERED: NORMAL SALINE 100 ML with INSULIN REGULAR, HUMAN 100 UNIT IV PRN ×2 (16:51)
[2018-12-01] MEDS ORDERED: DEXTROSE 50%-WATER 25 GM/50 ML DISP.SYRIN IV PRN ×2 (16:51)
[2018-12-01] MEDS ORDERED: POTASSI CL 20 MEQ/NS 1L 1,000 ML IV PRN (16:51)
--- NOTE | 2018-12-01 17:30 | PDOC H&P ---
History of Present Illness Admission Date/PCP: 12/01/18 16:46 EDNA REEVES MD History of Present Illness: VICK MELGOZA is a 23 year old female past medical history of diabetes type 1 since age of 9, insulin pump in place 20-year, she of multiple admission to hospital for DKA prior to insulin pump placement, ADHD and current Maria Guadalupe vaginitis, patient is stating that he does not understand why DKA or insulin pump has been working fine she has not been sick lately except for the fact that she has history of recurrent Maria Guadalupe vaginitis and she thinks she is getting it again, she has noticed that blood sugars have been running high, 600s the last 2 days and also she has developed polyuria, lightheadedness and blurry vision less nausea one time of nonbloody nonbilious vomiting. She sees an olive knocker at [place] and has an appointment this . Denies any chest pain, abdominal pain, diarrhea, constipation or dysuria. In ED she was found to have a WBC of 15.3, sodium 136.6, bicarb 16, anion gap 24, equals 576, urine glucose more than 500, urine ketones 80. CXR unremarkable, EKG sinus rhythm. Past Medical History Endocrine Medical History: Reports: Diabetes Mellitus Type 1, Hypothyroidism GI Medical History: Reports: Gastroesophageal Reflux Disease Denies: Hepatitis Musculoskeltal Medical History: Denies: Arthritis Skin Medical History: Denies: Eczema, Psoriasis Psychiatric Medical History: Reports: Attention Deficit Hyperactivity Disorder Denies: Depression Past Surgical History Past Surgical History: Reports: None Social History Smoking Status: Unknown if Ever Smoked Frequency of Alcohol Use: Rare Hx Recreational Drug Use: No Drugs: None Hx Prescription Drug Abuse: No Family History Family History: Reviewed & Not Pertinent, Hypertension Parental Family History Reviewed: Yes Children Family History Reviewed: Yes Sibling(s) Family History Reviewed.: Yes Medication/Allergy Allergies/Adverse Reactions: Penicillins Allergy (Intermediate, Verified 12/01/18 12:31) Unknown reaction amoxicillin [Amoxicillin] Allergy (Verified 12/01/18 12:31) vancomycin Adverse Reaction (Intermediate, Verified 12/01/18 12:31) PERIORBITAL EDEMA, BACK WELTS imipenem Adverse Reaction (Mild, Verified 12/01/18 12:31) Flushing Review of Systems Review of Systems: as per HPI Physical Exam Vital Signs: Temp Pulse Resp BP Pulse Ox 98.2 F 108 H 16 106/66 100 12/01/18 12:41 12/01/18 12:41 12/01/18 12:41 12/01/18 12:41 12/01/18 12:41 Intake & Output 11/30/18 12/01/18 12/02/18 06:59 06:59 06:59 Intake Total 1000 Balance 1000 Weight 62.6 kg General appearance: PRESENT: no acute distress, well-developed, well-nourished Head exam: PRESENT: atraumatic, normocephalic Eye exam: PRESENT: conjunctiva pink, EOMI, PERRLA. ABSENT: scleral icterus Ear exam: PRESENT: normal external ear exam Mouth exam: PRESENT: moist, tongue midline Neck exam: ABSENT: carotid bruit, JVD, lymphadenopathy, thyromegaly Respiratory exam: PRESENT: clear to auscultation ti. ABSENT: rales, rhonchi, wheezes Cardiovascular exam: PRESENT: RRR. ABSENT: diastolic murmur, rubs, systolic murmur Pulses: PRESENT: normal dorsalis pedis pul Vascular exam: PRESENT: normal capillary refill GI/Abdominal exam: PRESENT: normal bowel sounds, soft. ABSENT: distended, guarding, mass, organolmegaly, rebound, tenderness Rectal exam: PRESENT: deferred Extremities exam: PRESENT: full ROM. ABSENT: calf tenderness, clubbing, pedal edema Neurological exam: PRESENT: alert, awake, oriented to person, oriented to place, oriented to time, oriented to situation, CN II-XII grossly intact. ABSENT: motor sensory deficit Psychiatric exam: PRESENT: appropriate affect, normal mood. ABSENT: homicidal ideation, suicidal ideation Skin exam: PRESENT: dry, intact, warm. ABSENT: cyanosis, rash Results Laboratory Results: 12/01/18 13:09 12/01/18 13:09 12/01/18 12/01/18 12/01/18 13:09 13:09 13:09 WBC 15.3 H RBC 4.82 Hgb 14.7 Hct 45.7 MCV 95 MCH 30.4 MCHC 32.1 RDW 15.7 H Plt Count 451 H Seg Neutrophils % 87.1 H Lymphocytes % 10.4 L Monocytes % 2.0 L Eosinophils % 0.2 Basophils % 0.3 Absolute Neutrophils 13.3 H Absolute Lymphocytes 1.6 Absolute Monocytes 0.3 Absolute Eosinophils 0.0 Absolute Basophils 0.0 VBG pH VBG pCO2 VBG HCO3 VBG Base Excess Sodium 136.6 L Potassium 4.9 Chloride 97 L Carbon Dioxide 16 L Anion Gap 24 H BUN 13 Creatinine 0.61 Est GFR ( Amer) > 60 Est GFR (Non-Af Amer) > 60 Glucose 576 H* Calcium 10.2 Total Bilirubin 0.9 AST 19 ALT 16 Alkaline Phosphatase 162 H Total Protein 8.0 Albumin 4.7 Serum HCG, Qual NEGATIVE Urine Color Urine Appearance Urine pH Ur Specific [place] Urine Protein Urine Glucose (UA) Urine Ketones Urine Blood Urine Nitrite Ur Leukocyte Esterase Urine WBC (Auto) Urine RBC (Auto) 12/01/18 12/01/18 13:09 13:09 WBC RBC Hgb Hct MCV MCH MCHC RDW Plt Count Seg Neutrophils % Lymphocytes % Monocytes % Eosinophils % Basophils % Absolute Neutrophils Absolute Lymphocytes Absolute Monocytes Absolute Eosinophils Absolute Basophils VBG pH 7.24 L VBG pCO2 42.1 VBG HCO3 17.5 L VBG Base Excess -9.5 Sodium Potassium Chloride Carbon Dioxide Anion Gap BUN Creatinine Est GFR ( Amer) Est GFR (Non-Af Amer) Glucose Calcium Total Bilirubin AST ALT Alkaline Phosphatase Total Protein Albumin Serum HCG, Qual Urine Color YELLOW Urine Appearance CLOUDY Urine pH 5.0 Ur Specific [place] 1.029 Urine Protein NEGATIVE Urine Glucose (UA) >=500 H Urine Ketones 80 H Urine Blood LARGE H Urine Nitrite NEGATIVE Ur Leukocyte Esterase NEGATIVE Urine WBC (Auto) 11 Urine RBC (Auto) 2 Impressions: Chest X-Ray 12/01/18 12:48 IMPRESSION: No acute abnormality of the lungs in AP projection. Assessment and Plan - Diagnosis (1) DKA (diabetic ketoacidosis) Qualifiers: Diabetes mellitus type: type 1 Is this a current diagnosis for this admission?: Yes Plan: Volume resuscitation, insulin drip, BMP every 4 hours, monitor electrolytes and replace as needed. Switch to subcutaneous AG closes (2) Metabolic acidosis Is this a current diagnosis for this admission?: Yes Plan: AG Metablic acidosis, 2nd to DKA. DKA protocol. (3) IDDM (insulin dependent diabetes mellitus) Is this a current diagnosis for this admission?: No Plan: Diabetic Diet. Long acting insulin, insulin scale, pre meal insulin. Reconnect pump on discharge. Pt has an appointment with her olive knocker next . Encouraged to see him soon if possible. (4) ADD (attention deficit disorder) Is this a current diagnosis for this admission?: No Plan: Restart Home Meds (6) Recurrent candidiasis of vagina Is this a current diagnosis for this admission?: No Plan: Will give one dose of fluconazole.
[2018-12-01] MEDS ORDERED: FLUCONAZOLE 100 MG TABLET PO ONE ×2 (18:30→21:00)
[2018-12-01] MEDS: METHYLPHENIDATE HCL 5 MG TABLET PO SCH (18:58)
[2018-12-01] MEDS ORDERED: LORAZEPAM 1 MG TABLET PO PRN (19:08)
[2018-12-01 20:02] LABS: URINE AMPHETAMINES SCREEN NEGATIVE; URINE BARBITURATES SCREEN NEGATIVE; URINE BENZODIAZEPINES SCREEN NEGATIVE; URINE COCAINE SCREEN NEGATIVE; URINE MARIJUANA (THC) SCREEN NEGATIVE; URINE METHADONE SCREEN NEGATIVE; URINE PHENCYCLIDINE SCREEN NEGATIVE
[2018-12-01 20:05] LABS: BLOOD UREA NITROGEN 12 mg/dL (7-20); CALCIUM 9.2 mg/dL (8.4-10.2); POTASSIUM 5.1 mmol/L (3.6-5.0)
[2018-12-01 20:11] LABS: CHLORIDE 108 mmol/L (98-107); SODIUM 137.6 mmol/L (137-145)
[2018-12-01 20:14] LABS: ANION GAP 22 (5-19)
[2018-12-01 20:16] LABS: CARBON DIOXIDE 8 mmol/L (22-30); GLUCOSE 475 mg/dL (75-110)
--- NOTE | 2018-12-01 20:53 | EKG REPORT ---
SEVERITY:- BORDERLINE ECG - SINUS RHYTHM BORDERLINE T ABNORMALITIES, ANTERIOR LEADS : Confirmed by: Johan Inman MD 01-Dec-2018 20:52:34
[2018-12-01] MEDS: FAMOTIDINE 20 MG TABLET PO SCH (21:13)
[2018-12-02] MEDS ORDERED: NORMAL SALINE 1000 ML 1,000 ML IV ONE (00:45)
[2018-12-02 01:09] LABS: ANION GAP 11 (5-19); BLOOD UREA NITROGEN 9 mg/dL (7-20); CALCIUM 8.5 mg/dL (8.4-10.2); CARBON DIOXIDE 15 mmol/L (22-30); CHLORIDE 111 mmol/L (98-107); GLUCOSE 235 mg/dL (75-110); POTASSIUM 4.3 mmol/L (3.6-5.0); SODIUM 136.8 mmol/L (137-145)
[2018-12-02] MEDS ORDERED: POTASSI CL 20 MEQ/D5-1/2NS 1L 1,000 ML IV ONE (01:55)
[2018-12-02] MEDS: POTASSI CL 20 MEQ/D5-1/2NS 1L 1,000 ML IV PRN ×2 (02:02→07:14)
[2018-12-02 06:59] LABS: ABSOLUTE EOSINOPHILS # (AUTO) 0.1 10^3/uL (0.0-0.6); ABSOLUTE MONOCYTES (AUTO) 0.6 10^3/uL (0.1-1.4); ABSOLUTE NEUT (AUTO) 5.7 10^3/uL (1.7-8.2); BASOPHILS % (AUTO) 0.5 % (0-2); EOSINOPHILS % (AUTO) 0.7 % (0-6); HEMATOCRIT 36.6 % (36.0-47.0); LYMPHOCYTES % (AUTO) 31.5 % (13-45); MEAN CORPUSCULAR HEMOGLOBIN 30.8 pg (27.0-33.4); MEAN CORPUSCULAR HGB CONC 33.8 g/dL (32.0-36.0); MONOCYTES % (AUTO) 6.7 % (3-13); PLATELET COUNT 364 10^3/uL (150-450); RED BLOOD COUNT 4.01 10^6/uL (3.72-5.28); RED CELL DISTRIBUTION WIDTH 15.3 % (11.5-14.0); SEGMENTED NEUTROPHILS % (AUTO) 60.6 % (42-78); TOTAL CELLS COUNTED % (AUTO) 100 %; WHITE BLOOD COUNT 9.4 10^3/uL (4.0-10.5)
[2018-12-02 07:14] LABS: ALANINE AMINOTRANSFERASE 23 U/L (9-52); ALBUMIN 2.7 g/dL (3.5-5.0); ALKALINE PHOSPHATASE 86 U/L (38-126); ANION GAP 6 (5-19); ASPARTATE AMINO TRANSFERASE 11 U/L (14-36); BILIRUBIN,DIRECT 0.2 mg/dL (0.0-0.4); BILIRUBIN,TOTAL 0.5 mg/dL (0.2-1.3); BLOOD UREA NITROGEN 7 mg/dL (7-20); CALCIUM 8.5 mg/dL (8.4-10.2); CARBON DIOXIDE 18 mmol/L (22-30); CHLORIDE 113 mmol/L (98-107); GLUCOSE 123 mg/dL (75-110); POTASSIUM 4.4 mmol/L (3.6-5.0); SODIUM 136.6 mmol/L (137-145); TOTAL PROTEIN 5.5 g/dL (6.3-8.2)
[2018-12-02 07:17] LABS: HEMOGLOBIN 12.4 g/dL (12.0-15.5); MEAN CORPUSCULAR VOLUME 91 fl (80-97)
[2018-12-02] MEDS ORDERED: INSULIN GLARGINE,HUM.REC.ANLOG 1,000 UNIT/10 ML VIAL SUBCUT ONE (08:42)
[2018-12-02] MEDS: FAMOTIDINE 20 MG TABLET PO SCH (09:23)
[2018-12-02] MEDS: METHYLPHENIDATE HCL 5 MG TABLET PO SCH ×2 (09:24→13:45)
[2018-12-02] MEDS ORDERED: INSULIN GLARGINE,HUM.REC.ANLOG 1,000 UNIT/10 ML VIAL (PYX) SUBCUT ONE (09:30)
[2018-12-02 09:42] LABS: BLOOD UREA NITROGEN 5 mg/dL (7-20); CALCIUM 8.7 mg/dL (8.4-10.2); CARBON DIOXIDE 19 mmol/L (22-30); CHLORIDE 113 mmol/L (98-107); GLUCOSE 119 mg/dL (75-110); POTASSIUM 4.1 mmol/L (3.6-5.0); SODIUM 136.3 mmol/L (137-145)
[2018-12-02] MEDS ORDERED: ENOXAPARIN SODIUM INJ 40 MG/0.4 ML DISP.SYRIN SUBCUT SCH (10:00)
[2018-12-02 10:02] LABS: ANION GAP 4 (5-19)
[2018-12-02 13:32] LABS: ANION GAP 6 (5-19); BLOOD UREA NITROGEN 4 mg/dL (7-20); CALCIUM 8.8 mg/dL (8.4-10.2); CARBON DIOXIDE 18 mmol/L (22-30); CHLORIDE 112 mmol/L (98-107); GLUCOSE 186 mg/dL (75-110); POTASSIUM 4.6 mmol/L (3.6-5.0); SODIUM 136.1 mmol/L (137-145)
[2018-12-02 15:01] VITALS: BP 146/83
--- NOTE | 2018-12-02 16:47 | PDOC DISCHARGE SUMMARY ---
General - Admit/Disc Date/PCP Admission Date/Primary Care Provider: 12/01/18 16:46 EDNA REEVES MD Discharge Date: 12/02/18 - Discharge Diagnosis (1) DKA (diabetic ketoacidosis) Is this a current diagnosis for this admission?: Yes (2) Metabolic acidosis Is this a current diagnosis for this admission?: Yes (3) IDDM (insulin dependent diabetes mellitus) Is this a current diagnosis for this admission?: No (4) ADD (attention deficit disorder) Is this a current diagnosis for this admission?: No (5) Recurrent candidiasis of vagina Is this a current diagnosis for this admission?: No - Additional Information Discharge Diet: As Tolerated Home Medications: Dextroamphetamine/Amphetamine [Adderall Xr 30 mg Capsule] 30 mg PO QAM 12/01/18 Insulin Lispro [Humalog Insulin (Lispro) 100 unit/mL] 0 units PUMP ASDIR PRN 12/01/18 Levothyroxine Sodium [Synthroid 0.025 mg Tablet] 0.025 mg PO Q6AM 12/01/18 Ondansetron [Ondansetron Odt] 8 mg PO Q6HP PRN 12/01/18 Sertraline HCl [Zoloft 50 mg Tablet] 150 mg PO DAILY 12/01/18 Valacyclovir HCl [Valtrex] 1,000 mg PO Q12 MDD FOR 10 DAYS 12/01/18 History of Present Illness History of Present Illness: VICK MLEGOZA is a 23 year old female past medical history of diabetes type 1 si nce age of 9, insulin pump in place 20-year, she of multiple admission to hospital for DKA prior to insulin pump placement, ADHD and current Maria Guadalupe vaginitis, patient is stating that he does not understand why DKA or insulin pump has been working fine she has not been sick lately except for the fact that she has history of recurrent Maria Guadalupe vaginitis and she thinks she is getting it again, she has noticed that blood sugars have been running high, 600s the last 2 days and also she has developed polyuria, lightheadedness and blurry vision less nausea one time of nonbloody nonbilious vomiting. She sees an property site manager at [place] and has an appointment this . Denies any chest pain, abdominal pain, diarrhea, constipation or dysuria. In ED she was found to have a WBC of 15.3, sodium 136.6, bicarb 16, anion gap 24, equals 576, urine glucose more than 500, urine ketones 80. CXR unremarkable, EKG sinus rhythm. Hospital Course Hospital Course: (1) DKA (diabetic ketoacidosis) AG closed. Denies any nausea vomiting diarrhea constipation or any urinary symptoms on the time of discharge. Was a started on volume resuscitation, insulin drip, BMP every 4 hours, monitor electrolytes and replace as needed. And switch to subcutaneous insulin, and patient restarted her insulin pump. She was strongly encouraged to follow-up with her property site manager to check out if her insulin pump was working properly. (2) Metabolic acidosis AG Metablic acidosis, 2nd to DKA. DKA protocol. (3) IDDM (insulin dependent diabetes mellitus) Diabetic Diet. Long acting insulin, insulin scale, pre meal insulin. Reconnect pump on discharge. Pt has an appointment with her property site manager next . Encouraged to see him soon if possible. (4) ADD (attention deficit disorder) Restart Home Meds (6) Recurrent candidiasis of vagina Received one dose of fluconazole. Follow Up with PCP. Physical Exam Vital Signs: Temp Pulse Resp BP Pulse Ox 98.1 F 90 16 146/83 H 98 12/02/18 15:00 12/02/18 15:00 12/02/18 15:00 12/02/18 15:00 12/02/18 15:00 Intake & Output 12/01/18 12/02/18 12/03/18 06:59 06:59 06:59 Intake Total 3733 2695 Output Total 1900 Balance 1833 2695 Weight 65 kg General appearance: PRESENT: no acute distress, well-developed, well-nourished Head exam: PRESENT: atraumatic, normocephalic Eye exam: PRESENT: conjunctiva pink, EOMI, PERRLA. ABSENT: scleral icterus Ear exam: PRESENT: normal external ear exam Mouth exam: PRESENT: moist, tongue midline Neck exam: ABSENT: carotid bruit, JVD, lymphadenopathy, thyromegaly Respiratory exam: PRESENT: clear to auscultation ti. ABSENT: rales, rhonchi, wheezes Cardiovascular exam: PRESENT: RRR. ABSENT: diastolic murmur, rubs, systolic murmur Pulses: PRESENT: normal dorsalis pedis pul Vascular exam: PRESENT: normal capillary refill GI/Abdominal exam: PRESENT: normal bowel sounds, soft. ABSENT: distended, guarding, mass, organolmegaly, rebound, tenderness Rectal exam: PRESENT: deferred Extremities exam: PRESENT: full ROM. ABSENT: calf tenderness, clubbing, pedal edema Neurological exam: PRESENT: alert, awake, oriented to person, oriented to place, oriented to time, oriented to situation, CN II-XII grossly intact. ABSENT: motor sensory deficit Psychiatric exam: PRESENT: appropriate affect, normal mood. ABSENT: homicidal ideation, suicidal ideation Skin exam: PRESENT: dry, intact, warm. ABSENT: cyanosis, rash Results Laboratory Results: 12/02/18 05:30 12/02/18 12:37 12/01/18 12/01/18 12/02/18 18:04 19:20 00:42 WBC RBC Hgb Hct MCV MCH MCHC RDW Plt Count Seg Neutrophils % Lymphocytes % Monocytes % Eosinophils % Basophils % Absolute Neutrophils Absolute Lymphocytes Absolute Monocytes Absolute Eosinophils Absolute Basophils Sodium Cancelled 137.6 136.8 L Potassium Cancelled 5.1 H 4.3 Chloride Cancelled 108 H 111 H Carbon Dioxide Cancelled 8 L* 15 L Anion Gap Cancelled 22 H 11 BUN Cancelled 12 9 Creatinine Cancelled 0.65 0.50 L Est GFR ( Amer) Cancelled > 60 > 60 Est GFR (Non-Af Amer) Cancelled > 60 > 60 Glucose Cancelled 475 H* 235 H Calcium Cancelled 9.2 8.5 Magnesium Total Bilirubin AST ALT Alkaline Phosphatase Total Protein Albumin 12/02/18 12/02/18 12/02/18 05:30 05:30 09:11 WBC 9.4 RBC 4.01 Hgb 12.4 D Hct 36.6 MCV 91 D MCH 30.8 MCHC 33.8 RDW 15.3 H Plt Count 364 Seg Neutrophils % 60.6 Lymphocytes % 31.5 Monocytes % 6.7 Eosinophils % 0.7 Basophils % 0.5 Absolute Neutrophils 5.7 Absolute Lymphocytes 3.0 Absolute Monocytes 0.6 Absolute Eosinophils 0.1 Absolute Basophils 0.0 Sodium 136.6 L 136.3 L Potassium 4.4 4.1 Chloride 113 H 113 H Carbon Dioxide 18 L 19 L Anion Gap 6 4 L BUN 7 5 L Creatinine 0.48 L 0.50 L Est GFR ( Amer) > 60 > 60 Est GFR (Non-Af Amer) > 60 > 60 Glucose 123 H 119 H Calcium 8.5 8.7 Magnesium 1.8 Total Bilirubin 0.5 AST 11 L ALT 23 Alkaline Phosphatase 86 Total Protein 5.5 L Albumin 2.7 L 12/02/18 12:37 WBC RBC Hgb Hct MCV MCH MCHC RDW Plt Count Seg Neutrophils % Lymphocytes % Monocytes % Eosinophils % Basophils % Absolute Neutrophils Absolute Lymphocytes Absolute Monocytes Absolute Eosinophils Absolute Basophils Sodium 136.1 L Potassium 4.6 Chloride 112 H Carbon Dioxide 18 L Anion Gap 6 BUN 4 L Creatinine 0.57 Est GFR ( Amer) > 60 Est GFR (Non-Af Amer) > 60 Glucose 186 H Calcium 8.8 Magnesium Total Bilirubin AST ALT Alkaline Phosphatase Total Protein Albumin Impressions: Chest X-Ray 12/01/18 12:48 IMPRESSION: No acute abnormality of the lungs in AP projection. Qualifiers - * PATIENT BEING DISCHARGED WITH ANY OF THE FOLLOWING DIAGNOSIS: No
== END 2018-12-02 15:33 | disposition home or self-care (01) ==
LOC: ER 12:27 → INTOOBSV 16:46 → EH 16:46 → 3W 18:35
PROVIDERS: ADMIT Internal Medicine; ATTEND Internal Medicine
DX: E10.10 Type 1 diabetes mellitus with ketoacidosis without coma (principal); F98.8 Other specified behavioral and emotional disorders with onset usually occurring in childhood and adolescence; B37.3 Candidiasis of vulva and vagina; R00.0 Tachycardia, unspecified; Z96.41 Presence of insulin pump (external) (internal); Z79.899 Other long term (current) drug therapy
CPT/HCPCS: 93005; 96376; 99291; 96361; 96374; 96375; 36415 ×2; 82962 ×2; 83735; 84703; 85025 ×2; 80048 ×2; 80053 ×2; 81001; 80307; 83036; 82803; 71045; 93010; G0378 ×3; J1815 ×2; J3490; J2060; J3480 ×2; J2550; J2405; J7030 ×2; J7050

== ENCOUNTER 2020-04-12 12:36 | Outpatient (CLI) | payer MEDICAID, BC ==
[2020-04-12] MEDS ORDERED: ACETAMINOPHEN 325 MG TABLET PO ONE (13:03)
[2020-04-12] MEDS ORDERED: PROCHLORPERAZINE MALEATE 10 MG TABLET PO ONE (13:03)
[2020-04-12] MEDS ORDERED: ACETAMINOPHEN 325 MG TABLET ONE (13:07)
[2020-04-12] MEDS ORDERED: PROCHLORPERAZINE MALEATE 10 MG TABLET ONE (13:07)
[2020-04-12 13:16] LABS: APPEARANCE,URINE CLEAR; BILIRUBIN,URINE NEGATIVE (NEGATIVE); COLOR,URINE YELLOW; GLUCOSE, URINE 150 mg/dL (NEGATIVE); KETONES,URINE 80 mg/dL (NEGATIVE); LEUKOCYTE ESTERASE,URINE NEGATIVE (NEGATIVE); NITRITE,URINE NEGATIVE (NEGATIVE); PROTEIN,URINE 30 mg/dL (NEGATIVE); URINE SPECIFIC GRAVITY 1.024
[2020-04-12 13:31] LABS: URINE AMPHETAMINES SCREEN NEGATIVE; URINE BARBITURATES SCREEN NEGATIVE; URINE BENZODIAZEPINES SCREEN NEGATIVE; URINE COCAINE SCREEN NEGATIVE; URINE MARIJUANA (THC) SCREEN NEGATIVE; URINE METHADONE SCREEN NEGATIVE; URINE PHENCYCLIDINE SCREEN NEGATIVE
[2020-04-12 13:36] LABS: ABSOLUTE LYMPHOCYTES (AUTO) 1.4 10^3/uL (0.5-4.7); ABSOLUTE MONOCYTES (AUTO) 0.5 10^3/uL (0.1-1.4); ABSOLUTE NEUT (AUTO) 8.9 10^3/uL (1.7-8.2); BASOPHILS % (AUTO) 0.3 % (0-2); EOSINOPHILS % (AUTO) 0.2 % (0-6); HEMATOCRIT 34.2 % (36.0-47.0); HEMOGLOBIN 11.7 g/dL (12.0-15.5); LYMPHOCYTES % (AUTO) 13.2 % (13-45); MEAN CORPUSCULAR HEMOGLOBIN 30.6 pg (27.0-33.4); MEAN CORPUSCULAR HGB CONC 34.2 g/dL (32.0-36.0); MEAN CORPUSCULAR VOLUME 90 fl (80-97); MONOCYTES % (AUTO) 4.3 % (3-13); PLATELET COUNT 302 10^3/uL (150-450); RED BLOOD COUNT 3.82 10^6/uL (3.72-5.28); RED CELL DISTRIBUTION WIDTH 12.8 % (11.5-14.0); TOTAL CELLS COUNTED % (AUTO) 100 %; WHITE BLOOD COUNT 10.9 10^3/uL (4.0-10.5)
[2020-04-12 13:48] LABS: UR PRO/CREAT RATIO RESULT 0.1 mg/mg (0.0-0.2); URINE CREATININE 150.1 mg/dL (16-327); URINE PROTEIN 11.1 mg/dL (<12)
[2020-04-12 13:57] LABS: ALBUMIN 3.3 g/dL (3.5-5.0); ALKALINE PHOSPHATASE 101 U/L (38-126); ANION GAP 7 (5-19); ASPARTATE AMINO TRANSFERASE 17 U/L (14-36); BILIRUBIN,DIRECT 0.3 mg/dL (0.0-0.4); BILIRUBIN,TOTAL 0.6 mg/dL (0.2-1.3); BLOOD UREA NITROGEN 6 mg/dL (7-20); CALCIUM 8.8 mg/dL (8.4-10.2); CARBON DIOXIDE 19 mmol/L (22-30); CHLORIDE 111 mmol/L (98-107); GLUCOSE 147 mg/dL (75-110); TOTAL PROTEIN 6.5 g/dL (6.3-8.2); URIC ACID 2.7 mg/dL (2.5-6.2)
== END 2020-04-12 14:28 | disposition home or self-care (01) ==
LOC: LC 12:36
PROVIDERS: ATTEND Obstetrics & Gynecology
DX: O24.410 Gestational diabetes mellitus in pregnancy, diet controlled (principal); R51 Headache; Z3A.30 30 weeks gestation of pregnancy; Z88.0 Allergy status to penicillin; Z88.1 Allergy status to other antibiotic agents
CPT/HCPCS: 59899; 36415; 83615; 84156; 84550; 82570; 85025; 80053; 81001; 80307; J3490; S0183

== ENCOUNTER 2020-05-09 15:57 | Outpatient (CLI) | payer BC, MEDICAID ==
[2020-05-09] MEDS ORDERED: RINGERS SOLUTION,LACTATED 1,000 ML IV ONE (16:52)
[2020-05-09] MEDS ORDERED: HYDROXYZINE PAMOATE 50 MG CAPSULE PO ONE (17:12)
[2020-05-09] MEDS ORDERED: HYDROXYZINE PAMOATE 50 MG CAPSULE ONE (17:19)
[2020-05-09 17:22] LABS: APPEARANCE,URINE CLEAR; BILIRUBIN,URINE NEGATIVE (NEGATIVE); COLOR,URINE YELLOW; GLUCOSE, URINE 150 mg/dL (NEGATIVE); KETONES,URINE NEGATIVE (NEGATIVE); LEUKOCYTE ESTERASE,URINE NEGATIVE (NEGATIVE); NITRITE,URINE NEGATIVE (NEGATIVE); PROTEIN,URINE 30 mg/dL (NEGATIVE); URINE SPECIFIC GRAVITY 1.019; UROBILINOGEN,URINE NEGATIVE mg/dL (<2.0)
--- NOTE | 2020-05-09 17:44 | Non Stress Test Report ---
Non Stress Test Datetime Report Generated by CPN: 05/09/2020 17:44 DEMOGRAPHIC EGA NST: 34.2 INDICATION Indication for Study (NST) Other: Repeat NST MONITORING Monitor Explained: Monitor Explained; Test Explained; Patient Verbalized Understanding Time on Monitor: 05/09/2020 17:00 Time off Monitor: 05/09/2020 17:35 NST Duration: 35 NST INTERVENTIONS NST Interventions: IV Fluids Physician Notified NST: N.Chapman,CNM BABY A: [id number] BABY A Movement : Present Contraction Frequency : Irregular FHR Baseline : 145 Accelerations : 15X15 Decelerations : None Variability : Moderate 6-25bpm NST Review: Meets Criteria for Reactive NST NST Review and Verified By : ASIA Tavarez Results: Reactive NST REPORT Report Trigger: Send Report
== END 2020-05-09 17:41 | disposition home or self-care (01) ==
LOC: LC 15:57
PROVIDERS: ATTEND Student in an Organized Health Care Education/Training Program
DX: O99.283 Endocrine, nutritional and metabolic diseases complicating pregnancy, third trimester (principal); E86.0 Dehydration; E03.9 Hypothyroidism, unspecified; O10.913 Unspecified pre-existing hypertension complicating pregnancy, third trimester; O24.013 Pre-existing type 1 diabetes mellitus, in pregnancy, third trimester; E10.9 Type 1 diabetes mellitus without complications; Z79.4 Long term (current) use of insulin; O98.513 Other viral diseases complicating pregnancy, third trimester; B00.9 Herpesviral infection, unspecified; O99.343 Other mental disorders complicating pregnancy, third trimester; F90.9 Attention-deficit hyperactivity disorder, unspecified type; Z3A.34 34 weeks gestation of pregnancy; Z88.0 Allergy status to penicillin; Z88.1 Allergy status to other antibiotic agents; Z88.8 Allergy status to other drugs, medicaments and biological substances; Z79.82 Long term (current) use of aspirin; Z79.899 Other long term (current) drug therapy
CPT/HCPCS: 81001

== ENCOUNTER → 2020-05-19 | Outpatient (CLI) | payer BC, MEDICAID ==
[2020-05-19 12:07] LABS: ABSOLUTE EOSINOPHILS # (AUTO) 0.2 10^3/uL (0.0-0.6); ABSOLUTE LYMPHOCYTES (AUTO) 2.2 10^3/uL (0.5-4.7); ABSOLUTE MONOCYTES (AUTO) 0.8 10^3/uL (0.1-1.4); ABSOLUTE NEUT (AUTO) 5.8 10^3/uL (1.7-8.2); BASOPHILS % (AUTO) 0.4 % (0-2); EOSINOPHILS % (AUTO) 1.8 % (0-6); HEMATOCRIT 33.4 % (36.0-47.0); HEMOGLOBIN 11.4 g/dL (12.0-15.5); LYMPHOCYTES % (AUTO) 24.3 % (13-45); MEAN CORPUSCULAR HEMOGLOBIN 29.4 pg (27.0-33.4); MEAN CORPUSCULAR HGB CONC 34.1 g/dL (32.0-36.0); MEAN CORPUSCULAR VOLUME 86 fl (80-97); MONOCYTES % (AUTO) 8.5 % (3-13); PLATELET COUNT 270 10^3/uL (150-450); RED BLOOD COUNT 3.87 10^6/uL (3.72-5.28); RED CELL DISTRIBUTION WIDTH 13.1 % (11.5-14.0); TOTAL CELLS COUNTED % (AUTO) 100 %; WHITE BLOOD COUNT 8.9 10^3/uL (4.0-10.5)
[2020-05-19 12:34] LABS: ASPARTATE AMINO TRANSFERASE 27 U/L (14-36); TOTAL PROTEIN 6.2 g/dL (6.3-8.2); URIC ACID 4.2 mg/dL (2.5-6.2)
[2020-05-19 12:36] LABS: UR PRO/CREAT RATIO RESULT 0.1 mg/mg (0.0-0.2); URINE CREATININE 159.6 mg/dL (16-327); URINE PROTEIN 17.3 mg/dL (<12)
== END ==
LOC: OD 11:01
PROVIDERS: ATTEND Registered Nurse Women's Health Care, Ambulatory
DX: O16.9 Unspecified maternal hypertension, unspecified trimester (principal)
CPT/HCPCS: 36415; 82565; 82570; 83615; 84155; 84156; 84450; 84550; 85025

== ENCOUNTER 2020-05-26 11:31 | Inpatient (IN) | payer BC, MEDICAID ==
[2020-05-26 12:29] LABS: ABSOLUTE EOSINOPHILS # (AUTO) 0.1 10^3/uL (0.0-0.6); ABSOLUTE LYMPHOCYTES (AUTO) 1.5 10^3/uL (0.5-4.7); ABSOLUTE MONOCYTES (AUTO) 0.6 10^3/uL (0.1-1.4); ABSOLUTE NEUT (AUTO) 6.9 10^3/uL (1.7-8.2); BASOPHILS % (AUTO) 0.3 % (0-2); HEMATOCRIT 32.4 % (36.0-47.0); LYMPHOCYTES % (AUTO) 16.1 % (13-45); MEAN CORPUSCULAR HEMOGLOBIN 29.2 pg (27.0-33.4); MEAN CORPUSCULAR HGB CONC 33.9 g/dL (32.0-36.0); MEAN CORPUSCULAR VOLUME 86 fl (80-97); MONOCYTES % (AUTO) 6.4 % (3-13); PLATELET COUNT 263 10^3/uL (150-450); RED BLOOD COUNT 3.76 10^6/uL (3.72-5.28); RED CELL DISTRIBUTION WIDTH 13.5 % (11.5-14.0); SEGMENTED NEUTROPHILS % (AUTO) 76.2 % (42-78); TOTAL CELLS COUNTED % (AUTO) 100 %
[2020-05-26 12:40] LABS: APPEARANCE,URINE SLIGHTLY-CLOUDY; BILIRUBIN,URINE NEGATIVE (NEGATIVE); COLOR,URINE YELLOW; GLUCOSE, URINE 50 mg/dL (NEGATIVE); KETONES,URINE NEGATIVE (NEGATIVE); LEUKOCYTE ESTERASE,URINE TRACE (NEGATIVE); NITRITE,URINE NEGATIVE (NEGATIVE); PROTEIN,URINE 100 mg/dL (NEGATIVE); URINE SPECIFIC GRAVITY 1.019
[2020-05-26 12:54] LABS: ALBUMIN 3.1 g/dL (3.5-5.0); ALKALINE PHOSPHATASE 155 U/L (38-126); ANION GAP 9 (5-19); ASPARTATE AMINO TRANSFERASE 21 U/L (14-36); BILIRUBIN,DIRECT 0.2 mg/dL (0.0-0.4); BILIRUBIN,TOTAL 0.5 mg/dL (0.2-1.3); BLOOD UREA NITROGEN 7 mg/dL (7-20); CALCIUM 8.8 mg/dL (8.4-10.2); CARBON DIOXIDE 21 mmol/L (22-30); CHLORIDE 105 mmol/L (98-107); GLUCOSE 178 mg/dL (75-110); TOTAL PROTEIN 5.9 g/dL (6.3-8.2); URIC ACID 3.9 mg/dL (2.5-6.2)
[2020-05-26 13:02] LABS: URINE AMPHETAMINES SCREEN NEGATIVE; URINE BARBITURATES SCREEN NEGATIVE; URINE BENZODIAZEPINES SCREEN NEGATIVE; URINE COCAINE SCREEN NEGATIVE; URINE MARIJUANA (THC) SCREEN NEGATIVE; URINE METHADONE SCREEN NEGATIVE; URINE PHENCYCLIDINE SCREEN NEGATIVE
[2020-05-26 13:18] LABS: UR PRO/CREAT RATIO RESULT 0.9 mg/mg (0.0-0.2); URINE CREATININE 188.2 mg/dL (16-327); URINE PROTEIN 164.1 mg/dL (<12)
--- NOTE | 2020-05-26 13:59 | Admission Physical ---
Datetime Report Generated by CPN: 05/26/2020 13:59 CURRENT ADMISSION Indication for Induction- Other: CHTN w/ superimposed pre-eclampsia Admit Impression : Intact Membranes; Induction of Labor Admit Impression- Other: 36.5 wks w/ Type 1 DM, Cat 1 NST ALLERGIES Medication Allergies: Yes Medication Allergies: Penicillins/MO/Hives (05/26/2020); imipenem/NM/Flushing (05/26/2020); amoxicillin/Hives (05/26/2020); vancomycin/MO/PERIORBITAL SNEHA (05/26/2020) Latex: No Latex Allergies OBSTETRICAL HISTORY EDC: 06/18/2020 00:00 : 1 Para: 0 Term: 0 : 0 SAB: 0 IAB: 0 Livin Rh Sensitization: No MEGHNA: No Uterine Anomaly: No Hx Previous C/S: No Hx Loss/Stillborn: No Hx : No Placenta Previa/Abruption: No Depression/PP Depression: No PTL/PROM: No Post Hemorrhage: No Obstetrical History Comments: G1- current MEDICAL HISTORY Diabetes: Yes Diabetes Type: Type I - IDDM Hypertension: Yes Hosp/Surgery: Yes Kidney Disease: Yes Other Medical Diseases: Yes Thyroid Dysfunction: Yes Medical History Comments: Insulin dependent DM- has insulin pump, HSV, genital warts, hypothyroidism, CHTN, UTIs, ADHD- previously on adderall, hosp for DKA in 2004 and 2014, INFECTIOUS HISTORY Genital Herpes: Yes Hepatitis: No Infectious History Comments: HSV, genital warts PHYSICAL EXAM General: Normal HEENT: Normal Neurologic: Normal Thyroid: Normal Heart: Normal Lungs: Normal Breast: Normal Back: Normal Abdomen: Normal Genitourinary Exam: Normal Extremities: Normal DTRs: Normal Pelvic Type: Adequate VAGINAL EXAM Dilatation: 1 Effacement: 50 Station: -1 MEMBRANES Membranes: Intact FETUS A Monitoring: External US Decelerations: None Admit Comment: Pt sent over from [facility] for evaluation of elevated BP's at their office today. Pt had headache this morning but has since spontaneously resolved. at 36.5 wks w/ hx of CHTN, not currently on BP meds. Pt has had some elevated BP's in semifowlers position here on L_D. Urine PCN is 0.90 mg today. D/w Dr Collazo and Dr Lopez from [facility] and both agreed to go ahead w/ cervical ripening today. Plan of care discussed w/ patient questions answered. GBS pending. INFORMED CONSENT Assignment: Vane Collazo MD Signature: with User ID: [email or web address] : with User ID: [email or web address]
[2020-05-26] MEDS ORDERED: MAG HYDROX/AL HYDROX/SIMETH SUSP 30 ML UDCUP PO PRN (14:25)
[2020-05-26] MEDS ORDERED: ZOLPIDEM TARTRATE 5 MG TABLET PO PRN (14:25)
[2020-05-26] MEDS ORDERED: ACETAMINOPHEN 325 MG TABLET PO PRN (14:25)
[2020-05-26] MEDS ORDERED: OXYTOCIN/0.9 % SODIUM CHLORIDE 30 UNIT/500 ML RTUINJ IV PRN (14:25)
[2020-05-26] MEDS ORDERED: DINOPROSTONE 10 MG VAGINAL INSERT.SR PV ONE (14:25)
[2020-05-26] MEDS ORDERED: RINGERS SOLUTION,LACTATED 300 ML IV ONE (14:25)
[2020-05-26] MEDS ORDERED: RINGERS SOLUTION,LACTATED 1,000 ML IV PRN (14:25)
[2020-05-26] MEDS ORDERED: HYDRALAZINE HCL INJ/PF 20 MG/1 ML SDV IV ONE (14:35)
[2020-05-26] MEDS ORDERED: HYDRALAZINE HCL INJ/PF 20 MG/1 ML SDV IV PRN (15:18)
[2020-05-26] MEDS ORDERED: LIDOCAINE 1% INJ-PF (10 MG/ML) 30 ML SDV ONE (15:59)
[2020-05-26] MEDS ORDERED: MISOPROSTOL 0.2 MG TABLET ONE (15:59)
[2020-05-26] MEDS ORDERED: OXYTOCIN 10 UNIT/ML VIAL ONE (15:59)
[2020-05-26] MEDS ORDERED: OXYTOCIN/0.9 % SODIUM CHLORIDE 30 UNIT/500 ML RTUINJ ONE (16:00)
[2020-05-26] MEDS ORDERED: DINOPROSTONE 10 MG VAGINAL INSERT.SR ONE (16:00)
--- NOTE | 2020-05-26 16:59 | L&D Progress Notes ---
PROGRESS NOTES Datetime Report Generated by CPN: 05/26/2020 16:58 PROGRESS NOTE Impression: Reassuring Heart Rate Procedures: Sterile Vag Exam Procedures- Other: cervidil placed at 1605 Plan: Continue Present Management; Induction Vital Signs : Reviewed; Within Normal Limits Comment: IOL for CHTN w/ superimposed Pre-eclampsia. Pt denies current headache. 36.5 wks with GBS pending. Hx of HSV on vaginal area but denies any signs / symptoms of a current outbreak. Pt has been on Valtrex x 4 days. Perineum inspected and Spec exam placed, no lesions visualized in the vagina. Cervidil placed to start the IOL. Pt has been monitoring her Blood sugars and has contacted her construction director to communicate with him that she is going to be induced. Dr Collazo agrees w/ plan of care VAGINAL EXAM Dilatation: 1 Effacement: 50 Station: -1 LAST VAGINAL EXAM-NURSING Nursing Exam Dilitation: 1.0 Nursing Exam Effacement: 50 Nursing Exam Station: -1 Nursing Exam Contractions: not perceived by patient MEMBRANES Membranes: Intact FETUS A Monitoring: External US Decelerations: None FHR Category: Category I SIGNATURE SIGNATURE: [id number] Assignment: Vane Collazo MD Signature: with User ID: [email or web address] : with User ID: [email or web address]
[2020-05-26] MEDS ORDERED: HYDRALAZINE HCL INJ/PF 20 MG/1 ML SDV ONE (17:56)
[2020-05-26] MEDS ORDERED: ZOLPIDEM TARTRATE 5 MG TABLET ONE (20:57)
[2020-05-26] MEDS ORDERED: ROPIVACAINE HCL 0.2% INJ/PF (2 MG/ML) 20 ML SDV ONE (21:29)
[2020-05-26] MEDS ORDERED: FENTANYL/BUPIVACAINE/NS/PF 300 MCG/150 ML RTUINJ EPI ONE (21:29)
[2020-05-26] MEDS ORDERED: EPHEDRINE SULFATE INJ 50 MG/1 ML AMPULE ONE (21:29)
[2020-05-26] MEDS ORDERED: (PENDING PHARMACY ID) (Valacyclovir Hcl [Valtrex] 1,000 MG) PO SCH (22:00)
[2020-05-26] MEDS ORDERED: VALACYCLOVIR HCL 500 MG TABLET PO SCH (22:00)
[2020-05-26] MEDS: DEXTROSE 5%-NORMAL SALINE 1,000 ML IV PRN (22:54)
[2020-05-27] MEDS ORDERED: MAGNESIUM SULFATE 4 GM/100 ML RTUPB IV PRN ×2 (05:00)
[2020-05-27] MEDS ORDERED: MAGNESIUM SULFATE 20 GM/500 ML RTUINJ IV PRN (05:24)
[2020-05-27] MEDS ORDERED: MAGNESIUM SULFATE 0 GM/0 ML RTUPB IV ONE (05:26)
[2020-05-27] MEDS ORDERED: CEFAZOLIN 2 GM/D5W RTU 2 GM/50 ML RTUPB IV ONE ×2 (05:27→14:22)
[2020-05-27] MEDS ORDERED: MAGNESIUM SULFATE 0 GM/0 ML RTUINJ IV ONE (05:27)
[2020-05-27] MEDS ORDERED: MISOPROSTOL 0.1 MG TABLET ONE (05:52)
[2020-05-27] MEDS ORDERED: DIPHENHYDRAMINE HCL 25 MG CAPSULE PO PRN ×2 (05:55→23:21)
[2020-05-27] MEDS ORDERED: DIPHENHYDRAMINE HCL 25 MG CAPSULE ONE (05:59)
[2020-05-27] MEDS ORDERED: MISOPROSTOL 0.1 MG TABLET PV SCH (06:00)
[2020-05-27] MEDS: CEFAZOLIN 2 GM/D5W RTU 2 GM/50 ML RTUPB IV SCH ×3 (06:11→23:39)
[2020-05-27] MEDS: MISOPROSTOL 0.1 MG TABLET PV SCH ×3 (06:15→21:19)
[2020-05-27] MEDS ORDERED: ONDANSETRON HCL INJ/PF 4 MG/2 ML SDV IV ONE (06:56)
[2020-05-27] MEDS ORDERED: ONDANSETRON HCL INJ/PF 4 MG/2 ML SDV ONE (06:57)
[2020-05-27] MEDS ORDERED: RINGERS SOLUTION,LACTATED 500 ML IV ONE (08:00)
[2020-05-27] MEDS ORDERED: TERBUTALINE SULFATE INJ/PF 1 MG/1 ML SDV ONE (08:25)
[2020-05-27] MEDS ORDERED: TERBUTALINE SULFATE INJ/PF 1 MG/1 ML SDV SUBCUT ONE (08:26)
--- NOTE | 2020-05-27 08:32 | L&D Progress Notes ---
PROGRESS NOTES Datetime Report Generated by CPN: 05/27/2020 08:31 PROGRESS NOTE Impression: Reassuring Heart Rate Procedures: Sterile Vag Exam Procedures- Other: cervidil placed at 1605 Plan: Continue Present Management; Induction Vital Signs : Reviewed; Within Normal Limits Comment: minimal variability, lates and variables, nurse notified Dr. Sarkar, bolus given, having frequent uc's and prolonged, firm, will give Terb 0.25, explained to pt the side effects,, maternal tachycardia and jittery feeling, pt agrees, plan to slow contractions, rest uterus and resuscitate baby Plan: Watch closely VAGINAL EXAM Dilatation: 1 Effacement: 50 Station: -1 LAST VAGINAL EXAM-NURSING Nursing Exam Dilitation: 1.0 Nursing Exam Effacement: 50 Nursing Exam Station: -1 Nursing Exam Contractions: irregular MEMBRANES Membranes: Intact FETUS A Monitoring: External US Decelerations: None FHR Category: Category I SIGNATURE SIGNATURE: [id number] Assignment: Vivian Sarkar MD Signature: with User ID: [email or web address] : with User ID: [email or web address]
--- NOTE | 2020-05-27 08:43 | L&D Progress Notes ---
PROGRESS NOTES Datetime Report Generated by CPN: 05/27/2020 08:43 PROGRESS NOTE Impression: Reassuring Heart Rate Procedures: Sterile Vag Exam Procedures- Other: cervidil placed at 1605 Plan: Continue Present Management; Induction Vital Signs : Reviewed; Within Normal Limits Comment: Dr. Sarkar on unit, reviewed strip, discussed possible C/S, will continue to monitor closely VAGINAL EXAM Dilatation: 1 Effacement: 50 Station: -1 LAST VAGINAL EXAM-NURSING Nursing Exam Dilitation: 1.0 Nursing Exam Effacement: 50 Nursing Exam Station: -1 Nursing Exam Contractions: irregular MEMBRANES Membranes: Intact FETUS A Monitoring: External US Decelerations: None FHR Category: Category I SIGNATURE SIGNATURE: [id number];[id number] Assignment: Vivian Sarkar MD Signature: with User ID: [email or web address] : with User ID: [email or web address]
--- NOTE | 2020-05-27 08:52 | L&D Progress Notes ---
PROGRESS NOTES Datetime Report Generated by CPN: 05/27/2020 08:52 PROGRESS NOTE Impression: Reassuring Heart Rate Procedures: Sterile Vag Exam Procedures- Other: cervidil placed at 1605 Plan: Continue Present Management; Induction Vital Signs : Reviewed; Within Normal Limits Comment: Cat 1 strip, continues to have frequent uc's, q 1-2 min, mild, comfortable with epidural VAGINAL EXAM Dilatation: 1 Effacement: 50 Station: -1 LAST VAGINAL EXAM-NURSING Nursing Exam Dilitation: 1.0 Nursing Exam Effacement: 50 Nursing Exam Station: -1 Nursing Exam Contractions: irregular MEMBRANES Membranes: Intact FETUS A Monitoring: External US Decelerations: None FHR Category: Category I SIGNATURE SIGNATURE: [id number];[id number];[id number] Assignment: Vivian Sarkar MD Signature: with User ID: [email or web address] : with User ID: [email or web address]
[2020-05-27] MEDS: DEXTROSE 5%-NORMAL SALINE 1,000 ML IV PRN (09:29)
[2020-05-27] MEDS ORDERED: VALACYCLOVIR HCL 500 MG TABLET ONE (09:39)
[2020-05-27] MEDS: VALACYCLOVIR HCL 500 MG TABLET PO SCH (09:40)
[2020-05-27] MEDS ORDERED: FENTANYL/BUPIVACAINE/NS/PF 300 MCG/150 ML RTUINJ EPI ONE (11:21)
--- NOTE | 2020-05-27 13:05 | L&D Progress Notes ---
PROGRESS NOTES Datetime Report Generated by CPN: 05/27/2020 13:05 PROGRESS NOTE Impression: Reassuring Heart Rate Procedures: Sterile Vag Exam Procedures- Other: cervidil placed at 1605 Plan: Continue Present Management; Induction Vital Signs : Reviewed; Within Normal Limits Comment: irreg uc's, Cat 1 strip VAGINAL EXAM Dilatation: 1 Effacement: 50 Station: -1 LAST VAGINAL EXAM-NURSING Nursing Exam Dilitation: 2.0 Nursing Exam Effacement: 60 Nursing Exam Station: -1 Nursing Exam Contractions: RN at bedside palpating contractions; toco adjusted several times following position change MEMBRANES Membranes: Intact FETUS A Monitoring: External US Decelerations: None FHR Category: Category I SIGNATURE SIGNATURE: [id number];[id number];[id number] Assignment: Vivian Sarkar MD Signature: with User ID: [email or web address] : with User ID: [email or web address]
[2020-05-27 14:58] LABS: ABSOLUTE BASOPHILS # (AUTO) 0.1 10^3/uL (0.0-0.2); ABSOLUTE LYMPHOCYTES (AUTO) 1.8 10^3/uL (0.5-4.7); ABSOLUTE MONOCYTES (AUTO) 0.9 10^3/uL (0.1-1.4); ABSOLUTE NEUT (AUTO) 11.6 10^3/uL (1.7-8.2); BASOPHILS % (AUTO) 0.4 % (0-2); EOSINOPHILS % (AUTO) 0.1 % (0-6); HEMATOCRIT 31.7 % (36.0-47.0); HEMOGLOBIN 10.9 g/dL (12.0-15.5); LYMPHOCYTES % (AUTO) 12.5 % (13-45); MEAN CORPUSCULAR HEMOGLOBIN 29.6 pg (27.0-33.4); MEAN CORPUSCULAR HGB CONC 34.4 g/dL (32.0-36.0); MEAN CORPUSCULAR VOLUME 86 fl (80-97); MONOCYTES % (AUTO) 5.9 % (3-13); PLATELET COUNT 264 10^3/uL (150-450); RED BLOOD COUNT 3.69 10^6/uL (3.72-5.28); RED CELL DISTRIBUTION WIDTH 13.6 % (11.5-14.0); SEGMENTED NEUTROPHILS % (AUTO) 81.1 % (42-78); TOTAL CELLS COUNTED % (AUTO) 100 %; WHITE BLOOD COUNT 14.3 10^3/uL (4.0-10.5)
[2020-05-27 15:16] LABS: ALBUMIN 2.9 g/dL (3.5-5.0); ALKALINE PHOSPHATASE 149 U/L (38-126); ANION GAP 7 (5-19); ASPARTATE AMINO TRANSFERASE 21 U/L (14-36); BILIRUBIN,DIRECT 0.2 mg/dL (0.0-0.4); BILIRUBIN,TOTAL 0.5 mg/dL (0.2-1.3); BLOOD UREA NITROGEN 7 mg/dL (7-20); CALCIUM 8.6 mg/dL (8.4-10.2); CARBON DIOXIDE 19 mmol/L (22-30); CHLORIDE 109 mmol/L (98-107); GLUCOSE 82 mg/dL (75-110); POTASSIUM 3.6 mmol/L (3.6-5.0); TOTAL PROTEIN 5.7 g/dL (6.3-8.2); URIC ACID 4.3 mg/dL (2.5-6.2)
[2020-05-27] MEDS ORDERED: LABETALOL HCL INJ 20 MG/4 ML DISP.SYRIN IV ONE ×2 (21:08→21:10)
[2020-05-27] MEDS ORDERED: BENZOCAINE/MENTHOL AEROSOL SPRAY 56 ML TOP PRN (23:21)
[2020-05-27] MEDS ORDERED: PSEUDOEPHEDRINE HCL 30 MG TABLET PO PRN (23:21)
[2020-05-27] MEDS ORDERED: ACETAMINOPHEN 650 MG SUPP.RECT PR PRN (23:21)
[2020-05-27] MEDS ORDERED: NA PHOS,M-B/NA PHOS,DI-BA (ADULT) 133 ML ENEMA PR PRN (23:21)
[2020-05-27] MEDS ORDERED: MEASLES,MUMPS&RUBELLA VACC/PF 0.5 ML VIAL SUBCUT PRN (23:21)
[2020-05-27] MEDS ORDERED: ZOLPIDEM TARTRATE 5 MG TABLET PO PRN (23:21)
[2020-05-27] MEDS ORDERED: PROMETHAZINE HCL INJ 25 MG/1 ML VIAL IV PRN (23:21)
[2020-05-27] MEDS ORDERED: ACETAMINOPHEN WITH CODEINE #3 TABLET PO PRN ×2 (23:21)
[2020-05-27] MEDS ORDERED: PROMETHAZINE HCL 25 MG SUPP.RECT PR PRN (23:21)
[2020-05-27] MEDS ORDERED: GLYCERIN/WITCH HAZEL LEAF 1 EACH MED..WIPE TP PRN (23:21)
[2020-05-27] MEDS ORDERED: MAGNESIUM HYDROXIDE SUSP 30 ML UDCUP PO PRN (23:21)
[2020-05-27] MEDS ORDERED: DIBUCAINE 1% OINTMENT 28 GM TP PRN (23:21)
[2020-05-27] MEDS ORDERED: PROMETHAZINE HCL 25 MG TABLET PO PRN (23:21)
[2020-05-27] MEDS ORDERED: OXYTOCIN/0.9 % SODIUM CHLORIDE 30 UNIT/500 ML RTUINJ IV PRN (23:21)
[2020-05-27] MEDS ORDERED: DIPH/PERTUSS(ACELL)/TETANUS VAC/PF 0.5 ML SYR (>=10YO) IM PRN (23:21)
[2020-05-27] MEDS ORDERED: CEFTRIAXONE INJ 1000 MG VIAL ONE (23:26)
[2020-05-27] MEDS ORDERED: CEFTRIAXONE 1 GM/D5W RTU 1 GM/50 ML RTUPB IV ONE (23:30)
[2020-05-27] MEDS ORDERED: CEFTRIAXONE INJ 1000 MG VIAL IV SCH (23:30)
[2020-05-28] MEDS: MISOPROSTOL 0.1 MG TABLET PV SCH ×2 (00:14→02:47)
[2020-05-28] MEDS ORDERED: FAMOTIDINE 20 MG TABLET ONE (00:51)
[2020-05-28] MEDS ORDERED: IBUPROFEN 800 MG TABLET ONE (00:51)
[2020-05-28] MEDS: FAMOTIDINE 20 MG TABLET PO SCH ×3 (00:52→21:23)
--- NOTE | 2020-05-28 01:33 | Delivery Summary ---
Del Sum A-C Datetime Report Generated by CPN: 05/28/2020 01:33 DELIVERY PERSONNEL DELIVERY PERSONNEL: [id number] Delivery Doctor:: Vivian Sarkar MD Labor and Delivery Nurse:: Saadia Lake RNhealth analyst Nurse:: MIRTA Prabhakar [employer]/STRIP MINE SUPERVISOR: Crista Ross, ST MATERNAL INFORMATION Delivery Anesthesia: Epidural Medications After Delivery: Pitocin 30 Units in 500ml NS/D5W Estimated Blood Loss (ml): 250 Delivery QBL: 400 Maternal Complications: None LABOR SUMMARY EDC: 06/18/2020 00:00 No. Babies in Womb: 1 Attempted: No Labor Anesthesia: Epidural LABOR INFORMATION Reason for Induction: Pre-Eclampsia Onset of Labor: 05/27/2020 19:00 Complete Dilatation: 05/27/2020 22:00 Cervical Ripening Agents: Cervidil; Cytotec @ Oxytocin: Induction Group B Beta Strep: Unknown Antibiotics # of Doses: 2 Antibiotics Time of Last Dose: 05/27/2020 14:28 Name of Antibiotic Given: Ancef Steroids Given: None Reason Steroids Not Administered: Not Applicable MEMBRANES Membranes Rupture Method: Artificial Rupture of Membranes: 05/27/2020 15:50 Length of Rupture (hr): 7.27 Amniotic Fluid Color: Clear Amniotic Fluid Amount: Small Amniotic Fluid Odor: Normal STAGES OF LABOR Stage 1 hr: 3 Stage 1 min: 0 Stage 2 hr: 1 Stage 2 min: 6 Stage 3 hr: 0 Stage 3 min: 6 Total Time in Labor hr: 4 Total Time in Labor min: 12 VAGINAL DELIVERY Episiotomy: None Laceration #1: None Laceration Extension #1: N/A Laceration Repair: Not Applicable BABY A INFORMATION Infant Delivery Date/Time: 05/27/2020 23:06 Method of Delivery: Vaginal Nurse Controlled Delivery: No Born in Route : No : N/A Forceps: N/A Vacuum Extraction: N/A Shoulder Dystocia : Yes SHOULDER DYSTOCIA BABY A Delivery of Head: 05/27/2020 23:05 Time Head to Delivery : 1.0 1st Intervention to Resolve: McRobert's Maneuver 2nd Intervention to Resolve: Suprapubic Pressure 3rd Intervention to Resolve: Wynn Maneuver Verify NO Fundal Pressure: No Fundal Pressure Applied Arm Under Symphisis at Del: Left Shoulder Dystocia Comments: Wynn screw in clockwise fashion accomplished delivery. PRESENTATION/POSITION BABY A Presentation: Cephalic Cephalic Presentation: Vertex Vertex Position: Right Occipital Anterior Breech Presentation: N/A PLACENTA INFORMATION BABY A Placenta Delivery Time : 05/27/2020 23:12 Placenta Method of Delivery: Spontaneous Placenta Status: Delivered SCORES BABY A Heart Rate 1 min: >100 bpm Resp Effort 1 min: Slow, Irregular Reflex Irritability 1 min: No Response Muscle Tone 1 min: Flaccid Color 1 min: Blue/Pale Resuscitation Effort 1 min: Tactile Stimulation SCORE 1 MIN: 3 Heart Rate 5 min: >100 bpm Resp Effort 5 min: Good Cry Reflex Irritability 5 min: Cough or Sneeze or Pulls Away Muscle Tone 5 min: Active Motion Color 5 min: Body [place], Extremities Blue SCORE 5 MIN: 9 INFORMATION BABY A Gestational Age at Delivery: 36.6 Gestational Status: Late - 34- 36.6 Weeks Outcome : Liveborn Condition : Stable Infant Sex: Male IDENTIFICATION BABY A Verification Date/Time: 05/28/2020 00:01 ID Band Number: [id number] Mother's Name Verified: Yes Infant RN Verifying : RSuzette Lake, RN/ D. Elisakrissfee, RNC WEIGHT/LENGTH BABY A Birthweight (gm): 3320 Infant Weight (lb): 7 Weight (oz): 5 Infant Length (in): 19.00 Length (cm): 48.26 CORD INFORMATION BABY A No. Cord Vessels: 3 Nuchal Cord : N/A Cord Blood Taken: Yes-For Eval (Mom's Blood Type - or O+) ASSESSMENT BABY A Infant Complications: Shoulder Dystocia Physical Findings at Delivery: Within Normal Limits Skin to Skin: No Transferred To: Remains with Mother BABY B INFORMATION : N/A ASSESSMENT BABY B Skin to Skin: No SIGNATURES Signature: with User ID: [email or web address]
--- NOTE | 2020-05-28 01:33 | Birth Certificate Data ---
Cert Data Datetime Report Generated by CPN: 05/28/2020 01:33 CERTIFICATE DATA 47a. Care: Yes (04/12/2020 12:37:Pam Olson RN) 47b. Date of First Visit: 12/13/2019 00:00 (04/12/2020 12:37:Pam Olson RN) 47c. Date of Last Visit: 05/23/2020 00:00 (04/12/2020 12:37:Pam Olson RN) 47d. Number of Visits: 11 (04/12/2020 12:37:Pam Olson RN) 48a. Number of Prev Live Births: 0 (04/12/2020 12:37:Pam Olson RN) 48b. Now Livin (04/12/2020 12:37:Saige King RN) 48c. Live Births Now : 0 (04/12/2020 12:37:QS system process) 48e. Losses: 0 (04/12/2020 12:37:Pam Olson RN) RISK FACTORS IN THIS 49a. Diabetes: Yes (04/12/2020 12:37:Melanie Acosta RN) Type of Diabetes: Type I - IDDM (04/12/2020 12:37:Melanie Acosta RN) 49b. Hypertension: Yes (04/12/2020 12:37:Melanie Acosta RN) Type of Hypertension: Chronic (04/12/2020 12:37:Melanie Acosta RN) 49c. Previous Births: 0 (04/12/2020 12:37:Saige King RN) 49d. Stillborns: No (04/12/2020 12:37:Melanie Acosta RN) 49d. IUGR: No (04/12/2020 12:37:Pam lOson RN) Mother's Height 50b. Height Inches: 61 (05/26/2020 13:04:QS system process) Mother's Weight 51a. Pre- Weight (lbs): 150 (04/12/2020 12:37:Melanie Acosta RN) 51b. Weight at Delivery (lbs): 176 (05/26/2020 13:04:QS system process) Infections Present/Treated 53a. Gonorrhea: No (04/12/2020 12:37:Pam Olson RN) 53b. Syphilis: No (04/12/2020 12:37:Pam Olson RN) Results this Hospital Visit: NONREACTIVE (05/26/2020 12:14:QS system process) 53c. Chlamydia: No (04/12/2020 12:37:Pam Olson RN) 53d. Hepatitis B: No (04/12/2020 12:37:Melanie Acosta RN) Results this Hospital Visit: Negative (04/12/2020 12:37:Melanie Acosta RN) 53e. Hepatitis C: Negative (04/12/2020 12:37:Melanie Acosta RN) 53h. Mother Tested for HBsAG: Yes (04/12/2020 12:37:Pam Olson RN) 53i. Date Tested: 12/13/2019 00:00 (04/12/2020 12:37:Melanie Acosta RN) 53j. Test Result: Negative (04/12/2020 12:37:Melanie Acosta RN) Obstetric Procedures 54a, b, c. Obstetric Procedures: Ultrasound; NST; BPP (04/12/2020 12:37:Pam Olson RN) Cigarette Smoking Cigarette Smoking: Former Smoker. [id number] (04/12/2020 12:37:Pam Olson RN) 55a. 3 Months Before Preg - Ci (04/12/2020 12:37:Pam Olson RN) 55a. Packs: 0 (04/12/2020 12:37:Pam Olson RN) 55b. 1st Trimester of Preg- Ci (04/12/2020 12:37:Pam Olson RN) 55b. Packs: 0 (04/12/2020 12:37:Pam Olson RN) 55c. 2nd Trimester of Preg- Ci (04/12/2020 12:37:Pam Olson RN) 55c. Packs: 0 (04/12/2020 12:37:Pam Olson RN) 55d. 3rd Trimester of Preg- Ci (04/12/2020 12:37:Pam Olson RN) 55d. Packs: 0 (04/12/2020 12:37:Pam Olson RN) Onset of Labor 56a. PROM >12 Hrs: 7.27 (04/12/2020 12:37:QS system process) 56b. Precipitous Labor <3 Hrs: 4 (04/12/2020 12:37:QS system process) 56c. Prolonged Labor > 20 Hrs: 4 (04/12/2020 12:37:QS system process) 57a. Induction of Labor: Induction (04/12/2020 12:37:MIRTA Prabhakar) 57a. Induction of Labor: Cervidil; Cytotec @ (05/27/2020 06:21:MIRTA Prabhakar) 57c. Non-Vertex Presentation A: Vertex (04/12/2020 12:37:Vivian Sarkar MD ([facility])) 57d. Steroids - Lung Mat: None (04/12/2020 12:37:Vivian Sarkar MD ([facility])) 57d. Steroids - Lung Mat: Not Applicable (04/12/2020 12:37:Vivian Sarkar MD ([facility])) 57e. Antibiotics During Labor: 05/27/2020 14:28 (04/12/2020 12:37:Saadia Lake RN) 57f. Mat [place] or Temp >100.4: 99.4 (04/12/2020 12:37:MIRTA Prabhakar) 57g. Moderate/Heavy Meconium: Clear (05/27/2020 15:50:Pam Olson RN) 57i. Epidural/Spinal Anesthesia: Epidural (04/12/2020 12:37:MIRTA Prabhakar) Method of Delivery 58a. Forceps - Unsuccessful A: N/A (04/12/2020 12:37:MIRTA Prabhakar) 58b. Vacuum - Unsuccessful A: N/A (04/12/2020 12:37:MIRTA Prabhakar) 58c. Presentation at 58c. Presentation at - A : Vertex (04/12/2020 12:37:Vivian Sarkar MD ([facility])) 58c. Presentation at - A : N/A (04/12/2020 12:37:Saadia Lake RN) 58c. Presentation at - A : Cephalic (05/27/2020 20:57:Saadia Lake RN) Final Route and Method of Del 58d. Baby A Route/Delivery: Vaginal (04/12/2020 12:37:Elmira Bellmollye, [facility]) 58e. Trial of Labor Attempted: No (04/12/2020 12:37:Elmira Bellavance, RNC) 58e. Trial of Labor Attempted A: N/A (04/12/2020 12:37:Elmira Bellavance, [facility]) 58e. Trial of Labor Attempted B: N/A (04/12/2020 12:37:Elmira Bellavance, RNC) Maternal Morbidity 59b. 3rd or 4th Degree Lacs: None (04/12/2020 12:37:Vivian Sarkar MD ([facility])) Birthweight Baby A: 3320 (04/12/2020 12:37:Kathy Vergara RN) 60a. Pounds : 7 (04/12/2020 12:37:QS system process) 60b. Ounces: 5 (04/12/2020 12:37:QS system process) 61. GA at Delivery Baby A: 36.6 (04/12/2020 12:37:Elmiraerik Love, [facility]) : Late - 34- 36.6 Weeks (04/12/2020 12:37:QS system process) 62a. 5 Minute Baby A: 9 (04/12/2020 12:37:QS system process)
[2020-05-28] MEDS: IBUPROFEN 800 MG TABLET PO SCH ×3 (05:35→21:23)
[2020-05-28] MEDS: CEFAZOLIN 2 GM/D5W RTU 2 GM/50 ML RTUPB IV SCH ×3 (05:37→21:23)
[2020-05-28 06:51] LABS: HEMOGLOBIN 10.2 g/dL (12.0-15.5); MEAN CORPUSCULAR HEMOGLOBIN 29.4 pg (27.0-33.4); MEAN CORPUSCULAR HGB CONC 33.8 g/dL (32.0-36.0); MEAN CORPUSCULAR VOLUME 87 fl (80-97); PLATELET COUNT 265 10^3/uL (150-450); RED BLOOD COUNT 3.46 10^6/uL (3.72-5.28); RED CELL DISTRIBUTION WIDTH 13.6 % (11.5-14.0); WHITE BLOOD COUNT 20.7 10^3/uL (4.0-10.5)
[2020-05-28] MEDS: PRENATAL VITAMIN W DHA CAPSULE PO SCH (09:37)
[2020-05-28] MEDS: SENNOSIDES/DOCUSATE 8.6-50 MG 1 EACH TABLET PO SCH (09:38)
[2020-05-28] MEDS: VALACYCLOVIR HCL 500 MG TABLET PO SCH (09:38)
[2020-05-28] MEDS: FERROUS SULFATE 325 MG TABLET PO SCH ×2 (09:38→17:37)
[2020-05-28] MEDS: DOCUSATE SODIUM 100 MG CAPSULE PO SCH ×2 (09:38→17:37)
--- NOTE | 2020-05-28 12:29 | PDOC PROGRESS REPORT ---
Subjective-OB Progress Note for:: 05/28/20 Subjective: 24yo s/p ppd 1. Pt is ambulating and voiding without difficulty. Reports pain is well controlled with pain, No other concerns. Physical Exam (OB) Vital Signs: Temp Pulse Resp BP Pulse Ox 97.5 F 70 18 139/66 H 98 05/28/20 11:02 05/28/20 11:02 05/28/20 11:02 05/28/20 11:02 05/28/20 11:02 Intake & Output 05/27/20 05/28/20 05/29/20 06:59 06:59 06:59 Intake Total 50 2100 300 Balance 50 2100 300 Weight 79.9 kg - General General Appearance: Appears well In distress: None - PIH/Pre-Eclampsia DTR's: 2 + Clonus: Negative Headache: Absent Epigastric Pain: No Visual Changes: No - Maternal Morbidity 59. Maternal Morbidity (serious complications experinced by the mother associated with labor and delivery: None of the above - Episiotomy/Laceration Site Condition: N/A - Lochia Lochia Amount: Scant < 10 ml Lochia Color: Rubra/Red - Abdomen Description: Tender, Soft Hernia Present: No Fundal Description: Firm, Midline Fundal Height: u/u - u/2 - Respiratory Respiratory Status: No respiratory distress - Extremities Upper extremity: Normal inspection Lower extremities: Edema - Neurological Cognition: Normal Orientation: AAOx4 - Psychological Associated symptoms: Normal affect, Normal mood Objective-Diagnostic Laboratory: 05/28/20 06:28 05/27/20 14:40 05/27/20 05/27/20 05/27/20 14:40 14:40 14:40 WBC 14.3 H RBC 3.69 L Hgb 10.9 L Hct 31.7 L MCV 86 MCH 29.6 MCHC 34.4 RDW 13.6 Plt Count 264 Seg Neutrophils % 81.1 H Sodium 135.1 L Potassium 3.6 Chloride 109 H Carbon Dioxide 19 L Anion Gap 7 BUN 7 Creatinine 0.51 L Est GFR ( Amer) > 60 Glucose 82 Uric Acid 4.3 Calcium 8.6 Total Bilirubin 0.5 AST 21 Alkaline Phosphatase 149 H Total Protein 5.7 L Albumin 2.9 L 05/28/20 06:28 WBC 20.7 H RBC 3.46 L Hgb 10.2 L Hct 30.0 L MCV 87 MCH 29.4 MCHC 33.8 RDW 13.6 Plt Count 265 Seg Neutrophils % Sodium Potassium Chloride Carbon Dioxide Anion Gap BUN Creatinine Est GFR ( Amer) Glucose Uric Acid Calcium Total Bilirubin AST Alkaline Phosphatase Total Protein Albumin Assessment and Plan(PN) - Assessment and Plan (1) Vaginal delivery Is this a current diagnosis for this admission?: Yes Plan: routine pp care (2) Acute blood loss anemia Is this a current diagnosis for this admission?: Yes Plan: increase dietary iron and PO FeSO4 daily (3) Chronic hypertension affecting Is this a current diagnosis for this admission?: Yes Plan: continue to monitor for s/s of pre-e and need for antihypertensive therapy. Pt denies all s/s today (4) Pre-eclampsia complicating , with pre-existing hypertension, with delivery, current hospitalisation Is this a current diagnosis for this admission?: Yes Plan: same as above (5) Type I diabetes mellitus Qualifiers: Diabetes mellitus complication status: without complication Qualified Code(s): E10.9 - Type 1 diabetes mellitus without complications Is this a current diagnosis for this admission?: Yes Plan: received call from socket puller this am, glucose within parameters at this time. Has follow up scheduled, no need to change dosing at this time. - Time Spent with Patient Time with patient: Less than 15 minutes Medications reviewed and adjusted accordingly: Yes - Disposition Anticipated Discharge Disposition: Home, Self Care Anticipated Discharge Timeframe: within 24 hours
[2020-05-29] MEDS: CEFAZOLIN 2 GM/D5W RTU 2 GM/50 ML RTUPB IV SCH (05:42)
[2020-05-29] MEDS: IBUPROFEN 800 MG TABLET PO SCH ×3 (05:43→22:09)
[2020-05-29 07:07] LABS: HEMATOCRIT 26.3 % (36.0-47.0); HEMOGLOBIN 8.9 g/dL (12.0-15.5); MEAN CORPUSCULAR HEMOGLOBIN 29.4 pg (27.0-33.4); MEAN CORPUSCULAR VOLUME 87 fl (80-97); PLATELET COUNT 245 10^3/uL (150-450); RED BLOOD COUNT 3.04 10^6/uL (3.72-5.28); RED CELL DISTRIBUTION WIDTH 13.6 % (11.5-14.0); WHITE BLOOD COUNT 10.1 10^3/uL (4.0-10.5)
[2020-05-29] MEDS: FERROUS SULFATE 325 MG TABLET PO SCH ×2 (09:50→17:58)
[2020-05-29] MEDS: SENNOSIDES/DOCUSATE 8.6-50 MG 1 EACH TABLET PO SCH (09:50)
[2020-05-29] MEDS: DOCUSATE SODIUM 100 MG CAPSULE PO SCH ×2 (09:50→17:58)
[2020-05-29] MEDS: PRENATAL VITAMIN W DHA CAPSULE PO SCH (09:50)
[2020-05-29] MEDS: FAMOTIDINE 20 MG TABLET PO SCH ×2 (09:51→22:09)
[2020-05-29] MEDS: VALACYCLOVIR HCL 500 MG TABLET PO SCH (09:51)
--- NOTE | 2020-05-29 16:41 | PDOC PROGRESS REPORT ---
Subjective-OB Progress Note for:: 05/29/20 Subjective: reports bleeding slowing, pain controlled with current meds. denies needs Physical Exam (OB) Vital Signs: Temp Pulse Resp BP Pulse Ox 98.1 F 80 18 136/72 H 99 05/29/20 15:10 05/29/20 15:10 05/29/20 15:10 05/29/20 15:10 05/29/20 15:10 Intake & Output 05/28/20 05/29/20 05/30/20 06:59 06:59 06:59 Intake Total 2100 1100 380 Balance 2100 1100 380 - Maternal Morbidity 59. Maternal Morbidity (serious complications experinced by the mother associated with labor and delivery: None of the above - Abdomen Description: Soft Hernia Present: No Fundal Description: Firm Fundal Height: u/u - u/2 - Abdominal Distension: No distension Tenderness: Nontender - Extremities Lower extremities: Juventino's sign - neg Calf: Normal, Nontender Objective-Diagnostic Laboratory: 05/29/20 06:52 05/27/20 14:40 05/29/20 06:52 WBC 10.1 RBC 3.04 L Hgb 8.9 L Hct 26.3 L MCV 87 MCH 29.4 MCHC 34.0 RDW 13.6 Plt Count 245 Assessment and Plan(PN) - Time Spent with Patient Time with patient: Less than 15 minutes Medications reviewed and adjusted accordingly: Yes - Disposition Anticipated Discharge Disposition: Home, Self Care Anticipated Discharge Timeframe: within 24 hours
[2020-05-30] MEDS: IBUPROFEN 800 MG TABLET PO SCH ×2 (06:15→13:24)
[2020-05-30] MEDS: SENNOSIDES/DOCUSATE 8.6-50 MG 1 EACH TABLET PO SCH (10:25)
[2020-05-30] MEDS: DOCUSATE SODIUM 100 MG CAPSULE PO SCH (10:25)
[2020-05-30] MEDS: PRENATAL VITAMIN W DHA CAPSULE PO SCH (10:25)
[2020-05-30] MEDS: FERROUS SULFATE 325 MG TABLET PO SCH (10:25)
[2020-05-30] MEDS: VALACYCLOVIR HCL 500 MG TABLET PO SCH (10:25)
[2020-05-30] MEDS: FAMOTIDINE 20 MG TABLET PO SCH (10:25)
--- NOTE | 2020-05-30 10:56 | PDOC DISCHARGE SUMMARY ---
Impression - Admit/DC Date/PCP Admission Date/Primary Care Provider: 05/26/20 13:47 RAKEL LOUIE MD Discharge Date: 05/30/20 - PP Day #3, doing well, denies headache. IOL for Pre- eclampsia, type 1 DM. O+, rubella immune - Discharge Diagnosis (1) Acute blood loss anemia Is this a current diagnosis for this admission?: Yes (2) Chronic hypertension affecting Is this a current diagnosis for this admission?: Yes (3) Pre-eclampsia complicating , with pre-existing hypertension, with delivery, current hospitalisation Is this a current diagnosis for this admission?: Yes (4) delivered vaginally, 2,500 grams and over, 35-36 completed weeks Is this a current diagnosis for this admission?: Yes (5) Type I diabetes mellitus Is this a current diagnosis for this admission?: Yes (6) Vaginal delivery Is this a current diagnosis for this admission?: Yes (7) ADHD Is this a current diagnosis for this admission?: Yes - Additional Information Resuscitation Status: Full Code Discharge Diet: Diabetic Discharge Activity: Balance Activity w/Rest, Pelvic Rest Referrals: RAKEL LOUIE MD [Primary Care Provider] - Prescriptions: Ferrous Sulfate [Feosol 325 mg Tablet] 325 mg PO BID #60 tablet Ibuprofen [Motrin 800 mg Tablet] 800 mg PO Q8 #60 tablet Home Medications: Insulin Lispro [Humalog Insulin (Lispro) 100 unit/mL] 28 units PUMP ASDIR PRN 12/01/18 Vit,Calc76/Iron/Folic [Prenatabs Rx Tablet] 1 tab PO DAILY 04/12/20 Ferrous Sulfate [Feosol 325 mg Tablet] 325 mg PO BID #60 tablet 05/30/20 Ibuprofen [Motrin 800 mg Tablet] 800 mg PO Q8 #60 tablet 05/30/20 HPI Reason(s) for Admission: Induction of Labor Admission Note: Pre-eclampsia, type 1 DM Procedures: NST, Ultrasound Intrapartum Procedure(s): Spontaneous Vaginal Delivery Hospital Course 59. Maternal Morbidity (serious complications experinced by the mother associated with labor and delivery: None of the above Results Laboratory Results: WBC 10.1 10^3/uL (4.0-10.5) 05/29/20 06:52 RBC 3.04 10^6/uL (3.72-5.28) L 05/29/20 06:52 Hgb 8.9 g/dL (12.0-15.5) L 05/29/20 06:52 Hct 26.3 % (36.0-47.0) L 05/29/20 06:52 MCV 87 fl (80-97) 05/29/20 06:52 MCH 29.4 pg (27.0-33.4) 05/29/20 06:52 MCHC 34.0 g/dL (32.0-36.0) 05/29/20 06:52 RDW 13.6 % (11.5-14.0) 05/29/20 06:52 Plt Count 245 10^3/uL (150-450) 05/29/20 06:52 Lymph % (Auto) 12.5 % (13-45) L 05/27/20 14:40 Dawson % (Auto) 5.9 % (3-13) 05/27/20 14:40 Eos % (Auto) 0.1 % (0-6) 05/27/20 14:40 Baso % (Auto) 0.4 % (0-2) 05/27/20 14:40 Absolute Neuts (auto) 11.6 10^3/uL (1.7-8.2) H 05/27/20 14:40 Absolute Lymphs (auto) 1.8 10^3/uL (0.5-4.7) 05/27/20 14:40 Absolute Monos (auto) 0.9 10^3/uL (0.1-1.4) 05/27/20 14:40 Absolute Eos (auto) 0.0 10^3/uL (0.0-0.6) 05/27/20 14:40 Absolute Basos (auto) 0.1 10^3/uL (0.0-0.2) 05/27/20 14:40 Seg Neutrophils % 81.1 % (42-78) H 05/27/20 14:40 Sodium 135.1 mmol/L (137-145) L 05/27/20 14:40 Potassium 3.6 mmol/L (3.6-5.0) 05/27/20 14:40 Chloride 109 mmol/L (98-107) H 05/27/20 14:40 Carbon Dioxide 19 mmol/L (22-30) L 05/27/20 14:40 Anion Gap 7 (5-19) 05/27/20 14:40 BUN 7 mg/dL (7-20) 05/27/20 14:40 Creatinine 0.51 mg/dL (0.52-1.25) L 05/27/20 14:40 Est GFR ( Amer) > 60 (>60) 05/27/20 14:40 Est GFR (MDRD) Non-Af > 60 (>60) 05/27/20 14:40 Glucose 82 mg/dL (75-110) 05/27/20 14:40 Uric Acid 4.3 mg/dL (2.5-6.2) 05/27/20 14:40 Calcium 8.6 mg/dL (8.4-10.2) 05/27/20 14:40 Total Bilirubin 0.5 mg/dL (0.2-1.3) 05/27/20 14:40 Direct Bilirubin 0.2 mg/dL (0.0-0.4) 05/27/20 14:40 Neonat Total Bilirubin Not Reportable 05/27/20 14:40 Neonat Direct Bilirubin Not Reportable 05/27/20 14:40 Neonat Indirect Bili Not Reportable 05/27/20 14:40 AST 21 U/L (14-36) 05/27/20 14:40 ALT 9 U/L (<35) 05/27/20 14:40 Alkaline Phosphatase 149 U/L (38-126) H 05/27/20 14:40 Lactate Dehydrogenase 194 U/L (120-246) 05/27/20 14:40 Total Protein 5.7 g/dL (6.3-8.2) L 05/27/20 14:40 Albumin 2.9 g/dL (3.5-5.0) L 05/27/20 14:40 Urine Color YELLOW 05/26/20 12:00 Urine Appearance SLIGHTLY-CLOUDY 05/26/20 12:00 Urine pH 6.0 (5.0-9.0) 05/26/20 12:00 Ur Specific [place] 1.019 05/26/20 12:00 Urine Protein 100 mg/dL (NEGATIVE) H 05/26/20 12:00 Urine Glucose (UA) 50 mg/dL (NEGATIVE) H 05/26/20 12:00 Urine Ketones NEGATIVE mg/dL (NEGATIVE) 05/26/20 12:00 Urine Blood NEGATIVE (NEGATIVE) 05/26/20 12:00 Urine Nitrite NEGATIVE (NEGATIVE) 05/26/20 12:00 Urine Bilirubin NEGATIVE (NEGATIVE) 05/26/20 12:00 Urine Urobilinogen 2.0 mg/dL (<2.0) H 05/26/20 12:00 Ur Leukocyte Esterase TRACE (NEGATIVE) H 05/26/20 12:00 Urine WBC (Auto) 9 /HPF 05/26/20 12:00 Urine RBC (Auto) 1 /HPF 05/26/20 12:00 Urine Bacteria (Auto) 1+ /HPF 05/26/20 12:00 Squamous Epi Cells Auto 8 /HPF 05/26/20 12:00 Urine Mucus (Auto) MOD /LPF 05/26/20 12:00 Urine Creatinine 188.2 mg/dL (16-327) 05/26/20 12:00 Protein/Creatinin Ratio 0.9 mg/mg (0.0-0.2) H 05/26/20 12:00 Urine Total Protein 164.1 mg/dL (<12) H 05/26/20 12:00 Urine Ascorbic Acid 40 (NEGATIVE) H 05/26/20 12:00 Urine Opiates Screen NEGATIVE 05/26/20 12:00 Urine Methadone Screen NEGATIVE 05/26/20 12:00 Ur Barbiturates Screen NEGATIVE 05/26/20 12:00 Ur Phencyclidine Scrn NEGATIVE 05/26/20 12:00 Ur Amphetamines Screen NEGATIVE 05/26/20 12:00 U Benzodiazepines Scrn NEGATIVE 05/26/20 12:00 Urine Cocaine Screen NEGATIVE 05/26/20 12:00 U Marijuana (THC) Screen NEGATIVE 05/26/20 12:00 RPR NONREACTIVE (NONREACTIVE) 05/26/20 12:14 Blood Type O POSITIVE 05/26/20 15:45 Antibody Screen NEGATIVE 05/26/20 15:45 Plan Plan of Treatment: d/c home, d/up with Endocrine doctor as needed for her type 1 DM. f/up with [facility] in 1 wk for a BP check Time Spent: Less than 30 Minutes
[2020-05-30 11:59] VITALS: BP 136/72
== END 2020-05-30 14:10 | disposition home or self-care (01) | DRG 806 ==
LOC: LC 11:31 → LR 13:47 → 2S 05-28 01:37
PROVIDERS: ADMIT Obstetrics & Gynecology; ATTEND Obstetrics & Gynecology
PROC: 10E0XZZ Delivery of Products of Conception, External Approach (ICD-10-PCS; principal; 2020-05-27)
PROC: 3E033VJ Introduction of Other Hormone into Peripheral Vein, Percutaneous Approach (ICD-10-PCS; 2020-05-27)
PROC: 10907ZC Drainage of Amniotic Fluid, Therapeutic from Products of Conception, Via Natural or Artificial Opening (ICD-10-PCS; 2020-05-27)
DX: O11.4 Pre-existing hypertension with pre-eclampsia, complicating childbirth (principal); D62 Acute posthemorrhagic anemia; Z37.0 Single live birth; O98.32 Other infections with a predominantly sexual mode of transmission complicating childbirth; O10.02 Pre-existing essential hypertension complicating childbirth; O90.81 Anemia of the puerperium; O24.02 Pre-existing type 1 diabetes mellitus, in childbirth; F90.9 Attention-deficit hyperactivity disorder, unspecified type; O99.344 Other mental disorders complicating childbirth; A60.9 Anogenital herpesviral infection, unspecified; O99.284 Endocrine, nutritional and metabolic diseases complicating childbirth; E03.9 Hypothyroidism, unspecified; Z96.41 Presence of insulin pump (external) (internal); A63.0 Anogenital (venereal) warts; O66.0 Obstructed labor due to shoulder dystocia; Z88.0 Allergy status to penicillin; Z88.1 Allergy status to other antibiotic agents; Z3A.36 36 weeks gestation of pregnancy
CPT/HCPCS: 1967; 36415; 80053; 80307; 81001; 82570; 83615; 84156; 84550; 85025; 85027; 86592; 86850; 86900; 86901; J0360; J0690; J0696; J2405; J2590; J2795; J3010; J3105; J3475; J3490